=== PATIENT | female | born 1940 | race Asian ===

== ENCOUNTER 2018-04-03 02:47 | Inpatient (IN) | payer MEDICARE, MEDICAID ==
[2018-04-03] MEDS ORDERED: Sodium Chloride 0.9% 1,000 ML IV ONE (03:21)
--- NOTE | 2018-04-03 03:30 | ED Physician Chart ---
ED Chief Complaint/HPI - Patient Information Date Seen:: 04/03/18 Time Seen:: 03:05 Chief Complaint:: ABNORMAL LABS History of Present Illness:: THIS IS AN 78 YR OLD FEMALE SENT FROM THE [facility] FOR AN EVALUATION AND TREATMENT OF ABNORMAL LAB RESULTS. SHE IS CHRONICALLY ILL WITH DIABETES MELLITUS, PARKINSON'S, COLON CA AND RESPIRATORY FAILURE WITH DYSPHASIA. Allergies:: Allergies Allergy/AdvReac Type Severity Reaction Status Date / Time codeine Allergy Verified 04/03/18 03:06 Sulfa (Sulfonamide Allergy Verified 04/03/18 03:06 Antibiotics) Vitals:: Vital Signs - 8 hr 04/03/18 02:55 Temp 98.1 F HR 134 RR 20 BP 101/43 O2 Sat % 98 Historian:: Patient, Medical Records Review:: Nurse's Note Reviewed, Transfer documents Reviewed, Patient unable to respond ED Review of Systems - Review of Systems General/Constitutional: No fever, No chills, No weight loss, No weakness, No diaphoresis, No edema, No loss of appetite, Other (SEMI COMATOSE AND NOT ABLE TO GIVE A REVIEW OF SYSTEMS.) Skin: No skin lesions, No rash, No bruising Head: No headache, No light-headedness Eyes: No loss of vision, No pain, No diplopia ENT: No earache, No nasal drainage, No sore throat, No tinnitus Neck: No neck pain, No swelling, No thyromegaly, No stiffness, No mass noted Cardio Vascular: No chest pain, No palpitations, No PND, No orthopnea, No edema Pulmonary: No SOB, No cough, No sputum, No wheezing GI: No nausea, No vomiting, No diarrhea, No pain, No melena, No hematochezia, No constipation, No hematemesis G/U: No dysuria, No frequency, No hematuria Musculoskeletal: No bone or joint pain, No back pain, No muscle pain Endocrine: No polyuria, No polydipsia Psychiatric: No prior psych history, No depression, No anxiety, No suicidal ideation Hematopoietic: No bruising, No lymphadenopathy Allergic/Immuno: No urticaria, No angioedema Neurological: No syncope, No focal symptoms, No weakness, No paresthesia, No headache, No seizure, No dizziness, No confusion, No vertigo ED Past Medical History - Past Medical History Obtainable: Yes Past Medical History: HTN, DM, CVA/TIA, DVT/PE, ESRD, Dementia, Other (COLON CA , PARKINSONISM, ) Family History: None Social History: Non Smoker, No Alcohol, No Drug Use, Care Facility Surgical History: PEG/GTube, other (COLECTOMY,) Psychiatricy History: Depression Medication: Reviewed Family Medical History - Family Member Mother History Unknown: Yes ED Physical Exam - Physical Examination General/Constitutional: Awake, Well-developed, well-nourished, Alert, No distress, GCS 15, Non-toxic appearing, Ambulatory Other Gen/Cons comments:: THIS PATIENT IS LETHARGIC BUT RESPONSIVE TO VERBAL COMMANDS. THIS PATIENT IS CACHEXTIC. Head: Atraumatic Eyes: Lids, conjuctiva normal, PERRL, EOMI Skin: Nl inspection, No rash, No skin lesions, No ecchymosis, Well hydrated ( DEHYDRATED), No lymphadenopathy ENMT: External ears, nose nl, Nasal exam nl, Lips, teeth, gums nl Neck: Nontender, Full ROM w/o pain, No JVD, No nuchal rigidity, No bruit, No mass, No stridor Respiratory: Nl effort/Exclusion, Clear to Auscultation, No Wheeze/Rhonchi/Rales Cardio Vascular: RRR, No murmur, gallop, rubs, NL S1 S2 GI: No tenderness/rebounding/guarding (THERE IS GENERALIZE TENDERNESS OF THE ABDOMEN WITH MULTIPLE DRAINS NOTED.), No organomegaly, No hernia, Normal BS's, Nondistended, No mass/bruits, No McBurney tenderness : No CVA tenderness Extremities: No tenderness or effusion, Full ROM, normal strength in all extremities (ALL FOUR EXTREMITIES ARE WEAK WITH SEVERE MUSCLE WASTING NOTED.), No edema, Normal digits & nails Neuro/Psych: Alert/oriented, DTR's symmetric, Normal sensory exam, Normal motor strength, Judgement/insight normal (THE PATIENT IS DISORIENTED AND WEAK BUT CAN MOVE ALL FOUR EXTREMITIES.), Mood normal, Normal gait, No focal deficits Misc: Normal back, No paraspinal tenderness Other Misc comments:: STAGE 1-2 IN THE COCCYX AREA NOTED. ED Labs/Radiology/EKG Results - EKG Interpretations EKG Time:: 03:39 Rate & Rhythm: RATE = 133, SINUS TACHYCARDIA [place]: RIGHT AXIS Intervals: NO ECTOPY SEEN ED Assessment - Assessment General Assessment: RENAL FAILURE DEHYDRATION ED Septic Shock - . Is Septic Shock (SBP<90, OR Lactate>4 mmol\L) present?: Yes - <6hrs of presentation: Vital Signs: Vital Signs - 8 hr 04/03/18 02:55 Temp 98.1 F HR 134 RR 20 BP 101/43 O2 Sat % 98 Assessment of Lungs: No Rales Assessment of Heart: RRR EKG Interpretation: NSR, No ST elevation, No ST depression, Tachy Capillary refill evaluation: Capillary refill < 2 secs Skin Exam: Warm - Peripheral pulse evaluation Brachial Peripheral pulse evaluation-quality: +3 (bounding), Symmetrical - Time of Reassessment Time of Reassessment: 05:22 (IMPROVED) ED Reassessment (Disposition) - Reassessment Reassessment Condition:: Improved - Diagnosis Diagnosis:: SEPSIS DEHYDRATION COCCYX ULCER - Patient Disposition Discharge/Transfer:: Acute Care w/in this hosp Admitting Medical Physician:: Virginia Lucas Condition at Disposition:: Improved ED Discharge Plan - Patient Disposition Admit/Discharge/Transfer: Acute Care w/in this hosp Condition at Disposition: Improved
[2018-04-03 04:27] LABS: HEMATOCRIT 36.3 % (41.0-60); HEMOGLOBIN 11.6 gm/dL (12-16); MANUAL DIFF REQUIRED? YES; MEAN CELL VOLUME 81.5 fl (81-100); MEAN CORPUSCULAR HEMOGLOBIN 26.2 pg (27.0-31.0); MEAN CORPUSCULAR HGB CONC 32.1 pg (28.0-36.0); MEAN PLATELET VOLUME 8.3 fl; PLATELET COUNT 324 Th/cmm (150-400); RED BLOOD COUNT 4.45 Mil/cmm (3.80-5.20); RED CELL DISTRIBUTION WIDTH 21.7 % (11.5-20.0)
[2018-04-03 04:33] LABS: WHITE BLOOD COUNT 20.1 Th/cmm (4.8-10.8)
[2018-04-03 04:50] LABS: ALB/GLOB RATIO 0.9 (1.0-1.8); ALBUMIN 3.9 gm/dL (3.7-5.3); ALKALINE PHOSPHATASE 107 U/L (34-104); BILIRUBIN,TOTAL 0.5 mg/dL (0.3-1.0); CALCIUM SERUM 10.8 mg/dL (8.6-10.3); CARBON DIOXIDE 32.1 mEq/L (21.0-31.0); CHLORIDE 91 mEq/L (98-107); CREATININE - SERUM 1.7 mg/dL (0.6-1.2); GLUCOSE 276 mg/dL (70-105); POTASSIUM SERUM 4.1 mEq/L (3.5-5.1); SGOT 19 U/L (13-39); SGPT/ALT 7 U/L (7-52); SODIUM SERUM 139 mEq/L (136-145); TOTAL PROTEIN,SERUM 8.5 gm/dL (6.0-8.3)
[2018-04-03 04:52] LABS: BUN - UREA NITROGEN 130 mg/dL (7-25)
[2018-04-03 04:53] LABS: URINE MICROSCOPIC INDICATED? YES; URINE SOURCE FOLEY PORT
[2018-04-03 04:59] LABS: URINE BILIRUBIN NEGATIVE (NEGATIVE); URINE BLOOD TRACE (NEGATIVE); URINE GLUCOSE (UA) NEGATIVE (NEGATIVE); URINE KETONE NEGATIVE (NEGATIVE); URINE LEUKOCYTE ESTERASE LARGE (NEGATIVE); URINE NITRATE NEGATIVE (NEGATIVE); URINE PROTEIN NEGATIVE (NEGATIVE); URINE UROBILINOGEN 0.2 E.U./dL (0.2 - 1.0)
[2018-04-03 05:00] LABS: BAND NEUTROPHILE 5 % (0-10); LYMPHOCYTE 9 % (20-50); NEUTROPHILS 86 % (40-80); TOTAL CELLS COUNTED 100
[2018-04-03] MEDS ORDERED: Sodium Chloride 0.45% 1,000 ML IV ONE (05:00)
[2018-04-03 05:01] LABS: PLATELET ESTIMATE ADEQUATE (NORMAL)
[2018-04-03 05:02] LABS: URINE CLARITY HAZY (CLEAR); URINE COLOR YELLOW
[2018-04-03 05:03] LABS: URINE RBC 0-2 /hpf (0-5)
[2018-04-03 05:04] LABS: URINE BACTERIA MODERATE /hpf (NONE SEEN); URINE EPITHELIAL CELLS OCCASIONAL /lpf (FEW)
[2018-04-03 05:06] LABS: INR 1.05 (0.5-1.4); PROTHROMBIN TIME (TEST) 10.9 SECONDS (9.5-11.5)
[2018-04-03] MEDS ORDERED: Acetaminophen 500 MG TAB GT ONE (05:07)
[2018-04-03] MEDS ORDERED: D5-0.45NS 1,000 ML IV SCH (06:35)
[2018-04-03] MEDS ORDERED: Pneumococcal Vaccine 0.5 mL Vial IM ONE (08:06)
[2018-04-03] MEDS ORDERED: Morphine Sulfate 2 mg/mL 1mL Syr IVP PRN ×2 (08:43)
[2018-04-03] MEDS: Sodium Chloride 0.45% 1,000 ML IV SCH ×3 (09:45→17:15)
[2018-04-03] MEDS: cefTRIAXone 1 GM in Sodium Chloride 0.9% 50 ML IV SCH (11:00)
[2018-04-03] MEDS: INSULIN ASPART SLIDING SCALE 100 UNITS/ML UNIT SUBQ SCH ×2 (12:27→18:37)
[2018-04-03] MEDS ORDERED: LIDOCAINE 1% IH PRN (13:55)
[2018-04-03] MEDS ORDERED: Diatrizoate Meglumine/Diatri 30 mL Sol PO ONE (13:55)
[2018-04-03] MEDS ORDERED: Fleet Enema 135 mL RC PRN (13:55)
[2018-04-03] MEDS ORDERED: Magnesium Hydroxide (MOM) 30 mL UDC NG PRN (13:55)
[2018-04-03] MEDS ORDERED: Non-Formulary Item 1 EA (Ondansetron Hcl [Zofran*] 4 MG) NG PRN (13:55)
[2018-04-03] MEDS ORDERED: Albumin 25% 25gm/100mL 25 GM/100 ML BTL IV ONE (14:55)
[2018-04-03] MEDS ORDERED: Sodium Chloride 0.9% 500 ML IV ONE (14:56)
[2018-04-03] MEDS: Albumin 25% 25gm/100mL 25 GM/100 ML BTL IV ONE ×2 (15:00→15:25)
[2018-04-03] MEDS ORDERED: Non-Formulary Item 1 EA (Insulin Lispro [Humalog] 1 UNIT) SUBQ SCH (16:30)
[2018-04-03] MEDS ORDERED: INSULIN ASPART, RECOMBINANT 100 UNITS/ML SUBQ SCH (16:30)
[2018-04-03] MEDS ORDERED: METOLAZONE 10 MG NG SCH (17:00)
[2018-04-03] MEDS ORDERED: Metolazone 5 MG TAB NG SCH (17:00)
[2018-04-03] MEDS ORDERED: Non-Formulary Item 1 EA (Protein Supplement [Promod] 30 ML) NG SCH (17:00)
--- NOTE | 2018-04-03 17:06 | Consultation ---
DATE OF CONSULTATION: 04/03/2018 SURGICAL CONSULTATION REFERRING PHYSICIAN: Dr. Lucas. REASON FOR CONSULTATION: Mass and pain, abdomen. Thank you for referring this patient to me. HISTORY OF PRESENT ILLNESS: This is an 78-year-old female who was last admitted at [facility] on 01/11/2018 with sepsis. She has history of colon carcinoma with colon resection. She has a history of segmental resection of the ileum with primary end-to-end anastomosis and had episodes of lower GI bleeding. She was at [facility] and later at [facility] in [place] for the last 3 weeks. Was noted to have pain and mass in the right lower quadrant for which she is admitted. LABORATORY STUDIES: Show WBC at 20,100, hemoglobin of 11.6. Bands 5%, platelet count is normal. Chemistry: BUN is 130 with creatinine of 1.7. Blood sugar 276. PHYSICAL EXAMINATION: Shows a large mass which is tender in the right lower quadrant and scar from recent surgery. PLAN: We will do CT scan of abdomen and pelvis with oral contrast. Possibility of hemodialysis because of the markedly elevated BUN and creatinine is considered. The plan is discussed with the family who understands. JOB# [id number]
--- NOTE | 2018-04-03 17:12 | History & Physical ---
ADMIT DATE: 04/03/2018 HISTORY OF PRESENT ILLNESS: The patient is a resident of [facility]. They called me regarding the labs. The patient had a severe elevation of his BUN and creatinine and the patient had severe dehydration and was complaining of lower abdominal pain. The patient was evaluated in the [place] ER, was found to have some tenderness as well as mass in the lower abdomen. The patient is known to have history of hypertension, diabetes, history of severe dementia, end-stage renal disease, colon cancer, and Parkinson disease. PHYSICAL EXAMINATION: GENERAL: The patient on examination had no fever, no chills. HEAD: Normal. ENT: Normal. LUNGS: Bilateral decreased. CARDIOVASCULAR SYSTEM: S1, S2 heard. ABDOMEN: Soft. Lower abdominal tenderness was noted, mass was noted, possible abscess and the patient had a history of G-tube in the past and his colostomy. DIAGNOSES: Increasing renal failure, sepsis, dehydration, lower abdominal mass, possible sepsis, history of multiple medical problems including hypertension, diabetes, history of CVA, dementia, etc., and also history of colon cancer and I will follow the patient. I will have Dr. Bryce Rojas see the patient. I will also have the surgeon see the patient. JOB# [id number]
[2018-04-03] MEDS ORDERED: Diltiazem 5 mg/mL 5mL Vial IVP PRN (17:53)
[2018-04-03] MEDS ORDERED: Diltiazem 5 mg/mL 5mL Vial IVP ONE (17:54)
[2018-04-03] MEDS: Insulin Detemir 100 units/mL 10mL Vial SUBQ SCH (18:39)
[2018-04-03] MEDS: Albuterol/Ipratropium Neb 3 ML AERS HHN SCH (19:04)
[2018-04-03] MEDS ORDERED: Non-Formulary Item 1 EA (Melatonin/Pyridoxine Hcl (B6) [Melatonin 3 Mg Tablet] 1 EACH) NG SCH (21:00)
[2018-04-03] MEDS: Enoxaparin 60 mg/0.6 mL 0.6mL Syr SUBQ SCH (21:37)
--- NOTE | 2018-04-03 22:40 | Consultation ---
DATE OF CONSULTATION: 04/03/2018 REASON FOR CONSULTATION: Worsening kidney function, electrolyte imbalance and fluid management. HISTORY OF PRESENT ILLNESS: This is an 78-year-old [place] past medical history of chronic kidney disease, who was admitted because of abnormal labs. Two days prior to admission, the patient had labs drawn at the [facility]. This revealed a BUN/creatinine of 82/1. One day prior to admission, another set of labs were done and this showed a BUN/creatinine of 96/1.2. Thus, she was brought to the Emergency Room. Her BUN/creatinine upon arrival at the Emergency Room were 130/1.7 with a sodium of 139, and CO2 of 32.1. Lactic acid was 3.24. Her urinalysis was suggestive of a UTI. She has no history of nausea and vomiting, no diarrhea, but she had recent history of C. diff colitis. PAST MEDICAL HISTORY: 1. Chronic kidney disease. 2. Adeno CA of the colon diagnosed in 2011. 3. Anemia of chronic disease. 4. History of Clostridium difficile colitis recently on vancomycin p.o. 5. Essential hypertension. 6. Parkinson's disease. 7. History of left intraperitoneal/retroperitoneal abscess, retroperitoneal VSE, esperanza abscess. This was managed with vancomycin, cefepime and Flagyl. 8. Type 2 diabetes mellitus. 9. Anasarca. PAST SURGICAL HISTORY: 1. Partial colectomy in 2014. 2. Status post exploratory laparotomy with lysis of adhesions and sigmoid resection with anastomosis on December 2017. 3. Status post insertion of a pigtail catheter for drainage of abdominal abscess. CURRENT MEDICATIONS: She is currently on acetaminophen, bisacodyl, ceftriaxone, chlorhexidine, cholecalciferol, clonidine, diatrizoate, Lovenox, famotidine, furosemide, detemir, ketorolac, lactobacillus, magnesium hydroxide, melatonin, metolazone, pantoprazole, potassium chloride, zinc sulfate. ALLERGIES: CODEINE AND SULFA. SOCIAL AND FAMILY HISTORY: I was not able to obtain directly from the patient because the patient remains stuporous. REVIEW OF SYSTEMS: Again, I was not able to decipher directly from the patient because of the same reason. PHYSICAL EXAMINATION: GENERAL: The patient remains stuporous, but not in any form of distress. VITAL SIGNS: Her blood pressure now is 110/60, pulse of 115, afebrile. SKIN: Poor turgor, warm, no rash, no jaundice appreciated. HEENT: Head normocephalic, atraumatic. Eyes: Unable to assess extraocular muscles. Pupils are equal, round, reactive to light and accommodates. Anicteric sclerae. Pale conjunctivae. Nose, midline nasal septum. Mouth: Dry mucosa. Poor dentition. NECK: Supple, no adenopathy, no thyromegaly, no bruits. Trachea palpated in the midline. CHEST AND CVS: S1, S2 tachycardic, but no rub, murmur nor gallop appreciated. Point of maximal impulse fifth intercostal space, left midclavicular line. No abdominal or femoral bruits appreciated. LUNGS: Equal expansion, no use of accessory muscles. No supraclavicular retractions, few rhonchi, but no rales, no wheezes appreciated. BREASTS: Symmetrical, without any discharge. ABDOMEN: Mildly globular, soft. Diminished bowel sounds. No bruits either diastolic or systolic, well-healed mid epigastric longitudinal scar. RECTAL: Lax sphincter tone. Coccyx stage 2 coccygeal ulcer. MUSCULOSKELETAL: No effusions present in her joints, but not able to assess her range of motion. EXTREMITIES: No evidence of any edema, cyanosis nor clubbing with palpable femoral, but unable to fully appreciate popliteal and dorsalis pedis pulses. NEUROLOGIC: As mentioned, the patient is stuporous, so she was not able to follow my neuro commands and I was not able to pursue further my neuro exam. LABORATORY DATA: Did reveal white count , hemoglobin 11.6, hematocrit 36.3, platelets 324. Sodium 139, potassium 4.1, chloride is 91, bicarbonate is 32, BUN 130, creatinine 1.7, glucose is 276, calcium 10.8. ASSESSMENT AND PLAN: 1. Acute kidney injury on chronic kidney disease. Chronic kidney disease is secondary to diabetic nephropathy with longstanding history of diabetes with some underlying hypertensive nephrosclerosis. Her acute kidney injury is prerenal initially. The patient was on G-tube feeding, but this was not enough to supplement or replace her sensible and insensible fluid losses. She eventually developed dehydration. This was also exacerbated by her intake of furosemide along with metolazone. Her prerenal azotemia eventually progressed to acute tubular injury. She also has overwhelming UTI which may cause an underlying acute interstitial nephritis. 2. Severe dehydration. 3. Sepsis secondary to complicated urinary tract infection but also consider possibility of recurrent Clostridium difficile colitis. 4. Metabolic alkalosis which is contraction in nature. 5. Adeno CA of the colon, status post partial colectomy, status post repeat exploratory laparotomy with lysis of adhesion and sigmoid resection. 6. Left intraperitoneal/retroperitoneal VSE, esperanza abscess, status post placement of pigtail catheter for drainage. 7. Anemia of chronic disease. 8. History of C. diff colitis. 9. Essential hypertension with chronic kidney disease. 10. Type 2 diabetes mellitus with chronic kidney disease. 11. Parkinson's disease. 12. History of anasarca. PLAN: 1. Urine C and S. 2. Urine spot sodium, eosinophils, and creatinine. 3. Follow up cortes culture. 4. Followup CT of the abdomen/pelvis. 5. Agree with IV fluids. 6. Follow up electrolytes. 7. Discontinue furosemide, NSAIDs and metolazone. Thank you Dr. Lucas for this consult. We will follow the patient closely with you. JOB# [id number]
[2018-04-04] MEDS: INSULIN ASPART SLIDING SCALE 100 UNITS/ML UNIT SUBQ SCH ×4 (00:46→18:53)
[2018-04-04] MEDS: Albuterol/Ipratropium Neb 3 ML AERS HHN SCH ×4 (00:48→18:47)
[2018-04-04] MEDS: Sodium Chloride 0.45% 1,000 ML IV SCH ×2 (01:02→06:45)
[2018-04-04 04:50] LABS: HEMATOCRIT 23.5 % (41.0-60); MEAN CELL VOLUME 81.3 fl (81-100); MEAN CORPUSCULAR HEMOGLOBIN 26.9 pg (27.0-31.0); MEAN PLATELET VOLUME 7.7 fl; PLATELET COUNT 229 Th/cmm (150-400); RED BLOOD COUNT 2.89 Mil/cmm (3.80-5.20); RED CELL DISTRIBUTION WIDTH 21.3 % (11.5-20.0); WHITE BLOOD COUNT 11.3 Th/cmm (4.8-10.8)
[2018-04-04 05:00] LABS: ANION GAP 10.1 (7.0-16.0); BUN - UREA NITROGEN 68 mg/dL (7-25); CALCIUM SERUM 8.9 mg/dL (8.6-10.3); CARBON DIOXIDE 30.6 mEq/L (21.0-31.0); CHLORIDE 102 mEq/L (98-107); CHOLESTEROL 88 mg/dL (<200); CREATININE - SERUM 0.7 mg/dL (0.6-1.2); GLUCOSE 122 mg/dL (70-105); HDL -HIGH DENSITY LIPOPROTEIN 24 mg/dL (23-92); PHOSPHOROUS 2.6 mg/dL (2.5-5.0); SODIUM SERUM 140 mEq/L (136-145); TRIGLYCERIDES 221 mg/dL (<150); URIC ACID 10.4 mg/dL (2.3-6.6)
[2018-04-04 05:29] LABS: HEMOGLOBIN 7.8 gm/dL (12-16); MANUAL DIFF REQUIRED? YES
[2018-04-04 05:40] LABS: POTASSIUM SERUM 2.7 mEq/L (3.5-5.1)
[2018-04-04] MEDS ORDERED: Potassium Chloride Elixir 20 mEq /15 mL UDC NG ONE ×3 (05:51→08:00)
[2018-04-04 06:07] LABS: BAND NEUTROPHILE 4 % (0-10); EOSINOPHIL 1 % (0-5); LYMPHOCYTE 10 % (20-50); MONOCYTE 6 % (2-10); NEUTROPHILS 79 % (40-80); TOTAL CELLS COUNTED 100
[2018-04-04 06:08] LABS: ANISOCYTOSIS 1+
[2018-04-04 07:49] LABS: EOSINOPHIL SMEAR SOURCE URINE; EOSINOPHILS SMEAR COUNT NONE SEEN (NONE SEEN)
--- NOTE | 2018-04-04 08:20 | Diagnostic Imaging Report ---
CHEST X-RAY: AP view INDICATION: Sepsis COMPARISON: None FINDINGS: NG tube is seen with tip along the fundal portion of the stomach. Small left effusion versus left basal pleural thickening is noted. Chronic interstitial lung changes are noted. No focal consolidation. Heart size normal. Degenerative changes of the spine are noted. IMPRESSION: Chronic interstitial lung changes are noted with small left effusion versus left basal pleural thickening. No focal consolidation identified. NG tube within the stomach.
--- NOTE | 2018-04-04 08:28 | General Progress Note ---
Subjective - Review of Systems Service Date: 04/04/18 Events since last encounter: Hb down to 7.8, PRBC ordered K low for CT abdomen and pelvis with gastrograffin Objective - Results Result Diagrams: 04/04/18 05:15 04/04/18 04:15 Recent Labs: Laboratory Last Values WBC 11.3 Th/cmm (4.8-10.8) H 04/04/18 05:15 RBC 2.89 Mil/cmm (3.80-5.20) L 04/04/18 05:15 Hgb 7.8 gm/dL (12-16) L* 04/04/18 05:15 Hct 23.5 % (41.0-60) L 04/04/18 05:15 MCV 81.3 fl (81-100) 04/04/18 05:15 MCH 26.9 pg (27.0-31.0) L 04/04/18 05:15 MCHC Differential 33.0 pg (28.0-36.0) 04/04/18 05:15 RDW 21.3 % (11.5-20.0) H 04/04/18 05:15 Plt Count 229 Th/cmm (150-400) 04/04/18 05:15 MPV 7.7 fl 04/04/18 05:15 Band Neutrophils % 4 % (0-10) 04/04/18 05:15 Neutrophils (Manual) 79 % (40-80) 04/04/18 05:15 Lymphocytes 10 % (20-50) L 04/04/18 05:15 Monocytes 6 % (2-10) 04/04/18 05:15 Eosinophils 1 % (0-5) 04/04/18 05:15 Platelet Estimate ADEQUATE (NORMAL) 04/03/18 04:15 Anisocytosis 1+ 04/04/18 05:15 Eos Smear Source URINE 04/04/18 04:12 Eos Smear Total Cells NONE SEEN (NONE SEEN) 04/04/18 04:12 PT 10.9 SECONDS (9.5-11.5) 04/03/18 04:40 INR 1.05 (0.5-1.4) 04/03/18 04:40 PTT (Actin FS) 28.9 SECONDS (26.0-38.0) 04/03/18 04:40 Sodium 140 mEq/L (136-145) 04/04/18 04:15 Potassium 2.7 mEq/L (3.5-5.1) L* D 04/04/18 04:15 Chloride 102 mEq/L (98-107) 04/04/18 04:15 Carbon Dioxide 30.6 mEq/L (21.0-31.0) 04/04/18 04:15 Anion Gap 10.1 (7.0-16.0) 04/04/18 04:15 BUN 68 mg/dL (7-25) H 04/04/18 04:15 Creatinine 0.7 mg/dL (0.6-1.2) 04/04/18 04:15 Est GFR ( Amer) TNP 04/04/18 04:15 Est GFR (Non-Af Amer) TNP 04/04/18 04:15 BUN/Creatinine Ratio 97.1 04/04/18 04:15 Glucose 122 mg/dL (70-105) H 04/04/18 04:15 POC Glucose 91 MG/DL (70 - 105) 04/04/18 00:41 Whole Bld Lactic Acid 1.46 mmol/L (0.60-1.99) 04/04/18 04:15 Uric Acid 10.4 mg/dL (2.3-6.6) H 04/04/18 04:15 Calcium 8.9 mg/dL (8.6-10.3) 04/04/18 04:15 Phosphorus 2.6 mg/dL (2.5-5.0) 04/04/18 04:15 Magnesium 2.0 mg/dL (1.9-2.7) 04/04/18 04:15 Total Bilirubin 0.5 mg/dL (0.3-1.0) 04/03/18 03:25 AST 19 U/L (13-39) 04/03/18 03:25 ALT 7 U/L (7-52) 04/03/18 03:25 Alkaline Phosphatase 107 U/L (34-104) H 04/03/18 03:25 Troponin I 0.03 ng/mL (0.01-0.05) 04/03/18 04:15 Total Protein 8.5 gm/dL (6.0-8.3) H 04/03/18 03:25 Albumin 3.9 gm/dL (3.7-5.3) 04/03/18 03:25 Globulin 4.6 gm/dL 04/03/18 03:25 Albumin/Globulin Ratio 0.9 (1.0-1.8) L 04/03/18 03:25 Triglycerides 221 mg/dL (<150) H 04/04/18 04:15 Cholesterol 88 mg/dL (<200) 04/04/18 04:15 LDL Cholesterol Direct 43 mg/dL (75-193) L 04/04/18 04:15 HDL Cholesterol 24 mg/dL (23-92) 04/04/18 04:15 TSH 0.84 uIU/ml (0.34-5.60) 04/03/18 04:40 Urine Source [place] 04/03/18 03:26 Urine Color YELLOW 04/03/18 03:26 Urine Clarity HAZY (CLEAR) 04/03/18 03:26 Urine pH 6.0 (4.6 - 8.0) 04/03/18 03:26 Ur Specific Bruin 1.010 (1.005-1.030) 04/03/18 03:26 Urine Protein NEGATIVE mg/dL (NEGATIVE) 04/03/18 03:26 Urine Glucose (UA) NEGATIVE mg/dL (NEGATIVE) 04/03/18 03:26 Urine Ketones NEGATIVE mg/dL (NEGATIVE) 04/03/18 03:26 Urine Blood TRACE (NEGATIVE) 04/03/18 03:26 Urine Nitrate NEGATIVE (NEGATIVE) 04/03/18 03:26 Urine Bilirubin NEGATIVE (NEGATIVE) 04/03/18 03:26 Urine Urobilinogen 0.2 E.U./dL (0.2 - 1.0) 04/03/18 03:26 Ur Leukocyte Esterase LARGE (NEGATIVE) H 04/03/18 03:26 Urine RBC 0-2 /hpf (0-5) 04/03/18 03:26 Urine WBC 10-25 /hpf (0-5) H 04/03/18 03:26 Ur Epithelial Cells OCCASIONAL /lpf (FEW) 04/03/18 03:26 Urine Bacteria MODERATE /hpf (NONE SEEN) H 04/03/18 03:26 Ur Random Sodium 28 mmol/L 04/04/18 04:12 Urine Creatinine 34.0 mg/dl (28.0-217.0) 04/04/18 04:12 Stool Occult Blood POSITIVE (NEGATIVE) H 04/04/18 06:15 Blood Type B POSITIVE 04/04/18 05:45 Antibody Screen NEGATIVE 04/04/18 05:45 Crossmatch See Detail 04/04/18 05:45 - Physical Exam Vitals and I&O: Vital Signs Temp 97.7 F 04/04/18 04:00 Pulse 99 04/04/18 07:27 Resp 15 04/04/18 07:27 BP 91/53 04/04/18 07:00 Pulse Ox 100 04/04/18 07:27 Intake & Output 04/03/18 04/04/18 04/04/18 18:59 06:59 18:59 Intake Total 1958.333 857.5 Output Total 1050 Balance 1958.333 -192.5 Weight (lbs) 54.431 kg Intake: Intake, IV Amount 8.333 857.5 Albumin 25% 25gm/100mL 25 20.833 gm In 100 ml @ 50 mls/hr IV X1 ONE Rx#:[id number] Sodium Chloride 0.45% 1, 937.5 000 ml @ 125 mls/hr IV . Q8H [facility] Rx#:[id number] Sodium Chloride 0.45% 1, 1000 857.5 000 ml @ 150 mls/hr IV . Q6H40M [facility] Rx#:[id number] Output: Urine 1050 Other: # Bowel Movements 3 Stool Characteristics Soft Liquid Brown Brown Weight Source Bedscale Active Medications: Current Medications Acetaminophen (Tylenol) 650 mg PO Q4HR PRN PRN Reason: Pain or Fever >101 Stop: 06/02/18 13:54 Last Admin: 04/04/18 03:14 Dose: 650 mg Albuterol/Ipratropium (Duoneb Neb) 3 ml HHN Q6HRT [facility] Stop: 06/02/18 18:59 Last Admin: 04/04/18 07:27 Dose: 3 ml Ascorbic Acid (Vitamin C) 500 mg NG DAILY [facility] Stop: 06/03/18 08:59 Bisacodyl (Dulcolax 10 Mg Supp) 10 mg RC DAILY PRN PRN Reason: Constipation Stop: 06/02/18 13:54 Chlorhexidine Gluconate (Peridex) 5 ml MM DAILY [facility] Stop: 06/03/18 08:59 Cholecalciferol (Vitamin D3) 5,000 iu NG DAILY [facility] Stop: 06/03/18 08:59 Diltiazem HCl (Cardizem) 5 mg IVP Q6HR PRN PRN Reason: HR > 120 Stop: 06/02/18 17:52 Last Admin: 04/03/18 19:05 Dose: 5 mg Enoxaparin Sodium (Lovenox) 60 mg SUBQ DAILY [facility] Stop: 06/02/18 20:59 Last Admin: 04/03/18 21:37 Dose: 60 mg Famotidine (Pepcid) 20 mg NG BID [facility] Stop: 06/02/18 16:59 Last Admin: 04/03/18 17:11 Dose: 20 mg Ceftriaxone Sodium 1 gm/ (Sodium Chloride) 50 mls @ 100 mls/hr IV Q24HR [facility] Stop: 06/02/18 10:44 Last Admin: 04/03/18 11:00 Dose: 100 mls/hr Sodium Chloride (Nacl 0.45%) 1,000 mls @ 150 mls/hr IV .Q6H40M [facility] Stop: 06/02/18 10:59 Last Admin: 04/04/18 06:45 Dose: 150 mls/hr Norepinephrine Bitartrate 4 mg (/ Dextrose) 254 mls @ 0 mls/hr IV TITR PRN; Protocol PRN Reason: BP MAINTENANCE (PER PROTOCOL) Stop: 06/02/18 14:56 Insulin Aspart (Novolog Insulin Sliding Scale) 0 units SUBQ Q6HR [facility]; Protocol Stop: 06/02/18 11:59 Last Admin: 04/04/18 06:44 Dose: Not Given Insulin Detemir (Levemir Insulin) 30 units SUBQ BID [facility]; Protocol Stop: 06/02/18 16:59 Last Admin: 04/03/18 18:39 Dose: 30 units Lactobacillus Rhamnosus (Culturelle 15b) 1 each PO DAILY [facility] Stop: 06/03/18 08:59 Magnesium Hydroxide (Milk Of Magnesia) 30 ml NG DAILY PRN PRN Reason: Constipation Stop: 06/02/18 13:54 Metoprolol Tartrate (Lopressor) 25 mg NG BID [facility] Stop: 06/02/18 16:59 Last Admin: 04/03/18 17:13 Dose: Not Given Ondansetron HCl (Zofran) 4 mg IVP Q6HR PRN PRN Reason: Nausea / Vomiting Stop: 06/02/18 14:33 Pantoprazole Sodium (Protonix) 40 mg NG DAILY [facility] Stop: 06/03/18 08:59 Zinc Sulfate (Zinc Sulfate) 220 mg NG DAILY [facility] Stop: 06/03/18 08:59
[2018-04-04] MEDS: Multivitamin w/ Minerals Tab PO SCH (09:00)
[2018-04-04] MEDS ORDERED: Non-Formulary Item 1 EA (Zinc Sulfate [Zinc Sulfate] 220 MG) NG SCH (09:00)
[2018-04-04] MEDS ORDERED: Potassium Chloride Elixir 20 mEq /15 mL UDC NG SCH (09:00)
[2018-04-04] MEDS: Lactobacillus Rhamnosus GG 15 Billion CFU CAP.SPRINK PO SCH (09:00)
[2018-04-04] MEDS ORDERED: Non-Formulary Item 1 EA (Cholecalciferol (Vitamin D3) [Vitamin D3] 5,000 UNIT) NG SCH (09:00)
[2018-04-04] MEDS: Insulin Detemir 100 units/mL 10mL Vial SUBQ SCH ×2 (09:00→17:27)
[2018-04-04] MEDS ORDERED: Non-Formulary Item 1 EA (Lactobacillus Acidophilus [Acidophilus] 1 EACH) NG SCH (09:00)
[2018-04-04] MEDS ORDERED: Chlorhexidine Gluconate 0.12% 15mL Mouthwash MM SCH (09:00)
[2018-04-04] MEDS ORDERED: Non-Formulary Item 1 EA (Arginine/Ascorbate Sod/Vite Ac [Arginaid Powder] 1 EACH) PO SCH (09:00)
[2018-04-04] MEDS ORDERED: Chlorhexidine Gluconate 0.12% 480mL Bottle MM SCH (09:00)
[2018-04-04] MEDS: Pantoprazole 40 mg/Packet NG SCH (09:02)
[2018-04-04] MEDS: Enoxaparin 60 mg/0.6 mL 0.6mL Syr SUBQ SCH (09:08)
[2018-04-04] MEDS: cefTRIAXone 1 GM in Sodium Chloride 0.9% 50 ML IV SCH (10:23)
[2018-04-04] MEDS ORDERED: NYSTATIN 100000 UNITS/GM POWD TP PRN (13:39)
[2018-04-04] MEDS ORDERED: Diatrizoate Meglumine/Diatri 30 mL Sol PO ONE (13:55)
--- NOTE | 2018-04-04 14:25 | General Progress Note ---
Subjective - Review of Systems Service Date: 04/04/18 Subjective: awake, interacting Objective - Results Result Diagrams: 04/04/18 05:15 04/04/18 04:15 Recent Labs: Laboratory Last Values WBC 11.3 Th/cmm (4.8-10.8) H 04/04/18 05:15 RBC 2.89 Mil/cmm (3.80-5.20) L 04/04/18 05:15 Hgb 7.8 gm/dL (12-16) L* 04/04/18 05:15 Hct 23.5 % (41.0-60) L 04/04/18 05:15 MCV 81.3 fl (81-100) 04/04/18 05:15 MCH 26.9 pg (27.0-31.0) L 04/04/18 05:15 MCHC Differential 33.0 pg (28.0-36.0) 04/04/18 05:15 RDW 21.3 % (11.5-20.0) H 04/04/18 05:15 Plt Count 229 Th/cmm (150-400) 04/04/18 05:15 MPV 7.7 fl 04/04/18 05:15 Band Neutrophils % 4 % (0-10) 04/04/18 05:15 Neutrophils (Manual) 79 % (40-80) 04/04/18 05:15 Lymphocytes 10 % (20-50) L 04/04/18 05:15 Monocytes 6 % (2-10) 04/04/18 05:15 Eosinophils 1 % (0-5) 04/04/18 05:15 Platelet Estimate ADEQUATE (NORMAL) 04/03/18 04:15 Anisocytosis 1+ 04/04/18 05:15 Eos Smear Source URINE 04/04/18 04:12 Eos Smear Total Cells NONE SEEN (NONE SEEN) 04/04/18 04:12 PT 10.9 SECONDS (9.5-11.5) 04/03/18 04:40 INR 1.05 (0.5-1.4) 04/03/18 04:40 PTT (Actin FS) 28.9 SECONDS (26.0-38.0) 04/03/18 04:40 Sodium 140 mEq/L (136-145) 04/04/18 04:15 Potassium 2.7 mEq/L (3.5-5.1) L* D 04/04/18 04:15 Chloride 102 mEq/L (98-107) 04/04/18 04:15 Carbon Dioxide 30.6 mEq/L (21.0-31.0) 04/04/18 04:15 Anion Gap 10.1 (7.0-16.0) 04/04/18 04:15 BUN 68 mg/dL (7-25) H 04/04/18 04:15 Creatinine 0.7 mg/dL (0.6-1.2) 04/04/18 04:15 Est GFR ( Amer) TNP 04/04/18 04:15 Est GFR (Non-Af Amer) TNP 04/04/18 04:15 BUN/Creatinine Ratio 97.1 04/04/18 04:15 Glucose 122 mg/dL (70-105) H 04/04/18 04:15 POC Glucose 117 MG/DL (70 - 105) H 04/04/18 12:18 Whole Bld Lactic Acid 1.46 mmol/L (0.60-1.99) 04/04/18 04:15 Uric Acid 10.4 mg/dL (2.3-6.6) H 04/04/18 04:15 Calcium 8.9 mg/dL (8.6-10.3) 04/04/18 04:15 Phosphorus 2.6 mg/dL (2.5-5.0) 04/04/18 04:15 Magnesium 2.0 mg/dL (1.9-2.7) 04/04/18 04:15 Total Bilirubin 0.5 mg/dL (0.3-1.0) 04/03/18 03:25 AST 19 U/L (13-39) 04/03/18 03:25 ALT 7 U/L (7-52) 04/03/18 03:25 Alkaline Phosphatase 107 U/L (34-104) H 04/03/18 03:25 Troponin I 0.03 ng/mL (0.01-0.05) 04/03/18 04:15 Total Protein 8.5 gm/dL (6.0-8.3) H 04/03/18 03:25 Albumin 3.9 gm/dL (3.7-5.3) 04/03/18 03:25 Globulin 4.6 gm/dL 04/03/18 03:25 Albumin/Globulin Ratio 0.9 (1.0-1.8) L 04/03/18 03:25 Triglycerides 221 mg/dL (<150) H 04/04/18 04:15 Cholesterol 88 mg/dL (<200) 04/04/18 04:15 LDL Cholesterol Direct 43 mg/dL (75-193) L 04/04/18 04:15 HDL Cholesterol 24 mg/dL (23-92) 04/04/18 04:15 TSH 0.84 uIU/ml (0.34-5.60) 04/03/18 04:40 Urine Source [place] 04/03/18 03:26 Urine Color YELLOW 04/03/18 03:26 Urine Clarity HAZY (CLEAR) 04/03/18 03:26 Urine pH 6.0 (4.6 - 8.0) 04/03/18 03:26 Ur Specific [place] 1.010 (1.005-1.030) 04/03/18 03:26 Urine Protein NEGATIVE mg/dL (NEGATIVE) 04/03/18 03:26 Urine Glucose (UA) NEGATIVE mg/dL (NEGATIVE) 04/03/18 03:26 Urine Ketones NEGATIVE mg/dL (NEGATIVE) 04/03/18 03:26 Urine Blood TRACE (NEGATIVE) 04/03/18 03:26 Urine Nitrate NEGATIVE (NEGATIVE) 04/03/18 03:26 Urine Bilirubin NEGATIVE (NEGATIVE) 04/03/18 03:26 Urine Urobilinogen 0.2 E.U./dL (0.2 - 1.0) 04/03/18 03:26 Ur Leukocyte Esterase LARGE (NEGATIVE) H 04/03/18 03:26 Urine RBC 0-2 /hpf (0-5) 04/03/18 03:26 Urine WBC 10-25 /hpf (0-5) H 04/03/18 03:26 Ur Epithelial Cells OCCASIONAL /lpf (FEW) 04/03/18 03:26 Urine Bacteria MODERATE /hpf (NONE SEEN) H 04/03/18 03:26 Ur Random Sodium 28 mmol/L 04/04/18 04:12 Urine Creatinine 34.0 mg/dl (28.0-217.0) 04/04/18 04:12 Stool Occult Blood POSITIVE (NEGATIVE) H 04/04/18 06:15 Blood Type B POSITIVE 04/04/18 05:45 Antibody Screen NEGATIVE 04/04/18 05:45 Crossmatch See Detail 04/04/18 05:45 - Physical Exam Vitals and I&O: Vital Signs Temp 97.7 F 04/04/18 12:00 Pulse 95 04/04/18 13:00 Resp 15 04/04/18 13:00 BP 127/68 04/04/18 13:00 Pulse Ox 100 04/04/18 13:00 Intake & Output 04/03/18 04/04/18 04/04/18 18:59 06:59 18:59 Intake Total 2007.333 857.5 Output Total 1050 Balance 2007.333 -192.5 Weight (lbs) 54.431 kg Intake: Intake, IV Amount 2007.333 857.5 Albumin 25% 25gm/100mL 25 20.833 gm In 100 ml @ 50 mls/hr IV [facility]1 [facility] Rx#:[id number] Sodium Chloride 0.45% 1, 937.5 000 ml @ 125 mls/hr IV . Q8H [facility] Rx#:[id number] Sodium Chloride 0.45% 1, 1000 857.5 000 ml @ 150 mls/hr IV . Q6H40M [facility] Rx#:[id number] cefTRIAXone 1 gm In 50 Sodium Chloride 0.9% 50 ml @ 100 mls/hr IV Q24HR [facility] Rx#:[id number] Output: Urine 1050 Other: # Bowel Movements 3 Stool Characteristics Soft Liquid Brown Brown Weight Source Bedscale Active Medications: Current Medications Acetaminophen (Tylenol) 650 mg PO Q4HR PRN PRN Reason: Pain or Fever >101 Stop: 06/02/18 13:54 Last Admin: 04/04/18 03:14 Dose: 650 mg Albuterol/Ipratropium (Duoneb Neb) 3 ml HHN Q6HRT [facility] Stop: 06/02/18 18:59 Last Admin: 04/04/18 12:02 Dose: 3 ml Ascorbic Acid (Vitamin C) 500 mg NG DAILY [facility] Stop: 06/03/18 08:59 Last Admin: 04/04/18 08:59 Dose: Not Given Bisacodyl (Dulcolax 10 Mg Supp) 10 mg RC DAILY PRN PRN Reason: Constipation Stop: 06/02/18 13:54 [place] Oil/[place] Balsam/Trypsin (Venelex) 1 appl TP DAILY [facility] Stop: 06/03/18 13:14 Chlorhexidine Gluconate (Peridex) 5 ml MM DAILY [facility] Stop: 06/03/18 08:59 Last Admin: 04/04/18 10:17 Dose: Not Given Cholecalciferol (Vitamin D3) 5,000 iu NG DAILY [facility] Stop: 06/03/18 08:59 Last Admin: 04/04/18 09:00 Dose: Not Given Diltiazem HCl (Cardizem) 5 mg IVP Q6HR PRN PRN Reason: HR > 120 Stop: 06/02/18 17:52 Last Admin: 04/03/18 19:05 Dose: 5 mg Enoxaparin Sodium (Lovenox) 60 mg SUBQ DAILY [facility] Stop: 06/02/18 20:59 Last Admin: 04/04/18 09:08 Dose: 60 mg Famotidine (Pepcid) 20 mg NG BID [facility] Stop: 06/02/18 16:59 Last Admin: 04/04/18 09:00 Dose: Not Given Ceftriaxone Sodium 1 gm/ (Sodium Chloride) 50 mls @ 100 mls/hr IV Q24HR [facility] Stop: 06/02/18 10:44 Last Admin: 04/04/18 10:23 Dose: 100 mls/hr Norepinephrine Bitartrate 4 mg (/ Dextrose) 254 mls @ 0 mls/hr IV TITR PRN; Protocol PRN Reason: BP MAINTENANCE (PER PROTOCOL) Stop: 06/02/18 14:56 Vancomycin HCl 1.25 gm/ Sodium (Chloride) 250 mls @ 165 mls/hr IV Q24H [facility] Stop: 06/03/18 12:59 Potassium Chloride/Sodium Chloride (0.45% Ns W/20 Meq Kcl) 1,000 mls @ 75 mls/ hr IV .[id number] [facility] Stop: 06/03/18 14:14 Insulin Aspart (Novolog Insulin Sliding Scale) 0 units SUBQ Q6HR [facility]; Protocol Stop: 06/02/18 11:59 Last Admin: 04/04/18 13:31 Dose: Not Given Insulin Detemir (Levemir Insulin) 30 units SUBQ BID [facility]; Protocol Stop: 06/02/18 16:59 Last Admin: 04/04/18 09:00 Dose: Not Given Ketorolac Tromethamine (Toradol) 30 mg IVP Q6H PRN PRN Reason: Abdominal Pain Stop: 06/03/18 11:05 Lactobacillus Rhamnosus (Culturelle 15b) 1 each PO DAILY [facility] Stop: 06/03/18 08:59 Last Admin: 04/04/18 09:00 Dose: Not Given Magnesium Hydroxide (Milk Of Magnesia) 30 ml NG DAILY PRN PRN Reason: Constipation Stop: 06/02/18 13:54 Metoprolol Tartrate (Lopressor) 25 mg NG BID [facility] Stop: 06/02/18 16:59 Last Admin: 04/04/18 09:00 Dose: Not Given Metronidazole (Flagyl) 500 mg PO TID [facility] Stop: 04/11/18 13:59 Miscellaneous (Vancomycin Iv Per Pharmacy) 1 ea MC PRN [facility] Stop: 06/03/18 12:14 Nystatin (Nystop) 0 units TP BID [facility] Stop: 06/03/18 16:59 Nystatin (Nystop) 0 units TP BID PRN PRN Reason: PERIANAL & INGUINAL AREAS Stop: 06/03/18 13:38 Ondansetron HCl (Zofran) 4 mg IVP Q6HR PRN PRN Reason: Nausea / Vomiting Stop: 06/02/18 14:33 Pantoprazole Sodium (Protonix) 40 mg NG DAILY [facility] Stop: 06/03/18 08:59 Last Admin: 04/04/18 09:02 Dose: Not Given Zinc Sulfate (Zinc Sulfate) 220 mg NG DAILY [facility] Stop: 06/03/18 08:59 Last Admin: 04/04/18 09:03 Dose: Not Given General: Alert, Oriented x3, No acute distress HEENT: Atraumatic, Mucous membr. moist/pink Neck: Supple, +2 carotid pulse wo bruit Cardiovascular: Regular rate, Normal S1, Normal S2 Lungs: Clear to auscultation Abdomen: Bowel sounds, Soft Extremities: no Edema Neurological: Sensation intact Skin: no Rash Psych/Mental Status: Mood NL Assessment/Plan - Assessment Assessment: KATHERINE on CKD Severe Dehydration Sepsis 2/2 Cx UTI, C. diff Colitis Anemia acute GI bleed on CD Ess Htn T2DM AdenoCA S/P Partial Colectomy Intra/Retroperitoneal Abscess S/P drain - Plan Plan: Lab - Result Diagrams 04/04/18 05:15 04/04/18 04:15 Current Medications Acetaminophen (Tylenol) 650 mg PO Q4HR PRN PRN Reason: Pain or Fever >101 Stop: 06/02/18 13:54 Last Admin: 04/04/18 03:14 Dose: 650 mg Albuterol/Ipratropium (Duoneb Neb) 3 ml HHN Q6HRT [facility] Stop: 06/02/18 18:59 Last Admin: 04/04/18 12:02 Dose: 3 ml Ascorbic Acid (Vitamin C) 500 mg NG DAILY [facility] Stop: 06/03/18 08:59 Last Admin: 04/04/18 08:59 Dose: Not Given Bisacodyl (Dulcolax 10 Mg Supp) 10 mg RC DAILY PRN PRN Reason: Constipation Stop: 06/02/18 13:54 [place] Oil/[place] Balsam/Trypsin (Venelex) 1 appl TP DAILY [facility] Stop: 06/03/18 13:14 Chlorhexidine Gluconate (Peridex) 5 ml MM DAILY [facility] Stop: 06/03/18 08:59 Last Admin: 04/04/18 10:17 Dose: Not Given Cholecalciferol (Vitamin D3) 5,000 iu NG DAILY [facility] Stop: 06/03/18 08:59 Last Admin: 04/04/18 09:00 Dose: Not Given Diltiazem HCl (Cardizem) 5 mg IVP Q6HR PRN PRN Reason: HR > 120 Stop: 06/02/18 17:52 Last Admin: 04/03/18 19:05 Dose: 5 mg Enoxaparin Sodium (Lovenox) 60 mg SUBQ DAILY [facility] Stop: 06/02/18 20:59 Last Admin: 04/04/18 09:08 Dose: 60 mg Famotidine (Pepcid) 20 mg NG BID [facility] Stop: 06/02/18 16:59 Last Admin: 04/04/18 09:00 Dose: Not Given Ceftriaxone Sodium 1 gm/ (Sodium Chloride) 50 mls @ 100 mls/hr IV Q24HR [facility] Stop: 06/02/18 10:44 Last Admin: 04/04/18 10:23 Dose: 100 mls/hr Norepinephrine Bitartrate 4 mg (/ Dextrose) 254 mls @ 0 mls/hr IV TITR PRN; Protocol PRN Reason: BP MAINTENANCE (PER PROTOCOL) Stop: 06/02/18 14:56 Vancomycin HCl 1.25 gm/ Sodium (Chloride) 250 mls @ 165 mls/hr IV Q24H [facility] Stop: 06/03/18 12:59 Potassium Chloride/Sodium Chloride (0.45% Ns W/20 Meq Kcl) 1,000 mls @ 75 mls/ hr IV .[id number] [facility] Stop: 06/03/18 14:14 Insulin Aspart (Novolog Insulin Sliding Scale) 0 units SUBQ Q6HR [facility]; Protocol Stop: 06/02/18 11:59 Last Admin: 04/04/18 13:31 Dose: Not Given Insulin Detemir (Levemir Insulin) 30 units SUBQ BID [facility]; Protocol Stop: 06/02/18 16:59 Last Admin: 04/04/18 09:00 Dose: Not Given Ketorolac Tromethamine (Toradol) 30 mg IVP Q6H PRN PRN Reason: Abdominal Pain Stop: 06/03/18 11:05 Lactobacillus Rhamnosus (Culturelle 15b) 1 each PO DAILY [facility] Stop: 06/03/18 08:59 Last Admin: 04/04/18 09:00 Dose: Not Given Magnesium Hydroxide (Milk Of Magnesia) 30 ml NG DAILY PRN PRN Reason: Constipation Stop: 06/02/18 13:54 Metoprolol Tartrate (Lopressor) 25 mg NG BID [facility] Stop: 06/02/18 16:59 Last Admin: 04/04/18 09:00 Dose: Not Given Metronidazole (Flagyl) 500 mg PO TID [facility] Stop: 04/11/18 13:59 Miscellaneous (Vancomycin Iv Per Pharmacy) 1 ea MC PRN [facility] Stop: 06/03/18 12:14 Nystatin (Nystop) 0 units TP BID [facility] Stop: 06/03/18 16:59 Nystatin (Nystop) 0 units TP BID PRN PRN Reason: PERIANAL & INGUINAL AREAS Stop: 06/03/18 13:38 Ondansetron HCl (Zofran) 4 mg IVP Q6HR PRN PRN Reason: Nausea / Vomiting Stop: 06/02/18 14:33 Pantoprazole Sodium (Protonix) 40 mg NG DAILY [facility] Stop: 06/03/18 08:59 Last Admin: 04/04/18 09:02 Dose: Not Given Zinc Sulfate (Zinc Sulfate) 220 mg NG DAILY [facility] Stop: 06/03/18 08:59 Last Admin: 04/04/18 09:03 Dose: Not Given Lab - Result Diagrams 04/04/18 05:15 04/04/18 04:15 Kidney fnc better w/ BUN/CR 68/0.7 Hgb/Hct down to 7.8/23.5 Transfuse 2 U PRBC Replace K, continue IVF
--- NOTE | 2018-04-04 16:24 | General Progress Note ---
Subjective - Review of Systems Events since last encounter: in no distress Objective - Results Result Diagrams: 04/04/18 05:15 04/04/18 04:15 Recent Labs: Laboratory Last Values WBC 11.3 Th/cmm (4.8-10.8) H 04/04/18 05:15 RBC 2.89 Mil/cmm (3.80-5.20) L 04/04/18 05:15 Hgb 7.8 gm/dL (12-16) L* 04/04/18 05:15 Hct 23.5 % (41.0-60) L 04/04/18 05:15 MCV 81.3 fl (81-100) 04/04/18 05:15 MCH 26.9 pg (27.0-31.0) L 04/04/18 05:15 MCHC Differential 33.0 pg (28.0-36.0) 04/04/18 05:15 RDW 21.3 % (11.5-20.0) H 04/04/18 05:15 Plt Count 229 Th/cmm (150-400) 04/04/18 05:15 MPV 7.7 fl 04/04/18 05:15 Band Neutrophils % 4 % (0-10) 04/04/18 05:15 Neutrophils (Manual) 79 % (40-80) 04/04/18 05:15 Lymphocytes 10 % (20-50) L 04/04/18 05:15 Monocytes 6 % (2-10) 04/04/18 05:15 Eosinophils 1 % (0-5) 04/04/18 05:15 Platelet Estimate ADEQUATE (NORMAL) 04/03/18 04:15 Anisocytosis 1+ 04/04/18 05:15 Eos Smear Source URINE 04/04/18 04:12 Eos Smear Total Cells NONE SEEN (NONE SEEN) 04/04/18 04:12 PT 10.9 SECONDS (9.5-11.5) 04/03/18 04:40 INR 1.05 (0.5-1.4) 04/03/18 04:40 PTT (Actin FS) 28.9 SECONDS (26.0-38.0) 04/03/18 04:40 Sodium 140 mEq/L (136-145) 04/04/18 04:15 Potassium 2.7 mEq/L (3.5-5.1) L* D 04/04/18 04:15 Chloride 102 mEq/L (98-107) 04/04/18 04:15 Carbon Dioxide 30.6 mEq/L (21.0-31.0) 04/04/18 04:15 Anion Gap 10.1 (7.0-16.0) 04/04/18 04:15 BUN 68 mg/dL (7-25) H 04/04/18 04:15 Creatinine 0.7 mg/dL (0.6-1.2) 04/04/18 04:15 Est GFR ( Amer) TNP 04/04/18 04:15 Est GFR (Non-Af Amer) TNP 04/04/18 04:15 BUN/Creatinine Ratio 97.1 04/04/18 04:15 Glucose 122 mg/dL (70-105) H 04/04/18 04:15 POC Glucose 117 MG/DL (70 - 105) H 04/04/18 12:18 Whole Bld Lactic Acid 1.46 mmol/L (0.60-1.99) 04/04/18 04:15 Uric Acid 10.4 mg/dL (2.3-6.6) H 04/04/18 04:15 Calcium 8.9 mg/dL (8.6-10.3) 04/04/18 04:15 Phosphorus 2.6 mg/dL (2.5-5.0) 04/04/18 04:15 Magnesium 2.0 mg/dL (1.9-2.7) 04/04/18 04:15 Total Bilirubin 0.5 mg/dL (0.3-1.0) 04/03/18 03:25 AST 19 U/L (13-39) 04/03/18 03:25 ALT 7 U/L (7-52) 04/03/18 03:25 Alkaline Phosphatase 107 U/L (34-104) H 04/03/18 03:25 Troponin I 0.03 ng/mL (0.01-0.05) 04/03/18 04:15 Total Protein 8.5 gm/dL (6.0-8.3) H 04/03/18 03:25 Albumin 3.9 gm/dL (3.7-5.3) 04/03/18 03:25 Globulin 4.6 gm/dL 04/03/18 03:25 Albumin/Globulin Ratio 0.9 (1.0-1.8) L 04/03/18 03:25 Triglycerides 221 mg/dL (<150) H 04/04/18 04:15 Cholesterol 88 mg/dL (<200) 04/04/18 04:15 LDL Cholesterol Direct 43 mg/dL (75-193) L 04/04/18 04:15 HDL Cholesterol 24 mg/dL (23-92) 04/04/18 04:15 TSH 0.84 uIU/ml (0.34-5.60) 04/03/18 04:40 Urine Source [place] 04/03/18 03:26 Urine Color YELLOW 04/03/18 03:26 Urine Clarity HAZY (CLEAR) 04/03/18 03:26 Urine pH 6.0 (4.6 - 8.0) 04/03/18 03:26 Ur Specific [place] 1.010 (1.005-1.030) 04/03/18 03:26 Urine Protein NEGATIVE mg/dL (NEGATIVE) 04/03/18 03:26 Urine Glucose (UA) NEGATIVE mg/dL (NEGATIVE) 04/03/18 03:26 Urine Ketones NEGATIVE mg/dL (NEGATIVE) 04/03/18 03:26 Urine Blood TRACE (NEGATIVE) 04/03/18 03:26 Urine Nitrate NEGATIVE (NEGATIVE) 04/03/18 03:26 Urine Bilirubin NEGATIVE (NEGATIVE) 04/03/18 03:26 Urine Urobilinogen 0.2 E.U./dL (0.2 - 1.0) 04/03/18 03:26 Ur Leukocyte Esterase LARGE (NEGATIVE) H 04/03/18 03:26 Urine RBC 0-2 /hpf (0-5) 04/03/18 03:26 Urine WBC 10-25 /hpf (0-5) H 04/03/18 03:26 Ur Epithelial Cells OCCASIONAL /lpf (FEW) 04/03/18 03:26 Urine Bacteria MODERATE /hpf (NONE SEEN) H 04/03/18 03:26 Ur Random Sodium 28 mmol/L 04/04/18 04:12 Urine Creatinine 34.0 mg/dl (28.0-217.0) 04/04/18 04:12 Stool Occult Blood POSITIVE (NEGATIVE) H 04/04/18 06:15 Blood Type B POSITIVE 04/04/18 05:45 Antibody Screen NEGATIVE 04/04/18 05:45 Crossmatch See Detail 04/04/18 05:45 - Physical Exam Vitals and I&O: Vital Signs Temp 98.2 F 04/04/18 16:00 Pulse 92 04/04/18 16:00 Resp 13 04/04/18 16:00 BP 134/72 04/04/18 16:00 Pulse Ox 100 04/04/18 16:00 Intake & Output 04/03/18 04/04/18 04/04/18 18:59 06:59 18:59 Intake Total 2007.333 857.5 Output Total 1050 Balance 2007.333 -192.5 Weight (lbs) 54.431 kg Intake: Intake, IV Amount 2007.333 857.5 Albumin 25% 25gm/100mL 25 20.833 gm In 100 ml @ 50 mls/hr IV [facility] Rx#:[id number] Sodium Chloride 0.45% 1, 937.5 000 ml @ 125 mls/hr IV . Q8H [facility] Rx#:[id number] Sodium Chloride 0.45% 1, 1000 857.5 000 ml @ 150 mls/hr IV . Q6H40M [facility] Rx#:[id number] cefTRIAXone 1 gm In 50 Sodium Chloride 0.9% 50 ml @ 100 mls/hr IV Q24HR [facility] Rx#:[id number] Output: Urine 1050 Other: # Bowel Movements 3 Stool Characteristics Soft Liquid Liquid Brown Brown Brown Weight Source Bedscale Active Medications: Current Medications Acetaminophen (Tylenol) 650 mg PO Q4HR PRN PRN Reason: Pain or Fever >101 Stop: 06/02/18 13:54 Last Admin: 04/04/18 15:27 Dose: 650 mg Albuterol/Ipratropium (Duoneb Neb) 3 ml HHN Q6HRT [facility] Stop: 06/02/18 18:59 Last Admin: 04/04/18 12:02 Dose: 3 ml Ascorbic Acid (Vitamin C) 500 mg NG DAILY [facility] Stop: 06/03/18 08:59 Last Admin: 04/04/18 08:59 Dose: Not Given Bisacodyl (Dulcolax 10 Mg Supp) 10 mg RC DAILY PRN PRN Reason: Constipation Stop: 06/02/18 13:54 [place] Oil/[place] Balsam/Trypsin (Venelex) 1 appl TP DAILY [facility] Stop: 06/03/18 13:14 Chlorhexidine Gluconate (Peridex) 5 ml MM DAILY [facility] Stop: 06/03/18 08:59 Last Admin: 04/04/18 10:17 Dose: Not Given Cholecalciferol (Vitamin D3) 5,000 iu NG DAILY [facility] Stop: 06/03/18 08:59 Last Admin: 04/04/18 09:00 Dose: Not Given Diltiazem HCl (Cardizem) 5 mg IVP Q6HR PRN PRN Reason: HR > 120 Stop: 06/02/18 17:52 Last Admin: 04/03/18 19:05 Dose: 5 mg Enoxaparin Sodium (Lovenox) 60 mg SUBQ DAILY [facility] Stop: 06/02/18 20:59 Last Admin: 04/04/18 09:08 Dose: 60 mg Famotidine (Pepcid) 20 mg NG BID [facility] Stop: 06/02/18 16:59 Last Admin: 04/04/18 09:00 Dose: Not Given Ceftriaxone Sodium 1 gm/ (Sodium Chloride) 50 mls @ 100 mls/hr IV Q24HR [facility] Stop: 06/02/18 10:44 Last Admin: 04/04/18 10:23 Dose: 100 mls/hr Norepinephrine Bitartrate 4 mg (/ Dextrose) 254 mls @ 0 mls/hr IV TITR PRN; Protocol PRN Reason: BP MAINTENANCE (PER PROTOCOL) Stop: 06/02/18 14:56 Vancomycin HCl 1.25 gm/ Sodium (Chloride) 250 mls @ 165 mls/hr IV Q24H [facility] Stop: 06/03/18 12:59 Last Admin: 04/04/18 14:28 Dose: 165 mls/hr Potassium Chloride/Sodium Chloride (0.45% Ns W/20 Meq Kcl) 1,000 mls @ 75 mls/ hr IV .[id number] [facility] Stop: 06/03/18 14:14 Insulin Aspart (Novolog Insulin Sliding Scale) 0 units SUBQ Q6HR [facility]; Protocol Stop: 06/02/18 11:59 Last Admin: 04/04/18 13:31 Dose: Not Given Insulin Detemir (Levemir Insulin) 30 units SUBQ BID [facility]; Protocol Stop: 08/30/18 16:59 Last Admin: 04/04/18 09:00 Dose: Not Given Lactobacillus Rhamnosus (Culturelle 15b) 1 each PO DAILY [facility] Stop: 06/03/18 08:59 Last Admin: 04/04/18 09:00 Dose: Not Given Magnesium Hydroxide (Milk Of Magnesia) 30 ml NG DAILY PRN PRN Reason: Constipation Stop: 06/02/18 13:54 Metoprolol Tartrate (Lopressor) 25 mg NG BID [facility] Stop: 06/02/18 16:59 Last Admin: 04/04/18 09:00 Dose: Not Given Metronidazole (Flagyl) 500 mg PO TID [facility] Stop: 04/11/18 13:59 Miscellaneous (Vancomycin Iv Per Pharmacy) 1 ea MC PRN [facility] Stop: 06/03/18 12:14 Nystatin (Nystop) 0 units TP BID [facility] Stop: 06/03/18 16:59 Nystatin (Nystop) 0 units TP BID PRN PRN Reason: PERIANAL & INGUINAL AREAS Stop: 06/03/18 13:38 Ondansetron HCl (Zofran) 4 mg IVP Q6HR PRN PRN Reason: Nausea / Vomiting Stop: 06/02/18 14:33 Pantoprazole Sodium (Protonix) 40 mg NG DAILY [facility] Stop: 06/03/18 08:59 Last Admin: 04/04/18 09:02 Dose: Not Given Zinc Sulfate (Zinc Sulfate) 220 mg NG DAILY [facility] Stop: 06/03/18 08:59 Last Admin: 04/04/18 09:03 Dose: Not Given General: Alert, Oriented x3, No acute distress HEENT: Atraumatic, Mucous membr. moist/pink Neck: Supple, +2 carotid pulse wo bruit Cardiovascular: Regular rate, Normal S1, Normal S2 Lungs: Clear to auscultation Abdomen: Bowel sounds, Soft Extremities: no Edema Neurological: Sensation intact Skin: no Rash Psych/Mental Status: Mood NL Nutritional Asmnt/Malnutr-PDOC - Dietary Evaluation Malnutrition Findings (Please click <Entered> for more info): Nutritional Asmnt/Malnutrition Start: 04/04/18 15: 05 Text: Status: Complete Freq: Protocol: Document 04/04/18 15:24 JEROME (Rec: 04/04/18 15:50 LCROQUE [email or web address]) Nutritional Asmnt/Malnutrition Patient General Information Nutritional Screening High Risk Consult Diagnosis sepsis, dehydration, coccyx ulcer Pertinent Medical Hx/Surgical Hx HTn, DM, CVA/PE, ERSD, dementia, COLCON CA, parkinsonism, PEG/Gtube, colectomy, depression Subjective Information Consult received for BS <180, merry <12 at admission.. Pt seen resting in bed at time of visit. TF on hold d/t CT scheduled today. Current Diet Order/ Nutrition Support glucerna 1.2 at 55ml/hr x 20hr Pertinent Medications vit C, Vit D3, pepcid, novolog , levemir, culturelle, protonix, 0.45%ns w/20meq kcl, vancomycin, zinc Pertinent Labs 04/04 K 2.7 (decreasing), BUN 68 (trending down), glucose 122, POC 117 04/03 Cl 91, BUN 130, Cr 1.7, glucose 276, POC 158 Nutritional Hx/Data Height 1.57 m Height (Calculated Centimeters) 157.5 Current Weight (lbs) 54.431 kg Weight (Calculated Kilograms) 54.4 Weight (Calculated Grams) 99259.1 [place] Body Weight 110 Body Mass Index (BMI) 21.9 Weight Status Approriate GI Symptoms GI Symptoms None Last BM 04/03 x 3 Difficult in: None Skin Integrity/Comment: decubitu ulcer to sacrum, bruise to left/right upper arm , lef thand, adbomen Estimated Nutritional Goals BEE in Kcals: Using Current wt Calories/Kcals/Kg 27-32 Kcals Calculated 8527-7463 Protein: Using Current wt Protein g/k.2-1.4 Protein Calculated 66-77 Fluid: ml 1485-1760ml (1ml/kcal) Nutritional Problem 2. Problem Problem increased nutrition needs Etiology increased metabolic demand, impaired skin integrity Signs/Symptoms: dx of sepsis, coccyx ulcer 1. Problem Problem increased nutrition related labs Etiology hx of DM, electrolyte imbalance Signs/Symptoms: glucose 122-276, K 2.7 Malnutrition Alert Is there a minimum of two criteria No selected? Query Text:Check all the applicable criteria. A minimum of two criteria are recommended for diagnosis of either severe or non-severe malnutrition. Malnutrition Related to Morbid Obesity Malnutrition related to morbid obesity No Intervention/Recommendation Comments 1. Continue with current TF regimen. It provides 1320kcal, 66g protein, 888ml free water , meeting 90% of calorie needs and 100% of protein needs. 2. Monitor TF rate, tolerance, wt, skin integrity and labs 3. F/U as high risk in 2-3 days, 04/06-04/07 Expected Outcomes/Goals Expected Outcomes/Goals 1. Pt to meet at least 75% of nutritional needs via nutrition support with tolerance 2. Wt stability, skin integrity to improve, labs to approach WNL.
[2018-04-04] MEDS: 0.45% NS w/20 mEq KCl 1,000 ML IV SCH (16:27)
[2018-04-04] MEDS: NYSTATIN 100000 UNITS/GM POWD TP SCH (17:30)
[2018-04-04] MEDS: Venelex 60gm Tube TP SCH (18:53)
[2018-04-04 19:14] LABS: A1C % 6.2 % (4.0-6.0)
[2018-04-05] MEDS: INSULIN ASPART SLIDING SCALE 100 UNITS/ML UNIT SUBQ SCH ×4 (00:03→17:51)
--- NOTE | 2018-04-05 00:11 | Consultation ---
DATE OF CONSULTATION: 04/04/2018 INFECTIOUS DISEASE CONSULTATION REFERRING PHYSICIAN: Dr. Lucas. REASON FOR CONSULTATION: Sepsis. HISTORY OF PRESENT ILLNESS: This is an 78-year-old female with a past medical history of CKD, adenocarcinoma of colon diagnosed in 2011, anemia of chronic disease, history of C. diff colitis, treated recently with vancomycin p.o., essential hypertension, Parkinson disease, history of left intraperitoneal/retroperitoneal abscess managed by vancomycin, cefepime, and Flagyl, type 2 diabetes mellitus, and anasarca, admitted for abnormal labs. Her BUN is 96, creatinine 1.2. Her Lactic acid was 3.24 with WBC count of 20,100. Urinalysis suggested UTI. The patient is started on Rocephin and ID consult was called for further antibiotic management. PAST MEDICAL HISTORY: Includes diabetes mellitus type 2, adenocarcinoma of colon diagnosed in 2011, anemia of chronic disease, history of C. diff colitis recently treated by vancomycin p.o., essential hypertension, Parkinson disease, left intraperitoneal or retroperitoneal abscess, VRE, Julia. Treated with vancomycin, Cipro, and Flagyl. Anasarca. PAST SURGICAL HISTORY: Partial colectomy in 2014, status post exploratory laparotomy with lysis of the adhesions and sigmoid resection with anastomosis in December 2017. Status post insertion of a pigtail catheter for drainage of abdominal abscess. ALLERGIES: CODEINE AND SULFA. MEDICATIONS: Per medication reconciliation sheet. Antibiotic, Rocephin. SOCIAL AND FAMILY HISTORY: The patient denies any smoking or drug use. The patient lives at nursing facility. REVIEW OF SYSTEMS: The patient is a poor historian. Complained of abdominal pain. The patient also has diarrhea. PHYSICAL EXAMINATION: CURRENT VITAL SIGNS: Shows temperature is 97.7 degrees Fahrenheit, pulse is 99, respirations 15, blood pressure 91/53. GENERAL: The patient is comfortable lying in bed, not in acute distress. HEENT: Head is normocephalic, atraumatic. Oral cavity moist, pink tongue. Eyes: Pallor is present, no icterus. Pupils PERRLA, EOMI. NECK: Supple, no JVD, no carotid bruit. Trachea midline. CHEST: Bilateral breath sounds. No crackles or wheezing. HEART: S1, S2 within normal limits. Regular rhythm. ABDOMEN: Soft, tender, and probably the patient has mass in left lower quadrant. EXTREMITIES: No cyanosis, no clubbing, no edema. NEUROLOGIC: Alert, awake, and oriented x 3, but confused, somewhat. LABORATORY DATA: Current lab shows WBC count is ____, hemoglobin 7.8, hematocrit 23.4, platelets are 229,000, and neutrophils 79%. INR 1.0. Her sodium is 140, potassium 2.7, chloride 102, bicarbonate is 30.6, BUN 68, creatinine 0.7, glucose is 122. Urinalysis showed large leukoesterase, WBC is 10-25 and bacteria moderate. Stool for occult blood is positive. Blood culture 2 sets are negative. IMPRESSION: 1. Hypertension, suspect sepsis. 2. Urinary tract infection. 3. History of intra-abdominal abscess. 4. Diarrhea may have a recurrence of Clostridium difficile colitis. 5. History of adenocarcinoma of colon diagnosed in 2011. 6. History of hypertension. 7. Parkinson's disease. 8. Diabetes mellitus type 2. RECOMMENDATIONS: We will get a CT scan of the abdomen and pelvis and continue Rocephin. Start Flagyl and vancomycin p.o. as there is high suspicion of C. diff colitis in this patient also. Thank you Dr. Lucas for involving me in taking care of this patient. JOB# [id number]
--- NOTE | 2018-04-05 00:32 | Consultation ---
DATE OF CONSULTATION: 04/04/[address] Lucas. HISTORY OF PRESENT ILLNESS: This is an 78-year-old female patient who was brought to the Emergency Room with elevated BUN and creatinine. During the hospital stay, the patient developed supraventricular tachycardia with left bundle branch block, hence Cardiology consult is requested. PAST MEDICAL HISTORY: The patient has history of iron-deficiency anemia, renal cell carcinoma of the colon, C. diff colitis, hypertension, Parkinson's disease, retroperitoneum abscess, diabetes mellitus type 2, anasarca, CVA with late effect, and dementia. FAMILY HISTORY: Unremarkable. SOCIAL HISTORY: No history of smoking, alcohol abuse. ALLERGIES: No known allergies. PHYSICAL EXAMINATION: VITAL SIGNS: Blood pressure 126/80, pulse 102, and respirations 28. HEAD: Normocephalic. No lumps or bumps. EYES: Pupils equal, reactive to light. Fundi show AV nicking, sclerae white, conjunctivae pink. NECK: Carotid 2+. Normal upstroke. JVD flat. Thyroid not palpable. Lymph nodes not palpable. CHEST: Shows increased AP diameter. No kyphosis, scoliosis. LUNGS: Bilateral bronchovesicular breath sounds. Occasional wheeze. No rales. HEART: PMI fifth intercostal space with lateral to midclavicular line. S1, S2, S3, S4, soft systolic murmur. ABDOMEN: Soft. Liver and spleen not palpable. No organomegaly. Bowel sounds active. NEUROLOGIC: Unremarkable. EXTREMITIES: Peripheral pulses 2+. No pedal edema. LABORATORY DATA: The patient's hemoglobin is 7.8, hence the patient will be given transfusion. Potassium 2.7 with potassium supplement, creatinine 0.7, BUN 68. CLINICAL IMPRESSION: Iron-deficiency anemia, supraventricular tachycardia, rectal bleeding with Hemoccult positive, adenocarcinoma of the colon with a hemicolectomy, mass in the abdomen, Clostridium difficile colitis, hypertension, Parkinson's disease, retroperitoneal abscess, diabetes mellitus type 2, anasarca, cerebrovascular accident with late effect, dementia, osteoporosis, hypokalemia, and anemia with transfusion. PLAN: The patient to continue present care and monitor the patient closely for arrhythmia, transfusion at the present time and also get an echocardiogram. JOB# [id number]
[2018-04-05] MEDS: Albuterol/Ipratropium Neb 3 ML AERS HHN SCH ×4 (01:41→19:44)
[2018-04-05 04:23] LABS: % EOSINOPHILS 1.2 % (0.0-5.0); % LYMPHOCYTES 9.7 % (20.0-50.0); % MONOCYTES 12.4 % (2.0-10.0); % NEUTROPHILS 76.7 % (40.0-80.0); EOSINOPHILE ABSOLUTE 0.1 Th/cmm (0.1-0.4); LYMPHOCYTE ABSOLUTE 0.7 Th/cmm (1.5-3.0); MEAN CELL VOLUME 83.5 fl (81-100); MEAN CORPUSCULAR HEMOGLOBIN 27.1 pg (27.0-31.0); MEAN CORPUSCULAR HGB CONC 32.4 pg (28.0-36.0); MEAN PLATELET VOLUME 8.1 fl; MONOCYTE ABSOLUTE 0.9 Th/cmm (0.3-1.0); NEUTROPHILE ABSOLUTE 5.2 Th/cmm (1.8-8.0); PLATELET COUNT 221 Th/cmm (150-400); RED BLOOD COUNT 4.06 Mil/cmm (3.80-5.20); RED CELL DISTRIBUTION WIDTH 19.7 % (11.5-20.0)
[2018-04-05 04:26] LABS: HEMATOCRIT 33.9 % (41.0-60); WHITE BLOOD COUNT 6.9 Th/cmm (4.8-10.8)
[2018-04-05 04:44] LABS: ANION GAP 8.9 (7.0-16.0); BUN - UREA NITROGEN 30 mg/dL (7-25); CALCIUM SERUM 9.2 mg/dL (8.6-10.3); CHLORIDE 106 mEq/L (98-107); CREATININE - SERUM 0.6 mg/dL (0.6-1.2); MAGNESIUM 1.9 mg/dL (1.9-2.7); POTASSIUM SERUM 3.9 mEq/L (3.5-5.1); SODIUM SERUM 138 mEq/L (136-145)
[2018-04-05 04:47] LABS: GLUCOSE 252 mg/dL (70-105)
[2018-04-05] MEDS: 0.45% NS w/20 mEq KCl 1,000 ML IV SCH ×2 (05:38→17:53)
--- NOTE | 2018-04-05 07:46 | Diagnostic Imaging Report ---
CT abdomen and pelvis without intravenous contrast Indication: Abdominal pain, rule out mass Comparison: None, Technique: Axial images were obtained from the lung bases to the bilateral proximal femurs without IV contrast. Coronal reconstructions were made. total DLP: 451, CTDI9.8 FINDINGS: The NG tube is within the stomach. Small bilateral effusions are seen with bibasilar passive atelectatic changes. Chronic changes of lung bases are also noted. Evaluation of solid organs is limited due to lack of IV contrast. No evidence of focal hepatic lesions. No focal splenic lesions. Limited assessment of the spleen demonstrates no focal lesions. No focal the pancreatic lesion. No evidence of hydronephrosis or nephrolithiasis. Mild ascites is noted with joint haziness inflammatory change throughout the mesentery. Inflammatory changes extend to the right lower quadrant surrounding the appendix. The appendix is mildly prominent. Areas of scattered bowel wall thickening are noted including the rectum. There is evidence of previous partial colectomy of the sigmoid colon. A left lower quadrant drainage catheter is noted with minimal phlegmonous changes seen in this region in this area measuring 4.8 cm AP x 1.6 cm transverse. Mild inflammatory changes in the mesentery are noted. Small fat containing ventral hernia is seen with closely opposed loops of bowel with slight protrusion of bowel loops within this hernia without evidence of obstruction or strangulation at this time. Multiple subcutaneous nodules are seen throughout the anterior abdomen. Pockets of gas also seen along the anterior abdominal wall. Diffuse atherosclerotic vascular disease is noted. No evidence of free abdominal air. Osteopenia is noted. Degenerative changes of the spine are noted, and there along the lower lumbar spine. No evidence of mesenteric or retroperitoneal lymphadenopathy. No radiopaque gallstones identified. IMPRESSION: Limited exam due to lack of IV and oral IV contrast. No evidence of mesenteric or retroperitoneal lymphadenopathy. Postsurgical changes are noted with evidence of a previous left partial sigmoid colon resection. A left lower quadrant pigtail drainage catheter is seen within small amount of fluid and probable resolving small abscess of the left lower quadrant. Mild generalized ascites with haziness inflammatory change throughout the mesentery extending to the pelvis. There is mildly prominent appendix with surrounding haziness. This is nonspecific and may be due to patient's generalized mild ascites. Inflammatory process of the appendix is less likely but cannot be excluded. Clinical correlation is recommended. Scattered areas of large bowel wall thickening greatest within the rectum which may be due to inflammatory process/colitis and possibly reactive to patient's mild ascites. Clinical correlation is recommended. Small midline ventral hernia with slight protrusion of bowel loops without evidence of obstruction or strangulation at this time. Multiple bilateral anterior subcutaneous nodules. These findings are indeterminate and may be due to recent medication injection or inflammatory process. Neoplastic processes is considered less likely. Small pockets of gas along the left anterior abdominal wall subcutaneous soft tissues which may be due to recent medication injection. Diffuse atherosclerotic vascular disease. Small bilateral effusions and bibasilar passive atelectasis and consolidative changes.
[2018-04-05] MEDS: Pantoprazole 40 mg/Packet NG SCH (08:35)
[2018-04-05] MEDS: Lactobacillus Rhamnosus GG 15 Billion CFU CAP.SPRINK PO SCH (08:36)
[2018-04-05] MEDS: Multivitamin w/ Minerals Tab PO SCH (08:37)
[2018-04-05] MEDS: Insulin Detemir 100 units/mL 10mL Vial SUBQ SCH ×2 (08:37→17:51)
[2018-04-05] MEDS: Enoxaparin 60 mg/0.6 mL 0.6mL Syr SUBQ SCH (09:00)
--- NOTE | 2018-04-05 09:58 | General Progress Note ---
Subjective - Review of Systems Service Date: 04/05/18 Events since last encounter: CT scan noted discussed with daughter who claims first colon resection 10 years ago was in cecal area and reoperation 3 months ago was also cancer. will call for path report at [facility] Objective - Results Result Diagrams: 04/05/18 04:05 04/05/18 04:05 Recent Labs: Laboratory Last Values WBC 6.9 Th/cmm (4.8-10.8) D 04/05/18 04:05 RBC 4.06 Mil/cmm (3.80-5.20) 04/05/18 04:05 Hgb 11.0 gm/dL (12-16) L D 04/05/18 04:05 Hct 33.9 % (41.0-60) L D 04/05/18 04:05 MCV 83.5 fl (81-100) 04/05/18 04:05 MCH 27.1 pg (27.0-31.0) 04/05/18 04:05 MCHC Differential 32.4 pg (28.0-36.0) 04/05/18 04:05 RDW 19.7 % (11.5-20.0) 04/05/18 04:05 Plt Count 221 Th/cmm (150-400) 04/05/18 04:05 MPV 8.1 fl 04/05/18 04:05 Neutrophils % 76.7 % (40.0-80.0) 04/05/18 04:05 Band Neutrophils % 4 % (0-10) 04/04/18 05:15 Lymphocytes % 9.7 % (20.0-50.0) L 04/05/18 04:05 Monocytes % 12.4 % (2.0-10.0) H 04/05/18 04:05 Eosinophils % 1.2 % (0.0-5.0) 04/05/18 04:05 Basophils % 0.0 % (0.0-2.0) 04/05/18 04:05 Neutrophils (Manual) 79 % (40-80) 04/04/18 05:15 Lymphocytes 10 % (20-50) L 04/04/18 05:15 Monocytes 6 % (2-10) 04/04/18 05:15 Eosinophils 1 % (0-5) 04/04/18 05:15 Platelet Estimate ADEQUATE (NORMAL) 04/03/18 04:15 Anisocytosis 1+ 04/04/18 05:15 Eos Smear Source URINE 04/04/18 04:12 Eos Smear Total Cells NONE SEEN (NONE SEEN) 04/04/18 04:12 PT 10.9 SECONDS (9.5-11.5) 04/03/18 04:40 INR 1.05 (0.5-1.4) 04/03/18 04:40 PTT (Actin FS) 28.9 SECONDS (26.0-38.0) 04/03/18 04:40 Sodium 138 mEq/L (136-145) 04/05/18 04:05 Potassium 3.9 mEq/L (3.5-5.1) 04/05/18 04:05 Chloride 106 mEq/L (98-107) 04/05/18 04:05 Carbon Dioxide 27.0 mEq/L (21.0-31.0) 04/05/18 04:05 Anion Gap 8.9 (7.0-16.0) 04/05/18 04:05 BUN 30 mg/dL (7-25) H 04/05/18 04:05 Creatinine 0.6 mg/dL (0.6-1.2) 04/05/18 04:05 Est GFR ( Amer) TNP 04/05/18 04:05 Est GFR (Non-Af Amer) TNP 04/05/18 04:05 BUN/Creatinine Ratio 50.0 04/05/18 04:05 Glucose 252 mg/dL (70-105) H D 04/05/18 04:05 POC Glucose 282 MG/DL (70 - 105) H 04/05/18 05:51 Hemoglobin A1c % 6.2 % (4.0-6.0) H 04/03/18 04:15 Whole Bld Lactic Acid 1.46 mmol/L (0.60-1.99) 04/04/18 04:15 Uric Acid 10.4 mg/dL (2.3-6.6) H 04/04/18 04:15 Calcium 9.2 mg/dL (8.6-10.3) 04/05/18 04:05 Phosphorus 2.6 mg/dL (2.5-5.0) 04/04/18 04:15 Magnesium 1.9 mg/dL (1.9-2.7) 04/05/18 04:05 Total Bilirubin 0.5 mg/dL (0.3-1.0) 04/03/18 03:25 AST 19 U/L (13-39) 04/03/18 03:25 ALT 7 U/L (7-52) 04/03/18 03:25 Alkaline Phosphatase 107 U/L (34-104) H 04/03/18 03:25 Troponin I 0.03 ng/mL (0.01-0.05) 04/03/18 04:15 Total Protein 8.5 gm/dL (6.0-8.3) H 04/03/18 03:25 Albumin 3.9 gm/dL (3.7-5.3) 04/03/18 03:25 Globulin 4.6 gm/dL 04/03/18 03:25 Albumin/Globulin Ratio 0.9 (1.0-1.8) L 04/03/18 03:25 Triglycerides 221 mg/dL (<150) H 04/04/18 04:15 Cholesterol 88 mg/dL (<200) 04/04/18 04:15 LDL Cholesterol Direct 43 mg/dL (75-193) L 04/04/18 04:15 HDL Cholesterol 24 mg/dL (23-92) 04/04/18 04:15 TSH 0.84 uIU/ml (0.34-5.60) 04/03/18 04:40 Urine Source [place] 04/03/18 03:26 Urine Color YELLOW 04/03/18 03:26 Urine Clarity HAZY (CLEAR) 04/03/18 03:26 Urine pH 6.0 (4.6 - 8.0) 04/03/18 03:26 Ur Specific [place] 1.010 (1.005-1.030) 04/03/18 03:26 Urine Protein NEGATIVE mg/dL (NEGATIVE) 04/03/18 03:26 Urine Glucose (UA) NEGATIVE mg/dL (NEGATIVE) 04/03/18 03:26 Urine Ketones NEGATIVE mg/dL (NEGATIVE) 04/03/18 03:26 Urine Blood TRACE (NEGATIVE) 04/03/18 03:26 Urine Nitrate NEGATIVE (NEGATIVE) 04/03/18 03:26 Urine Bilirubin NEGATIVE (NEGATIVE) 04/03/18 03:26 Urine Urobilinogen 0.2 E.U./dL (0.2 - 1.0) 04/03/18 03:26 Ur Leukocyte Esterase LARGE (NEGATIVE) H 04/03/18 03:26 Urine RBC 0-2 /hpf (0-5) 04/03/18 03:26 Urine WBC 10-25 /hpf (0-5) H 04/03/18 03:26 Ur Epithelial Cells OCCASIONAL /lpf (FEW) 04/03/18 03:26 Urine Bacteria MODERATE /hpf (NONE SEEN) H 04/03/18 03:26 Ur Random Sodium 28 mmol/L 04/04/18 04:12 Urine Creatinine 34.0 mg/dl (28.0-217.0) 04/04/18 04:12 Stool Occult Blood POSITIVE (NEGATIVE) 04/04/18 06:15 Blood Type B POSITIVE 04/04/18 05:45 Antibody Screen NEGATIVE 04/04/18 05:45 Crossmatch See Detail 04/04/18 05:45 - Physical Exam Vitals and I&O: Vital Signs Temp 97.9 F 04/05/18 04:00 Pulse 113 04/05/18 08:35 Resp 15 04/05/18 07:10 BP 133/72 04/05/18 08:35 Pulse Ox 100 04/05/18 07:10 Intake & Output 04/04/18 04/05/18 04/05/18 18:59 06:59 18:59 Intake Total 620 1748.75 Output Total 1600 1000 Balance -980 748.75 Weight (lbs) 59.647 kg 59.375 kg Intake: Intake, IV Amount 50 988.75 0.45% NS w/20 mEq KCl 1, 988.75 000 ml @ 75 mls/hr IV . [id number] [facility] Rx#:[id number] cefTRIAXone 1 gm In 50 Sodium Chloride 0.9% 50 ml @ 100 mls/hr IV Q24HR [facility] Rx#:[id number] Tube Feeding 220 660 Other 350 100 Output: Urine 1600 1000 Other: # Bowel Movements 4 3 Stool Characteristics Liquid Liquid Brown Brown Weight Source Bedscale Bedscale Active Medications: Current Medications Acetaminophen (Tylenol) 650 mg PO Q4HR PRN PRN Reason: Pain or Fever >101 Stop: 06/02/18 13:54 Last Admin: 04/04/18 15:27 Dose: 650 mg Albuterol/Ipratropium (Duoneb Neb) 3 ml HHN Q6HRT TAMAR Stop: 06/02/18 18:59 Last Admin: 04/05/18 07:10 Dose: 3 ml Ascorbic Acid (Vitamin C) 500 mg NG DAILY T[facility] Stop: 06/03/18 08:59 Last Admin: 04/05/18 08:36 Dose: 500 mg Bisacodyl (Dulcolax 10 Mg Supp) 10 mg RC DAILY PRN PRN Reason: Constipation Stop: 06/02/18 13:54 [place] Oil/[place] Balsam/Trypsin (Venelex) 1 appl TP DAILY TAMAR Stop: 06/03/18 13:14 Last Admin: 04/04/18 18:53 Dose: 1 appl Chlorhexidine Gluconate (Peridex) 5 ml MM DAILY [facility] Stop: 06/03/18 08:59 Last Admin: 04/04/18 10:17 Dose: Not Given Cholecalciferol (Vitamin D3) 5,000 iu NG DAILY [facility] Stop: 06/03/18 08:59 Last Admin: 04/05/18 08:34 Dose: 5,000 iu Diltiazem HCl (Cardizem) 5 mg IVP Q6HR PRN PRN Reason: HR > 120 Stop: 06/02/18 17:52 Last Admin: 04/03/18 19:05 Dose: 5 mg Enoxaparin Sodium (Lovenox) 60 mg SUBQ DAILY [facility] Stop: 06/02/18 20:59 Last Admin: 04/04/18 09:08 Dose: 60 mg Famotidine (Pepcid) 20 mg NG BID [facility] Stop: 06/02/18 16:59 Last Admin: 04/05/18 08:35 Dose: 20 mg Ceftriaxone Sodium 1 gm/ (Sodium Chloride) 50 mls @ 100 mls/hr IV Q24HR [facility] Stop: 06/02/18 10:44 Last Infusion: 04/04/18 10:55 Dose: Infused Norepinephrine Bitartrate 4 mg (/ Dextrose) 254 mls @ 0 mls/hr IV TITR PRN; Protocol PRN Reason: BP MAINTENANCE (PER PROTOCOL) Stop: 06/02/18 14:56 Vancomycin HCl 1.25 gm/ Sodium (Chloride) 250 mls @ 165 mls/hr IV Q24H [facility] Stop: 06/03/18 12:59 Last Admin: 04/04/18 14:28 Dose: 165 mls/hr Potassium Chloride/Sodium Chloride (0.45% Ns W/20 Meq Kcl) 1,000 mls @ 75 mls/ hr IV .[id number] [facility] Stop: 06/03/18 14:14 Last Admin: 04/05/18 05:38 Dose: 75 mls/hr Insulin Aspart (Novolog Insulin Sliding Scale) 0 units SUBQ Q6HR [facility]; Protocol Stop: 06/02/18 11:59 Last Admin: 04/05/18 05:55 Dose: 6 units Insulin Detemir (Levemir Insulin) 30 units SUBQ BID [facility]; Protocol Stop: 06/02/18 16:59 Last Admin: 04/05/18 08:37 Dose: 30 units Lactobacillus Rhamnosus (Culturelle 15b) 1 each PO DAILY [facility] Stop: 06/03/18 08:59 Last Admin: 04/05/18 08:36 Dose: 1 each Magnesium Hydroxide (Milk Of Magnesia) 30 ml NG DAILY PRN PRN Reason: Constipation Stop: 06/02/18 13:54 Metoprolol Tartrate (Lopressor) 25 mg NG BID [facility] Stop: 06/02/18 16:59 Last Admin: 04/05/18 08:35 Dose: 25 mg Metronidazole (Flagyl) 500 mg PO TID [facility] Stop: 04/11/18 13:59 Last Admin: 04/05/18 08:38 Dose: 500 mg Miscellaneous (Vancomycin Iv Per Pharmacy) 1 ea MC PRN [facility] Stop: 06/03/18 12:14 Nystatin (Nystop) 0 units TP BID [facility] Stop: 06/03/18 16:59 Last Admin: 04/04/18 17:30 Dose: 1 units Nystatin (Nystop) 0 units TP BID PRN PRN Reason: PERIANAL & INGUINAL AREAS Stop: 06/03/18 13:38 Ondansetron HCl (Zofran) 4 mg IVP Q6HR PRN PRN Reason: Nausea / Vomiting Stop: 06/02/18 14:33 Pantoprazole Sodium (Protonix) 40 mg NG DAILY [facility] Stop: 06/03/18 08:59 Last Admin: 04/05/18 08:35 Dose: 40 mg Zinc Sulfate (Zinc Sulfate) 220 mg NG DAILY [facility] Stop: 06/03/18 08:59 Last Admin: 04/05/18 08:36 Dose: 220 mg General: Alert, Oriented x3, No acute distress HEENT: Atraumatic, Mucous membr. moist/pink Neck: Supple, +2 carotid pulse wo bruit Cardiovascular: Regular rate, Normal S1, Normal S2 Lungs: Clear to auscultation Abdomen: Bowel sounds, Soft Extremities: no Edema Neurological: Sensation intact Skin: no Rash Psych/Mental Status: Mood NL Nutritional Asmnt/Malnutr-PDOC - Dietary Evaluation Malnutrition Findings (Please click <Entered> for more info): Nutritional Asmnt/Malnutrition Start: 04/04/18 15: 05 Text: Status: Complete Freq: Protocol: Document 04/04/18 15:24 [email or web address] (Rec: 04/04/18 15:50 JEROME [email or web address]) Nutritional Asmnt/Malnutrition Patient General Information Nutritional Screening High Risk Consult Diagnosis sepsis, dehydration, coccyx ulcer Pertinent Medical Hx/Surgical Hx HTn, DM, CVA/PE, ERSD, dementia, COLCON CA, parkinsonism, PEG/Gtube, colectomy, depression Subjective Information Consult received for BS <180, merry <12 at admission.. Pt seen resting in bed at time of visit. TF on hold d/t CT scheduled today. Current Diet Order/ Nutrition Support glucerna 1.2 at 55ml/hr x 20hr Pertinent Medications vit C, Vit D3, pepcid, novolog , levemir, culturelle, protonix, 0.45%ns w/20meq kcl, vancomycin, zinc Pertinent Labs 04/04 K 2.7 (decreasing), BUN 68 (trending down), glucose 122, POC 117 04/03 Cl 91, BUN 130, Cr 1.7, glucose 276, POC 158 Nutritional Hx/Data Height 1.57 m Height (Calculated Centimeters) 157.5 Current Weight (lbs) 54.431 kg Weight (Calculated Kilograms) 54.4 Weight (Calculated Grams) 18492.1 [place] Body Weight 110 Body Mass Index (BMI) 21.9 Weight Status Approriate GI Symptoms GI Symptoms None Last BM 04/03 x 3 Difficult in: None Skin Integrity/Comment: decubitu ulcer to sacrum, bruise to left/right upper arm , lef thand, adbomen Estimated Nutritional Goals BEE in Kcals: Using Current wt Calories/Kcals/Kg 27-32 Kcals Calculated 7232-6716 Protein: Using Current wt Protein g/k.2-1.4 Protein Calculated 66-77 Fluid: ml 1485-1760ml (1ml/kcal) Nutritional Problem 2. Problem Problem increased nutrition needs Etiology increased metabolic demand, impaired skin integrity Signs/Symptoms: dx of sepsis, coccyx ulcer 1. Problem Problem increased nutrition related labs Etiology hx of DM, electrolyte imbalance Signs/Symptoms: glucose 122-276, K 2.7 Malnutrition Alert Is there a minimum of two criteria No selected? Query Text:Check all the applicable criteria. A minimum of two criteria are recommended for diagnosis of either severe or non-severe malnutrition. Malnutrition Related to Morbid Obesity Malnutrition related to morbid obesity No Intervention/Recommendation Comments 1. Continue with current TF regimen. It provides 1320kcal, 66g protein, 888ml free water , meeting 90% of calorie needs and 100% of protein needs. 2. Monitor TF rate, tolerance, wt, skin integrity and labs 3. F/U as high risk in 2-3 days, 04/06-04/07 Expected Outcomes/Goals Expected Outcomes/Goals 1. Pt to meet at least 75% of nutritional needs via nutrition support with tolerance 2. Wt stability, skin integrity to improve, labs to approach WNL.
[2018-04-05] MEDS: cefTRIAXone 1 GM in Sodium Chloride 0.9% 50 ML IV SCH (10:34)
[2018-04-05] MEDS: NYSTATIN 100000 UNITS/GM POWD TP SCH ×2 (11:44→17:58)
[2018-04-05] MEDS: Venelex 60gm Tube TP SCH (11:45)
--- NOTE | 2018-04-05 16:24 | Cardiology ---
04/04/[address] Lucas. M-MODE ECHOCARDIOGRAM: Mitral valve, anterior leaflet of mitral valve shows normal excursion, EF velocity. Posterior leaflet of mitral valve shows normal excursion. Left ventricular posterior wall shows increased thickness, normal excursion. Interventricular septum shows increased thickness, normal excursion, hypertrophy of the left ventricle, ejection fraction 50%. Left atrium normal. Aortic root shows normal dimension, normal excursion of aortic leaflets. CONCLUSION: Hypertrophy of the left ventricle, ejection fraction 50%. 2D ECHO: Long axis view showed normal sized left ventricle with hypertrophy of the left ventricle. Left atrium normal. Aortic root shows normal dimension, normal excursion of aortic leaflets. Short axis view of mitral valve normal. Short axis view of aortic valve normal. Apical four chamber view showed normal sized left ventricle with hypertrophy of the left ventricle. Left atrium normal. Right ventricular cavity, right atrium normal, no pericardial effusion. CONCLUSION: Hypertrophy of the left ventricle, ejection fraction 50%. Doppler study shows mild mitral regurgitation, mild tricuspid regurgitation, right ventricular systolic pressure 48 mmHg with mild pulmonary hypertension. CONCLUSION: Hypertrophy of the left ventricle, mild mitral regurg, mild tricuspid regurgitation, ejection fraction 50%, mild pulmonary hypertension. [facility]# [id number]
[2018-04-05] MEDS ORDERED: Ciprofloxacin 200mg Premix PB 200 MG/100 ML BAG IV SCH (17:00)
--- NOTE | 2018-04-05 19:07 | General Progress Note ---
Subjective - Review of Systems Service Date: 04/05/18 Subjective: awake, interacting, verbal Objective - Results Result Diagrams: 04/05/18 04:05 04/05/18 04:05 Recent Labs: Laboratory Last Values WBC 6.9 Th/cmm (4.8-10.8) D 04/05/18 04:05 RBC 4.06 Mil/cmm (3.80-5.20) 04/05/18 04:05 Hgb 11.0 gm/dL (12-16) L D 04/05/18 04:05 Hct 33.9 % (41.0-60) L D 04/05/18 04:05 MCV 83.5 fl (81-100) 04/05/18 04:05 MCH 27.1 pg (27.0-31.0) 04/05/18 04:05 MCHC Differential 32.4 pg (28.0-36.0) 04/05/18 04:05 RDW 19.7 % (11.5-20.0) 04/05/18 04:05 Plt Count 221 Th/cmm (150-400) 04/05/18 04:05 MPV 8.1 fl 04/05/18 04:05 Neutrophils % 76.7 % (40.0-80.0) 04/05/18 04:05 Band Neutrophils % 4 % (0-10) 04/04/18 05:15 Lymphocytes % 9.7 % (20.0-50.0) L 04/05/18 04:05 Monocytes % 12.4 % (2.0-10.0) H 04/05/18 04:05 Eosinophils % 1.2 % (0.0-5.0) 04/05/18 04:05 Basophils % 0.0 % (0.0-2.0) 04/05/18 04:05 Neutrophils (Manual) 79 % (40-80) 04/04/18 05:15 Lymphocytes 10 % (20-50) L 04/04/18 05:15 Monocytes 6 % (2-10) 04/04/18 05:15 Eosinophils 1 % (0-5) 04/04/18 05:15 Platelet Estimate ADEQUATE (NORMAL) 04/03/18 04:15 Anisocytosis 1+ 04/04/18 05:15 Eos Smear Source URINE 04/04/18 04:12 Eos Smear Total Cells NONE SEEN (NONE SEEN) 04/04/18 04:12 PT 10.9 SECONDS (9.5-11.5) 04/03/18 04:40 INR 1.05 (0.5-1.4) 04/03/18 04:40 PTT (Actin FS) 28.9 SECONDS (26.0-38.0) 04/03/18 04:40 Sodium 138 mEq/L (136-145) 04/05/18 04:05 Potassium 3.9 mEq/L (3.5-5.1) 04/05/18 04:05 Chloride 106 mEq/L (98-107) 04/05/18 04:05 Carbon Dioxide 27.0 mEq/L (21.0-31.0) 04/05/18 04:05 Anion Gap 8.9 (7.0-16.0) 04/05/18 04:05 BUN 30 mg/dL (7-25) H 04/05/18 04:05 Creatinine 0.6 mg/dL (0.6-1.2) 04/05/18 04:05 Est GFR ( Amer) TNP 04/05/18 04:05 Est GFR (Non-Af Amer) TNP 04/05/18 04:05 BUN/Creatinine Ratio 50.0 04/05/18 04:05 Glucose 252 mg/dL (70-105) H D 04/05/18 04:05 POC Glucose 181 MG/DL (70 - 105) H 04/05/18 17:43 Hemoglobin A1c % 6.2 % (4.0-6.0) H 04/03/18 04:15 Whole Bld Lactic Acid 1.46 mmol/L (0.60-1.99) 04/04/18 04:15 Uric Acid 10.4 mg/dL (2.3-6.6) H 04/04/18 04:15 Calcium 9.2 mg/dL (8.6-10.3) 04/05/18 04:05 Phosphorus 2.6 mg/dL (2.5-5.0) 04/04/18 04:15 Magnesium 1.9 mg/dL (1.9-2.7) 04/05/18 04:05 Total Bilirubin 0.5 mg/dL (0.3-1.0) 04/03/18 03:25 AST 19 U/L (13-39) 04/03/18 03:25 ALT 7 U/L (7-52) 04/03/18 03:25 Alkaline Phosphatase 107 U/L (34-104) H 04/03/18 03:25 Troponin I 0.03 ng/mL (0.01-0.05) 04/03/18 04:15 Total Protein 8.5 gm/dL (6.0-8.3) H 04/03/18 03:25 Albumin 3.9 gm/dL (3.7-5.3) 04/03/18 03:25 Globulin 4.6 gm/dL 04/03/18 03:25 Albumin/Globulin Ratio 0.9 (1.0-1.8) L 04/03/18 03:25 Triglycerides 221 mg/dL (<150) H 04/04/18 04:15 Cholesterol 88 mg/dL (<200) 04/04/18 04:15 LDL Cholesterol Direct 43 mg/dL (75-193) L 04/04/18 04:15 HDL Cholesterol 24 mg/dL (23-92) 04/04/18 04:15 TSH 0.84 uIU/ml (0.34-5.60) 04/03/18 04:40 Urine Source [place] 04/03/18 03:26 Urine Color YELLOW 04/03/18 03:26 Urine Clarity HAZY (CLEAR) 04/03/18 03:26 Urine pH 6.0 (4.6 - 8.0) 04/03/18 03:26 Ur Specific [place] 1.010 (1.005-1.030) 04/03/18 03:26 Urine Protein NEGATIVE mg/dL (NEGATIVE) 04/03/18 03:26 Urine Glucose (UA) NEGATIVE mg/dL (NEGATIVE) 04/03/18 03:26 Urine Ketones NEGATIVE mg/dL (NEGATIVE) 04/03/18 03:26 Urine Blood TRACE (NEGATIVE) 04/03/18 03:26 Urine Nitrate NEGATIVE (NEGATIVE) 04/03/18 03:26 Urine Bilirubin NEGATIVE (NEGATIVE) 04/03/18 03:26 Urine Urobilinogen 0.2 E.U./dL (0.2 - 1.0) 04/03/18 03:26 Ur Leukocyte Esterase LARGE (NEGATIVE) H 04/03/18 03:26 Urine RBC 0-2 /hpf (0-5) 04/03/18 03:26 Urine WBC 10-25 /hpf (0-5) H 04/03/18 03:26 Ur Epithelial Cells OCCASIONAL /lpf (FEW) 04/03/18 03:26 Urine Bacteria MODERATE /hpf (NONE SEEN) H 04/03/18 03:26 Ur Random Sodium 28 mmol/L 04/04/18 04:12 Urine Creatinine 34.0 mg/dl (28.0-217.0) 04/04/18 04:12 Stool Occult Blood POSITIVE (NEGATIVE) 04/04/18 06:15 Blood Type B POSITIVE 04/04/18 05:45 Antibody Screen NEGATIVE 04/04/18 05:45 Crossmatch See Detail 04/04/18 05:45 - Physical Exam Vitals and I&O: Vital Signs Temp 98 F 04/05/18 16:00 Pulse 103 04/05/18 18:00 Resp 17 04/05/18 18:00 BP 124/49 04/05/18 18:00 Pulse Ox 98 04/05/18 18:00 Intake & Output 04/05/18 04/05/18 04/06/18 06:59 18:59 06:59 Intake Total 1748.75 1848.75 Output Total 1000 1200 Balance 748.75 648.75 Weight (lbs) 59.375 kg 59.557 kg Intake: Intake, IV Amount 988.75 1218.75 0.45% NS w/20 mEq KCl 1, 988.75 918.75 000 ml @ 75 mls/hr IV . [id number] [facility] Rx#:[id number] Vancomycin HCl 1.25 gm In 250 Sodium Chloride 0.9% 250 ml @ 165 mls/hr IV Q24H [facility] Rx#:[id number] cefTRIAXone 1 gm In 50 Sodium Chloride 0.9% 50 ml @ 100 mls/hr IV Q24HR [facility] Rx#:[id number] Tube Feeding 660 380 Other 100 250 Output: Urine 1000 1200 Other: # Bowel Movements 3 4 Stool Characteristics Liquid Liquid Brown Brown Weight Source Bedscale Bedscale Active Medications: Current Medications Acetaminophen (Tylenol) 650 mg PO Q4HR PRN PRN Reason: Pain or Fever >101 Stop: 06/02/18 13:54 Last Admin: 04/04/18 15:27 Dose: 650 mg Albuterol/Ipratropium (Duoneb Neb) 3 ml HHN Q6HRT [facility] Stop: 06/02/18 18:59 Last Admin: 04/05/18 13:57 Dose: 3 ml Ascorbic Acid (Vitamin C) 500 mg NG DAILY [facility] Stop: 06/03/18 08:59 Last Admin: 04/05/18 08:36 Dose: 500 mg Bisacodyl (Dulcolax 10 Mg Supp) 10 mg RC DAILY PRN PRN Reason: Constipation Stop: 06/02/18 13:54 [place] Balsam/Trypsin (Venelex) 1 appl TP DAILY [facility] Stop: 06/03/18 13:14 Last Admin: 04/05/18 11:45 Dose: 1 appl Cholecalciferol (Vitamin D3) 5,000 iu NG DAILY [facility] Stop: 06/03/18 08:59 Last Admin: 04/05/18 08:34 Dose: 5,000 iu Diltiazem HCl (Cardizem) 5 mg IVP Q6HR PRN PRN Reason: HR > 120 Stop: 06/02/18 17:52 Last Admin: 04/03/18 19:05 Dose: 5 mg Enoxaparin Sodium (Lovenox) 60 mg SUBQ DAILY [facility] Stop: 06/02/18 20:59 Last Admin: 04/05/18 09:00 Dose: 60 mg Famotidine (Pepcid) 20 mg NG BID [facility] Stop: 06/02/18 16:59 Last Admin: 04/05/18 17:58 Dose: 20 mg Norepinephrine Bitartrate 4 mg (/ Dextrose) 254 mls @ 0 mls/hr IV TITR PRN; Protocol PRN Reason: BP MAINTENANCE (PER PROTOCOL) Stop: 06/02/18 14:56 Vancomycin HCl 1.25 gm/ Sodium (Chloride) 250 mls @ 165 mls/hr IV Q24H [facility] Stop: 06/03/18 12:59 Last Infusion: 04/05/18 15:55 Dose: Infused Potassium Chloride/Sodium Chloride (0.45% Ns W/20 Meq Kcl) 1,000 mls @ 75 mls/ hr IV .[id number] [facility] Stop: 06/03/18 14:14 Last Admin: 04/05/18 17:53 Dose: 75 mls/hr Ciprofloxacin (Cipro 200mg Premix Pb) 200 mg in 100 mls @ 100 mls/hr IV Q24HR [facility] Stop: 06/04/18 16:59 Last Admin: 04/05/18 17:50 Dose: 100 mls/hr Insulin Aspart (Novolog Insulin Sliding Scale) 0 units SUBQ Q6HR [facility]; Protocol Stop: 06/02/18 11:59 Last Admin: 04/05/18 17:51 Dose: 2 units Insulin Detemir (Levemir Insulin) 30 units SUBQ BID [facility]; Protocol Stop: 06/02/18 16:59 Last Admin: 04/05/18 17:51 Dose: 30 units Lactobacillus Rhamnosus (Culturelle 15b) 1 each PO DAILY [facility] Stop: 06/03/18 08:59 Last Admin: 04/05/18 08:36 Dose: 1 each Magnesium Hydroxide (Milk Of Magnesia) 30 ml NG DAILY PRN PRN Reason: Constipation Stop: 06/02/18 13:54 Metoprolol Tartrate (Lopressor) 25 mg NG BID [facility] Stop: 06/02/18 16:59 Last Admin: 04/05/18 17:51 Dose: 25 mg Metronidazole (Flagyl) 500 mg PO TID [facility] Stop: 04/11/18 13:59 Last Admin: 04/05/18 14:22 Dose: 500 mg Miscellaneous (Vancomycin Iv Per Pharmacy) 1 ea MC PRN [facility] Stop: 06/03/18 12:14 Nystatin (Nystop) 0 units TP BID [facility] Stop: 06/03/18 16:59 Last Admin: 04/05/18 17:58 Dose: 1 units Nystatin (Nystop) 0 units TP BID PRN PRN Reason: PERIANAL & INGUINAL AREAS Stop: 06/03/18 13:38 Ondansetron HCl (Zofran) 4 mg IVP Q6HR PRN PRN Reason: Nausea / Vomiting Stop: 06/02/18 14:33 Pantoprazole Sodium (Protonix) 40 mg NG DAILY [facility] Stop: 06/03/18 08:59 Last Admin: 04/05/18 08:35 Dose: 40 mg Zinc Sulfate (Zinc Sulfate) 220 mg NG DAILY [facility] Stop: 06/03/18 08:59 Last Admin: 04/05/18 08:36 Dose: 220 mg General: Alert, Oriented x3, No acute distress HEENT: Atraumatic, Mucous membr. moist/pink Neck: Supple, +2 carotid pulse wo bruit Cardiovascular: Regular rate, Normal S1, Normal S2 Lungs: Clear to auscultation Abdomen: Bowel sounds, Soft Extremities: no Edema Neurological: Sensation intact Skin: no Rash Psych/Mental Status: Mood NL Assessment/Plan - Assessment Assessment: KATHERINE on CKD Severe Dehydration Sepsis 2/2 Cx UTI, C. diff Colitis Anemia acute GI bleed on CD Ess Htn T2DM AdenoCA S/P Partial Colectomy Intra/Retroperitoneal Abscess S/P drain - Plan Plan: Lab - Result Diagrams 04/04/18 05:15 04/04/18 04:15 Current Medications Acetaminophen (Tylenol) 650 mg PO Q4HR PRN PRN Reason: Pain or Fever >101 Stop: 06/02/18 13:54 Last Admin: 04/04/18 03:14 Dose: 650 mg Albuterol/Ipratropium (Duoneb Neb) 3 ml HHN Q6HRT [facility] Stop: 06/02/18 18:59 Last Admin: 04/04/18 12:02 Dose: 3 ml Ascorbic Acid (Vitamin C) 500 mg NG DAILY [facility] Stop: 06/03/18 08:59 Last Admin: 04/04/18 08:59 Dose: Not Given Bisacodyl (Dulcolax 10 Mg Supp) 10 mg RC DAILY PRN PRN Reason: Constipation Stop: 06/02/18 13:54 [place] Balsam/Trypsin (Venelex) 1 appl TP DAILY [facility] Stop: 06/03/18 13:14 Chlorhexidine Gluconate (Peridex) 5 ml MM DAILY [facility] Stop: 06/03/18 08:59 Last Admin: 04/04/18 10:17 Dose: Not Given Cholecalciferol (Vitamin D3) 5,000 iu NG DAILY [facility] Stop: 06/03/18 08:59 Last Admin: 04/04/18 09:00 Dose: Not Given Diltiazem HCl (Cardizem) 5 mg IVP Q6HR PRN PRN Reason: HR > 120 Stop: 06/02/18 17:52 Last Admin: 04/03/18 19:05 Dose: 5 mg Enoxaparin Sodium (Lovenox) 60 mg SUBQ DAILY [facility] Stop: 06/02/18 20:59 Last Admin: 04/04/18 09:08 Dose: 60 mg Famotidine (Pepcid) 20 mg NG BID [facility] Stop: 06/02/18 16:59 Last Admin: 04/04/18 09:00 Dose: Not Given Ceftriaxone Sodium 1 gm/ (Sodium Chloride) 50 mls @ 100 mls/hr IV Q24HR [facility] Stop: 06/02/18 10:44 Last Admin: 04/04/18 10:23 Dose: 100 mls/hr Norepinephrine Bitartrate 4 mg (/ Dextrose) 254 mls @ 0 mls/hr IV TITR PRN; Protocol PRN Reason: BP MAINTENANCE (PER PROTOCOL) Stop: 06/02/18 14:56 Vancomycin HCl 1.25 gm/ Sodium (Chloride) 250 mls @ 165 mls/hr IV Q24H [facility] Stop: 06/03/18 12:59 Potassium Chloride/Sodium Chloride (0.45% Ns W/20 Meq Kcl) 1,000 mls @ 75 mls/ hr IV .[id number] [facility] Stop: 06/03/18 14:14 Insulin Aspart (Novolog Insulin Sliding Scale) 0 units SUBQ Q6HR [facility]; Protocol Stop: 06/02/18 11:59 Last Admin: 04/04/18 13:31 Dose: Not Given Insulin Detemir (Levemir Insulin) 30 units SUBQ BID [facility]; Protocol Stop: 06/02/18 16:59 Last Admin: 04/04/18 09:00 Dose: Not Given Ketorolac Tromethamine (Toradol) 30 mg IVP Q6H PRN PRN Reason: Abdominal Pain Stop: 06/03/18 11:05 Lactobacillus Rhamnosus (Culturelle 15b) 1 each PO DAILY [facility] Stop: 06/03/18 08:59 Last Admin: 04/04/18 09:00 Dose: Not Given Magnesium Hydroxide (Milk Of Magnesia) 30 ml NG DAILY PRN PRN Reason: Constipation Stop: 06/02/18 13:54 Metoprolol Tartrate (Lopressor) 25 mg NG BID [facility] Stop: 06/02/18 16:59 Last Admin: 04/04/18 09:00 Dose: Not Given Metronidazole (Flagyl) 500 mg PO TID [facility] Stop: 04/11/18 13:59 Miscellaneous (Vancomycin Iv Per Pharmacy) 1 ea MC PRN [facility] Stop: 06/03/18 12:14 Nystatin (Nystop) 0 units TP BID [facility] Stop: 06/03/18 16:59 Nystatin (Nystop) 0 units TP BID PRN PRN Reason: PERIANAL & INGUINAL AREAS Stop: 06/03/18 13:38 Ondansetron HCl (Zofran) 4 mg IVP Q6HR PRN PRN Reason: Nausea / Vomiting Stop: 06/02/18 14:33 Pantoprazole Sodium (Protonix) 40 mg NG DAILY [facility] Stop: 06/03/18 08:59 Last Admin: 04/04/18 09:02 Dose: Not Given Zinc Sulfate (Zinc Sulfate) 220 mg NG DAILY [facility] Stop: 06/03/18 08:59 Last Admin: 04/04/18 09:03 Dose: Not Given Lab - Result Diagrams 04/05/18 04:05 04/05/18 04:05 Kidney fnc better w/ BUN/CR 30/0.6 Hgb/Hct up to 11/33.9 post transfusion continue hydration Nutritional Asmnt/Malnutr-PDOC - Dietary Evaluation Malnutrition Findings (Please click <Entered> for more info): Nutritional Asmnt/Malnutrition Start: 04/04/18 15: 05 Text: Status: Complete Freq: Protocol: Document 04/04/18 15:24 [facility] (Rec: 04/04/18 15:50 [facility]) Nutritional Asmnt/Malnutrition Patient General Information Nutritional Screening High Risk Consult Diagnosis sepsis, dehydration, coccyx ulcer Pertinent Medical Hx/Surgical Hx HTn, DM, CVA/PE, ERSD, dementia, COLCON CA, parkinsonism, PEG/Gtube, colectomy, depression Subjective Information Consult received for BS <180, merry <12 at admission.. Pt seen resting in bed at time of visit. TF on hold d/t CT scheduled today. Current Diet Order/ Nutrition Support glucerna 1.2 at 55ml/hr x 20hr Pertinent Medications vit C, Vit D3, pepcid, novolog , levemir, culturelle, protonix, 0.45%ns w/20meq kcl, vancomycin, zinc Pertinent Labs 04/04 K 2.7 (decreasing), BUN 68 (trending down), glucose 122, POC 117 7/1 Cl 91, BUN 130, Cr 1.7, glucose 276, POC 158 Nutritional Hx/Data Height 1.57 m Height (Calculated Centimeters) 157.5 Current Weight (lbs) 54.431 kg Weight (Calculated Kilograms) 54.4 Weight (Calculated Grams) 08217.1 [place] Body Weight 110 Body Mass Index (BMI) 21.9 Weight Status Approriate GI Symptoms GI Symptoms None Last BM 04/03 x 3 Difficult in: None Skin Integrity/Comment: decubitu ulcer to sacrum, bruise to left/right upper arm , lef thand, adbomen Estimated Nutritional Goals BEE in Kcals: Using Current wt Calories/Kcals/Kg 27-32 Kcals Calculated 9890-0067 Protein: Using Current wt Protein g/k.2-1.4 Protein Calculated 66-77 Fluid: ml 1485-1760ml (1ml/kcal) Nutritional Problem 2. Problem Problem increased nutrition needs Etiology increased metabolic demand, impaired skin integrity Signs/Symptoms: dx of sepsis, coccyx ulcer 1. Problem Problem increased nutrition related labs Etiology hx of DM, electrolyte imbalance Signs/Symptoms: glucose 122-276, K 2.7 Malnutrition Alert Is there a minimum of two criteria No selected? Query Text:Check all the applicable criteria. A minimum of two criteria are recommended for diagnosis of either severe or non-severe malnutrition. Malnutrition Related to Morbid Obesity Malnutrition related to morbid obesity No Intervention/Recommendation Comments 1. Continue with current TF regimen. It provides 1320kcal, 66g protein, 888ml free water , meeting 90% of calorie needs and 100% of protein needs. 2. Monitor TF rate, tolerance, wt, skin integrity and labs 3. F/U as high risk in 2-3 days, 04/06-04/07 Expected Outcomes/Goals Expected Outcomes/Goals 1. Pt to meet at least 75% of nutritional needs via nutrition support with tolerance 2. Wt stability, skin integrity to improve, labs to approach WNL.
[2018-04-06] MEDS: INSULIN ASPART SLIDING SCALE 100 UNITS/ML UNIT SUBQ SCH ×4 (00:22→18:01)
[2018-04-06] MEDS: Albuterol/Ipratropium Neb 3 ML AERS HHN SCH ×4 (01:53→19:34)
[2018-04-06] MEDS ORDERED: Amikacin 250 mg/mL 2mL Vial IV ONE (05:08)
[2018-04-06 05:27] LABS: % BASOPHILS 0.9 % (0.0-2.0); % LYMPHOCYTES 14.2 % (20.0-50.0); % MONOCYTES 14.6 % (2.0-10.0); % NEUTROPHILS 67.3 % (40.0-80.0); BASOPHILE ABSOLUTE 0.1 Th/cumm (0-0.2); EOSINOPHILE ABSOLUTE 0.2 Th/cmm (0.1-0.4); HEMOGLOBIN 11.6 gm/dL (12-16); MEAN CORPUSCULAR HEMOGLOBIN 26.7 pg (27.0-31.0); MEAN CORPUSCULAR HGB CONC 32.2 pg (28.0-36.0); MEAN PLATELET VOLUME 8.3 fl; NEUTROPHILE ABSOLUTE 4.7 Th/cmm (1.8-8.0); PLATELET COUNT 239 Th/cmm (150-400); RED BLOOD COUNT 4.34 Mil/cmm (3.80-5.20); RED CELL DISTRIBUTION WIDTH 19.3 % (11.5-20.0)
[2018-04-06 06:08] LABS: ANION GAP 9.9 (7.0-16.0); BUN - UREA NITROGEN 17 mg/dL (7-25); CARBON DIOXIDE 24.8 mEq/L (21.0-31.0); CHLORIDE 102 mEq/L (98-107); CREATININE - SERUM 0.5 mg/dL (0.6-1.2); GLUCOSE 142 mg/dL (70-105); POTASSIUM SERUM 3.7 mEq/L (3.5-5.1); SODIUM SERUM 133 mEq/L (136-145)
--- NOTE | 2018-04-06 09:29 | General Progress Note ---
Subjective - Review of Systems Service Date: 04/06/18 Events since last encounter: patient awake not eating swallo eval G tube ? Objective - Results Result Diagrams: 04/06/18 04:40 04/06/18 12:00 Recent Labs: Laboratory Last Values WBC 7.0 Th/cmm (4.8-10.8) 04/06/18 04:40 RBC 4.34 Mil/cmm (3.80-5.20) 04/06/18 04:40 Hgb 11.6 gm/dL (12-16) L 04/06/18 04:40 Hct 36.0 % (41.0-60) L 04/06/18 04:40 MCV 83.0 fl (81-100) 04/06/18 04:40 MCH 26.7 pg (27.0-31.0) L 04/06/18 04:40 MCHC Differential 32.2 pg (28.0-36.0) 04/06/18 04:40 RDW 19.3 % (11.5-20.0) 04/06/18 04:40 Plt Count 239 Th/cmm (150-400) 04/06/18 04:40 MPV 8.3 fl 04/06/18 04:40 Neutrophils % 67.3 % (40.0-80.0) 04/06/18 04:40 Band Neutrophils % 4 % (0-10) 04/04/18 05:15 Lymphocytes % 14.2 % (20.0-50.0) L 04/06/18 04:40 Monocytes % 14.6 % (2.0-10.0) H 04/06/18 04:40 Eosinophils % 3.0 % (0.0-5.0) 04/06/18 04:40 Basophils % 0.9 % (0.0-2.0) 04/06/18 04:40 Neutrophils (Manual) 79 % (40-80) 04/04/18 05:15 Lymphocytes 10 % (20-50) L 04/04/18 05:15 Monocytes 6 % (2-10) 04/04/18 05:15 Eosinophils 1 % (0-5) 04/04/18 05:15 Platelet Estimate ADEQUATE (NORMAL) 04/03/18 04:15 Anisocytosis 1+ 04/04/18 05:15 Eos Smear Source URINE 04/04/18 04:12 Eos Smear Total Cells NONE SEEN (NONE SEEN) 04/04/18 04:12 PT 10.9 SECONDS (9.5-11.5) 04/03/18 04:40 INR 1.05 (0.5-1.4) 04/03/18 04:40 PTT (Actin FS) 28.9 SECONDS (26.0-38.0) 04/03/18 04:40 Sodium 133 mEq/L (136-145) L 04/06/18 04:40 Potassium 3.7 mEq/L (3.5-5.1) 04/06/18 04:40 Chloride 102 mEq/L (98-107) 04/06/18 04:40 Carbon Dioxide 24.8 mEq/L (21.0-31.0) 04/06/18 04:40 Anion Gap 9.9 (7.0-16.0) 04/06/18 04:40 BUN 17 mg/dL (7-25) 04/06/18 04:40 Creatinine 0.5 mg/dL (0.6-1.2) L 04/06/18 04:40 Est GFR ( Amer) TNP 04/06/18 04:40 Est GFR (Non-Af Amer) TNP 04/06/18 04:40 BUN/Creatinine Ratio 34.0 04/06/18 04:40 Glucose 142 mg/dL (70-105) H 04/06/18 04:40 POC Glucose 169 MG/DL (70 - 105) H 04/06/18 06:21 Hemoglobin A1c % 6.2 % (4.0-6.0) H 04/03/18 04:15 Whole Bld Lactic Acid 1.46 mmol/L (0.60-1.99) 04/04/18 04:15 Uric Acid 10.4 mg/dL (2.3-6.6) H 04/04/18 04:15 Calcium 9.0 mg/dL (8.6-10.3) 04/06/18 04:40 Phosphorus 2.6 mg/dL (2.5-5.0) 04/04/18 04:15 Magnesium 1.9 mg/dL (1.9-2.7) 04/05/18 04:05 Total Bilirubin 0.5 mg/dL (0.3-1.0) 04/03/18 03:25 AST 19 U/L (13-39) 04/03/18 03:25 ALT 7 U/L (7-52) 04/03/18 03:25 Alkaline Phosphatase 107 U/L (34-104) H 04/03/18 03:25 Troponin I 0.03 ng/mL (0.01-0.05) 04/03/18 04:15 Total Protein 8.5 gm/dL (6.0-8.3) H 04/03/18 03:25 Albumin 3.9 gm/dL (3.7-5.3) 04/03/18 03:25 Globulin 4.6 gm/dL 04/03/18 03:25 Albumin/Globulin Ratio 0.9 (1.0-1.8) L 04/03/18 03:25 Triglycerides 221 mg/dL (<150) H 04/04/18 04:15 Cholesterol 88 mg/dL (<200) 04/04/18 04:15 LDL Cholesterol Direct 43 mg/dL (75-193) L 04/04/18 04:15 HDL Cholesterol 24 mg/dL (23-92) 04/04/18 04:15 TSH 0.84 uIU/ml (0.34-5.60) 04/03/18 04:40 Urine Source [place] 04/03/18 03:26 Urine Color YELLOW 04/03/18 03:26 Urine Clarity HAZY (CLEAR) 04/03/18 03:26 Urine pH 6.0 (4.6 - 8.0) 04/03/18 03:26 Ur Specific [place] 1.010 (1.005-1.030) 04/03/18 03:26 Urine Protein NEGATIVE mg/dL (NEGATIVE) 04/03/18 03:26 Urine Glucose (UA) NEGATIVE mg/dL (NEGATIVE) 04/03/18 03:26 Urine Ketones NEGATIVE mg/dL (NEGATIVE) 04/03/18 03:26 Urine Blood TRACE (NEGATIVE) 04/03/18 03:26 Urine Nitrate NEGATIVE (NEGATIVE) 04/03/18 03:26 Urine Bilirubin NEGATIVE (NEGATIVE) 04/03/18 03:26 Urine Urobilinogen 0.2 E.U./dL (0.2 - 1.0) 04/03/18 03:26 Ur Leukocyte Esterase LARGE (NEGATIVE) H 04/03/18 03:26 Urine RBC 0-2 /hpf (0-5) 04/03/18 03:26 Urine WBC 10-25 /hpf (0-5) H 04/03/18 03:26 Ur Epithelial Cells OCCASIONAL /lpf (FEW) 04/03/18 03:26 Urine Bacteria MODERATE /hpf (NONE SEEN) H 04/03/18 03:26 Ur Random Sodium 28 mmol/L 04/04/18 04:12 Urine Creatinine 34.0 mg/dl (28.0-217.0) 04/04/18 04:12 Stool Occult Blood POSITIVE (NEGATIVE) H 04/04/18 06:15 Blood Type B POSITIVE 04/04/18 05:45 Antibody Screen NEGATIVE 04/04/18 05:45 Crossmatch See Detail 04/04/18 05:45 - Physical Exam Vitals and I&O: Vital Signs Temp 98.7 F 04/06/18 03:00 Pulse 96 04/06/18 08:08 Resp 14 04/06/18 08:08 BP 120/75 04/06/18 06:00 Pulse Ox 100 04/06/18 08:08 Intake & Output 04/05/18 04/06/18 04/06/18 18:59 06:59 18:59 Intake Total 1848.75 910 Output Total 1200 900 Balance 648.75 10 Weight (lbs) 59.557 kg 59.421 kg Intake: Intake, IV Amount 1218.75 0.45% NS w/20 mEq KCl 1, 918.75 000 ml @ 75 mls/hr IV . [id number] [facility] Rx#:[id number] Vancomycin HCl 1.25 gm In 250 Sodium Chloride 0.9% 250 ml @ 165 mls/hr IV Q24H [facility] Rx#:[id number] cefTRIAXone 1 gm In 50 Sodium Chloride 0.9% 50 ml @ 100 mls/hr IV Q24HR [facility] Rx#:[id number] Tube Feeding 380 660 Other 250 250 Output: Urine 1200 900 Other: # Bowel Movements 4 3 Stool Characteristics Liquid Liquid Brown Brown Weight Source Bedscale Bedscale Active Medications: Current Medications Acetaminophen (Tylenol) 650 mg PO Q4HR PRN PRN Reason: Pain or Fever >101 Stop: 06/02/18 13:54 Last Admin: 04/06/18 00:49 Dose: 650 mg Albuterol/Ipratropium (Duoneb Neb) 3 ml HHN Q6HRT [facility] Stop: 06/02/18 18:59 Last Admin: 04/06/18 08:05 Dose: 3 ml Ascorbic Acid (Vitamin C) 500 mg NG DAILY [facility] Stop: 06/03/18 08:59 Last Admin: 04/05/18 08:36 Dose: 500 mg Bisacodyl (Dulcolax 10 Mg Supp) 10 mg RC DAILY PRN PRN Reason: Constipation Stop: 06/02/18 13:54 [place] Oil/[place] Balsam/Trypsin (Venelex) 1 appl TP DAILY [facility] Stop: 06/03/18 13:14 Last Admin: 04/05/18 11:45 Dose: 1 appl Cholecalciferol (Vitamin D3) 5,000 iu NG DAILY [facility] Stop: 06/03/18 08:59 Last Admin: 04/05/18 08:34 Dose: 5,000 iu Diltiazem HCl (Cardizem) 5 mg IVP Q6HR PRN PRN Reason: HR > 120 Stop: 06/02/18 17:52 Last Admin: 04/03/18 19:05 Dose: 5 mg Enoxaparin Sodium (Lovenox) 60 mg SUBQ DAILY [facility] Stop: 06/02/18 20:59 Last Admin: 04/05/18 09:00 Dose: 60 mg Famotidine (Pepcid) 20 mg NG BID [facility] Stop: 06/02/18 16:59 Last Admin: 04/05/18 17:58 Dose: 20 mg Norepinephrine Bitartrate 4 mg (/ Dextrose) 254 mls @ 0 mls/hr IV TITR PRN; Protocol PRN Reason: BP MAINTENANCE (PER PROTOCOL) Stop: 06/02/18 14:56 Vancomycin HCl 1.25 gm/ Sodium (Chloride) 250 mls @ 165 mls/hr IV Q24H [facility] Stop: 06/03/18 12:59 Last Infusion: 04/05/18 15:55 Dose: Infused Potassium Chloride/Sodium Chloride (0.45% Ns W/20 Meq Kcl) 1,000 mls @ 75 mls/ hr IV .[id number] [facility] Stop: 06/03/18 14:14 Last Admin: 04/05/18 17:53 Dose: 75 mls/hr Amikacin Sulfate 1,000 mg/ (Dextrose) 104 mls @ 100 mls/hr IV Q36H [facility] Stop: 06/06/18 16:59 Insulin Aspart (Novolog Insulin Sliding Scale) 0 units SUBQ Q6HR [facility]; Protocol Stop: 06/02/18 11:59 Last Admin: 04/06/18 06:24 Dose: 2 units Insulin Detemir (Levemir Insulin) 30 units SUBQ BID [facility]; Protocol Stop: 06/02/18 16:59 Last Admin: 04/05/18 17:51 Dose: 30 units Lactobacillus Rhamnosus (Culturelle 15b) 1 each PO DAILY [facility] Stop: 06/03/18 08:59 Last Admin: 04/05/18 08:36 Dose: 1 each Magnesium Hydroxide (Milk Of Magnesia) 30 ml NG DAILY PRN PRN Reason: Constipation Stop: 06/02/18 13:54 Metoprolol Tartrate (Lopressor) 25 mg NG BID [facility] Stop: 06/02/18 16:59 Last Admin: 04/05/18 17:51 Dose: 25 mg Metronidazole (Flagyl) 500 mg PO TID [facility] Stop: 04/11/18 13:59 Last Admin: 04/05/18 20:43 Dose: 500 mg Miscellaneous (Vancomycin Iv Per Pharmacy) 1 ea PRN [facility] Stop: 06/03/18 12:14 Miscellaneous (Amikacin Iv Per Pharmacy) 1 [facility] PRN PRN PRN Reason: PROTOCOL Stop: 06/05/18 03:19 Nystatin (Nystop) 0 units TP BID [facility] Stop: 06/03/18 16:59 Last Admin: 04/05/18 17:58 Dose: 1 units Nystatin (Nystop) 0 units TP BID PRN PRN Reason: PERIANAL & INGUINAL AREAS Stop: 06/03/18 13:38 Ondansetron HCl (Zofran) 4 mg IVP Q6HR PRN PRN Reason: Nausea / Vomiting Stop: 06/02/18 14:33 Pantoprazole Sodium (Protonix) 40 mg NG DAILY [facility] Stop: 06/03/18 08:59 Last Admin: 04/05/18 08:35 Dose: 40 mg Zinc Sulfate (Zinc Sulfate) 220 mg NG DAILY [facility] Stop: 06/03/18 08:59 Last Admin: 04/05/18 08:36 Dose: 220 mg General: Alert, Oriented x3, No acute distress HEENT: Atraumatic, Mucous membr. moist/pink Neck: Supple, +2 carotid pulse wo bruit Cardiovascular: Regular rate, Normal S1, Normal S2 Lungs: Clear to auscultation Abdomen: Bowel sounds, Soft Extremities: no Edema Neurological: Sensation intact Skin: no Rash Psych/Mental Status: Mood NL Nutritional Asmnt/Malnutr-PDOC - Dietary Evaluation Malnutrition Findings (Please click <Entered> for more info): Nutritional Asmnt/Malnutrition Start: 04/04/18 15: 05 Text: Status: Complete Freq: Protocol: Document 04/04/18 15:24 LCHENG (Rec: 04/04/18 15:50 [email or web address] [email or web address]) Nutritional Asmnt/Malnutrition Patient General Information Nutritional Screening High Risk Consult Diagnosis sepsis, dehydration, coccyx ulcer Pertinent Medical Hx/Surgical Hx HTn, DM, CVA/PE, ERSD, dementia, COLCON CA, parkinsonism, PEG/Gtube, colectomy, depression Subjective Information Consult received for BS <180, merry <12 at admission.. Pt seen resting in bed at time of visit. TF on hold d/t CT scheduled today. Current Diet Order/ Nutrition Support glucerna 1.2 at 55ml/hr x 20hr Pertinent Medications vit C, Vit D3, pepcid, novolog , levemir, culturelle, protonix, 0.45%ns w/20meq kcl, vancomycin, zinc Pertinent Labs 04/04 K 2.7 (decreasing), BUN 68 (trending down), glucose 122, POC 117 7/ Cl 91, BUN 130, Cr 1.7, glucose 276, POC 158 Nutritional Hx/Data Height 1.57 m Height (Calculated Centimeters) 157.5 Current Weight (lbs) 54.431 kg Weight (Calculated Kilograms) 54.4 Weight (Calculated Grams) 90304.1 [place] Body Weight 110 Body Mass Index (BMI) 21.9 Weight Status Approriate GI Symptoms GI Symptoms None Last BM 04/03 x 3 Difficult in: None Skin Integrity/Comment: decubitu ulcer to sacrum, bruise to left/right upper arm , lef thand, adbomen Estimated Nutritional Goals BEE in Kcals: Using Current wt Calories/Kcals/Kg 27-32 Kcals Calculated 3043-9399 Protein: Using Current wt Protein g/k.2-1.4 Protein Calculated 66-77 Fluid: ml 1485-1760ml (1ml/kcal) Nutritional Problem 2. Problem Problem increased nutrition needs Etiology increased metabolic demand, impaired skin integrity Signs/Symptoms: dx of sepsis, coccyx ulcer 1. Problem Problem increased nutrition related labs Etiology hx of DM, electrolyte imbalance Signs/Symptoms: glucose 122-276, K 2.7 Malnutrition Alert Is there a minimum of two criteria No selected? Query Text:Check all the applicable criteria. A minimum of two criteria are recommended for diagnosis of either severe or non-severe malnutrition. Malnutrition Related to Morbid Obesity Malnutrition related to morbid obesity No Intervention/Recommendation Comments 1. Continue with current TF regimen. It provides 1320kcal, 66g protein, 888ml free water , meeting 90% of calorie needs and 100% of protein needs. 2. Monitor TF rate, tolerance, wt, skin integrity and labs 3. F/U as high risk in 2-3 days, 04/06-04/07 Expected Outcomes/Goals Expected Outcomes/Goals 1. Pt to meet at least 75% of nutritional needs via nutrition support with tolerance 2. Wt stability, skin integrity to improve, labs to approach WNL.
[2018-04-06] MEDS: Insulin Detemir 100 units/mL 10mL Vial SUBQ SCH ×2 (09:58→17:59)
[2018-04-06] MEDS: Enoxaparin 60 mg/0.6 mL 0.6mL Syr SUBQ SCH (10:01)
[2018-04-06] MEDS: Lactobacillus Rhamnosus GG 15 Billion CFU CAP.SPRINK PO SCH (10:03)
[2018-04-06] MEDS: Pantoprazole 40 mg/Packet NG SCH (10:03)
[2018-04-06] MEDS: Multivitamin w/ Minerals Tab PO SCH (10:03)
--- NOTE | 2018-04-06 11:34 | General Progress Note ---
Subjective - Review of Systems Service Date: 04/06/18 Subjective: awake, interacting, verbal, upright Objective - Results Result Diagrams: 04/06/18 04:40 04/06/18 04:40 Recent Labs: Laboratory Last Values WBC 7.0 Th/cmm (4.8-10.8) 04/06/18 04:40 RBC 4.34 Mil/cmm (3.80-5.20) 04/06/18 04:40 Hgb 11.6 gm/dL (12-16) L 04/06/18 04:40 Hct 36.0 % (41.0-60) L 04/06/18 04:40 MCV 83.0 fl (81-100) 04/06/18 04:40 MCH 26.7 pg (27.0-31.0) L 04/06/18 04:40 MCHC Differential 32.2 pg (28.0-36.0) 04/06/18 04:40 RDW 19.3 % (11.5-20.0) 04/06/18 04:40 Plt Count 239 Th/cmm (150-400) 04/06/18 04:40 MPV 8.3 fl 04/06/18 04:40 Neutrophils % 67.3 % (40.0-80.0) 04/06/18 04:40 Band Neutrophils % 4 % (0-10) 04/04/18 05:15 Lymphocytes % 14.2 % (20.0-50.0) L 04/06/18 04:40 Monocytes % 14.6 % (2.0-10.0) H 04/06/18 04:40 Eosinophils % 3.0 % (0.0-5.0) 04/06/18 04:40 Basophils % 0.9 % (0.0-2.0) 04/06/18 04:40 Neutrophils (Manual) 79 % (40-80) 04/04/18 05:15 Lymphocytes 10 % (20-50) L 04/04/18 05:15 Monocytes 6 % (2-10) 04/04/18 05:15 Eosinophils 1 % (0-5) 04/04/18 05:15 Platelet Estimate ADEQUATE (NORMAL) 04/03/18 04:15 Anisocytosis 1+ 04/04/18 05:15 Eos Smear Source URINE 04/04/18 04:12 Eos Smear Total Cells NONE SEEN (NONE SEEN) 04/04/18 04:12 PT 10.9 SECONDS (9.5-11.5) 04/03/18 04:40 INR 1.05 (0.5-1.4) 04/03/18 04:40 PTT (Actin FS) 28.9 SECONDS (26.0-38.0) 04/03/18 04:40 Sodium 133 mEq/L (136-145) L 04/06/18 04:40 Potassium 3.7 mEq/L (3.5-5.1) 04/06/18 04:40 Chloride 102 mEq/L (98-107) 04/06/18 04:40 Carbon Dioxide 24.8 mEq/L (21.0-31.0) 04/06/18 04:40 Anion Gap 9.9 (7.0-16.0) 04/06/18 04:40 BUN 17 mg/dL (7-25) 04/06/18 04:40 Creatinine 0.5 mg/dL (0.6-1.2) L 04/06/18 04:40 Est GFR ( Amer) TNP 04/06/18 04:40 Est GFR (Non-Af Amer) TNP 04/06/18 04:40 BUN/Creatinine Ratio 34.0 04/06/18 04:40 Glucose 142 mg/dL (70-105) H 04/06/18 04:40 POC Glucose 123 MG/DL (70 - 105) H 04/06/18 09:56 Hemoglobin A1c % 6.2 % (4.0-6.0) H 04/03/18 04:15 Whole Bld Lactic Acid 1.46 mmol/L (0.60-1.99) 04/04/18 04:15 Uric Acid 10.4 mg/dL (2.3-6.6) H 04/04/18 04:15 Calcium 9.0 mg/dL (8.6-10.3) 04/06/18 04:40 Phosphorus 2.6 mg/dL (2.5-5.0) 04/04/18 04:15 Magnesium 1.9 mg/dL (1.9-2.7) 04/05/18 04:05 Total Bilirubin 0.5 mg/dL (0.3-1.0) 04/03/18 03:25 AST 19 U/L (13-39) 04/03/18 03:25 ALT 7 U/L (7-52) 04/03/18 03:25 Alkaline Phosphatase 107 U/L (34-104) H 04/03/18 03:25 Troponin I 0.03 ng/mL (0.01-0.05) 04/03/18 04:15 Total Protein 8.5 gm/dL (6.0-8.3) H 04/03/18 03:25 Albumin 3.9 gm/dL (3.7-5.3) 04/03/18 03:25 Globulin 4.6 gm/dL 04/03/18 03:25 Albumin/Globulin Ratio 0.9 (1.0-1.8) L 04/03/18 03:25 Triglycerides 221 mg/dL (<150) H 04/04/18 04:15 Cholesterol 88 mg/dL (<200) 04/04/18 04:15 LDL Cholesterol Direct 43 mg/dL (75-193) L 04/04/18 04:15 HDL Cholesterol 24 mg/dL (23-92) 04/04/18 04:15 TSH 0.84 uIU/ml (0.34-5.60) 04/03/18 04:40 Urine Source [place] 04/03/18 03:26 Urine Color YELLOW 04/03/18 03:26 Urine Clarity HAZY (CLEAR) 04/03/18 03:26 Urine pH 6.0 (4.6 - 8.0) 04/03/18 03:26 Ur Specific [place] 1.010 (1.005-1.030) 04/03/18 03:26 Urine Protein NEGATIVE mg/dL (NEGATIVE) 04/03/18 03:26 Urine Glucose (UA) NEGATIVE mg/dL (NEGATIVE) 04/03/18 03:26 Urine Ketones NEGATIVE mg/dL (NEGATIVE) 04/03/18 03:26 Urine Blood TRACE (NEGATIVE) 04/03/18 03:26 Urine Nitrate NEGATIVE (NEGATIVE) 04/03/18 03:26 Urine Bilirubin NEGATIVE (NEGATIVE) 04/03/18 03:26 Urine Urobilinogen 0.2 E.U./dL (0.2 - 1.0) 04/03/18 03:26 Ur Leukocyte Esterase LARGE (NEGATIVE) H 04/03/18 03:26 Urine RBC 0-2 /hpf (0-5) 04/03/18 03:26 Urine WBC 10-25 /hpf (0-5) H 04/03/18 03:26 Ur Epithelial Cells OCCASIONAL /lpf (FEW) 04/03/18 03:26 Urine Bacteria MODERATE /hpf (NONE SEEN) H 04/03/18 03:26 Ur Random Sodium 28 mmol/L 04/04/18 04:12 Urine Creatinine 34.0 mg/dl (28.0-217.0) 04/04/18 04:12 Stool Occult Blood POSITIVE (NEGATIVE) 04/04/18 06:15 Blood Type B POSITIVE 04/04/18 05:45 Antibody Screen NEGATIVE 04/04/18 05:45 Crossmatch See Detail 04/04/18 05:45 - Physical Exam Vitals and I&O: Vital Signs Temp 97.6 F 04/06/18 08:00 Pulse 97 04/06/18 11:00 Resp 16 04/06/18 11:00 BP 162/93 04/06/18 11:00 Pulse Ox 100 04/06/18 11:00 Intake & Output 04/05/18 04/06/18 04/06/18 18:59 06:59 18:59 Intake Total 1848.75 910 Output Total 1200 900 Balance 648.75 10 Weight (lbs) 59.557 kg 59.421 kg Intake: Intake, IV Amount 1218.75 0.45% NS w/20 mEq KCl 1, 918.75 000 ml @ 75 mls/hr IV . [id number] [facility] Rx#:[id number] Vancomycin HCl 1.25 gm In 250 Sodium Chloride 0.9% 250 ml @ 165 mls/hr IV Q24H [facility] Rx#:[id number] cefTRIAXone 1 gm In 50 Sodium Chloride 0.9% 50 ml @ 100 mls/hr IV Q24HR [facility] Rx#:[id number] Tube Feeding 380 660 Other 250 250 Output: Urine 1200 900 Other: # Bowel Movements 4 3 Stool Characteristics Liquid Liquid Liquid Brown Brown Brown Weight Source Bedscale Bedscale Active Medications: Current Medications Acetaminophen (Tylenol) 650 mg PO Q4HR PRN PRN Reason: Pain or Fever >101 Stop: 06/02/18 13:54 Last Admin: 04/06/18 00:49 Dose: 650 mg Albuterol/Ipratropium (Duoneb Neb) 3 ml HHN Q6HRT [facility] Stop: 06/02/18 18:59 Last Admin: 04/06/18 08:05 Dose: 3 ml Ascorbic Acid (Vitamin C) 500 mg NG DAILY [facility] Stop: 06/03/18 08:59 Last Admin: 04/06/18 10:03 Dose: 500 mg Bisacodyl (Dulcolax 10 Mg Supp) 10 mg RC DAILY PRN PRN Reason: Constipation Stop: 06/02/18 13:54 Benge Oil/[place] Balsam/Trypsin (Venelex) 1 appl TP DAILY [facility] Stop: 06/03/18 13:14 Last Admin: 04/05/18 11:45 Dose: 1 appl Cholecalciferol (Vitamin D3) 5,000 iu NG DAILY [facility] Stop: 06/03/18 08:59 Last Admin: 04/06/18 10:02 Dose: 5,000 iu Diltiazem HCl (Cardizem) 5 mg IVP Q6HR PRN PRN Reason: HR > 120 Stop: 06/02/18 17:52 Last Admin: 04/03/18 19:05 Dose: 5 mg Enoxaparin Sodium (Lovenox) 60 mg SUBQ DAILY [facility] Stop: 06/02/18 20:59 Last Admin: 04/06/18 10:01 Dose: 60 mg Famotidine (Pepcid) 20 mg NG BID [facility] Stop: 06/02/18 16:59 Last Admin: 04/06/18 10:03 Dose: 20 mg Norepinephrine Bitartrate 4 mg (/ Dextrose) 254 mls @ 0 mls/hr IV TITR PRN; Protocol PRN Reason: BP MAINTENANCE (PER PROTOCOL) Stop: 06/02/18 14:56 Vancomycin HCl 1.25 gm/ Sodium (Chloride) 250 mls @ 165 mls/hr IV Q24H [facility] Stop: 06/03/18 12:59 Last Infusion: 04/05/18 15:55 Dose: Infused Amikacin Sulfate 1,000 mg/ (Dextrose) 104 mls @ 100 mls/hr IV Q36H [facility] Stop: 06/06/18 16:59 Insulin Aspart (Novolog Insulin Sliding Scale) 0 units SUBQ Q6HR [facility]; Protocol Stop: 06/02/18 11:59 Last Admin: 04/06/18 06:24 Dose: 2 units Insulin Detemir (Levemir Insulin) 30 units SUBQ BID [facility]; Protocol Stop: 06/02/18 16:59 Last Admin: 04/06/18 09:58 Dose: 30 units Lactobacillus Rhamnosus (Culturelle 15b) 1 each PO DAILY [facility] Stop: 06/03/18 08:59 Last Admin: 04/06/18 10:03 Dose: 1 each Magnesium Hydroxide (Milk Of Magnesia) 30 ml NG DAILY PRN PRN Reason: Constipation Stop: 06/02/18 13:54 Metoprolol Tartrate (Lopressor) 25 mg NG BID [facility] Stop: 06/02/18 16:59 Last Admin: 04/06/18 10:04 Dose: 25 mg Metronidazole (Flagyl) 500 mg PO TID [facility] Stop: 04/11/18 13:59 Last Admin: 04/06/18 10:03 Dose: 500 mg Miscellaneous (Vancomycin Iv Per Pharmacy) 1 [facility] PRN [facility] Stop: 06/03/18 12:14 Miscellaneous (Amikacin Iv Per Pharmacy) 1 [facility] PRN PRN PRN Reason: PROTOCOL Stop: 06/05/18 03:19 Nystatin (Nystop) 0 units TP BID [facility] Stop: 06/03/18 16:59 Last Admin: 04/05/18 17:58 Dose: 1 units Nystatin (Nystop) 0 units TP BID PRN PRN Reason: PERIANAL & INGUINAL AREAS Stop: 06/03/18 13:38 Ondansetron HCl (Zofran) 4 mg IVP Q6HR PRN PRN Reason: Nausea / Vomiting Stop: 06/02/18 14:33 Pantoprazole Sodium (Protonix) 40 mg NG DAILY [facility] Stop: 06/03/18 08:59 Last Admin: 04/06/18 10:03 Dose: 40 mg Zinc Sulfate (Zinc Sulfate) 220 mg NG DAILY [facility] Stop: 06/03/18 08:59 Last Admin: 04/06/18 10:02 Dose: 220 mg General: Alert, Oriented x3, No acute distress HEENT: Atraumatic, Mucous membr. moist/pink Neck: Supple, +2 carotid pulse wo bruit Cardiovascular: Regular rate, Normal S1, Normal S2 Lungs: Clear to auscultation Abdomen: Bowel sounds, Soft Extremities: no Edema Neurological: Sensation intact Skin: no Rash Psych/Mental Status: Mood NL Assessment/Plan - Assessment Assessment: KATHERINE on CKD Severe Dehydration Sepsis 2/2 E. cloacae, P. aeruginosa UTI, C. diff Colitis Anemia acute GI bleed on CD Ess Htn T2DM AdenoCA S/P Partial Colectomy Intra/Retroperitoneal Abscess S/P drain - Plan Plan: Lab - Result Diagrams 04/04/18 05:15 04/04/18 04:15 Current Medications Acetaminophen (Tylenol) 650 mg PO Q4HR PRN PRN Reason: Pain or Fever >101 Stop: 06/02/18 13:54 Last Admin: 04/04/18 03:14 Dose: 650 mg Albuterol/Ipratropium (Duoneb Neb) 3 ml HHN Q6HRT [facility] Stop: 06/02/18 18:59 Last Admin: 04/04/18 12:02 Dose: 3 ml Ascorbic Acid (Vitamin C) 500 mg NG DAILY [facility] Stop: 06/03/18 08:59 Last Admin: 04/04/18 08:59 Dose: Not Given Bisacodyl (Dulcolax 10 Mg Supp) 10 mg RC DAILY PRN PRN Reason: Constipation Stop: 06/02/18 13:54 Benge Oil/[place] Balsam/Trypsin (Venelex) 1 appl TP DAILY [facility] Stop: 06/03/18 13:14 Chlorhexidine Gluconate (Peridex) 5 ml MM DAILY [facility] Stop: 06/03/18 08:59 Last Admin: 04/04/18 10:17 Dose: Not Given Cholecalciferol (Vitamin D3) 5,000 iu NG DAILY [facility] Stop: 06/03/18 08:59 Last Admin: 04/04/18 09:00 Dose: Not Given Diltiazem HCl (Cardizem) 5 mg IVP Q6HR PRN PRN Reason: HR > 120 Stop: 06/02/18 17:52 Last Admin: 04/03/18 19:05 Dose: 5 mg Enoxaparin Sodium (Lovenox) 60 mg SUBQ DAILY [facility] Stop: 06/02/18 20:59 Last Admin: 04/04/18 09:08 Dose: 60 mg Famotidine (Pepcid) 20 mg NG BID [facility] Stop: 06/02/18 16:59 Last Admin: 04/04/18 09:00 Dose: Not Given Ceftriaxone Sodium 1 gm/ (Sodium Chloride) 50 mls @ 100 mls/hr IV Q24HR [facility] Stop: 06/02/18 10:44 Last Admin: 04/04/18 10:23 Dose: 100 mls/hr Norepinephrine Bitartrate 4 mg (/ Dextrose) 254 mls @ 0 mls/hr IV TITR PRN; Protocol PRN Reason: BP MAINTENANCE (PER PROTOCOL) Stop: 06/02/18 14:56 Vancomycin HCl 1.25 gm/ Sodium (Chloride) 250 mls @ 165 mls/hr IV Q24H [facility] Stop: 06/03/18 12:59 Potassium Chloride/Sodium Chloride (0.45% Ns W/20 Meq Kcl) 1,000 mls @ 75 mls/ hr IV .[id number] [facility] Stop: 06/03/18 14:14 Insulin Aspart (Novolog Insulin Sliding Scale) 0 units SUBQ Q6HR [facility]; Protocol Stop: 06/02/18 11:59 Last Admin: 04/04/18 13:31 Dose: Not Given Insulin Detemir (Levemir Insulin) 30 units SUBQ BID [facility]; Protocol Stop: 06/02/18 16:59 Last Admin: 04/04/18 09:00 Dose: Not Given Ketorolac Tromethamine (Toradol) 30 mg IVP Q6H PRN PRN Reason: Abdominal Pain Stop: 06/03/18 11:05 Lactobacillus Rhamnosus (Culturelle 15b) 1 each PO DAILY [facility] Stop: 06/03/18 08:59 Last Admin: 04/04/18 09:00 Dose: Not Given Magnesium Hydroxide (Milk Of Magnesia) 30 ml NG DAILY PRN PRN Reason: Constipation Stop: 06/02/18 13:54 Metoprolol Tartrate (Lopressor) 25 mg NG BID [facility] Stop: 06/02/18 16:59 Last Admin: 04/04/18 09:00 Dose: Not Given Metronidazole (Flagyl) 500 mg PO TID [facility] Stop: 04/11/18 13:59 Miscellaneous (Vancomycin Iv Per Pharmacy) 1 e[facility] PRN [facility] Stop: 06/03/18 12:14 Nystatin (Nystop) 0 units TP BID [facility] Stop: 06/03/18 16:59 Nystatin (Nystop) 0 units TP BID PRN PRN Reason: PERIANAL & INGUINAL AREAS Stop: 06/03/18 13:38 Ondansetron HCl (Zofran) 4 mg IVP Q6HR PRN PRN Reason: Nausea / Vomiting Stop: 06/02/18 14:33 Pantoprazole Sodium (Protonix) 40 mg NG DAILY [facility] Stop: 06/03/18 08:59 Last Admin: 04/04/18 09:02 Dose: Not Given Zinc Sulfate (Zinc Sulfate) 220 mg NG DAILY [facility] Stop: 06/03/18 08:59 Last Admin: 04/04/18 09:03 Dose: Not Given Lab - Result Diagrams 04/06/18 04:40 04/06/18 04:40 Kidney fnc better w/ BUN/CR 17/0.5 Hgb/Hct up to 11.6/36 Na down to 133, hold hydration monitor BP closely Nutritional Asmnt/Malnutr-PDOC - Dietary Evaluation Malnutrition Findings (Please click <Entered> for more info): Nutritional Asmnt/Malnutrition Start: 04/04/18 15: 05 Text: Status: Complete Freq: Protocol: Document 04/04/18 15:24 LCHENG (Rec: 04/04/18 15:50 [email or web address] [email or web address]) Nutritional Asmnt/Malnutrition Patient General Information Nutritional Screening High Risk Consult Diagnosis sepsis, dehydration, coccyx ulcer Pertinent Medical Hx/Surgical Hx HTn, DM, CVA/PE, ERSD, dementia, COLCON CA, parkinsonism, PEG/Gtube, colectomy, depression Subjective Information Consult received for BS <180, merry <12 at admission.. Pt seen resting in bed at time of visit. TF on hold d/t CT scheduled today. Current Diet Order/ Nutrition Support glucerna 1.2 at 55ml/hr x 20hr Pertinent Medications vit C, Vit D3, pepcid, novolog , levemir, culturelle, protonix, 0.45%ns w/20meq kcl, vancomycin, zinc Pertinent Labs 7/ K 2.7 (decreasing), BUN 68 (trending down), glucose 122, POC 117 7/1 Cl 91, BUN 130, Cr 1.7, glucose 276, POC 158 Nutritional Hx/Data Height 1.57 m Height (Calculated Centimeters) 157.5 Current Weight (lbs) 54.431 kg Weight (Calculated Kilograms) 54.4 Weight (Calculated Grams) 83549.1 [place] Body Weight 110 Body Mass Index (BMI) 21.9 Weight Status Approriate GI Symptoms GI Symptoms None Last BM 04/03 x 3 Difficult in: None Skin Integrity/Comment: decubitu ulcer to sacrum, bruise to left/right upper arm , lef thand, adbomen Estimated Nutritional Goals BEE in Kcals: Using Current wt Calories/Kcals/Kg 27-32 Kcals Calculated 5409-7592 Protein: Using Current wt Protein g/k.2-1.4 Protein Calculated 66-77 Fluid: ml 1485-1760ml (1ml/kcal) Nutritional Problem 2. Problem Problem increased nutrition needs Etiology increased metabolic demand, impaired skin integrity Signs/Symptoms: dx of sepsis, coccyx ulcer 1. Problem Problem increased nutrition related labs Etiology hx of DM, electrolyte imbalance Signs/Symptoms: glucose 122-276, K 2.7 Malnutrition Alert Is there a minimum of two criteria No selected? Query Text:Check all the applicable criteria. A minimum of two criteria are recommended for diagnosis of either severe or non-severe malnutrition. Malnutrition Related to Morbid Obesity Malnutrition related to morbid obesity No Intervention/Recommendation Comments 1. Continue with current TF regimen. It provides 1320kcal, 66g protein, 888ml free water , meeting 90% of calorie needs and 100% of protein needs. 2. Monitor TF rate, tolerance, wt, skin integrity and labs 3. F/U as high risk in 2-3 days, 04/06-04/07 Expected Outcomes/Goals Expected Outcomes/Goals 1. Pt to meet at least 75% of nutritional needs via nutrition support with tolerance 2. Wt stability, skin integrity to improve, labs to approach WNL.
[2018-04-06 12:29] LABS: CREATININE - SERUM 0.5 mg/dL (0.6-1.2)
[2018-04-06] MEDS: NYSTATIN 100000 UNITS/GM POWD TP SCH ×2 (13:17→18:00)
[2018-04-06] MEDS: Venelex 60gm Tube TP SCH (13:17)
[2018-04-06] MEDS: Vancomycin HCl 1.5 GM in Sodium Chloride 0.9% 500 ML IV SCH (13:20)
--- NOTE | 2018-04-06 15:26 | General Progress Note ---
Subjective - Review of Systems Service Date: 04/06/18 Events since last encounter: await path report has tender mass in RLQ discussed CT with radiology yesterday - thickened mueller of ascending colon Objective - Results Result Diagrams: 04/06/18 04:40 04/06/18 12:00 Recent Labs: Laboratory Last Values WBC 7.0 Th/cmm (4.8-10.8) 04/06/18 04:40 RBC 4.34 Mil/cmm (3.80-5.20) 04/06/18 04:40 Hgb 11.6 gm/dL (12-16) L 04/06/18 04:40 Hct 36.0 % (41.0-60) L 04/06/18 04:40 MCV 83.0 fl (81-100) 04/06/18 04:40 MCH 26.7 pg (27.0-31.0) L 04/06/18 04:40 MCHC Differential 32.2 pg (28.0-36.0) 04/06/18 04:40 RDW 19.3 % (11.5-20.0) 04/06/18 04:40 Plt Count 239 Th/cmm (150-400) 04/06/18 04:40 MPV 8.3 fl 04/06/18 04:40 Neutrophils % 67.3 % (40.0-80.0) 04/06/18 04:40 Band Neutrophils % 4 % (0-10) 04/04/18 05:15 Lymphocytes % 14.2 % (20.0-50.0) L 04/06/18 04:40 Monocytes % 14.6 % (2.0-10.0) H 04/06/18 04:40 Eosinophils % 3.0 % (0.0-5.0) 04/06/18 04:40 Basophils % 0.9 % (0.0-2.0) 04/06/18 04:40 Neutrophils (Manual) 79 % (40-80) 04/04/18 05:15 Lymphocytes 10 % (20-50) L 04/04/18 05:15 Monocytes 6 % (2-10) 04/04/18 05:15 Eosinophils 1 % (0-5) 04/04/18 05:15 Platelet Estimate ADEQUATE (NORMAL) 04/03/18 04:15 Anisocytosis 1+ 04/04/18 05:15 Eos Smear Source URINE 04/04/18 04:12 Eos Smear Total Cells NONE SEEN (NONE SEEN) 04/04/18 04:12 PT 10.9 SECONDS (9.5-11.5) 04/03/18 04:40 INR 1.05 (0.5-1.4) 04/03/18 04:40 PTT (Actin FS) 28.9 SECONDS (26.0-38.0) 04/03/18 04:40 Sodium 133 mEq/L (136-145) L 04/06/18 04:40 Potassium 3.7 mEq/L (3.5-5.1) 04/06/18 04:40 Chloride 102 mEq/L (98-107) 04/06/18 04:40 Carbon Dioxide 24.8 mEq/L (21.0-31.0) 04/06/18 04:40 Anion Gap 9.9 (7.0-16.0) 04/06/18 04:40 BUN 15 mg/dL (7-25) 04/06/18 12:00 Creatinine 0.5 mg/dL (0.6-1.2) L 04/06/18 12:00 Est GFR ( Amer) TNP 04/06/18 04:40 Est GFR (Non-Af Amer) TNP 04/06/18 04:40 BUN/Creatinine Ratio 34.0 04/06/18 04:40 Glucose 142 mg/dL (70-105) H 04/06/18 04:40 POC Glucose 149 MG/DL (70 - 105) H 04/06/18 12:21 Hemoglobin A1c % 6.2 % (4.0-6.0) H 04/03/18 04:15 Whole Bld Lactic Acid 1.46 mmol/L (0.60-1.99) 04/04/18 04:15 Uric Acid 10.4 mg/dL (2.3-6.6) H 04/04/18 04:15 Calcium 9.0 mg/dL (8.6-10.3) 04/06/18 04:40 Phosphorus 2.6 mg/dL (2.5-5.0) 04/04/18 04:15 Magnesium 1.9 mg/dL (1.9-2.7) 04/05/18 04:05 Total Bilirubin 0.5 mg/dL (0.3-1.0) 04/03/18 03:25 AST 19 U/L (13-39) 04/03/18 03:25 ALT 7 U/L (7-52) 04/03/18 03:25 Alkaline Phosphatase 107 U/L (34-104) H 04/03/18 03:25 Troponin I 0.03 ng/mL (0.01-0.05) 04/03/18 04:15 Total Protein 8.5 gm/dL (6.0-8.3) H 04/03/18 03:25 Albumin 3.9 gm/dL (3.7-5.3) 04/03/18 03:25 Globulin 4.6 gm/dL 04/03/18 03:25 Albumin/Globulin Ratio 0.9 (1.0-1.8) L 04/03/18 03:25 Triglycerides 221 mg/dL (<150) H 04/04/18 04:15 Cholesterol 88 mg/dL (<200) 04/04/18 04:15 LDL Cholesterol Direct 43 mg/dL (75-193) L 04/04/18 04:15 HDL Cholesterol 24 mg/dL (23-92) 04/04/18 04:15 TSH 0.84 uIU/ml (0.34-5.60) 04/03/18 04:40 Urine Source [place] 04/03/18 03:26 Urine Color YELLOW 04/03/18 03:26 Urine Clarity HAZY (CLEAR) 04/03/18 03:26 Urine pH 6.0 (4.6 - 8.0) 04/03/18 03:26 Ur Specific [place] 1.010 (1.005-1.030) 04/03/18 03:26 Urine Protein NEGATIVE mg/dL (NEGATIVE) 04/03/18 03:26 Urine Glucose (UA) NEGATIVE mg/dL (NEGATIVE) 04/03/18 03:26 Urine Ketones NEGATIVE mg/dL (NEGATIVE) 04/03/18 03:26 Urine Blood TRACE (NEGATIVE) 04/03/18 03:26 Urine Nitrate NEGATIVE (NEGATIVE) 04/03/18 03:26 Urine Bilirubin NEGATIVE (NEGATIVE) 04/03/18 03:26 Urine Urobilinogen 0.2 E.U./dL (0.2 - 1.0) 04/03/18 03:26 Ur Leukocyte Esterase LARGE (NEGATIVE) H 04/03/18 03:26 Urine RBC 0-2 /hpf (0-5) 04/03/18 03:26 Urine WBC 10-25 /hpf (0-5) H 04/03/18 03:26 Ur Epithelial Cells OCCASIONAL /lpf (FEW) 04/03/18 03:26 Urine Bacteria MODERATE /hpf (NONE SEEN) H 04/03/18 03:26 Ur Random Sodium 28 mmol/L 04/04/18 04:12 Urine Creatinine 34.0 mg/dl (28.0-217.0) 04/04/18 04:12 Stool Occult Blood POSITIVE (NEGATIVE) H 04/04/18 06:15 Vancomycin Trough 10.1 ug/mL (5-10) H 04/06/18 12:00 Blood Type B POSITIVE 04/04/18 05:45 Antibody Screen NEGATIVE 04/04/18 05:45 Crossmatch See Detail 04/04/18 05:45 - Physical Exam Vitals and I&O: Vital Signs Temp 97.6 F 04/06/18 08:00 Pulse 95 04/06/18 13:52 Resp 16 04/06/18 13:52 BP 162/93 04/06/18 11:00 Pulse Ox 100 04/06/18 14:00 Intake & Output 04/05/18 04/06/18 04/06/18 18:59 06:59 18:59 Intake Total 1848.75 910 Output Total 1200 900 Balance 648.75 10 Weight (lbs) 59.557 kg 59.421 kg Intake: Intake, IV Amount 1218.75 0.45% NS w/20 mEq KCl 1, 918.75 000 ml @ 75 mls/hr IV . [id number] [facility] Rx#:[id number] Vancomycin HCl 1.25 gm In 250 Sodium Chloride 0.9% 250 ml @ 165 mls/hr IV Q24H [facility] Rx#:[id number] cefTRIAXone 1 gm In 50 Sodium Chloride 0.9% 50 ml @ 100 mls/hr IV Q24HR [facility] Rx#:[id number] Tube Feeding 380 660 Other 250 250 Output: Urine 1200 900 Other: # Bowel Movements 4 3 Stool Characteristics Liquid Liquid Liquid Brown Brown Brown Weight Source Bedscale Bedscale Active Medications: Current Medications Acetaminophen (Tylenol) 650 mg PO Q4HR PRN PRN Reason: Pain or Fever >101 Stop: 06/02/18 13:54 Last Admin: 04/06/18 00:49 Dose: 650 mg Albuterol/Ipratropium (Duoneb Neb) 3 ml HHN Q6HRT [facility] Stop: 06/02/18 18:59 Last Admin: 04/06/18 13:47 Dose: 3 ml Ascorbic Acid (Vitamin C) 500 mg NG DAILY [facility] Stop: 06/03/18 08:59 Last Admin: 04/06/18 10:03 Dose: 500 mg Bisacodyl (Dulcolax 10 Mg Supp) 10 mg RC DAILY PRN PRN Reason: Constipation Stop: 06/02/18 13:54 [place] Oil/[place] Balsam/Trypsin (Venelex) 1 appl TP DAILY [facility] Stop: 06/03/18 13:14 Last Admin: 04/06/18 13:17 Dose: 1 appl Cholecalciferol (Vitamin D3) 5,000 iu NG DAILY [facility] Stop: 06/03/18 08:59 Last Admin: 04/06/18 10:02 Dose: 5,000 iu Diltiazem HCl (Cardizem) 5 mg IVP Q6HR PRN PRN Reason: HR > 120 Stop: 06/02/18 17:52 Last Admin: 04/03/18 19:05 Dose: 5 mg Enoxaparin Sodium (Lovenox) 60 mg SUBQ DAILY [facility] Stop: 06/02/18 20:59 Last Admin: 04/06/18 10:01 Dose: 60 mg Famotidine (Pepcid) 20 mg NG BID [facility] Stop: 06/02/18 16:59 Last Admin: 04/06/18 10:03 Dose: 20 mg Norepinephrine Bitartrate 4 mg (/ Dextrose) 254 mls @ 0 mls/hr IV TITR PRN; Protocol PRN Reason: BP MAINTENANCE (PER PROTOCOL) Stop: 06/02/18 14:56 Amikacin Sulfate 1,000 mg/ (Dextrose) 104 mls @ 100 mls/hr IV Q36H [facility] Stop: 06/06/18 16:59 Vancomycin HCl 1.5 gm/ Sodium (Chloride) 500 mls @ 250 mls/hr IV Q24HR@1300 [facility] Stop: 06/05/18 12:59 Last Admin: 04/06/18 13:20 Dose: 250 mls/hr Insulin Aspart (Novolog Insulin Sliding Scale) 0 units SUBQ Q6HR [facility]; Protocol Stop: 06/02/18 11:59 Last Admin: 04/06/18 13:14 Dose: Not Given Insulin Detemir (Levemir Insulin) 30 units SUBQ BID [facility]; Protocol Stop: 06/02/18 16:59 Last Admin: 04/06/18 09:58 Dose: 30 units Lactobacillus Rhamnosus (Culturelle 15b) 1 each PO DAILY [facility] Stop: 06/03/18 08:59 Last Admin: 04/06/18 10:03 Dose: 1 each Magnesium Hydroxide (Milk Of Magnesia) 30 ml NG DAILY PRN PRN Reason: Constipation Stop: 06/02/18 13:54 Metoprolol Tartrate (Lopressor) 25 mg NG BID [facility] Stop: 06/02/18 16:59 Last Admin: 04/06/18 10:04 Dose: 25 mg Metronidazole (Flagyl) 500 mg PO TID [facility] Stop: 04/11/18 13:59 Last Admin: 04/06/18 10:03 Dose: 500 mg Miscellaneous (Vancomycin Iv Per Pharmacy) 1 ea PRN [facility] Stop: 06/03/18 12:14 Miscellaneous (Amikacin Iv Per Pharmacy) 1 [facility] PRN PRN PRN Reason: PROTOCOL Stop: 06/05/18 03:19 Nystatin (Nystop) 0 units TP BID [facility] Stop: 06/03/18 16:59 Last Admin: 04/06/18 13:17 Dose: 1 units Nystatin (Nystop) 0 units TP BID PRN PRN Reason: PERIANAL & INGUINAL AREAS Stop: 06/03/18 13:38 Ondansetron HCl (Zofran) 4 mg IVP Q6HR PRN PRN Reason: Nausea / Vomiting Stop: 06/02/18 14:33 Pantoprazole Sodium (Protonix) 40 mg NG DAILY [facility] Stop: 06/03/18 08:59 Last Admin: 04/06/18 10:03 Dose: 40 mg Zinc Sulfate (Zinc Sulfate) 220 mg NG DAILY [facility] Stop: 06/03/18 08:59 Last Admin: 04/06/18 10:02 Dose: 220 mg General: Alert, Oriented x3, No acute distress HEENT: Atraumatic, Mucous membr. moist/pink Neck: Supple, +2 carotid pulse wo bruit Cardiovascular: Regular rate, Normal S1, Normal S2 Lungs: Clear to auscultation Abdomen: Bowel sounds, Soft Extremities: no Edema Neurological: Sensation intact Skin: no Rash Psych/Mental Status: Mood NL Nutritional Asmnt/Malnutr-PDOC - Dietary Evaluation Malnutrition Findings (Please click <Entered> for more info): Nutritional Asmnt/Malnutrition Start: 04/04/18 15: 05 Text: Status: Complete Freq: Protocol: Document 04/04/18 15:24 HENG (Rec: 04/04/18 15:50 [facility] [email or web address]) Nutritional Asmnt/Malnutrition Patient General Information Nutritional Screening High Risk Consult Diagnosis sepsis, dehydration, coccyx ulcer Pertinent Medical Hx/Surgical Hx HTn, DM, CVA/PE, ERSD, dementia, COLCON CA, parkinsonism, PEG/Gtube, colectomy, depression Subjective Information Consult received for BS <180, merry <12 at admission.. Pt seen resting in bed at time of visit. TF on hold d/t CT scheduled today. Current Diet Order/ Nutrition Support glucerna 1.2 at 55ml/hr x 20hr Pertinent Medications vit C, Vit D3, pepcid, novolog , levemir, culturelle, protonix, 0.45%ns w/20meq kcl, vancomycin, zinc Pertinent Labs 04/04 K 2.7 (decreasing), BUN 68 (trending down), glucose 122, POC 117 7/ Cl 91, BUN 130, Cr 1.7, glucose 276, POC 158 Nutritional Hx/Data Height 1.57 m Height (Calculated Centimeters) 157.5 Current Weight (lbs) 54.431 kg Weight (Calculated Kilograms) 54.4 Weight (Calculated Grams) 67361.1 [place] Body Weight 110 Body Mass Index (BMI) 21.9 Weight Status Approriate GI Symptoms GI Symptoms None Last BM 04/03 x 3 Difficult in: None Skin Integrity/Comment: decubitu ulcer to sacrum, bruise to left/right upper arm , lef thand, adbomen Estimated Nutritional Goals BEE in Kcals: Using Current wt Calories/Kcals/Kg 27-32 Kcals Calculated 9707-3157 Protein: Using Current wt Protein g/k.2-1.4 Protein Calculated 66-77 Fluid: ml 1485-1760ml (1ml/kcal) Nutritional Problem 2. Problem Problem increased nutrition needs Etiology increased metabolic demand, impaired skin integrity Signs/Symptoms: dx of sepsis, coccyx ulcer 1. Problem Problem increased nutrition related labs Etiology hx of DM, electrolyte imbalance Signs/Symptoms: glucose 122-276, K 2.7 Malnutrition Alert Is there a minimum of two criteria No selected? Query Text:Check all the applicable criteria. A minimum of two criteria are recommended for diagnosis of either severe or non-severe malnutrition. Malnutrition Related to Morbid Obesity Malnutrition related to morbid obesity No Intervention/Recommendation Comments 1. Continue with current TF regimen. It provides 1320kcal, 66g protein, 888ml free water , meeting 90% of calorie needs and 100% of protein needs. 2. Monitor TF rate, tolerance, wt, skin integrity and labs 3. F/U as high risk in 2-3 days, 04/06-04/07 Expected Outcomes/Goals Expected Outcomes/Goals 1. Pt to meet at least 75% of nutritional needs via nutrition support with tolerance 2. Wt stability, skin integrity to improve, labs to approach WNL.
[2018-04-07] MEDS: Albuterol/Ipratropium Neb 3 ML AERS HHN SCH ×4 (00:39→18:52)
[2018-04-07] MEDS: INSULIN ASPART SLIDING SCALE 100 UNITS/ML UNIT SUBQ SCH ×4 (00:43→20:46)
[2018-04-07] MEDS: Multivitamin w/ Minerals Tab PO SCH (08:48)
[2018-04-07] MEDS: Lactobacillus Rhamnosus GG 15 Billion CFU CAP.SPRINK PO SCH (08:49)
[2018-04-07] MEDS: Pantoprazole 40 mg/Packet NG SCH (08:49)
[2018-04-07] MEDS: Enoxaparin 60 mg/0.6 mL 0.6mL Syr SUBQ SCH (08:50)
[2018-04-07] MEDS: Insulin Detemir 100 units/mL 10mL Vial SUBQ SCH (09:08)
[2018-04-07] MEDS: Vancomycin HCl 1.5 GM in Sodium Chloride 0.9% 500 ML IV SCH (12:18)
[2018-04-07] MEDS: NYSTATIN 100000 UNITS/GM POWD TP SCH ×2 (12:48→16:12)
[2018-04-07] MEDS: Venelex 60gm Tube TP SCH (12:49)
--- NOTE | 2018-04-07 13:33 | General Progress Note ---
Subjective - Review of Systems Service Date: 04/07/18 Events since last encounter: path report on resected bowel at [facility] no malignancy tolerating oral intake Objective - Results Result Diagrams: 04/06/18 04:40 04/06/18 12:00 Recent Labs: Laboratory Last Values WBC 7.0 Th/cmm (4.8-10.8) 04/06/18 04:40 RBC 4.34 Mil/cmm (3.80-5.20) 04/06/18 04:40 Hgb 11.6 gm/dL (12-16) L 04/06/18 04:40 Hct 36.0 % (41.0-60) L 04/06/18 04:40 MCV 83.0 fl (81-100) 04/06/18 04:40 MCH 26.7 pg (27.0-31.0) L 04/06/18 04:40 MCHC Differential 32.2 pg (28.0-36.0) 04/06/18 04:40 RDW 19.3 % (11.5-20.0) 04/06/18 04:40 Plt Count 239 Th/cmm (150-400) 04/06/18 04:40 MPV 8.3 fl 04/06/18 04:40 Neutrophils % 67.3 % (40.0-80.0) 04/06/18 04:40 Band Neutrophils % 4 % (0-10) 04/04/18 05:15 Lymphocytes % 14.2 % (20.0-50.0) L 04/06/18 04:40 Monocytes % 14.6 % (2.0-10.0) H 04/06/18 04:40 Eosinophils % 3.0 % (0.0-5.0) 04/06/18 04:40 Basophils % 0.9 % (0.0-2.0) 04/06/18 04:40 Neutrophils (Manual) 79 % (40-80) 04/04/18 05:15 Lymphocytes 10 % (20-50) L 04/04/18 05:15 Monocytes 6 % (2-10) 04/04/18 05:15 Eosinophils 1 % (0-5) 04/04/18 05:15 Platelet Estimate ADEQUATE (NORMAL) 04/03/18 04:15 Anisocytosis 1+ 04/04/18 05:15 Eos Smear Source URINE 04/04/18 04:12 Eos Smear Total Cells NONE SEEN (NONE SEEN) 04/04/18 04:12 PT 10.9 SECONDS (9.5-11.5) 04/03/18 04:40 INR 1.05 (0.5-1.4) 04/03/18 04:40 PTT (Actin FS) 28.9 SECONDS (26.0-38.0) 04/03/18 04:40 Sodium 133 mEq/L (136-145) L 04/06/18 04:40 Potassium 3.7 mEq/L (3.5-5.1) 04/06/18 04:40 Chloride 102 mEq/L (98-107) 04/06/18 04:40 Carbon Dioxide 24.8 mEq/L (21.0-31.0) 04/06/18 04:40 Anion Gap 9.9 (7.0-16.0) 04/06/18 04:40 BUN 15 mg/dL (7-25) 04/06/18 12:00 Creatinine 0.5 mg/dL (0.6-1.2) L 04/06/18 12:00 Est GFR ( Amer) TNP 04/06/18 04:40 Est GFR (Non-Af Amer) TNP 04/06/18 04:40 BUN/Creatinine Ratio 34.0 04/06/18 04:40 Glucose 142 mg/dL (70-105) H 04/06/18 04:40 POC Glucose 203 MG/DL (70 - 105) H 04/07/18 11:40 Hemoglobin A1c % 6.2 % (4.0-6.0) H 04/03/18 04:15 Whole Bld Lactic Acid 1.46 mmol/L (0.60-1.99) 04/04/18 04:15 Uric Acid 10.4 mg/dL (2.3-6.6) H 04/04/18 04:15 Calcium 9.0 mg/dL (8.6-10.3) 04/06/18 04:40 Phosphorus 2.6 mg/dL (2.5-5.0) 04/04/18 04:15 Magnesium 1.9 mg/dL (1.9-2.7) 04/05/18 04:05 Total Bilirubin 0.5 mg/dL (0.3-1.0) 04/03/18 03:25 AST 19 U/L (13-39) 04/03/18 03:25 ALT 7 U/L (7-52) 04/03/18 03:25 Alkaline Phosphatase 107 U/L (34-104) H 04/03/18 03:25 Troponin I 0.03 ng/mL (0.01-0.05) 04/03/18 04:15 Total Protein 8.5 gm/dL (6.0-8.3) H 04/03/18 03:25 Albumin 3.9 gm/dL (3.7-5.3) 04/03/18 03:25 Globulin 4.6 gm/dL 04/03/18 03:25 Albumin/Globulin Ratio 0.9 (1.0-1.8) L 04/03/18 03:25 Triglycerides 221 mg/dL (<150) H 04/04/18 04:15 Cholesterol 88 mg/dL (<200) 04/04/18 04:15 LDL Cholesterol Direct 43 mg/dL (75-193) L 04/04/18 04:15 HDL Cholesterol 24 mg/dL (23-92) 04/04/18 04:15 TSH 0.84 uIU/ml (0.34-5.60) 04/03/18 04:40 Urine Source [place] 04/03/18 03:26 Urine Color YELLOW 04/03/18 03:26 Urine Clarity HAZY (CLEAR) 04/03/18 03:26 Urine pH 6.0 (4.6 - 8.0) 04/03/18 03:26 Ur Specific [place] 1.010 (1.005-1.030) 04/03/18 03:26 Urine Protein NEGATIVE mg/dL (NEGATIVE) 04/03/18 03:26 Urine Glucose (UA) NEGATIVE mg/dL (NEGATIVE) 04/03/18 03:26 Urine Ketones NEGATIVE mg/dL (NEGATIVE) 04/03/18 03:26 Urine Blood TRACE (NEGATIVE) 04/03/18 03:26 Urine Nitrate NEGATIVE (NEGATIVE) 04/03/18 03:26 Urine Bilirubin NEGATIVE (NEGATIVE) 04/03/18 03:26 Urine Urobilinogen 0.2 E.U./dL (0.2 - 1.0) 04/03/18 03:26 Ur Leukocyte Esterase LARGE (NEGATIVE) H 04/03/18 03:26 Urine RBC 0-2 /hpf (0-5) 04/03/18 03:26 Urine WBC 10-25 /hpf (0-5) H 04/03/18 03:26 Ur Epithelial Cells OCCASIONAL /lpf (FEW) 04/03/18 03:26 Urine Bacteria MODERATE /hpf (NONE SEEN) H 04/03/18 03:26 Ur Random Sodium 28 mmol/L 04/04/18 04:12 Urine Creatinine 34.0 mg/dl (28.0-217.0) 04/04/18 04:12 Stool Occult Blood POSITIVE (NEGATIVE) H 04/04/18 06:15 Vancomycin Trough 10.1 ug/mL (5-10) H 04/06/18 12:00 Blood Type B POSITIVE 04/04/18 05:45 Antibody Screen NEGATIVE 04/04/18 05:45 Crossmatch See Detail 04/04/18 05:45 - Physical Exam Vitals and I&O: Vital Signs Temp 98 F 04/07/18 08:00 Pulse 94 04/07/18 13:01 Resp 18 04/07/18 13:01 BP 164/84 04/07/18 10:00 Pulse Ox 100 04/07/18 13:01 Intake & Output 04/06/18 04/07/18 04/07/18 18:59 06:59 18:59 Intake Total 1050 Output Total 1000 680 Balance 50 -680 Weight (lbs) 59.421 kg 61.235 kg Intake: Intake, IV Amount 500 Vancomycin HCl 1.5 gm In 500 Sodium Chloride 0.9% 500 ml @ 250 mls/hr IV Q24HR@ 1300 [facility] Rx#:[id number] Tube Feeding 300 Other 250 Output: Urine 1000 680 Other: # Bowel Movements 2 2 Stool Characteristics Liquid Liquid Brown Brown Weight Source Bedscale Bedscale Active Medications: Current Medications Acetaminophen (Tylenol) 650 mg PO Q4HR PRN PRN Reason: Pain or Fever >101 Stop: 06/02/18 13:54 Last Admin: 04/07/18 00:40 Dose: 650 mg Albuterol/Ipratropium (Duoneb Neb) 3 ml HHN Q6HRT [facility] Stop: 06/02/18 18:59 Last Admin: 04/07/18 12:59 Dose: 3 ml Ascorbic Acid (Vitamin C) 500 mg NG DAILY [facility] Stop: 06/03/18 08:59 Last Admin: 04/07/18 08:49 Dose: 500 mg Bisacodyl (Dulcolax 10 Mg Supp) 10 mg RC DAILY PRN PRN Reason: Constipation Stop: 06/02/18 13:54 [place] Oil/[place] Balsam/Trypsin (Venelex) 1 appl TP DAILY [facility] Stop: 06/03/18 13:14 Last Admin: 04/07/18 12:49 Dose: 1 appl Cholecalciferol (Vitamin D3) 5,000 iu NG DAILY [facility] Stop: 06/03/18 08:59 Last Admin: 04/07/18 08:49 Dose: 5,000 iu Diltiazem HCl (Cardizem) 5 mg IVP Q6HR PRN PRN Reason: HR > 120 Stop: 06/02/18 17:52 Last Admin: 04/03/18 19:05 Dose: 5 mg Enoxaparin Sodium (Lovenox) 60 mg SUBQ DAILY [facility] Stop: 06/02/18 20:59 Last Admin: 04/07/18 08:50 Dose: 60 mg Famotidine (Pepcid) 20 mg NG BID [facility] Stop: 06/02/18 16:59 Last Admin: 04/07/18 08:48 Dose: 20 mg Norepinephrine Bitartrate 4 mg (/ Dextrose) 254 mls @ 0 mls/hr IV TITR PRN; Protocol PRN Reason: BP MAINTENANCE (PER PROTOCOL) Stop: 06/02/18 14:56 Amikacin Sulfate 1,000 mg/ (Dextrose) 104 mls @ 100 mls/hr IV Q36H [facility] Stop: 06/06/18 16:59 Vancomycin HCl 1.5 gm/ Sodium (Chloride) 500 mls @ 250 mls/hr IV Q24HR@1300 [facility] Stop: 06/05/18 12:59 Last Admin: 04/07/18 12:18 Dose: 250 mls/hr Insulin Aspart (Novolog Insulin Sliding Scale) 0 units SUBQ Q6HR [facility]; Protocol Stop: 06/02/18 11:59 Last Admin: 04/07/18 12:16 Dose: 4 units Lactobacillus Rhamnosus (Culturelle 15b) 1 each PO DAILY [facility] Stop: 06/03/18 08:59 Last Admin: 04/07/18 08:49 Dose: 1 each Magnesium Hydroxide (Milk Of Magnesia) 30 ml NG DAILY PRN PRN Reason: Constipation Stop: 06/02/18 13:54 Metoprolol Tartrate (Lopressor) 25 mg NG BID [facility] Stop: 06/02/18 16:59 Last Admin: 04/07/18 08:48 Dose: 25 mg Metronidazole (Flagyl) 500 mg PO TID [facility] Stop: 04/11/18 13:59 Last Admin: 04/07/18 13:13 Dose: 500 mg Miscellaneous (Vancomycin Iv Per Pharmacy) 1 ea MC PRN [facility] Stop: 06/03/18 12:14 Miscellaneous (Amikacin Iv Per Pharmacy) 1 ea PRN PRN PRN Reason: PROTOCOL Stop: 06/05/18 03:19 Nystatin (Nystop) 0 units TP BID [facility] Stop: 06/03/18 16:59 Last Admin: 04/07/18 12:48 Dose: 1 units Nystatin (Nystop) 0 units TP BID PRN PRN Reason: PERIANAL & INGUINAL AREAS Stop: 06/03/18 13:38 Ondansetron HCl (Zofran) 4 mg IVP Q6HR PRN PRN Reason: Nausea / Vomiting Stop: 06/02/18 14:33 Last Admin: 04/06/18 15:17 Dose: 4 mg Pantoprazole Sodium (Protonix) 40 mg NG DAILY [facility] Stop: 06/03/18 08:59 Last Admin: 04/07/18 08:49 Dose: 40 mg Zinc Sulfate (Zinc Sulfate) 220 mg NG DAILY [facility] Stop: 06/03/18 08:59 Last Admin: 04/07/18 08:49 Dose: 220 mg General: Alert, Oriented x3, No acute distress HEENT: Atraumatic, Mucous membr. moist/pink Neck: Supple, +2 carotid pulse wo bruit Cardiovascular: Regular rate, Normal S1, Normal S2 Lungs: Clear to auscultation Abdomen: Bowel sounds, Soft Extremities: no Edema Neurological: Sensation intact Skin: no Rash Psych/Mental Status: Mood NL Nutritional Asmnt/Malnutr-PDOC - Dietary Evaluation Malnutrition Findings (Please click <Entered> for more info): Nutritional Asmnt/Malnutrition Start: 04/04/18 15: 05 Text: Status: Complete Freq: Protocol: Document 04/04/18 15:24 ERICKA (Rec: 04/04/18 15:50 [facility] [email or web address]) Nutritional Asmnt/Malnutrition Patient General Information Nutritional Screening High Risk Consult Diagnosis sepsis, dehydration, coccyx ulcer Pertinent Medical Hx/Surgical Hx HTn, DM, CVA/PE, ERSD, dementia, COLCON CA, parkinsonism, PEG/Gtube, colectomy, depression Subjective Information Consult received for BS <180, merry <12 at admission.. Pt seen resting in bed at time of visit. TF on hold d/t CT scheduled today. Current Diet Order/ Nutrition Support glucerna 1.2 at 55ml/hr x 20hr Pertinent Medications vit C, Vit D3, pepcid, novolog , levemir, culturelle, protonix, 0.45%ns w/20meq kcl, vancomycin, zinc Pertinent Labs 04/04 K 2.7 (decreasing), BUN 68 (trending down), glucose 122, POC 117 04/03 Cl 91, BUN 130, Cr 1.7, glucose 276, POC 158 Nutritional Hx/Data Height 1.57 m Height (Calculated Centimeters) 157.5 Current Weight (lbs) 54.431 kg Weight (Calculated Kilograms) 54.4 Weight (Calculated Grams) 81508.1 [place] Body Weight 110 Body Mass Index (BMI) 21.9 Weight Status Approriate GI Symptoms GI Symptoms None Last BM 04/03 x 3 Difficult in: None Skin Integrity/Comment: decubitu ulcer to sacrum, bruise to left/right upper arm , lef thand, adbomen Estimated Nutritional Goals BEE in Kcals: Using Current wt Calories/Kcals/Kg 27-32 Kcals Calculated 3933-7191 Protein: Using Current wt Protein g/k.2-1.4 Protein Calculated 66-77 Fluid: ml 1485-1760ml (1ml/kcal) Nutritional Problem 2. Problem Problem increased nutrition needs Etiology increased metabolic demand, impaired skin integrity Signs/Symptoms: dx of sepsis, coccyx ulcer 1. Problem Problem increased nutrition related labs Etiology hx of DM, electrolyte imbalance Signs/Symptoms: glucose 122-276, K 2.7 Malnutrition Alert Is there a minimum of two criteria No selected? Query Text:Check all the applicable criteria. A minimum of two criteria are recommended for diagnosis of either severe or non-severe malnutrition. Malnutrition Related to Morbid Obesity Malnutrition related to morbid obesity No Intervention/Recommendation Comments 1. Continue with current TF regimen. It provides 1320kcal, 66g protein, 888ml free water , meeting 90% of calorie needs and 100% of protein needs. 2. Monitor TF rate, tolerance, wt, skin integrity and labs 3. F/U as high risk in 2-3 days, 04/06-04/07 Expected Outcomes/Goals Expected Outcomes/Goals 1. Pt to meet at least 75% of nutritional needs via nutrition support with tolerance 2. Wt stability, skin integrity to improve, labs to approach WNL.
--- NOTE | 2018-04-07 16:39 | General Progress Note ---
Subjective - Review of Systems Subjective: awake, no acute distress Objective - Results Result Diagrams: 04/06/18 04:40 04/06/18 12:00 Recent Labs: Laboratory Last Values WBC 7.0 Th/cmm (4.8-10.8) 04/06/18 04:40 RBC 4.34 Mil/cmm (3.80-5.20) 04/06/18 04:40 Hgb 11.6 gm/dL (12-16) L 04/06/18 04:40 Hct 36.0 % (41.0-60) L 04/06/18 04:40 MCV 83.0 fl (81-100) 04/06/18 04:40 MCH 26.7 pg (27.0-31.0) L 04/06/18 04:40 MCHC Differential 32.2 pg (28.0-36.0) 04/06/18 04:40 RDW 19.3 % (11.5-20.0) 04/06/18 04:40 Plt Count 239 Th/cmm (150-400) 04/06/18 04:40 MPV 8.3 fl 04/06/18 04:40 Neutrophils % 67.3 % (40.0-80.0) 04/06/18 04:40 Band Neutrophils % 4 % (0-10) 04/04/18 05:15 Lymphocytes % 14.2 % (20.0-50.0) L 04/06/18 04:40 Monocytes % 14.6 % (2.0-10.0) H 04/06/18 04:40 Eosinophils % 3.0 % (0.0-5.0) 04/06/18 04:40 Basophils % 0.9 % (0.0-2.0) 04/06/18 04:40 Neutrophils (Manual) 79 % (40-80) 04/04/18 05:15 Lymphocytes 10 % (20-50) L 04/04/18 05:15 Monocytes 6 % (2-10) 04/04/18 05:15 Eosinophils 1 % (0-5) 04/04/18 05:15 Platelet Estimate ADEQUATE (NORMAL) 04/03/18 04:15 Anisocytosis 1+ 04/04/18 05:15 Eos Smear Source URINE 04/04/18 04:12 Eos Smear Total Cells NONE SEEN (NONE SEEN) 04/04/18 04:12 PT 10.9 SECONDS (9.5-11.5) 04/03/18 04:40 INR 1.05 (0.5-1.4) 04/03/18 04:40 PTT (Actin FS) 28.9 SECONDS (26.0-38.0) 04/03/18 04:40 Sodium 133 mEq/L (136-145) L 04/06/18 04:40 Potassium 3.7 mEq/L (3.5-5.1) 04/06/18 04:40 Chloride 102 mEq/L (98-107) 04/06/18 04:40 Carbon Dioxide 24.8 mEq/L (21.0-31.0) 04/06/18 04:40 Anion Gap 9.9 (7.0-16.0) 04/06/18 04:40 BUN 15 mg/dL (7-25) 04/06/18 12:00 Creatinine 0.5 mg/dL (0.6-1.2) L 04/06/18 12:00 Est GFR ( Amer) TNP 04/06/18 04:40 Est GFR (Non-Af Amer) TNP 04/06/18 04:40 BUN/Creatinine Ratio 34.0 04/06/18 04:40 Glucose 142 mg/dL (70-105) H 04/06/18 04:40 POC Glucose 203 MG/DL (70 - 105) H 04/07/18 11:40 Hemoglobin A1c % 6.2 % (4.0-6.0) H 04/03/18 04:15 Whole Bld Lactic Acid 1.46 mmol/L (0.60-1.99) 04/04/18 04:15 Uric Acid 10.4 mg/dL (2.3-6.6) H 04/04/18 04:15 Calcium 9.0 mg/dL (8.6-10.3) 04/06/18 04:40 Phosphorus 2.6 mg/dL (2.5-5.0) 04/04/18 04:15 Magnesium 1.9 mg/dL (1.9-2.7) 04/05/18 04:05 Total Bilirubin 0.5 mg/dL (0.3-1.0) 04/03/18 03:25 AST 19 U/L (13-39) 04/03/18 03:25 ALT 7 U/L (7-52) 04/03/18 03:25 Alkaline Phosphatase 107 U/L (34-104) H 04/03/18 03:25 Troponin I 0.03 ng/mL (0.01-0.05) 04/03/18 04:15 Total Protein 8.5 gm/dL (6.0-8.3) H 04/03/18 03:25 Albumin 3.9 gm/dL (3.7-5.3) 04/03/18 03:25 Globulin 4.6 gm/dL 04/03/18 03:25 Albumin/Globulin Ratio 0.9 (1.0-1.8) L 04/03/18 03:25 Triglycerides 221 mg/dL (<150) H 04/04/18 04:15 Cholesterol 88 mg/dL (<200) 04/04/18 04:15 LDL Cholesterol Direct 43 mg/dL (75-193) L 04/04/18 04:15 HDL Cholesterol 24 mg/dL (23-92) 04/04/18 04:15 TSH 0.84 uIU/ml (0.34-5.60) 04/03/18 04:40 Urine Source [place] 04/03/18 03:26 Urine Color YELLOW 04/03/18 03:26 Urine Clarity HAZY (CLEAR) 04/03/18 03:26 Urine pH 6.0 (4.6 - 8.0) 04/03/18 03:26 Ur Specific [place] 1.010 (1.005-1.030) 04/03/18 03:26 Urine Protein NEGATIVE mg/dL (NEGATIVE) 04/03/18 03:26 Urine Glucose (UA) NEGATIVE mg/dL (NEGATIVE) 04/03/18 03:26 Urine Ketones NEGATIVE mg/dL (NEGATIVE) 04/03/18 03:26 Urine Blood TRACE (NEGATIVE) 04/03/18 03:26 Urine Nitrate NEGATIVE (NEGATIVE) 04/03/18 03:26 Urine Bilirubin NEGATIVE (NEGATIVE) 04/03/18 03:26 Urine Urobilinogen 0.2 E.U./dL (0.2 - 1.0) 04/03/18 03:26 Ur Leukocyte Esterase LARGE (NEGATIVE) H 04/03/18 03:26 Urine RBC 0-2 /hpf (0-5) 04/03/18 03:26 Urine WBC 10-25 /hpf (0-5) H 04/03/18 03:26 Ur Epithelial Cells OCCASIONAL /lpf (FEW) 04/03/18 03:26 Urine Bacteria MODERATE /hpf (NONE SEEN) H 04/03/18 03:26 Ur Random Sodium 28 mmol/L 04/04/18 04:12 Urine Creatinine 34.0 mg/dl (28.0-217.0) 04/04/18 04:12 Stool Occult Blood POSITIVE (NEGATIVE) H 04/04/18 06:15 Vancomycin Trough 10.1 ug/mL (5-10) H 04/06/18 12:00 Blood Type B POSITIVE 04/04/18 05:45 Antibody Screen NEGATIVE 04/04/18 05:45 Crossmatch See Detail 04/04/18 05:45 - Physical Exam Vitals and I&O: Vital Signs Temp 98 F 04/07/18 08:00 Pulse 98 04/07/18 16:10 Resp 16 04/07/18 14:00 BP 153/75 04/07/18 16:10 Pulse Ox 100 04/07/18 14:00 Intake & Output 04/06/18 04/07/18 04/07/18 18:59 06:59 18:59 Intake Total 1050 500 Output Total 1000 680 Balance 50 -680 500 Weight (lbs) 59.421 kg 61.235 kg Intake: Intake, IV Amount 500 500 Vancomycin HCl 1.5 gm In 500 500 Sodium Chloride 0.9% 500 ml @ 250 mls/hr IV Q24HR@ 1300 [facility] Rx#:[id number] Tube Feeding 300 Other 250 Output: Urine 1000 680 Other: # Bowel Movements 2 2 Stool Characteristics Liquid Liquid Soft Brown Brown Brown Weight Source Bedscale Bedscale Active Medications: Current Medications Acetaminophen (Tylenol) 650 mg PO Q4HR PRN PRN Reason: Pain or Fever >101 Stop: 06/02/18 13:54 Last Admin: 04/07/18 13:54 Dose: 650 mg Albuterol/Ipratropium (Duoneb Neb) 3 ml HHN Q6HRT [facility] Stop: 06/02/18 18:59 Last Admin: 04/07/18 12:59 Dose: 3 ml Ascorbic Acid (Vitamin C) 500 mg NG DAILY [facility] Stop: 06/03/18 08:59 Last Admin: 04/07/18 08:49 Dose: 500 mg Bisacodyl (Dulcolax 10 Mg Supp) 10 mg RC DAILY PRN PRN Reason: Constipation Stop: 06/02/18 13:54 [place] Oil/[place] Balsam/Trypsin (Venelex) 1 appl TP DAILY [facility] Stop: 06/03/18 13:14 Last Admin: 04/07/18 12:49 Dose: 1 appl Cholecalciferol (Vitamin D3) 5,000 iu NG DAILY [facility] Stop: 06/03/18 08:59 Last Admin: 04/07/18 08:49 Dose: 5,000 iu Diltiazem HCl (Cardizem) 5 mg IVP Q6HR PRN PRN Reason: HR > 120 Stop: 06/02/18 17:52 Last Admin: 04/03/18 19:05 Dose: 5 mg Enoxaparin Sodium (Lovenox) 60 mg SUBQ DAILY [facility] Stop: 06/02/18 20:59 Last Admin: 04/07/18 08:50 Dose: 60 mg Famotidine (Pepcid) 20 mg NG BID [facility] Stop: 06/02/18 16:59 Last Admin: 04/07/18 16:10 Dose: 20 mg Norepinephrine Bitartrate 4 mg (/ Dextrose) 254 mls @ 0 mls/hr IV TITR PRN; Protocol PRN Reason: BP MAINTENANCE (PER PROTOCOL) Stop: 06/02/18 14:56 Vancomycin HCl 1.5 gm/ Sodium (Chloride) 500 mls @ 250 mls/hr IV Q24HR@1300 [facility] Stop: 06/05/18 12:59 Last Infusion: 04/07/18 16:29 Dose: Infused Amikacin Sulfate 500 mg/ (Dextrose) 102 mls @ 100 mls/hr IV Q24H [facility] Stop: 06/06/18 17:59 Insulin Aspart (Novolog Insulin Sliding Scale) 0 units SUBQ Q6HR [facility]; Protocol Stop: 06/02/18 11:59 Last Admin: 04/07/18 12:16 Dose: 4 units Lactobacillus Rhamnosus (Culturelle 15b) 1 each PO DAILY [facility] Stop: 06/03/18 08:59 Last Admin: 04/07/18 08:49 Dose: 1 each Magnesium Hydroxide (Milk Of Magnesia) 30 ml NG DAILY PRN PRN Reason: Constipation Stop: 06/02/18 13:54 Metoprolol Tartrate (Lopressor) 25 mg NG BID [facility] Stop: 06/02/18 16:59 Last Admin: 04/07/18 16:10 Dose: 25 mg Metronidazole (Flagyl) 500 mg PO TID [facility] Stop: 04/11/18 13:59 Last Admin: 04/07/18 13:13 Dose: 500 mg Miscellaneous (Vancomycin Iv Per Pharmacy) 1 ea PRN [facility] Stop: 06/03/18 12:14 Miscellaneous (Amikacin Iv Per Pharmacy) 1 [facility] PRN PRN PRN Reason: PROTOCOL Stop: 06/05/18 03:19 Nystatin (Nystop) 0 units TP BID [facility] Stop: 06/03/18 16:59 Last Admin: 04/07/18 16:12 Dose: 1 units Nystatin (Nystop) 0 units TP BID PRN PRN Reason: PERIANAL & INGUINAL AREAS Stop: 06/03/18 13:38 Ondansetron HCl (Zofran) 4 mg IVP Q6HR PRN PRN Reason: Nausea / Vomiting Stop: 06/02/18 14:33 Last Admin: 04/06/18 15:17 Dose: 4 mg Pantoprazole Sodium (Protonix) 40 mg NG DAILY [facility] Stop: 06/03/18 08:59 Last Admin: 04/07/18 08:49 Dose: 40 mg Zinc Sulfate (Zinc Sulfate) 220 mg NG DAILY [facility] Stop: 06/03/18 08:59 Last Admin: 04/07/18 08:49 Dose: 220 mg General: Alert, Oriented x3, No acute distress HEENT: Atraumatic, Mucous membr. moist/pink Neck: Supple, +2 carotid pulse wo bruit Cardiovascular: Regular rate, Normal S1, Normal S2 Lungs: Clear to auscultation Abdomen: Bowel sounds, Soft Extremities: no Edema Neurological: Sensation intact Skin: no Rash Psych/Mental Status: Mood NL Assessment/Plan - Assessment Assessment: KATHERINE on CKD Severe dehydration Sepsis Anemia T2DM [place] s/p partial colectomy intra/retro abscess s/p drain - Plan Plan: continue present management Nutritional Asmnt/Malnutr-PDOC - Dietary Evaluation Malnutrition Findings (Please click <Entered> for more info): Nutritional Asmnt/Malnutrition Start: 04/04/18 15: 05 Text: Status: Complete Freq: Protocol: Document 04/04/18 15:24 LCHENG (Rec: 04/04/18 15:50 [email or web address] [email or web address]) Nutritional Asmnt/Malnutrition Patient General Information Nutritional Screening High Risk Consult Diagnosis sepsis, dehydration, coccyx ulcer Pertinent Medical Hx/Surgical Hx HTn, DM, CVA/PE, ERSD, dementia, COLCON CA, parkinsonism, PEG/Gtube, colectomy, depression Subjective Information Consult received for BS <180, merry <12 at admission.. Pt seen resting in bed at time of visit. TF on hold d/t CT scheduled today. Current Diet Order/ Nutrition Support glucerna 1.2 at 55ml/hr x 20hr Pertinent Medications vit C, Vit D3, pepcid, novolog , levemir, culturelle, protonix, 0.45%ns w/20meq kcl, vancomycin, zinc Pertinent Labs 04/04 K 2.7 (decreasing), BUN 68 (trending down), glucose 122, POC 117 04/03 Cl 91, BUN 130, Cr 1.7, glucose 276, POC 158 Nutritional Hx/Data Height 1.57 m Height (Calculated Centimeters) 157.5 Current Weight (lbs) 54.431 kg Weight (Calculated Kilograms) 54.4 Weight (Calculated Grams) 74561.1 [place] Body Weight 110 Body Mass Index (BMI) 21.9 Weight Status Approriate GI Symptoms GI Symptoms None Last BM 04/03 x 3 Difficult in: None Skin Integrity/Comment: decubitu ulcer to sacrum, bruise to left/right upper arm , lef thand, adbomen Estimated Nutritional Goals BEE in Kcals: Using Current wt Calories/Kcals/Kg 27-32 Kcals Calculated 0614-8137 Protein: Using Current wt Protein g/k.2-1.4 Protein Calculated 66-77 Fluid: ml 1485-1760ml (1ml/kcal) Nutritional Problem 2. Problem Problem increased nutrition needs Etiology increased metabolic demand, impaired skin integrity Signs/Symptoms: dx of sepsis, coccyx ulcer 1. Problem Problem increased nutrition related labs Etiology hx of DM, electrolyte imbalance Signs/Symptoms: glucose 122-276, K 2.7 Malnutrition Alert Is there a minimum of two criteria No selected? Query Text:Check all the applicable criteria. A minimum of two criteria are recommended for diagnosis of either severe or non-severe malnutrition. Malnutrition Related to Morbid Obesity Malnutrition related to morbid obesity No Intervention/Recommendation Comments 1. Continue with current TF regimen. It provides 1320kcal, 66g protein, 888ml free water , meeting 90% of calorie needs and 100% of protein needs. 2. Monitor TF rate, tolerance, wt, skin integrity and labs 3. F/U as high risk in 2-3 days, 04/06-04/07 Expected Outcomes/Goals Expected Outcomes/Goals 1. Pt to meet at least 75% of nutritional needs via nutrition support with tolerance 2. Wt stability, skin integrity to improve, labs to approach WNL.
[2018-04-07] MEDS ORDERED: Amikacin 1000 mg in D5W 100 mL IV SCH (17:00)
[2018-04-07] MEDS ORDERED: D5-0.45NS 1,000 ML IV SCH (18:00)
[2018-04-08] MEDS: INSULIN ASPART SLIDING SCALE 100 UNITS/ML UNIT SUBQ SCH ×4 (00:33→17:54)
[2018-04-08] MEDS: Albuterol/Ipratropium Neb 3 ML AERS HHN SCH ×4 (01:00→19:11)
[2018-04-08 05:31] LABS: % BASOPHILS 0.4 % (0.0-2.0); % EOSINOPHILS 1.5 % (0.0-5.0); % LYMPHOCYTES 17.1 % (20.0-50.0); % MONOCYTES 12.2 % (2.0-10.0); % NEUTROPHILS 68.8 % (40.0-80.0); EOSINOPHILE ABSOLUTE 0.1 Th/cmm (0.1-0.4); HEMOGLOBIN 11.3 gm/dL (12-16); LYMPHOCYTE ABSOLUTE 1.2 Th/cmm (1.5-3.0); MEAN CELL VOLUME 82.3 fl (81-100); MEAN CORPUSCULAR HEMOGLOBIN 27.4 pg (27.0-31.0); MEAN CORPUSCULAR HGB CONC 33.3 pg (28.0-36.0); MEAN PLATELET VOLUME 7.9 fl; MONOCYTE ABSOLUTE 0.9 Th/cmm (0.3-1.0); NEUTROPHILE ABSOLUTE 5.1 Th/cmm (1.8-8.0); PLATELET COUNT 246 Th/cmm (150-400); RED BLOOD COUNT 4.13 Mil/cmm (3.80-5.20); RED CELL DISTRIBUTION WIDTH 19.7 % (11.5-20.0); WHITE BLOOD COUNT 7.3 Th/cmm (4.8-10.8)
[2018-04-08 05:57] LABS: ALKALINE PHOSPHATASE 61 U/L (34-104); ANION GAP 9.3 (7.0-16.0); BILIRUBIN,TOTAL 0.6 mg/dL (0.3-1.0); BUN - UREA NITROGEN 9 mg/dL (7-25); CALCIUM SERUM 9.3 mg/dL (8.6-10.3); CARBON DIOXIDE 26.1 mEq/L (21.0-31.0); CHLORIDE 103 mEq/L (98-107); CREATININE - SERUM 0.5 mg/dL (0.6-1.2); GLUCOSE 155 mg/dL (70-105); MAGNESIUM 1.4 mg/dL (1.9-2.7); PHOSPHOROUS 3.1 mg/dL (2.5-5.0); POTASSIUM SERUM 3.4 mEq/L (3.5-5.1); SGOT 27 U/L (13-39); SGPT/ALT 21 U/L (7-52); SODIUM SERUM 135 mEq/L (136-145)
[2018-04-08] MEDS: Lactobacillus Rhamnosus GG 15 Billion CFU CAP.SPRINK PO SCH (08:23)
[2018-04-08] MEDS: Venelex 60gm Tube TP SCH (08:23)
[2018-04-08] MEDS: Pantoprazole 40 mg/Packet NG SCH (08:23)
[2018-04-08] MEDS: Multivitamin w/ Minerals Tab PO SCH (08:23)
[2018-04-08] MEDS: Enoxaparin 60 mg/0.6 mL 0.6mL Syr SUBQ SCH (08:23)
[2018-04-08] MEDS: NYSTATIN 100000 UNITS/GM POWD TP SCH ×2 (10:00→17:29)
[2018-04-08] MEDS ORDERED: Probiotic Screen MC PRN (10:30)
--- NOTE | 2018-04-08 12:30 | General Progress Note ---
Subjective - Review of Systems Service Date: 04/08/18 Events since last encounter: doing well drain removed DC to [facility] Objective - Results Result Diagrams: 04/08/18 04:25 04/08/18 04:25 Recent Labs: Laboratory Last Values WBC 7.3 Th/cmm (4.8-10.8) 04/08/18 04:25 RBC 4.13 Mil/cmm (3.80-5.20) 04/08/18 04:25 Hgb 11.3 gm/dL (12-16) L 04/08/18 04:25 Hct 34.0 % (41.0-60) L 04/08/18 04:25 MCV 82.3 fl (81-100) 04/08/18 04:25 MCH 27.4 pg (27.0-31.0) 04/08/18 04:25 MCHC Differential 33.3 pg (28.0-36.0) 04/08/18 04:25 RDW 19.7 % (11.5-20.0) 04/08/18 04:25 Plt Count 246 Th/cmm (150-400) 04/08/18 04:25 MPV 7.9 fl 04/08/18 04:25 Neutrophils % 68.8 % (40.0-80.0) 04/08/18 04:25 Band Neutrophils % 4 % (0-10) 04/04/18 05:15 Lymphocytes % 17.1 % (20.0-50.0) L 04/08/18 04:25 Monocytes % 12.2 % (2.0-10.0) H 04/08/18 04:25 Eosinophils % 1.5 % (0.0-5.0) 04/08/18 04:25 Basophils % 0.4 % (0.0-2.0) 04/08/18 04:25 Neutrophils (Manual) 79 % (40-80) 04/04/18 05:15 Lymphocytes 10 % (20-50) L 04/04/18 05:15 Monocytes 6 % (2-10) 04/04/18 05:15 Eosinophils 1 % (0-5) 04/04/18 05:15 Platelet Estimate ADEQUATE (NORMAL) 04/03/18 04:15 Anisocytosis 1+ 04/04/18 05:15 Eos Smear Source URINE 04/04/18 04:12 Eos Smear Total Cells NONE SEEN (NONE SEEN) 04/04/18 04:12 PT 10.9 SECONDS (9.5-11.5) 04/03/18 04:40 INR 1.05 (0.5-1.4) 04/03/18 04:40 PTT (Actin FS) 28.9 SECONDS (26.0-38.0) 04/03/18 04:40 Sodium 135 mEq/L (136-145) L 04/08/18 04:25 Potassium 3.4 mEq/L (3.5-5.1) L 04/08/18 04:25 Chloride 103 mEq/L (98-107) 04/08/18 04:25 Carbon Dioxide 26.1 mEq/L (21.0-31.0) 04/08/18 04:25 Anion Gap 9.3 (7.0-16.0) 04/08/18 04:25 BUN 9 mg/dL (7-25) 04/08/18 04:25 Creatinine 0.5 mg/dL (0.6-1.2) L 04/08/18 04:25 Est GFR ( Amer) TNP 04/08/18 04:25 Est GFR (Non-Af Amer) TNP 04/08/18 04:25 BUN/Creatinine Ratio 18.0 04/08/18 04:25 Glucose 155 mg/dL (70-105) H 04/08/18 04:25 POC Glucose 260 MG/DL (70 - 105) H 04/08/18 11:50 Hemoglobin A1c % 6.2 % (4.0-6.0) H 04/03/18 04:15 Whole Bld Lactic Acid 1.46 mmol/L (0.60-1.99) 04/04/18 04:15 Uric Acid 10.4 mg/dL (2.3-6.6) H 04/04/18 04:15 Calcium 9.3 mg/dL (8.6-10.3) 04/08/18 04:25 Phosphorus 3.1 mg/dL (2.5-5.0) 04/08/18 04:25 Magnesium 1.4 mg/dL (1.9-2.7) L 04/08/18 04:25 Total Bilirubin 0.6 mg/dL (0.3-1.0) 04/08/18 04:25 AST 27 U/L (13-39) 04/08/18 04:25 ALT 21 U/L (7-52) 04/08/18 04:25 Alkaline Phosphatase 61 U/L (34-104) 04/08/18 04:25 Troponin I 0.03 ng/mL (0.01-0.05) 04/03/18 04:15 Total Protein 6.0 gm/dL (6.0-8.3) 04/08/18 04:25 Albumin 3.0 gm/dL (3.7-5.3) L 04/08/18 04:25 Globulin 3.0 gm/dL 04/08/18 04:25 Albumin/Globulin Ratio 1.0 (1.0-1.8) 04/08/18 04:25 Triglycerides 221 mg/dL (<150) H 04/04/18 04:15 Cholesterol 88 mg/dL (<200) 04/04/18 04:15 LDL Cholesterol Direct 43 mg/dL (75-193) L 04/04/18 04:15 HDL Cholesterol 24 mg/dL (23-92) 04/04/18 04:15 TSH 0.84 uIU/ml (0.34-5.60) 04/03/18 04:40 Urine Source [place] 04/03/18 03:26 Urine Color YELLOW 04/03/18 03:26 Urine Clarity HAZY (CLEAR) 04/03/18 03:26 Urine pH 6.0 (4.6 - 8.0) 04/03/18 03:26 Ur Specific [place] 1.010 (1.005-1.030) 04/03/18 03:26 Urine Protein NEGATIVE mg/dL (NEGATIVE) 04/03/18 03:26 Urine Glucose (UA) NEGATIVE mg/dL (NEGATIVE) 04/03/18 03:26 Urine Ketones NEGATIVE mg/dL (NEGATIVE) 04/03/18 03:26 Urine Blood TRACE (NEGATIVE) 04/03/18 03:26 Urine Nitrate NEGATIVE (NEGATIVE) 04/03/18 03:26 Urine Bilirubin NEGATIVE (NEGATIVE) 04/03/18 03:26 Urine Urobilinogen 0.2 E.U./dL (0.2 - 1.0) 04/03/18 03:26 Ur Leukocyte Esterase LARGE (NEGATIVE) H 04/03/18 03:26 Urine RBC 0-2 /hpf (0-5) 04/03/18 03:26 Urine WBC 10-25 /hpf (0-5) H 04/03/18 03:26 Ur Epithelial Cells OCCASIONAL /lpf (FEW) 04/03/18 03:26 Urine Bacteria MODERATE /hpf (NONE SEEN) H 04/03/18 03:26 Ur Random Sodium 28 mmol/L 04/04/18 04:12 Urine Creatinine 34.0 mg/dl (28.0-217.0) 04/04/18 04:12 Stool Occult Blood POSITIVE (NEGATIVE) H 04/04/18 06:15 Random Amikacin 7.8 ug/ml (1.0-30.0) 04/06/18 16:15 Vancomycin Trough 10.1 ug/mL (5-10) H 04/06/18 12:00 Blood Type B POSITIVE 04/04/18 05:45 Antibody Screen NEGATIVE 04/04/18 05:45 Crossmatch See Detail 04/04/18 05:45 - Physical Exam Vitals and I&O: Vital Signs Temp 97.2 F 04/08/18 11:16 Pulse 98 04/08/18 11:16 Resp 18 04/08/18 11:16 BP 149/80 04/08/18 11:16 Pulse Ox 99 04/08/18 11:16 Intake & Output 04/07/18 04/08/18 04/08/18 18:59 06:59 18:59 Intake Total 500 502 Output Total 1050 Balance 500 -548 Weight (lbs) 60.781 kg Intake: Intake, IV Amount 500 102 Amikacin 500 mg In 102 Dextrose 5% 100 ml @ 100 mls/hr IV Q24H [facility] Rx#: [id number] Vancomycin HCl 1.5 gm In 500 Sodium Chloride 0.9% 500 ml @ 250 mls/hr IV Q24HR@ 1300 [facility] Rx#:[id number] Oral 400 Output: Urine 950 Other 100 Other: # Bowel Movements 1 Stool Characteristics Soft Soft Soft Brown Formed Formed Weight Source Bedscale Active Medications: Current Medications Acetaminophen (Tylenol) 650 mg PO Q4HR PRN PRN Reason: Pain or Fever >101 Stop: 06/02/18 13:54 Last Admin: 04/07/18 13:54 Dose: 650 mg Albuterol/Ipratropium (Duoneb Neb) 3 ml HHN Q6HRT [facility] Stop: 06/02/18 18:59 Last Admin: 04/08/18 07:19 Dose: 3 ml Ascorbic Acid (Vitamin C) 500 mg NG DAILY [facility] Stop: 06/03/18 08:59 Last Admin: 04/08/18 08:22 Dose: 500 mg Bisacodyl (Dulcolax 10 Mg Supp) 10 mg RC DAILY PRN PRN Reason: Constipation Stop: 06/02/18 13:54 [place] Oil/[place] Balsam/Trypsin (Venelex) 1 appl TP DAILY [facility] Stop: 06/03/18 13:14 Last Admin: 04/08/18 08:23 Dose: 1 appl Cholecalciferol (Vitamin D3) 5,000 iu NG DAILY [facility] Stop: 06/03/18 08:59 Last Admin: 04/08/18 08:21 Dose: 5,000 iu Diltiazem HCl (Cardizem) 5 mg IVP Q6HR PRN PRN Reason: HR > 120 Stop: 06/02/18 17:52 Last Admin: 04/03/18 19:05 Dose: 5 mg Enoxaparin Sodium (Lovenox) 60 mg SUBQ DAILY [facility] Stop: 06/02/18 20:59 Last Admin: 04/08/18 08:23 Dose: 60 mg Famotidine (Pepcid) 20 mg NG BID [facility] Stop: 06/02/18 16:59 Last Admin: 04/08/18 08:23 Dose: 20 mg Norepinephrine Bitartrate 4 mg (/ Dextrose) 254 mls @ 0 mls/hr IV TITR PRN; Protocol PRN Reason: BP MAINTENANCE (PER PROTOCOL) Stop: 06/02/18 14:56 Vancomycin HCl 1.5 gm/ Sodium (Chloride) 500 mls @ 250 mls/hr IV Q24HR@1300 [facility] Stop: 06/05/18 12:59 Last Infusion: 04/07/18 16:29 Dose: Infused Dextrose/Sodium Chloride (D5-0.45ns) 1,000 mls @ 40 mls/hr IV .Q24H [facility] Stop: 06/06/18 17:59 Last Admin: 04/07/18 18:31 Dose: 40 mls/hr Amikacin Sulfate 750 mg/ (Dextrose) 103 mls @ 100 mls/hr IV Q36H [facility] Stop: 06/08/18 04:59 Insulin Aspart (Novolog Insulin Sliding Scale) 0 units SUBQ Q6HR [facility]; Protocol Stop: 06/02/18 11:59 Last Admin: 04/08/18 05:52 Dose: 2 units Lactobacillus Rhamnosus (Culturelle 15b) 1 each PO DAILY [facility] Stop: 06/03/18 08:59 Last Admin: 04/08/18 08:23 Dose: 1 each Magnesium Hydroxide (Milk Of Magnesia) 30 ml NG DAILY PRN PRN Reason: Constipation Stop: 06/02/18 13:54 Metoprolol Tartrate (Lopressor) 25 mg NG BID [facility] Stop: 06/02/18 16:59 Last Admin: 04/08/18 08:22 Dose: 25 mg Metronidazole (Flagyl) 500 mg PO TID [facility] Stop: 04/11/18 13:59 Last Admin: 04/08/18 08:21 Dose: 500 mg Miscellaneous (Vancomycin Iv Per Pharmacy) 1 ea PRN [facility] Stop: 06/03/18 12:14 Miscellaneous (Amikacin Iv Per Pharmacy) 1 [facility] PRN PRN PRN Reason: PROTOCOL Stop: 06/05/18 03:19 Miscellaneous (Probiotic Screen) 1 [facility] PRN PRN PRN Reason: PROTOCOL Stop: 06/07/18 10:29 Nystatin (Nystop) 0 units TP BID [facility] Stop: 06/03/18 16:59 Last Admin: 04/07/18 16:12 Dose: 1 units Nystatin (Nystop) 0 units TP BID PRN PRN Reason: PERIANAL & INGUINAL AREAS Stop: 06/03/18 13:38 Ondansetron HCl (Zofran) 4 mg IVP Q6HR PRN PRN Reason: Nausea / Vomiting Stop: 06/02/18 14:33 Last Admin: 04/06/18 15:17 Dose: 4 mg Pantoprazole Sodium (Protonix) 40 mg NG DAILY [facility] Stop: 06/03/18 08:59 Last Admin: 04/08/18 08:23 Dose: 40 mg Zinc Sulfate (Zinc Sulfate) 220 mg NG DAILY [facility] Stop: 06/03/18 08:59 Last Admin: 04/08/18 08:22 Dose: 220 mg General: Alert, Oriented x3, No acute distress HEENT: Atraumatic, Mucous membr. moist/pink Neck: Supple, +2 carotid pulse wo bruit Cardiovascular: Regular rate, Normal S1, Normal S2 Lungs: Clear to auscultation Abdomen: Bowel sounds, Soft Extremities: no Edema Neurological: Sensation intact Skin: no Rash Psych/Mental Status: Mood NL Nutritional Asmnt/Malnutr-PDOC - Dietary Evaluation Malnutrition Findings (Please click <Entered> for more info): Nutritional Asmnt/Malnutrition Start: 04/04/18 15: 05 Text: Status: Complete Freq: Protocol: Document 04/04/18 15:24 LCHENG (Rec: 04/04/18 15:50 LCHENG [email or web address]) Nutritional Asmnt/Malnutrition Patient General Information Nutritional Screening High Risk Consult Diagnosis sepsis, dehydration, coccyx ulcer Pertinent Medical Hx/Surgical Hx HTn, DM, CVA/PE, ERSD, dementia, COLCON CA, parkinsonism, PEG/Gtube, colectomy, depression Subjective Information Consult received for BS <180, merry <12 at admission.. Pt seen resting in bed at time of visit. TF on hold d/t CT scheduled today. Current Diet Order/ Nutrition Support glucerna 1.2 at 55ml/hr x 20hr Pertinent Medications vit C, Vit D3, pepcid, novolog , levemir, culturelle, protonix, 0.45%ns w/20meq kcl, vancomycin, zinc Pertinent Labs 04/04 K 2.7 (decreasing), BUN 68 (trending down), glucose 122, POC 117 7/ Cl 91, BUN 130, Cr 1.7, glucose 276, POC 158 Nutritional Hx/Data Height 1.57 m Height (Calculated Centimeters) 157.5 Current Weight (lbs) 54.431 kg Weight (Calculated Kilograms) 54.4 Weight (Calculated Grams) 86622.1 [place] Body Weight 110 Body Mass Index (BMI) 21.9 Weight Status Approriate GI Symptoms GI Symptoms None Last BM 04/03 x 3 Difficult in: None Skin Integrity/Comment: decubitu ulcer to sacrum, bruise to left/right upper arm , lef thand, adbomen Estimated Nutritional Goals BEE in Kcals: Using Current wt Calories/Kcals/Kg 27-32 Kcals Calculated 7804-9195 Protein: Using Current wt Protein g/k.2-1.4 Protein Calculated 66-77 Fluid: ml 1485-1760ml (1ml/kcal) Nutritional Problem 2. Problem Problem increased nutrition needs Etiology increased metabolic demand, impaired skin integrity Signs/Symptoms: dx of sepsis, coccyx ulcer 1. Problem Problem increased nutrition related labs Etiology hx of DM, electrolyte imbalance Signs/Symptoms: glucose 122-276, K 2.7 Malnutrition Alert Is there a minimum of two criteria No selected? Query Text:Check all the applicable criteria. A minimum of two criteria are recommended for diagnosis of either severe or non-severe malnutrition. Malnutrition Related to Morbid Obesity Malnutrition related to morbid obesity No Intervention/Recommendation Comments 1. Continue with current TF regimen. It provides 1320kcal, 66g protein, 888ml free water , meeting 90% of calorie needs and 100% of protein needs. 2. Monitor TF rate, tolerance, wt, skin integrity and labs 3. F/U as high risk in 2-3 days, 04/06-04/07 Expected Outcomes/Goals Expected Outcomes/Goals 1. Pt to meet at least 75% of nutritional needs via nutrition support with tolerance 2. Wt stability, skin integrity to improve, labs to approach WNL.
[2018-04-08] MEDS: Vancomycin HCl 1.5 GM in Sodium Chloride 0.9% 500 ML IV SCH (12:56)
--- NOTE | 2018-04-12 02:03 | Discharge Summary ---
DATE OF DISCHARGE: 04/08/2018 The patient is well known to me. The patient is from [facility]. The patient is an 78-year-old female patient, known to have history of hypertension and diabetes, has had history of CA of the colon. The patient was at [facility] for long time. The patient came because of increasing weakness. The patient had bilateral pleural effusion and pneumonia. She was admitted for infection and sepsis. The patient was treated, initially was in ICU, and had difficulty swallowing ____ was able to eat. FINAL DIAGNOSES: Severe malnutrition, status post ____ hypertension, diabetes, status post colon surgery, history of gastrointestinal bleeding. The patient was in stable condition. He was sent home to ____ [place] ____. CONDITION AT THE TIME OF DISCHARGE: Stable. JOB# [id number]
== END 2018-04-08 19:30 | DRG 871 ==
LOC: ER 02:47 → ICU 05:20 → TELE 04-07 19:54
PROVIDERS: ADMIT Internal Medicine; ATTEND Internal Medicine
PROC: 30233N1 Transfusion of Nonautologous Red Blood Cells into Peripheral Vein, Percutaneous Approach (ICD-10-PCS; principal; 2018-04-04)
DX: A41.81 Sepsis due to Enterococcus (principal); N17.0 Acute kidney failure with tubular necrosis; J96.90 Respiratory failure, unspecified, unspecified whether with hypoxia or hypercapnia; E43 Unspecified severe protein-calorie malnutrition; J18.9 Pneumonia, unspecified organism; N39.0 Urinary tract infection, site not specified; I47.1 Supraventricular tachycardia; K62.5 Hemorrhage of anus and rectum; A04.72 Enterocolitis due to Clostridium difficile, not specified as recurrent; E87.2 Acidosis; E86.0 Dehydration; G20 Parkinson's disease; F02.80 Dementia in other diseases classified elsewhere, unspecified severity, without behavioral disturbance, psychotic disturbance, mood disturbance, and anxiety; E11.22 Type 2 diabetes mellitus with diabetic chronic kidney disease; R13.10 Dysphagia, unspecified; F32.9 Major depressive disorder, single episode, unspecified; L89.152 Pressure ulcer of sacral region, stage 2; D63.8 Anemia in other chronic diseases classified elsewhere; E11.21 Type 2 diabetes mellitus with diabetic nephropathy; I44.7 Left bundle-branch block, unspecified; D50.9 Iron deficiency anemia, unspecified; M81.0 Age-related osteoporosis without current pathological fracture; E87.6 Hypokalemia; I69.30 Unspecified sequelae of cerebral infarction; B96.5 Pseudomonas (aeruginosa) (mallei) (pseudomallei) as the cause of diseases classified elsewhere; I12.9 Hypertensive chronic kidney disease with stage 1 through stage 4 chronic kidney disease, or unspecified chronic kidney disease; N18.2 Chronic kidney disease, stage 2 (mild); Z88.5 Allergy status to narcotic agent; Z88.2 Allergy status to sulfonamides; Z85.038 Personal history of other malignant neoplasm of large intestine; Z93.1 Gastrostomy status
CPT/HCPCS: 36415-UA; 71045-TC; 80048-TC; 80053-TC; 80061-TC; 80150-TC; 80202-TC; 81001-TC; 81015-TC; 82270-TC; 82565-TC; 82570-TC; 82948-90; 83036-90; 83605; 83735-TC; 84100-TC; 84300-TC; 84443-TC; 84484-TC; 84520-TC; 84550-TC; 85007-TC; 85025-TC; 85027-TC; 85610-TC; 85730-TC; 86850-TC; 86900-TC; 86901-TC; 86922-TC; 87086-90; 87230-TC; 90779; 93005; 94760; 96374; J0278; J0696; J0744; J1650; J1815; J2405; J3370; J3480; J7030; J7040; P9016; P9046; X3401; X6452; Z7502; Z7610

== ENCOUNTER 2018-04-11 00:34 | Inpatient (IN) | payer MEDICARE, MEDICAID ==
[2018-04-11] MEDS ORDERED: Sodium Chloride 0.9% 1,000 ML IV ONE (01:11)
[2018-04-11] MEDS ORDERED: Piperacillin Sodium/Tazobact 3.375 gm Vial IV ONE (01:17)
--- NOTE | 2018-04-11 01:18 | ED Physician Chart ---
ED Chief Complaint/HPI - Patient Information Date Seen:: 04/11/18 Time Seen:: 00:50 Chief Complaint:: ABD PAIN History of Present Illness:: 78 YR OLD FEMALE WITH ABD PAIN DIAHREA NO VOMITING POSSIBLE GI BLEEDING AND DARK STOOLS HX OF DM HTN Allergies:: Allergies Allergy/AdvReac Type Severity Reaction Status Date / Time codeine Allergy Verified 04/11/18 00:44 Sulfa (Sulfonamide Allergy Verified 04/11/18 00:44 Antibiotics) Vitals:: Vital Signs - 8 hr 04/11/18 00:35 Temp 99.0 F HR 115 RR 18 BP 126/56 O2 Sat % 96 Historian:: Patient, Medical Records ED Review of Systems - Review of Systems General/Constitutional: No fever, No chills, No weight loss, No weakness, No diaphoresis, No edema, No loss of appetite Skin: No skin lesions, No rash, No bruising Head: No headache, No light-headedness Eyes: No loss of vision, No pain, No diplopia ENT: No earache, No nasal drainage, No sore throat, No tinnitus Neck: No neck pain, No swelling, No thyromegaly, No stiffness, No mass noted Cardio Vascular: No chest pain, No palpitations, No PND, No orthopnea, No edema Pulmonary: No SOB, No cough, No sputum, No wheezing GI: Diarrhea, Pain, Melena G/U: No dysuria, No frequency, No hematuria Musculoskeletal: No bone or joint pain, No back pain, No muscle pain Endocrine: No polyuria, No polydipsia Psychiatric: No prior psych history, No depression, No anxiety, No suicidal ideation Hematopoietic: No bruising, No lymphadenopathy Allergic/Immuno: No urticaria, No angioedema Neurological: No syncope, No focal symptoms, No weakness, No paresthesia, No headache, No seizure, No dizziness, No confusion, No vertigo ED Past Medical History - Past Medical History Past Medical History: HTN, DM Family Medical History - Family Member Mother History Unknown: Yes ED Physical Exam - Physical Examination General/Constitutional: Awake, Well-developed, well-nourished, Alert, No distress, GCS 15, Non-toxic appearing, Ambulatory Head: Atraumatic Eyes: Lids, conjuctiva normal, PERRL, EOMI Skin: Nl inspection, No rash, No skin lesions, No ecchymosis, Well hydrated, No lymphadenopathy ENMT: External ears, nose nl, Nasal exam nl, Lips, teeth, gums nl Neck: Nontender, Full ROM w/o pain, No JVD, No nuchal rigidity, No bruit, No mass, No stridor Respiratory: Nl effort/Exclusion, Clear to Auscultation, No Wheeze/Rhonchi/Rales Cardio Vascular: RRR, No murmur, gallop, rubs, NL S1 S2 GI: No tenderness/rebounding/guarding, No organomegaly, No hernia, Normal BS's, Nondistended, No mass/bruits, No McBurney tenderness : No CVA tenderness Extremities: No tenderness or effusion, Full ROM, normal strength in all extremities, No edema, Normal digits & nails Neuro/Psych: Alert/oriented, DTR's symmetric, Normal sensory exam, Normal motor strength, Judgement/insight normal, Mood normal, Normal gait, No focal deficits Misc: Normal back, No paraspinal tenderness ED Assessment - Assessment General Assessment: ABD PAIN ED Septic Shock - . Is Septic Shock (SBP<90, OR Lactate>4 mmol\L) present?: No - <6hrs of presentation: Vital Signs: Vital Signs - 8 hr // 00:35 Temp 99.0 F HR 115 RR 18 BP 126/56 O2 Sat % 96 ED Discharge Plan - Patient Disposition Admit/Discharge/Transfer: Acute Care w/in this hosp Condition at Disposition: Stable
[2018-04-11 01:48] LABS: HEMATOCRIT 36.8 % (41.0-60); HEMOGLOBIN 12.2 gm/dL (12-16); MEAN CELL VOLUME 82.1 fl (81-100); MEAN CORPUSCULAR HEMOGLOBIN 27.3 pg (27.0-31.0); MEAN CORPUSCULAR HGB CONC 33.3 pg (28.0-36.0); MEAN PLATELET VOLUME 7.6 fl; PLATELET COUNT 338 Th/cmm (150-400); RED BLOOD COUNT 4.48 Mil/cmm (3.80-5.20); RED CELL DISTRIBUTION WIDTH 20.2 % (11.5-20.0); WHITE BLOOD COUNT 8.1 Th/cmm (4.8-10.8)
[2018-04-11 01:58] LABS: INR 1.05 (0.5-1.4); PROTHROMBIN TIME (TEST) 10.9 SECONDS (9.5-11.5)
[2018-04-11 02:00] LABS: ALBUMIN 3.5 gm/dL (3.7-5.3); ALKALINE PHOSPHATASE 62 U/L (34-104); AMYLASE SERUM 43 U/L (29-103); BILIRUBIN,TOTAL 0.6 mg/dL (0.3-1.0); BUN - UREA NITROGEN 12 mg/dL (7-25); CALCIUM SERUM 10.2 mg/dL (8.6-10.3); CHLORIDE 95 mEq/L (98-107); CREATININE - SERUM 0.9 mg/dL (0.6-1.2); GLUCOSE 118 mg/dL (70-105); LIPASE 32 U/L (11-82); SGOT 15 U/L (13-39); SGPT/ALT 15 U/L (7-52); SODIUM SERUM 134 mEq/L (136-145); TOTAL PROTEIN,SERUM 7.1 gm/dL (6.0-8.3)
[2018-04-11 02:17] LABS: BAND NEUTROPHILE 4 % (0-10); LYMPHOCYTE 16 % (20-50); MONOCYTE 7 % (2-10); NEUTROPHILS 73 % (40-80); TOTAL CELLS COUNTED 100
[2018-04-11 02:18] LABS: PLATELET ESTIMATE ADEQUATE (NORMAL)
[2018-04-11] MEDS ORDERED: Potassium Chloride 20 mEq ER Tab PO ONE ×2 (03:33→04:11)
[2018-04-11 07:26] LABS: CHOLESTEROL 107 mg/dL (<200); HDL -HIGH DENSITY LIPOPROTEIN 32 mg/dL (23-92); TRIGLYCERIDES 131 mg/dL (<150)
[2018-04-11 07:57] VITALS: BP 134/49
[2018-04-11] MEDS ORDERED: Fleet Enema 135 mL RC PRN (08:03)
[2018-04-11] MEDS ORDERED: Magnesium Hydroxide (MOM) 30 mL UDC NG PRN (08:03)
[2018-04-11] MEDS ORDERED: VANCOMYCIN HCL IV SCH (08:15)
[2018-04-11] MEDS ORDERED: AMIKACIN IV SCH (09:00)
[2018-04-11] MEDS ORDERED: Non-Formulary Item 1 EA (Protein Supplement [Promod] 30 ML) NG SCH (09:00)
[2018-04-11] MEDS ORDERED: Chlorhexidine Gluconate 0.12% 480mL Bottle MM SCH (09:00)
[2018-04-11] MEDS ORDERED: Non-Formulary Item 1 EA (Arginine/Ascorbate Sod/Vite Ac [Arginaid Powder] 1 EACH) PO SCH (09:00)
--- NOTE | 2018-04-11 09:00 | Diagnostic Imaging Report ---
CT abdomen and pelvis without intravenous contrast Indication: Abdominal pain and GI bleeding Comparison: CT abdomen and pelvis on 04/04/2018 Technique: Axial images were obtained from the lung bases to the bilateral proximal femurs without IV contrast. Coronal reconstructions were made. total DLP: 403, CTDI9 FINDINGS: Bilateral pleural effusions and bibasal consolidative changes are seen left greater than right. Bibasal infiltrates are noted. Assessment of the solid organs is limited due to lack of IV contrast. Borderline prominent liver is noted. No evidence of focal hepatic lesions. There may be tiny gallstones. No focal splenic lesions. Limited assessment of the pancreas demonstrates no discrete focal lesions. No focal adrenal lesions. Punctate nonobstructive right renal stone is noted. There is mild bilateral hydronephrosis. Distended urinary bladder is noted. Calcified uterus is noted likely due to atrophy. Rectal wall thickening is noted mild surrounding inflammatory changes and trace fluid. There is evidence of previous sigmoid colon resection. Additional minimal inflammatory change free fluid is seen within the abdomen and pelvis. There is a wall thickening of the stomach. Gas and fluid-filled loops of bowel are seen greatest along large bowel loops. Fluid and air-filled appendix is noted. Small ventral hernias are seen along the midline with close apposition of bowel loops in this region. Minimal air is seen within the subcutaneous tissues of the left tibia abdominal wall. Multiple subcutaneous nodules are seen along the bilateral anterior abdominal wall, right greater than left. The prior left sided pleural pigtail catheter has been removed. Complex fluid density and phlegmonous changes seen along left paracolic gutter measuring 7.2 x 2 cm. No evidence of free air. Diffuse atherosclerosis is noted. Degenerative changes spine and pelvis are noted. Osteopenia is noted. IMPRESSION: Postsurgical changes including previous partial left sigmoidectomy. There is small complex fluid tracking along the left paracolic gutter measuring 7.2 x 2 cm in greatest dimension. End of previous left-sided Tickell catheter in this region has been removed. Please correlate clinically as this may result of residual phlegmonous changes or residual small abscess. Generalized fluid distended loops of bowel primarily large bowel loops. Inflammatory process cannot be excluded. There is also rectal wall thickening with inflammatory changes seen in this region and trace free fluid. Additional scattered trace fluid is seen throughout the abdomen and pelvis. Distended urinary bladder. There is mild bilateral hydronephrosis may be secondary to patient's distended urinary bladder. Punctate nonobstructive right renal stone Multiple nonspecific subcutaneous nodules of the anterior abdominal wall, right greater than left Small midline ventral hernias with close apposition of bowel loops. Possible tiny gallstones. Ultrasound would further clarify. bilateral pleural effusions and bibasilar passive atelectasis/consolidative changes and bibasal infiltrates.
[2018-04-11] MEDS: Metolazone 5 MG TAB PO SCH ×2 (10:13→17:18)
[2018-04-11] MEDS: Pantoprazole 40 mg/Packet PO SCH (10:13)
[2018-04-11] MEDS: Lactobacillus Rhamnosus GG 15 Billion CFU CAP.SPRINK PO SCH (10:14)
[2018-04-11] MEDS: Potassium Chloride Elixir 20 mEq /15 mL UDC PO SCH (10:14)
[2018-04-11] MEDS: Multivitamin w/ Minerals Tab PO SCH (10:14)
[2018-04-11] MEDS: D5-0.45NS 1,000 ML IV SCH (10:16)
[2018-04-11] MEDS: Insulin Detemir 100 units/mL 10mL Vial SUBQ SCH ×2 (10:39→21:48)
[2018-04-11] MEDS ORDERED: Non-Formulary Item 1 EA (Insulin Lispro [Humalog] 1 UNIT) SUBQ SCH (11:30)
[2018-04-11] MEDS: Albuterol/Ipratropium Neb 3 ML AERS HHN SCH ×2 (11:50→18:26)
[2018-04-11 12:07] LABS: % BASOPHILS 1.7 % (0.0-2.0); % EOSINOPHILS 0.5 % (0.0-5.0); % LYMPHOCYTES 12.3 % (20.0-50.0); % MONOCYTES 8.3 % (2.0-10.0); % NEUTROPHILS 77.2 % (40.0-80.0); BASOPHILE ABSOLUTE 0.1 Th/cumm (0-0.2); HEMATOCRIT 37.6 % (41.0-60); HEMOGLOBIN 12.4 gm/dL (12-16); LYMPHOCYTE ABSOLUTE 0.8 Th/cmm (1.5-3.0); MEAN CELL VOLUME 83.1 fl (81-100); MEAN CORPUSCULAR HEMOGLOBIN 27.4 pg (27.0-31.0); MEAN PLATELET VOLUME 7.3 fl; MONOCYTE ABSOLUTE 0.6 Th/cmm (0.3-1.0); NEUTROPHILE ABSOLUTE 5.2 Th/cmm (1.8-8.0); PLATELET COUNT 319 Th/cmm (150-400); RED BLOOD COUNT 4.53 Mil/cmm (3.80-5.20); RED CELL DISTRIBUTION WIDTH 20.8 % (11.5-20.0); WHITE BLOOD COUNT 6.7 Th/cmm (4.8-10.8)
[2018-04-11] MEDS: INSULIN ASPART SLIDING SCALE 100 UNITS/ML UNIT SUBQ SCH ×3 (12:11→21:49)
[2018-04-11 12:21] LABS: ALBUMIN 3.4 gm/dL (3.7-5.3); ALKALINE PHOSPHATASE 59 U/L (34-104); ANION GAP 11.7 (7.0-16.0); BILIRUBIN,TOTAL 0.7 mg/dL (0.3-1.0); BUN - UREA NITROGEN 12 mg/dL (7-25); CALCIUM SERUM 9.9 mg/dL (8.6-10.3); CARBON DIOXIDE 28.6 mEq/L (21.0-31.0); CHLORIDE 94 mEq/L (98-107); CREATININE - SERUM 0.8 mg/dL (0.6-1.2); GLUCOSE 199 mg/dL (70-105); POTASSIUM SERUM 3.3 mEq/L (3.5-5.1); SGOT 15 U/L (13-39); SGPT/ALT 13 U/L (7-52); SODIUM SERUM 131 mEq/L (136-145); TOTAL PROTEIN,SERUM 6.8 gm/dL (6.0-8.3)
--- NOTE | 2018-04-11 20:22 | History & Physical ---
ADMIT DATE: 04/11/2018 HISTORY OF PRESENT ILLNESS: The patient is well known to me. The patient is known to have history of hypertension, history of diabetes, history of colectomy, and history of colon CA. The patient recently was at [facility] for long-term, came to [place] from where again came in to [facility] for possible GI bleeding, dehydration, sepsis was treated, and sent home. The patient has stage IV sacral ulcer as well and the patient at this time came because of abdominal pain, diarrhea, vomiting, and she had dark colored melanotic stools 2 times just in ____ of 3 hours. The patient was admitted. The patient was seen in the ER, was admitted. REVIEW OF SYSTEMS: The patient's general review of systems except for being very weak and melanotic stools, everything else was negative. PAST MEDICAL HISTORY: Hypertension, diabetes, history of colectomy for colon cancer. PHYSICAL EXAMINATION: HEAD: Normal. ENT: Normal. NECK: Supple, nontender. LUNGS: Clear. CARDIOVASCULAR SYSTEM: S1, S2 heard. ABDOMEN: Soft. Bowel sounds are heard. CENTRAL NERVOUS SYSTEM: Grossly normal. DIAGNOSES: Episodes of nausea, vomiting, diarrhea, and melanotic stool, rule out gastrointestinal bleeding, history of colon cancer, history of colectomy, and history of hypertension and diabetes. I will have GI doctor see the patient and I will follow the patient. JOB# [id number]
[2018-04-11] MEDS ORDERED: Non-Formulary Item 1 EA (Melatonin/Pyridoxine Hcl (B6) [Melatonin 3 Mg Tablet] 1 EACH) PO SCH (21:00)
[2018-04-11 22:34] LABS: URINE MICROSCOPIC INDICATED? YES; URINE SOURCE CLEAN C
[2018-04-11 22:47] LABS: URINE BILIRUBIN NEGATIVE (NEGATIVE); URINE BLOOD TRACE (NEGATIVE); URINE GLUCOSE (UA) NEGATIVE (NEGATIVE); URINE KETONE NEGATIVE (NEGATIVE); URINE LEUKOCYTE ESTERASE NEGATIVE (NEGATIVE); URINE NITRATE NEGATIVE (NEGATIVE); URINE PROTEIN NEGATIVE (NEGATIVE); URINE UROBILINOGEN 0.2 E.U./dL (0.2 - 1.0)
[2018-04-11 22:55] LABS: URINE BACTERIA FEW /hpf (NONE SEEN); URINE CLARITY CLEAR (CLEAR); URINE COLOR YELLOW; URINE EPITHELIAL CELLS FEW /lpf (FEW); URINE WBC 0-2 /hpf (0-5)
[2018-04-12] MEDS: Albuterol/Ipratropium Neb 3 ML AERS HHN SCH ×4 (00:50→18:55)
[2018-04-12] MEDS: D5-0.45NS 1,000 ML IV SCH (01:45)
--- NOTE | 2018-04-12 02:28 | Consultation ---
DATE OF CONSULTATION: 04/11/2018 INPATIENT GASTROINTESTINAL CONSULTATION REFERRING PHYSICIAN: Marah Lucas M.D. REASON FOR CONSULTATION: Rectal bleeding. HISTORY OF PRESENT ILLNESS: An 78-year-old female who was transferred from a skilled facility because of rectal bleeding. She denies having abdominal pain. Denies nausea, vomiting, hematemesis, or coffee ground emesis. PAST MEDICAL HISTORY: Hypertension, diabetes. PAST SURGICAL HISTORY: None to add recently. FAMILY HISTORY: Noncontributory. SOCIAL HISTORY: No tobacco, alcohol or IV drug usage. ALLERGIES: CODEINE, SULFA. CURRENT MEDICATIONS: Tylenol, amikacin, vitamin C, Dulcolax, vitamin D3, Pepcid, Lasix, insulin, Levemir, Culturelle, Zaroxolyn, milk of magnesia, Lopressor, Flagyl, vancomycin, Protonix, Fleet enema, and zinc. REVIEW OF SYSTEMS: Ten-point review of system was performed and pertinent positive rectal bleeding. All systems are otherwise negative. PHYSICAL EXAMINATION: VITAL SIGNS: Temperature 97.1, breathing 16, pulse of 92, blood pressure 130/63, satting 97%. GENERAL: In no apparent distress. EYES: Anicteric. Normal conjunctivae. HEENT: Normocephalic, atraumatic. Moist mucous membranes. NECK: Soft, supple. CHEST: Clear. No effort. CARDIOVASCULAR: Regular rate and rhythm. ABDOMEN: Soft, nontender, nondistended. SKIN: Warm and dry. EXTREMITIES: Reveal no cyanosis. PSYCHOLOGIC: Alert, oriented x 3. LABORATORY DATA: CT showed sigmoidectomy changes with some complex fluid tracking in the left gutter, possible small gallstones. Labs show white count 6.7, hemoglobin 12.4, platelets of 319. INR is 1.05. Creatinine 0.8, total bilirubin 0.7, alkaline phosphatase 59, AST 15, ALT 13, lipase 32. IMPRESSION: An 78-year-old female with rectal bleeding, cause could be from colitis, cause of colitis could be inflammation versus infectious, less likely ischemic. The patient does not seem to have any abdominal pain at this time. PLAN: 1. Check stool studies. 2. Get records of EGD ____ which were done 2 months ago according to the patient. 3. Follow H and H. Thank you for allowing me to participate. Please call me if any questions. [facility]# [id number]
[2018-04-12 05:14] LABS: % BASOPHILS 0.5 % (0.0-2.0); % EOSINOPHILS 0.3 % (0.0-5.0); % LYMPHOCYTES 15.3 % (20.0-50.0); % MONOCYTES 14.9 % (2.0-10.0); HEMATOCRIT 36.3 % (41.0-60); HEMOGLOBIN 12.1 gm/dL (12-16); MEAN CELL VOLUME 82.4 fl (81-100); MEAN CORPUSCULAR HEMOGLOBIN 27.4 pg (27.0-31.0); MEAN CORPUSCULAR HGB CONC 33.3 pg (28.0-36.0); MEAN PLATELET VOLUME 7.4 fl; NEUTROPHILE ABSOLUTE 4.5 Th/cmm (1.8-8.0); PLATELET COUNT 348 Th/cmm (150-400); RED CELL DISTRIBUTION WIDTH 20.9 % (11.5-20.0); WHITE BLOOD COUNT 6.5 Th/cmm (4.8-10.8)
[2018-04-12 05:31] LABS: ANION GAP 11.1 (7.0-16.0); BUN - UREA NITROGEN 12 mg/dL (7-25); CALCIUM SERUM 9.8 mg/dL (8.6-10.3); CARBON DIOXIDE 32.4 mEq/L (21.0-31.0); CHLORIDE 91 mEq/L (98-107); CREATININE - SERUM 0.9 mg/dL (0.6-1.2); GLUCOSE 168 mg/dL (70-105); SODIUM SERUM 132 mEq/L (136-145)
[2018-04-12 05:48] LABS: POTASSIUM SERUM 2.5 mEq/L (3.5-5.1)
[2018-04-12] MEDS ORDERED: Potassium Chloride Elixir 20 mEq /15 mL UDC PO ONE (06:30)
[2018-04-12] MEDS: INSULIN ASPART SLIDING SCALE 100 UNITS/ML UNIT SUBQ SCH ×4 (07:07→21:00)
[2018-04-12] MEDS: KCL 20mEq/100mL Premix Bag IV SCH ×2 (09:19→16:20)
[2018-04-12] MEDS: Multivitamin w/ Minerals Tab PO SCH (09:20)
[2018-04-12] MEDS: Pantoprazole 40 mg/Packet PO SCH (09:22)
[2018-04-12] MEDS: Lactobacillus Rhamnosus GG 15 Billion CFU CAP.SPRINK PO SCH (09:22)
[2018-04-12] MEDS: Metolazone 5 MG TAB PO SCH ×2 (09:29→16:48)
[2018-04-12] MEDS: Potassium Chloride Elixir 20 mEq /15 mL UDC PO SCH (09:46)
[2018-04-12] MEDS: Insulin Detemir 100 units/mL 10mL Vial SUBQ SCH ×2 (09:47→20:59)
--- NOTE | 2018-04-12 12:34 | GI Progress Note ---
Subjective - Review of Systems Subjective: SOME RECTAL BLEEDING PER STAFF BUT NOT BY PT DENIES ABD PAIN Objective - Results Result Diagrams: 04/12/18 04:40 04/12/18 04:40 Recent Labs: Laboratory Last Values WBC 6.5 Th/cmm (4.8-10.8) 04/12/18 04:40 RBC 4.40 Mil/cmm (3.80-5.20) 04/12/18 04:40 Hgb 12.1 gm/dL (12-16) 04/12/18 04:40 Hct 36.3 % (41.0-60) L 04/12/18 04:40 MCV 82.4 fl (81-100) 04/12/18 04:40 MCH 27.4 pg (27.0-31.0) 04/12/18 04:40 MCHC Differential 33.3 pg (28.0-36.0) 04/12/18 04:40 RDW 20.9 % (11.5-20.0) H 04/12/18 04:40 Plt Count 348 Th/cmm (150-400) 04/12/18 04:40 MPV 7.4 fl 04/12/18 04:40 Neutrophils % 69.0 % (40.0-80.0) 04/12/18 04:40 Band Neutrophils % 4 % (0-10) 04/11/18 01:30 Lymphocytes % 15.3 % (20.0-50.0) L 04/12/18 04:40 Monocytes % 14.9 % (2.0-10.0) H 04/12/18 04:40 Eosinophils % 0.3 % (0.0-5.0) 04/12/18 04:40 Basophils % 0.5 % (0.0-2.0) 04/12/18 04:40 Neutrophils (Manual) 73 % (40-80) 04/11/18 01:30 Lymphocytes 16 % (20-50) L 04/11/18 01:30 Monocytes 7 % (2-10) 04/11/18 01:30 Platelet Estimate ADEQUATE (NORMAL) 04/11/18 01:30 PT 10.9 SECONDS (9.5-11.5) 04/11/18 01:30 INR 1.05 (0.5-1.4) 04/11/18 01:30 PTT (Actin FS) 27.8 SECONDS (26.0-38.0) 04/11/18 01:30 Sodium 132 mEq/L (136-145) L 04/12/18 04:40 Potassium 2.5 mEq/L (3.5-5.1) L* 04/12/18 04:40 Chloride 91 mEq/L (98-107) L 04/12/18 04:40 Carbon Dioxide 32.4 mEq/L (21.0-31.0) H 04/12/18 04:40 Anion Gap 11.1 (7.0-16.0) 04/12/18 04:40 BUN 12 mg/dL (7-25) 04/12/18 04:40 Creatinine 0.9 mg/dL (0.6-1.2) 04/12/18 04:40 Est GFR ( Amer) TNP 04/12/18 04:40 Est GFR (Non-Af Amer) TNP 04/12/18 04:40 BUN/Creatinine Ratio 13.3 04/12/18 04:40 Glucose 168 mg/dL (70-105) H 04/12/18 04:40 POC Glucose 242 MG/DL (70 - 105) H 04/12/18 11:36 Whole Bld Lactic Acid 0.81 mmol/L (0.60-1.99) 04/11/18 01:30 Calcium 9.8 mg/dL (8.6-10.3) 04/12/18 04:40 Total Bilirubin 0.7 mg/dL (0.3-1.0) 04/11/18 12:00 AST 15 U/L (13-39) 04/11/18 12:00 ALT 13 U/L (7-52) 04/11/18 12:00 Alkaline Phosphatase 59 U/L (34-104) 04/11/18 12:00 Total Protein 6.8 gm/dL (6.0-8.3) 04/11/18 12:00 Albumin 3.4 gm/dL (3.7-5.3) L 04/11/18 12:00 Globulin 3.4 gm/dL 04/11/18 12:00 Albumin/Globulin Ratio 1.0 (1.0-1.8) 04/11/18 12:00 Triglycerides 131 mg/dL (<150) 04/11/18 07:00 Cholesterol 107 mg/dL (<200) 04/11/18 07:00 LDL Cholesterol Direct 57 mg/dL (75-193) L 04/11/18 07:00 HDL Cholesterol 32 mg/dL (23-92) 04/11/18 07:00 Amylase 43 U/L (29-103) 04/11/18 01:30 Lipase 32 U/L (11-82) 04/11/18 01:30 TSH 1.79 uIU/ml (0.34-5.60) 04/11/18 07:00 Urine Source CLEAN C 04/11/18 22:00 Urine Color YELLOW 04/11/18 22:00 Urine Clarity CLEAR (CLEAR) 04/11/18 22:00 Urine pH 6.0 (4.6 - 8.0) 04/11/18 22:00 Ur Specific [place] 1.010 (1.005-1.030) 04/11/18 22:00 Urine Protein NEGATIVE mg/dL (NEGATIVE) 04/11/18 22:00 Urine Glucose (UA) NEGATIVE mg/dL (NEGATIVE) 04/11/18 22:00 Urine Ketones NEGATIVE mg/dL (NEGATIVE) 04/11/18 22:00 Urine Blood TRACE (NEGATIVE) 04/11/18 22:00 Urine Nitrate NEGATIVE (NEGATIVE) 04/11/18 22:00 Urine Bilirubin NEGATIVE (NEGATIVE) 04/11/18 22:00 Urine Urobilinogen 0.2 E.U./dL (0.2 - 1.0) 04/11/18 22:00 Ur Leukocyte Esterase NEGATIVE (NEGATIVE) 04/11/18 22:00 Urine RBC 2-5 /hpf (0-5) 04/11/18 22:00 Urine WBC 0-2 /hpf (0-5) 04/11/18 22:00 Ur Epithelial Cells FEW /lpf (FEW) 04/11/18 22:00 Urine Bacteria FEW /hpf (NONE SEEN) 04/11/18 22:00 Vancomycin Trough 15.5 ug/mL (5-10) H 04/12/18 09:30 - Physical Exam Vitals and I&O: Vital Signs Temp 96.1 F 04/12/18 12:00 Pulse 94 04/12/18 12:00 Resp 17 04/12/18 12:00 BP 112/51 04/12/18 12:00 Pulse Ox 97 04/12/18 12:00 Intake & Output 04/11/18 04/12/18 04/12/18 18:59 06:59 18:59 Intake Total 1071.2 1240 Balance 1071.2 1240 Weight (lbs) 48.081 kg 48.081 kg Intake: Intake, IV Amount 351.2 1000 Amikacin 300 mg In 101.2 Dextrose 5% 100 ml @ 100 mls/hr IV Q24HR [facility] Rx#: [id number] D5-0.45NS 1,000 ml @ 75 1000 mls/hr IV .[id number] [facility] Rx #:[id number] Vancomycin HCl 0.75 gm In 250 Sodium Chloride 0.9% 250 ml @ 165 mls/hr IV Q24H [facility] Rx#:[id number] Oral 720 240 Other: # Voids 4 3 # Bowel Movements 0 0 Weight Source Estimated Bedscale Active Medications: Current Medications Acetaminophen (Tylenol) 650 mg PO Q4H PRN PRN Reason: Pain or Fever >101 Stop: 06/10/18 08:02 Albuterol/Ipratropium (Duoneb Neb) 3 ml HHN Q6HRT [facility] Stop: 06/10/18 12:59 Last Admin: 04/12/18 06:20 Dose: 3 ml Ascorbic Acid (Vitamin C) 500 mg PO DAILY [facility] Stop: 06/10/18 08:59 Last Admin: 04/12/18 09:20 Dose: 500 mg Bisacodyl (Dulcolax 10 Mg Supp) 10 mg RC DAILY PRN PRN Reason: Constipation Stop: 06/10/18 08:02 Cholecalciferol (Vitamin D3) 5,000 iu PO DAILY [facility] Stop: 06/10/18 08:59 Last Admin: 04/12/18 09:19 Dose: 5,000 iu Famotidine (Pepcid) 20 mg PO BID [facility] Stop: 06/10/18 08:59 Last Admin: 04/12/18 09:22 Dose: 20 mg Furosemide (Lasix) 40 mg PO BID [facility] Stop: 06/10/18 08:59 Last Admin: 04/12/18 09:28 Dose: 40 mg Dextrose/Sodium Chloride (D5-0.45ns) 1,000 mls @ 75 mls/hr IV .[id number] [facility] Stop: 06/10/18 08:59 Last Admin: 04/12/18 01:45 Dose: 75 mls/hr Vancomycin HCl 0.75 gm/ Sodium (Chloride) 250 mls @ 165 mls/hr IV Q24H [facility] Stop: 06/10/18 10:59 Last Infusion: 04/11/18 13:00 Dose: Infused Amikacin Sulfate 300 mg/ (Dextrose) 101.2 mls @ 100 mls/hr IV Q24HR [facility] Stop: 06/10/18 09:59 Last Admin: 04/12/18 10:58 Dose: 100 mls/hr Insulin Aspart (Novolog Insulin Sliding Scale) 0 units SUBQ ACHS [facility]; Protocol Stop: 06/10/18 11:29 Last Admin: 04/12/18 07:07 Dose: 2 units Insulin Detemir (Levemir Insulin) 30 units SUBQ Q12HR [facility]; Protocol Stop: 06/10/18 08:59 Last Admin: 04/12/18 09:47 Dose: Not Given Lactobacillus Rhamnosus (Culturelle 15b) 1 each PO DAILY [facility] Stop: 06/10/18 08:59 Last Admin: 04/12/18 09:22 Dose: 1 each Magnesium Hydroxide (Milk Of Magnesia) 30 ml NG DAILY PRN PRN Reason: Constipation Stop: 06/10/18 08:02 Metolazone (Zaroxolyn) 10 mg PO BID [facility] Stop: 06/10/18 08:59 Last Admin: 04/12/18 09:29 Dose: 10 mg Metoprolol Tartrate (Lopressor) 25 mg PO BID [facility] Stop: 06/10/18 08:59 Last Admin: 04/12/18 09:27 Dose: 25 mg Metronidazole (Flagyl) 500 mg PO TID [facility] Stop: 06/10/18 08:59 Last Admin: 04/12/18 09:20 Dose: 500 mg Miscellaneous (Vancomycin Iv Per Pharmacy) 1 ea PRN PRN PRN Reason: PROTOCOL Stop: 06/10/18 08:29 Miscellaneous (Amikacin Iv Per Pharmacy) 1 ea PRN PRN PRN Reason: PROTOCOL Stop: 06/10/18 08:29 Ondansetron HCl (Zofran Odt) 4 mg PO Q6H PRN PRN Reason: Nausea / Vomiting Stop: 06/10/18 08:44 Pantoprazole Sodium (Protonix) 40 mg PO DAILY [facility] Stop: 06/10/18 08:59 Last Admin: 04/12/18 09:22 Dose: 40 mg Potassium Chloride (Potassium Chloride Elixir) 20 meq PO DAILY [facility] Stop: 06/10/18 08:59 Last Admin: 04/12/18 09:46 Dose: 20 meq Sodium Phosphate (Fleet Enema) 135 ml RC DAILY PRN PRN Reason: Constipation Stop: 06/10/18 08:02 Zinc Sulfate (Zinc Sulfate) 220 mg PO DAILY [facility] Stop: 06/10/18 08:59 Last Admin: 04/12/18 09:20 Dose: 220 mg - Procedures Procedures: Procedures Procedure Code Date TRANSFUSE NONAUT RED BLOOD CELLS IN PERIPH VEIN, [facility] [id number] 04/03/18 Assessment/Plan - Assessment Assessment: 78 FEMALE WITH RECTAL BLEEDING UNCLEAR ETIOLOGY EGD/COLO WERE OFFERED BUT PT REFUSED STATES SHE HAD EGD AND COLO 2 MONTHS AGO HGB NORMAL 1.FOLLOW H/H 2.GET RECORDS OF EGD AND COLO
[2018-04-12] MEDS ORDERED: KCL 20mEq/100mL Premix 20 MEQ/100 ML PIGGYBACK IV ONE (15:39)
[2018-04-12] MEDS: Venelex 60gm Tube TP SCH (16:47)
[2018-04-13] MEDS: Albuterol/Ipratropium Neb 3 ML AERS HHN SCH ×4 (00:01→19:17)
[2018-04-13 06:26] LABS: % BASOPHILS 0.8 % (0.0-2.0); % EOSINOPHILS 1.4 % (0.0-5.0); % LYMPHOCYTES 20.2 % (20.0-50.0); % MONOCYTES 14.3 % (2.0-10.0); % NEUTROPHILS 63.3 % (40.0-80.0); EOSINOPHILE ABSOLUTE 0.1 Th/cmm (0.1-0.4); HEMATOCRIT 32.4 % (41.0-60); HEMOGLOBIN 10.8 gm/dL (12-16); LYMPHOCYTE ABSOLUTE 1.1 Th/cmm (1.5-3.0); MEAN CELL VOLUME 83.5 fl (81-100); MEAN CORPUSCULAR HEMOGLOBIN 27.7 pg (27.0-31.0); MEAN CORPUSCULAR HGB CONC 33.2 pg (28.0-36.0); MEAN PLATELET VOLUME 7.1 fl; MONOCYTE ABSOLUTE 0.8 Th/cmm (0.3-1.0); NEUTROPHILE ABSOLUTE 3.5 Th/cmm (1.8-8.0); PLATELET COUNT 313 Th/cmm (150-400); RED BLOOD COUNT 3.88 Mil/cmm (3.80-5.20); RED CELL DISTRIBUTION WIDTH 20.7 % (11.5-20.0); WHITE BLOOD COUNT 5.5 Th/cmm (4.8-10.8)
[2018-04-13 06:48] LABS: ANION GAP 11.3 (7.0-16.0); BUN - UREA NITROGEN 13 mg/dL (7-25); CALCIUM SERUM 8.8 mg/dL (8.6-10.3); CARBON DIOXIDE 27.9 mEq/L (21.0-31.0); CHLORIDE 93 mEq/L (98-107); CREATININE - SERUM 1.1 mg/dL (0.6-1.2); GLUCOSE 221 mg/dL (70-105); POTASSIUM SERUM 3.2 mEq/L (3.5-5.1); SODIUM SERUM 129 mEq/L (136-145)
[2018-04-13] MEDS ORDERED: Sodium Chloride 0.9% 1,000 ML IV SCH (08:15)
[2018-04-13] MEDS: INSULIN ASPART SLIDING SCALE 100 UNITS/ML UNIT SUBQ SCH ×4 (08:59→22:15)
[2018-04-13] MEDS: Pantoprazole 40 mg/Packet PO SCH ×2 (09:00→17:02)
[2018-04-13] MEDS: Metolazone 5 MG TAB PO SCH ×2 (09:00→16:58)
[2018-04-13] MEDS: Multivitamin w/ Minerals Tab PO SCH (09:00)
[2018-04-13] MEDS: Lactobacillus Rhamnosus GG 15 Billion CFU CAP.SPRINK PO SCH (09:00)
[2018-04-13] MEDS ORDERED: Potassium Chloride Elixir 20 mEq /15 mL UDC PO ONE (09:00)
[2018-04-13] MEDS: Insulin Detemir 100 units/mL 10mL Vial SUBQ SCH ×2 (09:01→22:16)
[2018-04-13] MEDS: Amikacin 500 mg in D5W 100mL (Q24HR) IV SCH (11:36)
[2018-04-13] MEDS: Venelex 60gm Tube TP SCH (12:14)
--- NOTE | 2018-04-13 13:15 | General Progress Note ---
Subjective - Review of Systems Events since last encounter: denies abd pain denies cp Objective - Results Result Diagrams: 04/13/18 05:15 04/13/18 05:15 Recent Labs: Laboratory Last Values WBC 5.5 Th/cmm (4.8-10.8) 04/13/18 05:15 RBC 3.88 Mil/cmm (3.80-5.20) 04/13/18 05:15 Hgb 10.8 gm/dL (12-16) L 04/13/18 05:15 Hct 32.4 % (41.0-60) L 04/13/18 05:15 MCV 83.5 fl (81-100) 04/13/18 05:15 MCH 27.7 pg (27.0-31.0) 04/13/18 05:15 MCHC Differential 33.2 pg (28.0-36.0) 04/13/18 05:15 RDW 20.7 % (11.5-20.0) H 04/13/18 05:15 Plt Count 313 Th/cmm (150-400) 04/13/18 05:15 MPV 7.1 fl 04/13/18 05:15 Neutrophils % 63.3 % (40.0-80.0) 04/13/18 05:15 Band Neutrophils % 4 % (0-10) 04/11/18 01:30 Lymphocytes % 20.2 % (20.0-50.0) 04/13/18 05:15 Monocytes % 14.3 % (2.0-10.0) H 04/13/18 05:15 Eosinophils % 1.4 % (0.0-5.0) 04/13/18 05:15 Basophils % 0.8 % (0.0-2.0) 04/13/18 05:15 Neutrophils (Manual) 73 % (40-80) 04/11/18 01:30 Lymphocytes 16 % (20-50) L 04/11/18 01:30 Monocytes 7 % (2-10) 04/11/18 01:30 Platelet Estimate ADEQUATE (NORMAL) 04/11/18 01:30 PT 10.9 SECONDS (9.5-11.5) 04/11/18 01:30 INR 1.05 (0.5-1.4) 04/11/18 01:30 PTT (Actin FS) 27.8 SECONDS (26.0-38.0) 04/11/18 01:30 Sodium 129 mEq/L (136-145) L 04/13/18 05:15 Potassium 3.2 mEq/L (3.5-5.1) L 04/13/18 05:15 Chloride 93 mEq/L (98-107) L 04/13/18 05:15 Carbon Dioxide 27.9 mEq/L (21.0-31.0) 04/13/18 05:15 Anion Gap 11.3 (7.0-16.0) 04/13/18 05:15 BUN 13 mg/dL (7-25) 04/13/18 05:15 Creatinine 1.1 mg/dL (0.6-1.2) 04/13/18 05:15 Est GFR ( Amer) TNP 04/13/18 05:15 Est GFR (Non-Af Amer) TNP 04/13/18 05:15 BUN/Creatinine Ratio 11.8 04/13/18 05:15 Glucose 221 mg/dL (70-105) H 04/13/18 05:15 POC Glucose 266 MG/DL (70 - 105) H 04/13/18 12:03 Whole Bld Lactic Acid 0.81 mmol/L (0.60-1.99) 04/11/18 01:30 Calcium 8.8 mg/dL (8.6-10.3) 04/13/18 05:15 Total Bilirubin 0.7 mg/dL (0.3-1.0) 04/11/18 12:00 AST 15 U/L (13-39) 04/11/18 12:00 ALT 13 U/L (7-52) 04/11/18 12:00 Alkaline Phosphatase 59 U/L (34-104) 04/11/18 12:00 Total Protein 6.8 gm/dL (6.0-8.3) 04/11/18 12:00 Albumin 3.4 gm/dL (3.7-5.3) L 04/11/18 12:00 Globulin 3.4 gm/dL 04/11/18 12:00 Albumin/Globulin Ratio 1.0 (1.0-1.8) 04/11/18 12:00 Triglycerides 131 mg/dL (<150) 04/11/18 07:00 Cholesterol 107 mg/dL (<200) 04/11/18 07:00 LDL Cholesterol Direct 57 mg/dL (75-193) L 04/11/18 07:00 HDL Cholesterol 32 mg/dL (23-92) 04/11/18 07:00 Amylase 43 U/L (29-103) 04/11/18 01:30 Lipase 32 U/L (11-82) 04/11/18 01:30 TSH 1.79 uIU/ml (0.34-5.60) 04/11/18 07:00 Urine Source CLEAN C 04/11/18 22:00 Urine Color YELLOW 04/11/18 22:00 Urine Clarity CLEAR (CLEAR) 04/11/18 22:00 Urine pH 6.0 (4.6 - 8.0) 04/11/18 22:00 Ur Specific [place] 1.010 (1.005-1.030) 04/11/18 22:00 Urine Protein NEGATIVE mg/dL (NEGATIVE) 04/11/18 22:00 Urine Glucose (UA) NEGATIVE mg/dL (NEGATIVE) 04/11/18 22:00 Urine Ketones NEGATIVE mg/dL (NEGATIVE) 04/11/18 22:00 Urine Blood TRACE (NEGATIVE) 04/11/18 22:00 Urine Nitrate NEGATIVE (NEGATIVE) 04/11/18 22:00 Urine Bilirubin NEGATIVE (NEGATIVE) 04/11/18 22:00 Urine Urobilinogen 0.2 E.U./dL (0.2 - 1.0) 04/11/18 22:00 Ur Leukocyte Esterase NEGATIVE (NEGATIVE) 04/11/18 22:00 Urine RBC 2-5 /hpf (0-5) 04/11/18 22:00 Urine WBC 0-2 /hpf (0-5) 04/11/18 22:00 Ur Epithelial Cells FEW /lpf (FEW) 04/11/18 22:00 Urine Bacteria FEW /hpf (NONE SEEN) 04/11/18 22:00 Amikacin Peak 11.1 ug/mL (20.0-30.0) L 04/12/18 13:35 Amikacin Trough 0.8 ug/mL (5.0-10.0) L 04/12/18 09:30 Vancomycin Trough 15.5 ug/mL (5-10) H 04/12/18 09:30 - Physical Exam Vitals and I&O: Vital Signs Temp 96.0 F 04/13/18 08:00 Pulse 68 04/13/18 11:30 Resp 16 04/13/18 08:00 BP 104/50 04/13/18 11:30 Pulse Ox 97 04/13/18 08:00 Intake & Output 04/12/18 04/13/18 04/13/18 18:59 06:59 18:59 Intake Total 451.2 Balance 451.2 Weight (lbs) 48.081 kg 48.081 kg Intake: Intake, IV Amount 451.2 Amikacin 300 mg In 101.2 Dextrose 5% 100 ml @ 100 mls/hr IV Q24HR [facility] Rx#: [id number] KCL 20mEq/100mL Premix 20 100 meq In 100 ml @ 50 mls/ hr IV Q2H [facility] Rx#: [id number] Vancomycin HCl 0.75 gm In 250 Sodium Chloride 0.9% 250 ml @ 165 mls/hr IV Q24H [facility] Rx#:[id number] Other: # Voids 4 2 # Bowel Movements 4 0 Weight Source Estimated Bedscale Active Medications: Current Medications Acetaminophen (Tylenol) 650 mg PO Q4H PRN PRN Reason: Pain or Fever >101 Stop: 06/10/18 08:02 Last Admin: 04/12/18 22:15 Dose: 650 mg Albuterol/Ipratropium (Duoneb Neb) 3 ml HHN Q6HRT [facility] Stop: 06/10/18 12:59 Last Admin: 04/13/18 07:14 Dose: 3 ml Ascorbic Acid (Vitamin C) 500 mg PO DAILY [facility] Stop: 06/10/18 08:59 Last Admin: 04/13/18 09:00 Dose: 500 mg Bisacodyl (Dulcolax 10 Mg Supp) 10 mg RC DAILY PRN PRN Reason: Constipation Stop: 06/10/18 08:02 [place] Oil/[place] Balsam/Trypsin (Venelex) 1 appl TP DAILY [facility] Stop: 06/11/18 15:59 Last Admin: 04/13/18 12:14 Dose: 1 appl Cholecalciferol (Vitamin D3) 5,000 iu PO DAILY [facility] Stop: 06/10/18 08:59 Last Admin: 04/13/18 09:00 Dose: 5,000 iu Famotidine (Pepcid) 20 mg PO BID [facility] Stop: 06/10/18 08:59 Last Admin: 04/13/18 09:00 Dose: 20 mg Furosemide (Lasix) 40 mg PO BID [facility] Stop: 06/10/18 08:59 Last Admin: 04/13/18 09:00 Dose: 40 mg Vancomycin HCl 0.75 gm/ Sodium (Chloride) 250 mls @ 165 mls/hr IV Q24H [facility] Stop: 06/10/18 10:59 Last Infusion: 04/12/18 12:41 Dose: Infused Sodium Chloride (Nacl 0.9%) 1,000 mls @ 75 mls/hr IV .[id number] [facility] Stop: 06/12/18 08:14 Amikacin Sulfate 500 mg/ (Dextrose) 102 mls @ 100 mls/hr IV Q24HR [facility] Stop: 06/12/18 10:59 Last Admin: 04/13/18 11:36 Dose: 100 mls/hr Insulin Aspart (Novolog Insulin Sliding Scale) 0 units SUBQ ACHS [facility]; Protocol Stop: 06/10/18 11:29 Last Admin: 04/13/18 12:11 Dose: 6 units Insulin Detemir (Levemir Insulin) 30 units SUBQ Q12HR [facility]; Protocol Stop: 06/10/18 08:59 Last Admin: 04/13/18 09:01 Dose: 30 units Lactobacillus Rhamnosus (Culturelle 15b) 1 each PO DAILY [facility] Stop: 06/10/18 08:59 Last Admin: 04/13/18 09:00 Dose: 1 each Magnesium Hydroxide (Milk Of Magnesia) 30 ml NG DAILY PRN PRN Reason: Constipation Stop: 06/10/18 08:02 Metolazone (Zaroxolyn) 10 mg PO BID [facility] Stop: 06/10/18 08:59 Last Admin: 04/13/18 09:00 Dose: 10 mg Metoprolol Tartrate (Lopressor) 25 mg PO BID [facility] Stop: 06/10/18 08:59 Last Admin: 04/13/18 11:30 Dose: Not Given Metronidazole (Flagyl) 500 mg PO TID [facility] Stop: 06/10/18 08:59 Last Admin: 04/13/18 09:00 Dose: 500 mg Miscellaneous (Vancomycin Iv Per Pharmacy) 1 ea MC PRN PRN PRN Reason: PROTOCOL Stop: 06/10/18 08:29 Miscellaneous (Amikacin Iv Per Pharmacy) 1 ea MC PRN PRN PRN Reason: PROTOCOL Stop: 06/10/18 08:29 Ondansetron HCl (Zofran Odt) 4 mg PO Q6H PRN PRN Reason: Nausea / Vomiting Stop: 06/10/18 08:44 Pantoprazole Sodium (Protonix) 40 mg PO DAILY [facility] Stop: 06/10/18 08:59 Last Admin: 04/13/18 09:00 Dose: 40 mg Sodium Phosphate (Fleet Enema) 135 ml RC DAILY PRN PRN Reason: Constipation Stop: 06/10/18 08:02 Zinc Sulfate (Zinc Sulfate) 220 mg PO DAILY [facility] Stop: 06/10/18 08:59 Last Admin: 04/13/18 09:00 Dose: 220 mg - Procedures Procedures: Procedures Procedure Code Date TRANSFUSE NONAUT RED BLOOD CELLS IN PERIPH VEIN, [facility] 98688U2 04/03/18 Nutritional Asmnt/Malnutr-PDOC - Dietary Evaluation Malnutrition Findings (Please click <Entered> for more info): Nutritional Asmnt/Malnutrition Start: 04/12/18 16: 04 Text: Status: Complete Freq: Protocol: Document 04/12/18 16:53 LCHENG (Rec: 04/12/18 17:19 LCROQUE [email or web address]) Nutritional Asmnt/Malnutrition Patient General Information Nutritional Screening Moderate Risk Consult Diagnosis abdominal pain, hypokalemia Pertinent Medical Hx/Surgical Hx HTN, DM, colectomy for colon CA Subjective Information Consult received for coccygeal pressure ulcer in the afternoon. Per nurse note, pt had no appetite and only had few bite of breakfast this morning. Current Diet Order/ Nutrition Support [facility] soft TOBY, CCHO Pertinent Medications vit C, vit D3, D5-0.45ns, pepcid, lasix, novolog, levemir, culturelle, protonix, kcl, vancomycin, zinc Pertinent Labs 04/12 Na 132, K 2.5, Cl 91, Glucose 168, POC 170-265 Nutritional Hx/Data Height 1.57 m Height (Calculated Centimeters) 157.5 Current Weight (lbs) 48.081 kg Weight (Calculated Kilograms) 48.1 Weight (Calculated Grams) 92696.8 [place] Body Weight 110 Body Mass Index (BMI) 19.3 Weight Status Approriate GI Symptoms GI Symptoms None Last BM none Difficult in: None Skin Integrity/Comment: Unstageable pressure ulcer to Coccygeal Area Erythema to milana-anal area redness to left heel Current %PO Negligible < 25% Estimated Nutritional Goals BEE in Kcals: Using Current wt Calories/Kcals/Kg 27-32 Kcals Calculated 2568-1871 Protein: Using Current wt Protein g/k-1.2 Protein Calculated 48-58 Fluid: ml 1296-1536ml (1ml/kcal) Nutritional Problem 2. Problem Problem increased nutrition needs Etiology impaired skin integrity Signs/Symptoms: unstageable pressure ulcer to coccygeal area 1. Problem Problem altered nutrition related labs Etiology electrolytes imbalance and hx of DM Signs/Symptoms: Na 132, K 2.5, Cl 91, BUN 168, POC 170-265 Malnutrition Alert Is there a minimum of two criteria No selected? Query Text:Check all the applicable criteria. A minimum of two criteria are recommended for diagnosis of either severe or non-severe malnutrition. Malnutrition Related to Morbid Obesity Malnutrition related to morbid obesity No Intervention/Recommendation Comments 1. Continue with current diet as ordered. Encourage oral intake. Consider adding oral nutrition supplement Glucerna BID if PO intake continue <50% for 3 days. 2. Monitor PO intake, wt, labs and skin integrity 3. F/U as high risk in 2-3 days, 04/14-04/15 Expected Outcomes/Goals Expected Outcomes/Goals 1. PO intake to meet at least 75% of nutritional needs. 2. Wt stability, skin integrity to improve, labs to approach WNL.
--- NOTE | 2018-04-13 13:48 | GI Progress Note ---
Subjective - Review of Systems Subjective: DENIES ABD PAIN Objective - Results Result Diagrams: 04/13/18 05:15 04/13/18 05:15 Recent Labs: Laboratory Last Values WBC 5.5 Th/cmm (4.8-10.8) 04/13/18 05:15 RBC 3.88 Mil/cmm (3.80-5.20) 04/13/18 05:15 Hgb 10.8 gm/dL (12-16) L 04/13/18 05:15 Hct 32.4 % (41.0-60) L 04/13/18 05:15 MCV 83.5 fl (81-100) 04/13/18 05:15 MCH 27.7 pg (27.0-31.0) 04/13/18 05:15 MCHC Differential 33.2 pg (28.0-36.0) 04/13/18 05:15 RDW 20.7 % (11.5-20.0) H 04/13/18 05:15 Plt Count 313 Th/cmm (150-400) 04/13/18 05:15 MPV 7.1 fl 04/13/18 05:15 Neutrophils % 63.3 % (40.0-80.0) 04/13/18 05:15 Band Neutrophils % 4 % (0-10) 04/11/18 01:30 Lymphocytes % 20.2 % (20.0-50.0) 04/13/18 05:15 Monocytes % 14.3 % (2.0-10.0) H 04/13/18 05:15 Eosinophils % 1.4 % (0.0-5.0) 04/13/18 05:15 Basophils % 0.8 % (0.0-2.0) 04/13/18 05:15 Neutrophils (Manual) 73 % (40-80) 04/11/18 01:30 Lymphocytes 16 % (20-50) L 04/11/18 01:30 Monocytes 7 % (2-10) 04/11/18 01:30 Platelet Estimate ADEQUATE (NORMAL) 04/11/18 01:30 PT 10.9 SECONDS (9.5-11.5) 04/11/18 01:30 INR 1.05 (0.5-1.4) 04/11/18 01:30 PTT (Actin FS) 27.8 SECONDS (26.0-38.0) 04/11/18 01:30 Sodium 129 mEq/L (136-145) L 04/13/18 05:15 Potassium 3.2 mEq/L (3.5-5.1) L 04/13/18 05:15 Chloride 93 mEq/L (98-107) L 04/13/18 05:15 Carbon Dioxide 27.9 mEq/L (21.0-31.0) 04/13/18 05:15 Anion Gap 11.3 (7.0-16.0) 04/13/18 05:15 BUN 13 mg/dL (7-25) 04/13/18 05:15 Creatinine 1.1 mg/dL (0.6-1.2) 04/13/18 05:15 Est GFR ( Amer) TNP 04/13/18 05:15 Est GFR (Non-Af Amer) TNP 04/13/18 05:15 BUN/Creatinine Ratio 11.8 04/13/18 05:15 Glucose 221 mg/dL (70-105) H 04/13/18 05:15 POC Glucose 266 MG/DL (70 - 105) H 04/13/18 12:03 Whole Bld Lactic Acid 0.81 mmol/L (0.60-1.99) 04/11/18 01:30 Calcium 8.8 mg/dL (8.6-10.3) 04/13/18 05:15 Total Bilirubin 0.7 mg/dL (0.3-1.0) 04/11/18 12:00 AST 15 U/L (13-39) 04/11/18 12:00 ALT 13 U/L (7-52) 04/11/18 12:00 Alkaline Phosphatase 59 U/L (34-104) 04/11/18 12:00 Total Protein 6.8 gm/dL (6.0-8.3) 04/11/18 12:00 Albumin 3.4 gm/dL (3.7-5.3) L 04/11/18 12:00 Globulin 3.4 gm/dL 04/11/18 12:00 Albumin/Globulin Ratio 1.0 (1.0-1.8) 04/11/18 12:00 Triglycerides 131 mg/dL (<150) 04/11/18 07:00 Cholesterol 107 mg/dL (<200) 04/11/18 07:00 LDL Cholesterol Direct 57 mg/dL (75-193) L 04/11/18 07:00 HDL Cholesterol 32 mg/dL (23-92) 04/11/18 07:00 Amylase 43 U/L (29-103) 04/11/18 01:30 Lipase 32 U/L (11-82) 04/11/18 01:30 TSH 1.79 uIU/ml (0.34-5.60) 04/11/18 07:00 Urine Source CLEAN C 04/11/18 22:00 Urine Color YELLOW 04/11/18 22:00 Urine Clarity CLEAR (CLEAR) 04/11/18 22:00 Urine pH 6.0 (4.6 - 8.0) 04/11/18 22:00 Ur Specific [place] 1.010 (1.005-1.030) 04/11/18 22:00 Urine Protein NEGATIVE mg/dL (NEGATIVE) 04/11/18 22:00 Urine Glucose (UA) NEGATIVE mg/dL (NEGATIVE) 04/11/18 22:00 Urine Ketones NEGATIVE mg/dL (NEGATIVE) 04/11/18 22:00 Urine Blood TRACE (NEGATIVE) 04/11/18 22:00 Urine Nitrate NEGATIVE (NEGATIVE) 04/11/18 22:00 Urine Bilirubin NEGATIVE (NEGATIVE) 04/11/18 22:00 Urine Urobilinogen 0.2 E.U./dL (0.2 - 1.0) 04/11/18 22:00 Ur Leukocyte Esterase NEGATIVE (NEGATIVE) 04/11/18 22:00 Urine RBC 2-5 /hpf (0-5) 04/11/18 22:00 Urine WBC 0-2 /hpf (0-5) 04/11/18 22:00 Ur Epithelial Cells FEW /lpf (FEW) 04/11/18 22:00 Urine Bacteria FEW /hpf (NONE SEEN) 04/11/18 22:00 Amikacin Peak 11.1 ug/mL (20.0-30.0) L 04/12/18 13:35 Amikacin Trough 0.8 ug/mL (5.0-10.0) L 04/12/18 09:30 Vancomycin Trough 15.5 ug/mL (5-10) H 04/12/18 09:30 - Physical Exam Vitals and I&O: Vital Signs Temp 96.0 F 04/13/18 08:00 Pulse 95 04/13/18 13:20 Resp 20 04/13/18 13:20 BP 104/50 04/13/18 11:30 Pulse Ox 97 04/13/18 13:20 Intake & Output 04/12/18 04/13/18 04/13/18 18:59 06:59 18:59 Intake Total 451.2 Balance 451.2 Weight (lbs) 48.081 kg 48.081 kg Intake: Intake, IV Amount 451.2 Amikacin 300 mg In 101.2 Dextrose 5% 100 ml @ 100 mls/hr IV Q24HR [facility] Rx#: [id number] KCL 20mEq/100mL Premix 20 100 meq In 100 ml @ 50 mls/ hr IV Q2H [facility] Rx#: [id number] Vancomycin HCl 0.75 gm In 250 Sodium Chloride 0.9% 250 ml @ 165 mls/hr IV Q24H [facility] Rx#:[id number] Other: # Voids 4 2 # Bowel Movements 4 0 Weight Source Estimated Bedscale Active Medications: Current Medications Acetaminophen (Tylenol) 650 mg PO Q4H PRN PRN Reason: Pain or Fever >101 Stop: 06/10/18 08:02 Last Admin: 04/12/18 22:15 Dose: 650 mg Albuterol/Ipratropium (Duoneb Neb) 3 ml HHN Q6HRT [facility] Stop: 06/10/18 12:59 Last Admin: 04/13/18 13:20 Dose: 3 ml Ascorbic Acid (Vitamin C) 500 mg PO DAILY [facility] Stop: 06/10/18 08:59 Last Admin: 04/13/18 09:00 Dose: 500 mg Bisacodyl (Dulcolax 10 Mg Supp) 10 mg RC DAILY PRN PRN Reason: Constipation Stop: 06/10/18 08:02 [place] Oil/[place] Balsam/Trypsin (Venelex) 1 appl TP DAILY [facility] Stop: 06/11/18 15:59 Last Admin: 04/13/18 12:14 Dose: 1 appl Cholecalciferol (Vitamin D3) 5,000 iu PO DAILY [facility] Stop: 06/10/18 08:59 Last Admin: 04/13/18 09:00 Dose: 5,000 iu Famotidine (Pepcid) 20 mg PO BID [facility] Stop: 06/10/18 08:59 Last Admin: 04/13/18 09:00 Dose: 20 mg Furosemide (Lasix) 40 mg PO BID [facility] Stop: 06/10/18 08:59 Last Admin: 04/13/18 09:00 Dose: 40 mg Vancomycin HCl 0.75 gm/ Sodium (Chloride) 250 mls @ 165 mls/hr IV Q24H [facility] Stop: 06/10/18 10:59 Last Infusion: 04/12/18 12:41 Dose: Infused Sodium Chloride (Nacl 0.9%) 1,000 mls @ 75 mls/hr IV .[id number] [facility] Stop: 06/12/18 08:14 Amikacin Sulfate 500 mg/ (Dextrose) 102 mls @ 100 mls/hr IV Q24HR [facility] Stop: 06/12/18 10:59 Last Admin: 04/13/18 11:36 Dose: 100 mls/hr Insulin Aspart (Novolog Insulin Sliding Scale) 0 units SUBQ ACHS [facility]; Protocol Stop: 06/10/18 11:29 Last Admin: 04/13/18 12:11 Dose: 6 units Insulin Detemir (Levemir Insulin) 30 units SUBQ Q12HR [facility]; Protocol Stop: 06/10/18 08:59 Last Admin: 04/13/18 09:01 Dose: 30 units Lactobacillus Rhamnosus (Culturelle 15b) 1 each PO DAILY [facility] Stop: 06/10/18 08:59 Last Admin: 04/13/18 09:00 Dose: 1 each Magnesium Hydroxide (Milk Of Magnesia) 30 ml NG DAILY PRN PRN Reason: Constipation Stop: 06/10/18 08:02 Metolazone (Zaroxolyn) 10 mg PO BID [facility] Stop: 06/10/18 08:59 Last Admin: 04/13/18 09:00 Dose: 10 mg Metoprolol Tartrate (Lopressor) 25 mg PO BID [facility] Stop: 06/10/18 08:59 Last Admin: 04/13/18 11:30 Dose: Not Given Metronidazole (Flagyl) 500 mg PO TID [facility] Stop: 06/10/18 08:59 Last Admin: 04/13/18 09:00 Dose: 500 mg Miscellaneous (Vancomycin Iv Per Pharmacy) 1 ea MC PRN PRN PRN Reason: PROTOCOL Stop: 06/10/18 08:29 Miscellaneous (Amikacin Iv Per Pharmacy) 1 ea MC PRN PRN PRN Reason: PROTOCOL Stop: 06/10/18 08:29 Ondansetron HCl (Zofran Odt) 4 mg PO Q6H PRN PRN Reason: Nausea / Vomiting Stop: 06/10/18 08:44 Pantoprazole Sodium (Protonix) 40 mg PO DAILY [facility] Stop: 06/10/18 08:59 Last Admin: 04/13/18 09:00 Dose: 40 mg Sodium Phosphate (Fleet Enema) 135 ml RC DAILY PRN PRN Reason: Constipation Stop: 06/10/18 08:02 Zinc Sulfate (Zinc Sulfate) 220 mg PO DAILY [facility] Stop: 06/10/18 08:59 Last Admin: 04/13/18 09:00 Dose: 220 mg - Procedures Procedures: Procedures Procedure Code Date TRANSFUSE NONAUT RED BLOOD CELLS IN PERIPH VEIN, [facility] 10822B4 04/03/18 Assessment/Plan - Assessment Assessment: 78 FEMALE WITH RECTAL BLEEDING UNCLEAR ETIOLOGY EGD/COLO WERE OFFERED BUT PT REFUSED STATES SHE HAD EGD AND COLO 2 MONTHS AGO HGB NORMAL EGD SHOWED HIATAL HERNIA, GASTRIC ULCER, GASTRITIS, DUODENAL ULCER 1.FOLLOW H/H 2.GET RECORDS OF COLO 3.CONT PROTONIX
[2018-04-14] MEDS: Albuterol/Ipratropium Neb 3 ML AERS HHN SCH ×4 (00:02→18:47)
[2018-04-14] MEDS ORDERED: Dextrose 50% 50 mL Abboject IVP ONE ×2 (07:26)
[2018-04-14] MEDS: INSULIN ASPART SLIDING SCALE 100 UNITS/ML UNIT SUBQ SCH ×4 (07:50→21:27)
--- NOTE | 2018-04-14 07:57 | Diagnostic Imaging Report ---
CHEST X-RAY: AP view INDICATION: Status post colonoscopy, pain COMPARISON: 04/03/2018 FINDINGS: The prior NG tube is has been removed. Chronic lung changes are seen with small left effusion. Right midlung atelectasis versus scarring is noted. Heart size at upper limits of normal. Atherosclerosis is noted. No evidence of pneumothorax. Degenerative changes of the spine are noted. IMPRESSION: Small left effusion. Pneumonia of the left lower lung zone cannot be excluded. Atherosclerotic vascular disease. No evidence of pneumothorax.
[2018-04-14 07:59] LABS: ALBUMIN 3.5 gm/dL (3.7-5.3); ALKALINE PHOSPHATASE 61 U/L (34-104); ANION GAP 14.5 (7.0-16.0); BILIRUBIN,TOTAL 0.6 mg/dL (0.3-1.0); BUN - UREA NITROGEN 11 mg/dL (7-25); CALCIUM SERUM 9.7 mg/dL (8.6-10.3); CARBON DIOXIDE 29.7 mEq/L (21.0-31.0); CHLORIDE 95 mEq/L (98-107); CREATININE - SERUM 0.9 mg/dL (0.6-1.2); GLUCOSE 64 mg/dL (70-105); POTASSIUM SERUM 3.2 mEq/L (3.5-5.1); SGOT 16 U/L (13-39); SGPT/ALT 9 U/L (7-52); SODIUM SERUM 136 mEq/L (136-145); TOTAL PROTEIN,SERUM 7.2 gm/dL (6.0-8.3)
[2018-04-14] MEDS ORDERED: D5-0.45NS 1,000 ML IV SCH (08:00)
[2018-04-14] MEDS ORDERED: Magnesium Citrate 1.75 GM/300 mL Bottle PO ONE (09:07)
[2018-04-14] MEDS: Insulin Detemir 100 units/mL 10mL Vial SUBQ SCH ×2 (09:43→21:35)
[2018-04-14] MEDS ORDERED: Magnesium Citrate 1.75 GM/300 mL Bottle ONE (10:02)
[2018-04-14] MEDS: Metolazone 5 MG TAB PO SCH ×2 (10:49→17:42)
[2018-04-14] MEDS: Lactobacillus Rhamnosus GG 15 Billion CFU CAP.SPRINK PO SCH (10:49)
[2018-04-14] MEDS: Multivitamin w/ Minerals Tab PO SCH (10:51)
[2018-04-14] MEDS: Pantoprazole 40 mg/Packet PO SCH ×2 (10:51→17:00)
[2018-04-14] MEDS: Amikacin 500 mg in D5W 100mL (Q24HR) IV SCH (10:55)
[2018-04-14] MEDS ORDERED: Lidocaine 2% Gel 5 mL TP ONE (13:30)
[2018-04-14] MEDS ORDERED: Propofol 10 mg/mL 20mL Vial **SURGERY USE ONLY IV ONE (13:30)
[2018-04-14] MEDS ORDERED: Potassium Chloride Elixir 20 mEq /15 mL UDC PO ONE (16:26)
--- NOTE | 2018-04-14 16:28 | General Progress Note ---
Subjective - Review of Systems Events since last encounter: abd pain well controlled with pain meds Objective - Results Result Diagrams: 04/13/18 05:15 04/14/18 07:25 Recent Labs: Laboratory Last Values WBC 5.5 Th/cmm (4.8-10.8) 04/13/18 05:15 RBC 3.88 Mil/cmm (3.80-5.20) 04/13/18 05:15 Hgb 10.8 gm/dL (12-16) L 04/13/18 05:15 Hct 32.4 % (41.0-60) L 04/13/18 05:15 MCV 83.5 fl (81-100) 04/13/18 05:15 MCH 27.7 pg (27.0-31.0) 04/13/18 05:15 MCHC Differential 33.2 pg (28.0-36.0) 04/13/18 05:15 RDW 20.7 % (11.5-20.0) H 04/13/18 05:15 Plt Count 313 Th/cmm (150-400) 04/13/18 05:15 MPV 7.1 fl 04/13/18 05:15 Neutrophils % 63.3 % (40.0-80.0) 04/13/18 05:15 Band Neutrophils % 4 % (0-10) 04/11/18 01:30 Lymphocytes % 20.2 % (20.0-50.0) 04/13/18 05:15 Monocytes % 14.3 % (2.0-10.0) H 04/13/18 05:15 Eosinophils % 1.4 % (0.0-5.0) 04/13/18 05:15 Basophils % 0.8 % (0.0-2.0) 04/13/18 05:15 Neutrophils (Manual) 73 % (40-80) 04/11/18 01:30 Lymphocytes 16 % (20-50) L 04/11/18 01:30 Monocytes 7 % (2-10) 04/11/18 01:30 Platelet Estimate ADEQUATE (NORMAL) 04/11/18 01:30 PT 10.9 SECONDS (9.5-11.5) 04/11/18 01:30 INR 1.05 (0.5-1.4) 04/11/18 01:30 PTT (Actin FS) 27.8 SECONDS (26.0-38.0) 04/11/18 01:30 Sodium 136 mEq/L (136-145) 04/14/18 07:25 Potassium 3.2 mEq/L (3.5-5.1) L 04/14/18 07:25 Chloride 95 mEq/L (98-107) L 04/14/18 07:25 Carbon Dioxide 29.7 mEq/L (21.0-31.0) 04/14/18 07:25 Anion Gap 14.5 (7.0-16.0) 04/14/18 07:25 BUN 11 mg/dL (7-25) 04/14/18 07:25 Creatinine 0.9 mg/dL (0.6-1.2) 04/14/18 07:25 Est GFR ( Amer) TNP 04/14/18 07:25 Est GFR (Non-Af Amer) TNP 04/14/18 07:25 BUN/Creatinine Ratio 12.2 04/14/18 07:25 Glucose 64 mg/dL (70-105) L 04/14/18 07:25 POC Glucose 259 MG/DL (70 - 105) H 04/14/18 12:06 Whole Bld Lactic Acid 0.81 mmol/L (0.60-1.99) 04/11/18 01:30 Calcium 9.7 mg/dL (8.6-10.3) 04/14/18 07:25 Total Bilirubin 0.6 mg/dL (0.3-1.0) 04/14/18 07:25 AST 16 U/L (13-39) 04/14/18 07:25 ALT 9 U/L (7-52) 04/14/18 07:25 Alkaline Phosphatase 61 U/L (34-104) 04/14/18 07:25 Total Protein 7.2 gm/dL (6.0-8.3) 04/14/18 07:25 Albumin 3.5 gm/dL (3.7-5.3) L 04/14/18 07:25 Globulin 3.7 gm/dL 04/14/18 07:25 Albumin/Globulin Ratio 1.0 (1.0-1.8) 04/14/18 07:25 Triglycerides 131 mg/dL (<150) 04/11/18 07:00 Cholesterol 107 mg/dL (<200) 04/11/18 07:00 LDL Cholesterol Direct 57 mg/dL (75-193) L 04/11/18 07:00 HDL Cholesterol 32 mg/dL (23-92) 04/11/18 07:00 Amylase 43 U/L (29-103) 04/11/18 01:30 Lipase 32 U/L (11-82) 04/11/18 01:30 TSH 1.79 uIU/ml (0.34-5.60) 04/11/18 07:00 Urine Source CLEAN C 04/11/18 22:00 Urine Color YELLOW 04/11/18 22:00 Urine Clarity CLEAR (CLEAR) 04/11/18 22:00 Urine pH 6.0 (4.6 - 8.0) 04/11/18 22:00 Ur Specific [place] 1.010 (1.005-1.030) 04/11/18 22:00 Urine Protein NEGATIVE mg/dL (NEGATIVE) 04/11/18 22:00 Urine Glucose (UA) NEGATIVE mg/dL (NEGATIVE) 04/11/18 22:00 Urine Ketones NEGATIVE mg/dL (NEGATIVE) 04/11/18 22:00 Urine Blood TRACE (NEGATIVE) 04/11/18 22:00 Urine Nitrate NEGATIVE (NEGATIVE) 04/11/18 22:00 Urine Bilirubin NEGATIVE (NEGATIVE) 04/11/18 22:00 Urine Urobilinogen 0.2 E.U./dL (0.2 - 1.0) 04/11/18 22:00 Ur Leukocyte Esterase NEGATIVE (NEGATIVE) 04/11/18 22:00 Urine RBC 2-5 /hpf (0-5) 04/11/18 22:00 Urine WBC 0-2 /hpf (0-5) 04/11/18 22:00 Ur Epithelial Cells FEW /lpf (FEW) 04/11/18 22:00 Urine Bacteria FEW /hpf (NONE SEEN) 04/11/18 22:00 Amikacin Peak 11.1 ug/mL (20.0-30.0) L 04/12/18 13:35 Amikacin Trough 0.8 ug/mL (5.0-10.0) L 04/12/18 09:30 Vancomycin Trough 15.5 ug/mL (5-10) H 04/12/18 09:30 - Physical Exam Vitals and I&O: Vital Signs Temp 96.1 F 04/14/18 16:23 Pulse 98 04/14/18 16:23 Resp 17 04/14/18 16:23 BP 115/63 04/14/18 16:23 Pulse Ox 97 04/14/18 16:23 Intake & Output 04/13/18 04/14/18 04/14/18 18:59 06:59 18:59 Intake Total 352 300 Balance 352 300 Weight (lbs) 48.081 kg Intake: Intake, IV Amount 352 Amikacin 500 mg In 102 Dextrose 5% 100 ml @ 100 mls/hr IV Q24HR [facility] Rx#: [id number] Vancomycin HCl 0.75 gm In 250 Sodium Chloride 0.9% 250 ml @ 165 mls/hr IV Q24H [facility] Rx#:[id number] Oral 300 Other: # Bowel Movements 2 Stool Characteristics Soft Soft Brown Brown Weight Source Bedscale Active Medications: Current Medications Acetaminophen (Tylenol) 650 mg PO Q4H PRN PRN Reason: Pain or Fever >101 Stop: 06/10/18 08:02 Last Admin: 04/12/18 22:15 Dose: 650 mg Albuterol/Ipratropium (Duoneb Neb) 3 ml HHN Q6HRT [facility] Stop: 06/10/18 12:59 Last Admin: 04/14/18 14:01 Dose: Not Given Ascorbic Acid (Vitamin C) 500 mg PO DAILY [facility] Stop: 06/10/18 08:59 Last Admin: 04/14/18 10:46 Dose: Not Given Bisacodyl (Dulcolax 10 Mg Supp) 10 mg RC DAILY PRN PRN Reason: Constipation Stop: 06/10/18 08:02 [place] Oil/[place] Balsam/Trypsin (Venelex) 1 appl TP DAILY [facility] Stop: 06/11/18 15:59 Last Admin: 04/13/18 12:14 Dose: 1 appl Cholecalciferol (Vitamin D3) 5,000 iu PO DAILY [facility] Stop: 06/10/18 08:59 Last Admin: 04/14/18 10:47 Dose: Not Given Furosemide (Lasix) 40 mg PO BID [facility] Stop: 06/10/18 08:59 Last Admin: 04/14/18 10:47 Dose: Not Given Vancomycin HCl 0.75 gm/ Sodium (Chloride) 250 mls @ 165 mls/hr IV Q24H [facility] Stop: 06/10/18 10:59 Last Admin: 04/14/18 12:40 Dose: 165 mls/hr Amikacin Sulfate 500 mg/ (Dextrose) 102 mls @ 100 mls/hr IV Q24HR [facility] Stop: 06/12/18 10:59 Last Admin: 04/14/18 10:55 Dose: 100 mls/hr Dextrose/Sodium Chloride (D5-0.45ns) 1,000 mls @ 75 mls/hr IV .[id number] [facility] Stop: 06/13/18 07:59 Insulin Aspart (Novolog Insulin Sliding Scale) 0 units SUBQ ACHS [facility]; Protocol Stop: 06/10/18 11:29 Last Admin: 04/14/18 12:41 Dose: 6 units Insulin Detemir (Levemir Insulin) 30 units SUBQ Q12HR [facility]; Protocol Stop: 06/10/18 08:59 Last Admin: 04/14/18 09:43 Dose: Not Given Lactobacillus Rhamnosus (Culturelle 15b) 1 each PO DAILY [facility] Stop: 06/10/18 08:59 Last Admin: 04/14/18 10:49 Dose: Not Given Magnesium Hydroxide (Milk Of Magnesia) 30 ml NG DAILY PRN PRN Reason: Constipation Stop: 06/10/18 08:02 Metolazone (Zaroxolyn) 10 mg PO BID [facility] Stop: 06/10/18 08:59 Last Admin: 04/14/18 10:49 Dose: Not Given Metoprolol Tartrate (Lopressor) 25 mg PO BID [facility] Stop: 06/10/18 08:59 Last Admin: 04/14/18 10:49 Dose: Not Given Metronidazole (Flagyl) 500 mg PO TID [facility] Stop: 06/10/18 08:59 Last Admin: 04/14/18 10:52 Dose: Not Given Miscellaneous (Vancomycin Iv Per Pharmacy) 1 ea PRN PRN PRN Reason: PROTOCOL Stop: 06/10/18 08:29 Miscellaneous (Amikacin Iv Per Pharmacy) 1 ea PRN PRN PRN Reason: PROTOCOL Stop: 06/10/18 08:29 Ondansetron HCl (Zofran Odt) 4 mg PO Q6H PRN PRN Reason: Nausea / Vomiting Stop: 06/10/18 08:44 Ondansetron HCl (Zofran) 4 mg IV Q6H PRN PRN Reason: Nausea / Vomiting Stop: 06/13/18 00:41 Last Admin: 04/14/18 00:52 Dose: 4 mg Pantoprazole Sodium (Protonix) 40 mg PO BID [facility] Stop: 06/12/18 16:59 Last Admin: 04/14/18 10:51 Dose: Not Given Sodium Phosphate (Fleet Enema) 135 ml RC DAILY PRN PRN Reason: Constipation Stop: 06/10/18 08:02 Zinc Sulfate (Zinc Sulfate) 220 mg PO DAILY [facility] Stop: 06/10/18 08:59 Last Admin: 04/14/18 10:51 Dose: Not Given General: Alert, Oriented x3 HEENT: PERRLA, EOMI Neck: Supple Cardiovascular: Normal S1, Normal S2 Lungs: Clear to auscultation Abdomen: Bowel sounds - Procedures Procedures: Procedures Procedure Code Date TRANSFUSE NONAUT RED BLOOD CELLS IN PERIPH VEIN, [facility] 51878R5 04/03/18 Assessment/Plan - Assessment Assessment: abd pain r/o GI bleed rectal bleeding h/o colon cancer h/o colectomy h/o HTN h/o Diabetes EGD showed hiatal hernia, gastric ulcer, gastritis, and duodenal ulcer - Plan Plan: GI eval continue current plan of care continue current meds Nutritional Asmnt/Malnutr-PDOC - Dietary Evaluation Malnutrition Findings (Please click <Entered> for more info): Nutritional Asmnt/Malnutrition Start: 04/12/18 16: 04 Text: Status: Complete Freq: Protocol: Document 04/12/18 16:53 LCHENG (Rec: 04/12/18 17:19 [email or web address]) Nutritional Asmnt/Malnutrition Patient General Information Nutritional Screening Moderate Risk Consult Diagnosis abdominal pain, hypokalemia Pertinent Medical Hx/Surgical Hx HTN, DM, colectomy for colon CA Subjective Information Consult received for coccygeal pressure ulcer in the afternoon. Per nurse note, pt had no appetite and only had few bite of breakfast this morning. Current Diet Order/ Nutrition Support mech soft TOBY, CCHO Pertinent Medications vit C, vit D3, D5-0.45ns, pepcid, lasix, novolog, levemir, culturelle, protonix, kcl, vancomycin, zinc Pertinent Labs 04/12 Na 132, K 2.5, Cl 91, Glucose 168, POC 170-265 Nutritional Hx/Data Height 1.57 m Height (Calculated Centimeters) 157.5 Current Weight (lbs) 48.081 kg Weight (Calculated Kilograms) 48.1 Weight (Calculated Grams) 97768.8 [place] Body Weight 110 Body Mass Index (BMI) 19.3 Weight Status Approriate GI Symptoms GI Symptoms None Last BM none Difficult in: None Skin Integrity/Comment: Unstageable pressure ulcer to Coccygeal Area Erythema to milana-anal area redness to left heel Current %PO Negligible < 25% Estimated Nutritional Goals BEE in Kcals: Using Current wt Calories/Kcals/Kg 27-32 Kcals Calculated [id number] Protein: Using Current wt Protein g/k-1.2 Protein Calculated 48-58 Fluid: ml 1296-1536ml (1ml/kcal) Nutritional Problem 2. Problem Problem increased nutrition needs Etiology impaired skin integrity Signs/Symptoms: unstageable pressure ulcer to coccygeal area 1. Problem Problem altered nutrition related labs Etiology electrolytes imbalance and hx of DM Signs/Symptoms: Na 132, K 2.5, Cl 91, BUN 168, POC 170-265 Malnutrition Alert Is there a minimum of two criteria No selected? Query Text:Check all the applicable criteria. A minimum of two criteria are recommended for diagnosis of either severe or non-severe malnutrition. Malnutrition Related to Morbid Obesity Malnutrition related to morbid obesity No Intervention/Recommendation Comments 1. Continue with current diet as ordered. Encourage oral intake. Consider adding oral nutrition supplement Glucerna BID if PO intake continue <50% for 3 days. 2. Monitor PO intake, wt, labs and skin integrity 3. F/U as high risk in 2-3 days, 04/14-04/15 Expected Outcomes/Goals Expected Outcomes/Goals 1. PO intake to meet at least 75% of nutritional needs. 2. Wt stability, skin integrity to improve, labs to approach WNL.
[2018-04-14] MEDS: Venelex 60gm Tube TP SCH (18:00)
[2018-04-14 18:15] LABS: ALBUMIN 3.6 gm/dL (3.7-5.3); ALKALINE PHOSPHATASE 63 U/L (34-104); ANION GAP 14.5 (7.0-16.0); BILIRUBIN,TOTAL 0.6 mg/dL (0.3-1.0); BUN - UREA NITROGEN 11 mg/dL (7-25); CALCIUM SERUM 9.7 mg/dL (8.6-10.3); CARBON DIOXIDE 30.5 mEq/L (21.0-31.0); CHLORIDE 93 mEq/L (98-107); CREATININE - SERUM 0.8 mg/dL (0.6-1.2); GLUCOSE 117 mg/dL (70-105); SGOT 15 U/L (13-39); SGPT/ALT 9 U/L (7-52); SODIUM SERUM 135 mEq/L (136-145); TOTAL PROTEIN,SERUM 7.3 gm/dL (6.0-8.3)
--- NOTE | 2018-04-14 18:43 | Operative Report ---
DATE OF SURGERY: 04/14/2018 INPATIENT GASTROINTESTINAL PROCEDURE NAME OF PROCEDURE: Colonoscopy with biopsy. CONSENT: Risks, benefits, alternatives, nature, indication, possible outcomes were discussed. Mentioned bleeding, infection, perforation, , disability, cardiopulmonary distress and arrest, missed lesion and cancers, need for surgery. The patient expressed understanding and provided informed consent. PREOPERATIVE DIAGNOSES: Rectal bleeding, anemia. REFERRING PHYSICIAN: Dr. Lucas. POSTOPERATIVE DIAGNOSES: Proctitis, bleeding in the rectum with controlled bleeding. MEDICATIONS: MAC provided by anesthesiologist. DESCRIPTION OF PROCEDURE: The patient was placed in left side. Rectal exam was performed and normal. Pediatric colonoscope was advanced from the anus to the cecum confirmed by appendiceal orifice and ileocecal valve. Prep quality was suboptimal and some areas with brown stools, but when we got to the rectum, there was red blood in this area, so we felt that the bleeding was much lower down in the region of her rectum. The area was washed and it looked very friable. Biopsies were taken. There were 2 areas of bleeding vessels requiring 2 endoclips with good hemostasis. Retroflexion was done. Scope was then removed. COMPLICATIONS: None. FINDINGS: 1. Internal hemorrhoids. 2. Friable mucosa in the region of the rectum suggestive of proctitis, status post biopsy. 3. Two bleeding vessels in the rectum, status post endoclip placed x 2 with good hemostasis. RECOMMENDATIONS: 1. Consider repeating a colonoscopy in 3-6 months. 2. Follow H and H. 3. Continue Flagyl. 4. Await biopsies. 5. Case discussed with daughter at the conclusion of the procedure via phone. Thank you for allowing me to participate. Please call me if any questions. JOB# [id number]
[2018-04-15] MEDS: Albuterol/Ipratropium Neb 3 ML AERS HHN SCH ×3 (00:27→12:48)
[2018-04-15] MEDS ORDERED: Potassium Chloride Elixir 20 mEq /15 mL UDC PO ONE (06:45)
[2018-04-15] MEDS: INSULIN ASPART SLIDING SCALE 100 UNITS/ML UNIT SUBQ SCH ×3 (07:13→18:08)
[2018-04-15 07:35] LABS: % EOSINOPHILS 1.8 % (0.0-5.0); % LYMPHOCYTES 24.2 % (20.0-50.0); % MONOCYTES 10.1 % (2.0-10.0); % NEUTROPHILS 62.9 % (40.0-80.0); BASOPHILE ABSOLUTE 0.1 Th/cumm (0-0.2); EOSINOPHILE ABSOLUTE 0.1 Th/cmm (0.1-0.4); HEMATOCRIT 35.8 % (41.0-60); HEMOGLOBIN 11.8 gm/dL (12-16); LYMPHOCYTE ABSOLUTE 1.3 Th/cmm (1.5-3.0); MEAN CELL VOLUME 83.6 fl (81-100); MEAN CORPUSCULAR HEMOGLOBIN 27.5 pg (27.0-31.0); MEAN CORPUSCULAR HGB CONC 32.9 pg (28.0-36.0); MEAN PLATELET VOLUME 6.8 fl; MONOCYTE ABSOLUTE 0.5 Th/cmm (0.3-1.0); NEUTROPHILE ABSOLUTE 3.4 Th/cmm (1.8-8.0); PLATELET COUNT 317 Th/cmm (150-400); RED BLOOD COUNT 4.28 Mil/cmm (3.80-5.20); RED CELL DISTRIBUTION WIDTH 20.9 % (11.5-20.0); WHITE BLOOD COUNT 5.4 Th/cmm (4.8-10.8)
[2018-04-15 07:54] LABS: ANION GAP 13.3 (7.0-16.0); BUN - UREA NITROGEN 10 mg/dL (7-25); CALCIUM SERUM 9.1 mg/dL (8.6-10.3); CHLORIDE 94 mEq/L (98-107); CREATININE - SERUM 0.9 mg/dL (0.6-1.2); MAGNESIUM 1.5 mg/dL (1.9-2.7); POTASSIUM SERUM 3.3 mEq/L (3.5-5.1); SODIUM SERUM 131 mEq/L (136-145)
--- NOTE | 2018-04-15 08:42 | GI Progress Note ---
Subjective - Review of Systems Subjective: DENIES ABD PAIN OR GI BLEEDING Objective - Results Result Diagrams: 04/15/18 07:17 04/14/18 17:15 Recent Labs: Laboratory Last Values WBC 5.4 Th/cmm (4.8-10.8) 04/15/18 07:17 RBC 4.28 Mil/cmm (3.80-5.20) 04/15/18 07:17 Hgb 11.8 gm/dL (12-16) L 04/15/18 07:17 Hct 35.8 % (41.0-60) L 04/15/18 07:17 MCV 83.6 fl (81-100) 04/15/18 07:17 MCH 27.5 pg (27.0-31.0) 04/15/18 07: MCHC Differential 32.9 pg (28.0-36.0) 04/15/18 07:17 RDW 20.9 % (11.5-20.0) H 04/15/18 07:17 Plt Count 317 Th/cmm (150-400) 04/15/18 07:17 MPV 6.8 fl 04/15/18 07:17 Neutrophils % 62.9 % (40.0-80.0) 04/15/18 07:17 Band Neutrophils % 4 % (0-10) 04/11/18 01:30 Lymphocytes % 24.2 % (20.0-50.0) 04/15/18 07:17 Monocytes % 10.1 % (2.0-10.0) H 04/15/18 07:17 Eosinophils % 1.8 % (0.0-5.0) 04/15/18 07:17 Basophils % 1.0 % (0.0-2.0) 04/15/18 07:17 Neutrophils (Manual) 73 % (40-80) 04/11/18 01:30 Lymphocytes 16 % (20-50) L 04/11/18 01:30 Monocytes 7 % (2-10) 04/11/18 01:30 Platelet Estimate ADEQUATE (NORMAL) 04/11/18 01:30 PT 10.9 SECONDS (9.5-11.5) 04/11/18 01:30 INR 1.05 (0.5-1.4) 04/11/18 01:30 PTT (Actin FS) 27.8 SECONDS (26.0-38.0) 04/11/18 01:30 Sodium 135 mEq/L (136-145) L 04/14/18 17:15 Potassium 3.0 mEq/L (3.5-5.1) L 04/14/18 17:15 Chloride 93 mEq/L (98-107) L 04/14/18 17:15 Carbon Dioxide 30.5 mEq/L (21.0-31.0) 04/14/18 17:15 Anion Gap 14.5 (7.0-16.0) 04/14/18 17:15 BUN 11 mg/dL (7-25) 04/14/18 17:15 Creatinine 0.8 mg/dL (0.6-1.2) 04/14/18 17:15 Est GFR ( Amer) TNP 04/14/18 17:15 Est GFR (Non-Af Amer) TNP 04/14/18 17:15 BUN/Creatinine Ratio 13.8 04/14/18 17:15 Glucose 117 mg/dL (70-105) H 04/14/18 17:15 POC Glucose 329 MG/DL (70 - 105) H 04/15/18 06:59 Whole Bld Lactic Acid 0.81 mmol/L (0.60-1.99) 04/11/18 01:30 Calcium 9.7 mg/dL (8.6-10.3) 04/14/18 17:15 Total Bilirubin 0.6 mg/dL (0.3-1.0) 04/14/18 17:15 AST 15 U/L (13-39) 04/14/18 17:15 ALT 9 U/L (7-52) 04/14/18 17:15 Alkaline Phosphatase 63 U/L (34-104) 04/14/18 17:15 Total Protein 7.3 gm/dL (6.0-8.3) 04/14/18 17:15 Albumin 3.6 gm/dL (3.7-5.3) L 04/14/18 17:15 Globulin 3.7 gm/dL 04/14/18 17:15 Albumin/Globulin Ratio 1.0 (1.0-1.8) 04/14/18 17:15 Triglycerides 131 mg/dL (<150) 04/11/18 07:00 Cholesterol 107 mg/dL (<200) 04/11/18 07:00 LDL Cholesterol Direct 57 mg/dL (75-193) L 04/11/18 07:00 HDL Cholesterol 32 mg/dL (23-92) 04/11/18 07:00 Amylase 43 U/L (29-103) 04/11/18 01:30 Lipase 32 U/L (11-82) 04/11/18 01:30 TSH 1.79 uIU/ml (0.34-5.60) 04/11/18 07:00 Urine Source CLEAN C 04/11/18 22:00 Urine Color YELLOW 04/11/18 22:00 Urine Clarity CLEAR (CLEAR) 04/11/18 22:00 Urine pH 6.0 (4.6 - 8.0) 04/11/18 22:00 Ur Specific [place] 1.010 (1.005-1.030) 04/11/18 22:00 Urine Protein NEGATIVE mg/dL (NEGATIVE) 04/11/18 22:00 Urine Glucose (UA) NEGATIVE mg/dL (NEGATIVE) 04/11/18 22:00 Urine Ketones NEGATIVE mg/dL (NEGATIVE) 04/11/18 22:00 Urine Blood TRACE (NEGATIVE) 04/11/18 22:00 Urine Nitrate NEGATIVE (NEGATIVE) 04/11/18 22:00 Urine Bilirubin NEGATIVE (NEGATIVE) 04/11/18 22:00 Urine Urobilinogen 0.2 E.U./dL (0.2 - 1.0) 04/11/18 22:00 Ur Leukocyte Esterase NEGATIVE (NEGATIVE) 04/11/18 22:00 Urine RBC 2-5 /hpf (0-5) 04/11/18 22:00 Urine WBC 0-2 /hpf (0-5) 04/11/18 22:00 Ur Epithelial Cells FEW /lpf (FEW) 04/11/18 22:00 Urine Bacteria FEW /hpf (NONE SEEN) 04/11/18 22:00 Amikacin Peak 11.1 ug/mL (20.0-30.0) L 04/12/18 13:35 Amikacin Trough 0.8 ug/mL (5.0-10.0) L 04/12/18 09:30 Vancomycin Trough 15.5 ug/mL (5-10) H 04/12/18 09:30 - Physical Exam Vitals and I&O: Vital Signs Temp 96.6 F 04/15/18 07:47 Pulse 111 04/15/18 07:47 Resp 17 04/15/18 07:47 BP 121/54 04/15/18 07:47 Pulse Ox 98 04/15/18 07:47 Intake & Output 04/14/18 04/15/18 04/15/18 18:59 06:59 18:59 Intake Total 200 352 Balance 200 352 Weight (lbs) 48.081 kg 51.528 kg Intake: Intake, IV Amount 352 Amikacin 500 mg In 102 Dextrose 5% 100 ml @ 100 mls/hr IV Q24HR [facility] Rx#: [id number] Vancomycin HCl 0.75 gm In 250 Sodium Chloride 0.9% 250 ml @ 165 mls/hr IV Q24H [facility] Rx#:[id number] Oral 200 Other: # Voids 4 2 # Bowel Movements 4 2 Stool Characteristics Soft Soft Brown Brown Weight Source Bedscale Bedscale Active Medications: Current Medications Acetaminophen (Tylenol) 650 mg PO Q4H PRN PRN Reason: Pain or Fever >101 Stop: 06/10/18 08:02 Last Admin: 04/12/18 22:15 Dose: 650 mg Albuterol/Ipratropium (Duoneb Neb) 3 ml HHN Q6HRT [facility] Stop: 06/10/18 12:59 Last Admin: 04/15/18 07:06 Dose: 3 ml Ascorbic Acid (Vitamin C) 500 mg PO DAILY [facility] Stop: 06/10/18 08:59 Last Admin: 04/14/18 10:46 Dose: Not Given Bisacodyl (Dulcolax 10 Mg Supp) 10 mg RC DAILY PRN PRN Reason: Constipation Stop: 06/10/18 08:02 [place] Oil/[place] Balsam/Trypsin (Venelex) 1 appl TP DAILY [facility] Stop: 06/11/18 15:59 Last Admin: 04/14/18 18:00 Dose: 1 appl Cholecalciferol (Vitamin D3) 5,000 iu PO DAILY [facility] Stop: 06/10/18 08:59 Last Admin: 04/14/18 10:47 Dose: Not Given Furosemide (Lasix) 40 mg PO BID [facility] Stop: 06/10/18 08:59 Last Admin: 04/14/18 17:45 Dose: 40 mg Vancomycin HCl 0.75 gm/ Sodium (Chloride) 250 mls @ 165 mls/hr IV Q24H [facility] Stop: 06/10/18 10:59 Last Infusion: 04/14/18 19:45 Dose: Infused Amikacin Sulfate 500 mg/ (Dextrose) 102 mls @ 100 mls/hr IV Q24HR [facility] Stop: 06/12/18 10:59 Last Infusion: 04/14/18 19:44 Dose: Infused Dextrose/Sodium Chloride (D5-0.45ns) 1,000 mls @ 75 mls/hr IV .[id number] [facility] Stop: 06/13/18 07:59 Last Admin: 04/15/18 01:58 Dose: 75 mls/hr Insulin Aspart (Novolog Insulin Sliding Scale) 0 units SUBQ ACHS [facility]; Protocol Stop: 06/10/18 11:29 Last Admin: 04/15/18 07:13 Dose: 8 units Insulin Detemir (Levemir Insulin) 30 units SUBQ Q12HR [facility]; Protocol Stop: 06/10/18 08:59 Last Admin: 04/14/18 21:35 Dose: Not Given Lactobacillus Rhamnosus (Culturelle 15b) 1 each PO DAILY [facility] Stop: 06/10/18 08:59 Last Admin: 04/14/18 10:49 Dose: Not Given Magnesium Hydroxide (Milk Of Magnesia) 30 ml NG DAILY PRN PRN Reason: Constipation Stop: 06/10/18 08:02 Metolazone (Zaroxolyn) 10 mg PO BID [facility] Stop: 06/10/18 08:59 Last Admin: 04/14/18 17:42 Dose: 10 mg Metoprolol Tartrate (Lopressor) 25 mg PO BID [facility] Stop: 06/10/18 08:59 Last Admin: 04/14/18 17:44 Dose: 25 mg Metronidazole (Flagyl) 500 mg PO TID [facility] Stop: 06/10/18 08:59 Last Admin: 04/14/18 21:27 Dose: 500 mg Miscellaneous (Vancomycin Iv Per Pharmacy) 1 ea PRN PRN PRN Reason: PROTOCOL Stop: 06/10/18 08:29 Miscellaneous (Amikacin Iv Per Pharmacy) 1 [facility] PRN PRN PRN Reason: PROTOCOL Stop: 06/10/18 08:29 Ondansetron HCl (Zofran Odt) 4 mg PO Q6H PRN PRN Reason: Nausea / Vomiting Stop: 06/10/18 08:44 Ondansetron HCl (Zofran) 4 mg IV Q6H PRN PRN Reason: Nausea / Vomiting Stop: 06/13/18 00:41 Last Admin: 04/14/18 00:52 Dose: 4 mg Pantoprazole Sodium (Protonix) 40 mg PO BID [facility] Stop: 06/12/18 16:59 Last Admin: 04/14/18 17:00 Dose: 40 mg Sodium Phosphate (Fleet Enema) 135 ml RC DAILY PRN PRN Reason: Constipation Stop: 06/10/18 08:02 Zinc Sulfate (Zinc Sulfate) 220 mg PO DAILY [facility] Stop: 06/10/18 08:59 Last Admin: 04/14/18 10:51 Dose: Not Given General: Alert, Oriented x3 HEENT: PERRLA, EOMI Neck: Supple Cardiovascular: Normal S1, Normal S2 Lungs: Clear to auscultation Abdomen: Bowel sounds - Procedures Procedures: Procedures Procedure Code Date TRANSFUSE NONAUT RED BLOOD CELLS IN PERIPH VEIN, [facility] 05794A7 04/03/18 Assessment/Plan - Assessment Assessment: 78 FEMALE WITH RECTAL BLEEDING NOW RESOLVED COLO SHOWED PROCTITIS AND BLEEDING VESSEL S/P ENDOCLIP X 2 PRIOR EGD SHOWED HIATAL HERNIA, GASTRIC ULCER, GASTRITIS, DUODENAL ULCER HX OF COLON CA WITH SURGERY PER DAUGHTER HGB BETTER 1.FOLLOW H/H 2.GET RECORDS OF COLO 3.CONT PROTONIX AND COLACE
[2018-04-15 08:47] LABS: GLUCOSE 309 mg/dL (70-105)
[2018-04-15] MEDS: Lactobacillus Rhamnosus GG 15 Billion CFU CAP.SPRINK PO SCH (09:02)
[2018-04-15] MEDS: Multivitamin w/ Minerals Tab PO SCH (09:02)
[2018-04-15] MEDS: Pantoprazole 40 mg/Packet PO SCH ×2 (09:02→16:14)
[2018-04-15] MEDS: Metolazone 5 MG TAB PO SCH ×2 (09:02→16:14)
[2018-04-15] MEDS: Insulin Detemir 100 units/mL 10mL Vial SUBQ SCH (09:10)
[2018-04-15] MEDS: Venelex 60gm Tube TP SCH (09:26)
[2018-04-15] MEDS: Amikacin 500 mg in D5W 100mL (Q24HR) IV SCH (10:34)
--- NOTE | 2018-04-18 16:24 | Pathology Report ---
Pathology report #[id number]. COLLECTION DATE: 04/14/2018 SURGEON: Dr. Deb Silverio SPECIMEN DESCRIPTION: Rectal biopsy. GROSS DESCRIPTION: Received in formalin are 2 ureña soft tissue fragments ranging from 0.1 to 0.2 cm in greatest dimension. Totally submitted in one cassette. MICROSCOPIC DESCRIPTION: The histologic sections show colorectal mucosa with an area of mucosal ulceration and associated acute and chronic inflammation consisting of increased numbers of lymphocytes and neutrophils. There is no evidence for atypia. DIAGNOSIS: Superficial mucosal ulceration with acute and chronic inflammation, consistent with the clinical impression of proctitis. JOB# [id number] [facility]
== END 2018-04-15 19:04 | DRG 377 ==
LOC: ER 00:34 → MSI 04:40 → TELE 13:41
PROVIDERS: ADMIT Internal Medicine; ATTEND Internal Medicine
PROC: 0W3P8ZZ Control Bleeding in Gastrointestinal Tract, Via Natural or Artificial Opening Endoscopic (ICD-10-PCS; principal; 2018-04-14)
PROC: 0DBP8ZX Excision of Rectum, Via Natural or Artificial Opening Endoscopic, Diagnostic (ICD-10-PCS; 2018-04-14)
DX: K62.5 Hemorrhage of anus and rectum (principal); L89.154 Pressure ulcer of sacral region, stage 4; E41 Nutritional marasmus; E87.1 Hypo-osmolality and hyponatremia; K62.89 Other specified diseases of anus and rectum; K64.8 Other hemorrhoids; I10 Essential (primary) hypertension; E11.9 Type 2 diabetes mellitus without complications; Z68.20 Body mass index [BMI] 20.0-20.9, adult; Z88.2 Allergy status to sulfonamides; Z88.5 Allergy status to narcotic agent; Z85.038 Personal history of other malignant neoplasm of large intestine
CPT/HCPCS: 36415-UA; 71045-TC; 80048-TC; 80053-TC; 80061-TC; 80150-TC; 80202-TC; 81001-TC; 82150-TC; 82948-90; 83605; 83690-TC; 83735-TC; 84443-TC; 85007-TC; 85025-TC; 85027-TC; 85610-TC; 87086-90; 88305-90; 93005; 94640; 94760; J0278; J1815; J2405; J2543; J2704; J3370; J3480; J7030; J7040; J7042; J7799; Z7506; Z7610

== ENCOUNTER 2018-07-14 16:05 | Inpatient (IN) | payer MEDICARE, MEDICAID ==
--- NOTE | 2018-07-14 16:33 | ED Physician Chart ---
ED Chief Complaint/HPI - Patient Information Date Seen:: 07/14/18 Time Seen:: 16:20 Chief Complaint:: sore on buttocks and hematuria History of Present Illness:: Patient's had a sore on her buttock region days and hematuria for one week. No trauma. Patient is usually wheelchair-bound. No recent fever. Allergies:: Allergies Allergy/AdvReac Type Severity Reaction Status Date / Time codeine Allergy Verified 07/14/18 16:17 Sulfa (Sulfonamide Allergy Verified 07/14/18 16:17 Antibiotics) Historian:: Patient Review:: Nurse's Note Reviewed ED Review of Systems - Review of Systems General/Constitutional: No fever, No chills Skin: Skin lesions Head: No headache Eyes: No loss of vision ENT: No earache Neck: No neck pain Cardio Vascular: No chest pain, No palpitations Pulmonary: No SOB GI: No nausea, No vomiting, No diarrhea G/U: Hematuria Musculoskeletal: No bone or joint pain, No back pain, No muscle pain Endocrine: No polyuria, No polydipsia Psychiatric: No prior psych history Hematopoietic: No bruising Allergic/Immuno: No urticaria Neurological: No syncope ED Past Medical History - Past Medical History Past Medical History: HTN, DM Family History: Diabetes Melitus Social History: Non Smoker, No Alcohol Surgical History: other (patient laparotomy 12/31/2017 for resection of a growth on the colon which was not cancer) Psychiatricy History: None Medication: Reviewed Family Medical History - Family Member Mother History Unknown: Yes ED Physical Exam - Physical Examination General/Constitutional: Awake, Well-developed, well-nourished Head: Atraumatic Eyes: Lids, conjuctiva normal, PERRL Other Skin comments:: 2 cm stage II decubitus medial left hemibuttoxks ENMT: External ears, nose nl, TM canals nl, Nasal exam nl Other ENMT comments:: Complete upper and lower dentures Neck: No nuchal rigidity Respiratory: Nl effort/Exclusion Cardio Vascular: RRR GI: No organomegaly, No hernia, Normal BS's, Nondistended, No mass/bruits, No McBurney tenderness Other GI comments:: Long vertical epigastric and midabdominal scar which curves around and to the left of the umbilicus. : No CVA tenderness Extremities: Normal digits & nails Neuro/Psych: No focal deficits Misc: No paraspinal tenderness ED Labs/Radiology/EKG Results - Lab Results Results: Laboratory Results - last 24 hr 07/14/18 07/14/18 17:09 17:09 WBC 6.8 RBC 4.31 Hgb 12.9 Hct 39.9 L MCV 92.6 MCH 30.0 MCHC Differential 32.4 RDW 14.6 Plt Count 349 MPV 6.6 Neutrophils % 67.7 Lymphocytes % 18.7 L Monocytes % 10.0 Eosinophils % 2.1 Basophils % 1.5 Sodium 132 L Potassium 3.5 Chloride 97 L Carbon Dioxide 23.4 Anion Gap 15.1 BUN 38 H Creatinine 1.1 Est GFR ( Amer) TNP Est GFR (Non-Af Amer) TNP BUN/Creatinine Ratio 34.5 Glucose 416 H Calcium 10.3 Laboratory Results - last 24 hr 07/14/18 07/14/18 17:09 17:09 WBC 6.8 RBC 4.31 Hgb 12.9 Hct 39.9 L MCV 92.6 MCH 30.0 MCHC Differential 32.4 RDW 14.6 Plt Count 349 MPV 6.6 Neutrophils % 67.7 Lymphocytes % 18.7 L Monocytes % 10.0 Eosinophils % 2.1 Basophils % 1.5 Sodium 132 L Potassium 3.5 Chloride 97 L Carbon Dioxide 23.4 Anion Gap 15.1 BUN 38 H Creatinine 1.1 Est GFR ( Amer) TNP Est GFR (Non-Af Amer) TNP BUN/Creatinine Ratio 34.5 Glucose 416 H Calcium 10.3 Laboratory Results - last 24 hr 07/14/18 07/14/18 07/14/18 16:45 17:09 17:09 WBC 6.8 RBC 4.31 Hgb 12.9 Hct 39.9 L MCV 92.6 MCH 30.0 MCHC Differential 32.4 RDW 14.6 Plt Count 349 MPV 6.6 Neutrophils % 67.7 Lymphocytes % 18.7 L Monocytes % 10.0 Eosinophils % 2.1 Basophils % 1.5 Sodium 132 L Potassium 3.5 Chloride 97 L Carbon Dioxide 23.4 Anion Gap 15.1 BUN 38 H Creatinine 1.1 Est GFR ( Amer) TNP Est GFR (Non-Af Amer) TNP BUN/Creatinine Ratio 34.5 Glucose 416 H Calcium 10.3 Urine Color YELLOW Urine Clarity HAZY Urine pH 6.0 Ur Specific [place] 1.010 Urine Protein NEGATIVE Urine Glucose (UA) >=1000 H Urine Ketones NEGATIVE Urine Blood NEGATIVE Urine Nitrate POSITIVE H Urine Bilirubin NEGATIVE Urine Urobilinogen 0.2 Ur Leukocyte Esterase TRACE H ED Septic Shock - . Is Septic Shock (SBP<90, OR Lactate>4 mmol\L) present?: No ED Reassessment (Disposition) - Reassessment Reassessment Condition:: Unchanged - Diagnosis Diagnosis:: Stage II decubitus left hemibuttocks; urinary tract infection; diabetes; hyperglycemia - Patient Disposition Admitted to:: Telemetry Admitting Medical Physician:: Virginia Lucas Condition at Disposition:: Stable, Unchanged
[2018-07-14 17:17] LABS: % BASOPHILS 1.5 % (0.0-2.0); % EOSINOPHILS 2.1 % (0.0-5.0); % LYMPHOCYTES 18.7 % (20.0-50.0); % NEUTROPHILS 67.7 % (40.0-80.0); BASOPHILE ABSOLUTE 0.1 Th/cumm (0-0.2); EOSINOPHILE ABSOLUTE 0.1 Th/cmm (0.1-0.4); HEMATOCRIT 39.9 % (41.0-60); HEMOGLOBIN 12.9 gm/dL (12-16); LYMPHOCYTE ABSOLUTE 1.3 Th/cmm (1.5-3.0); MEAN CELL VOLUME 92.6 fl (81-100); MEAN CORPUSCULAR HGB CONC 32.4 pg (28.0-36.0); MEAN PLATELET VOLUME 6.6 fl; MONOCYTE ABSOLUTE 0.7 Th/cmm (0.3-1.0); NEUTROPHILE ABSOLUTE 4.6 Th/cmm (1.8-8.0); PLATELET COUNT 349 Th/cmm (150-400); RED BLOOD COUNT 4.31 Mil/cmm (3.80-5.20); RED CELL DISTRIBUTION WIDTH 14.6 % (11.5-20.0); WHITE BLOOD COUNT 6.8 Th/cmm (4.8-10.8)
[2018-07-14 17:32] LABS: ANION GAP 15.1 (7.0-16.0); BUN - UREA NITROGEN 38 mg/dL (7-25); CALCIUM SERUM 10.3 mg/dL (8.6-10.3); CARBON DIOXIDE 23.4 mEq/L (21.0-31.0); CHLORIDE 97 mEq/L (98-107); CREATININE - SERUM 1.1 mg/dL (0.6-1.2); GLUCOSE 416 mg/dL (70-105); POTASSIUM SERUM 3.5 mEq/L (3.5-5.1); SODIUM SERUM 132 mEq/L (136-145)
[2018-07-14] MEDS ORDERED: Sodium Chloride 0.9% 1,000 ML IV ONE (18:22)
[2018-07-14] MEDS ORDERED: INSULIN HUMAN REGULAR 100 UNITS/ML UNIT SUBQ ONE (18:22)
[2018-07-14 18:54] LABS: URINE SOURCE RANDOM
[2018-07-14 18:58] LABS: URINE BILIRUBIN NEGATIVE (NEGATIVE); URINE BLOOD NEGATIVE (NEGATIVE); URINE GLUCOSE (UA) >=1000 mg/dL (NEGATIVE); URINE KETONE NEGATIVE (NEGATIVE); URINE LEUKOCYTE ESTERASE TRACE (NEGATIVE); URINE MICROSCOPIC INDICATED? YES; URINE NITRATE POSITIVE (NEGATIVE); URINE PROTEIN NEGATIVE (NEGATIVE); URINE UROBILINOGEN 0.2 E.U./dL (0.2 - 1.0)
[2018-07-14 19:18] LABS: URINE CLARITY HAZY (CLEAR); URINE COLOR YELLOW
[2018-07-14] MEDS ORDERED: INSULIN HUMAN REGULAR 100 UNITS/ML UNIT ONE (19:21)
[2018-07-14] MEDS ORDERED: cefTRIAXone 1 GM in Sodium Chloride 0.9% 50 ML IV ONE (19:26)
[2018-07-14 19:49] LABS: URINE RBC 0-2 /hpf (0-5)
[2018-07-14 19:50] LABS: URINE BACTERIA MANY /hpf (NONE SEEN); URINE EPITHELIAL CELLS FEW /lpf (FEW)
[2018-07-14 23:58] VITALS: BP 139/59
[2018-07-15] MEDS: Sodium Chloride 0.45% 1,000 ML IV SCH ×2 (00:42→09:42)
[2018-07-15] MEDS: INSULIN ASPART SLIDING SCALE 100 UNITS/ML UNIT SUBQ SCH ×5 (00:48→20:50)
[2018-07-15 06:17] LABS: % BASOPHILS 1.4 % (0.0-2.0); % EOSINOPHILS 2.5 % (0.0-5.0); % LYMPHOCYTES 16.9 % (20.0-50.0); % MONOCYTES 13.2 % (2.0-10.0); BASOPHILE ABSOLUTE 0.1 Th/cumm (0-0.2); EOSINOPHILE ABSOLUTE 0.2 Th/cmm (0.1-0.4); HEMATOCRIT 36.1 % (41.0-60); HEMOGLOBIN 12.2 gm/dL (12-16); LYMPHOCYTE ABSOLUTE 1.2 Th/cmm (1.5-3.0); MEAN CORPUSCULAR HEMOGLOBIN 31.4 pg (27.0-31.0); MEAN CORPUSCULAR HGB CONC 33.7 pg (28.0-36.0); MEAN PLATELET VOLUME 6.9 fl; MONOCYTE ABSOLUTE 0.9 Th/cmm (0.3-1.0); NEUTROPHILE ABSOLUTE 4.5 Th/cmm (1.8-8.0); PLATELET COUNT 299 Th/cmm (150-400); RED BLOOD COUNT 3.88 Mil/cmm (3.80-5.20); RED CELL DISTRIBUTION WIDTH 14.2 % (11.5-20.0); WHITE BLOOD COUNT 6.9 Th/cmm (4.8-10.8)
[2018-07-15 06:36] LABS: ANION GAP 14.7 (7.0-16.0); BUN - UREA NITROGEN 31 mg/dL (7-25); CALCIUM SERUM 9.8 mg/dL (8.6-10.3); CARBON DIOXIDE 22.3 mEq/L (21.0-31.0); CHLORIDE 102 mEq/L (98-107); CHOLESTEROL 169 mg/dL (<200); CREATININE - SERUM 0.9 mg/dL (0.6-1.2); HDL -HIGH DENSITY LIPOPROTEIN 27 mg/dL (23-92); SODIUM SERUM 136 mEq/L (136-145); TRIGLYCERIDES 148 mg/dL (<150)
[2018-07-15 07:44] LABS: GLUCOSE 109 mg/dL (70-105)
[2018-07-15] MEDS ORDERED: VTE Chemical Prophylaxis Screen/Admission MC PRN (08:04)
[2018-07-15] MEDS ORDERED: Magnesium Hydroxide (MOM) 30 mL UDC PO PRN (08:09)
[2018-07-15] MEDS ORDERED: Fleet Enema 135 mL RC PRN (08:09)
[2018-07-15] MEDS ORDERED: Non-Formulary Item 1 EA (Protein Supplement [Promod] 30 ML) PO SCH (09:00)
[2018-07-15] MEDS ORDERED: Non-Formulary Item 1 EA (Arginine/Ascorbate Sod/Vite Ac [Arginaid Powder] 1 EACH) PO SCH (09:00)
[2018-07-15] MEDS ORDERED: Chlorhexidine Gluconate 0.12% 15mL Mouthwash MM SCH (09:00)
[2018-07-15] MEDS: Metolazone 5 MG TAB PO SCH ×2 (09:44→17:10)
[2018-07-15] MEDS: Potassium Chloride 20 mEq ER Tab PO SCH (09:45)
[2018-07-15] MEDS: Multivitamin w/ Minerals Tab PO SCH (09:46)
[2018-07-15] MEDS: Carbidopa/Levodopa 10/100 mg Tab PO SCH ×2 (09:46→17:11)
[2018-07-15] MEDS: Insulin Detemir 100 units/mL 10mL Vial SUBQ SCH ×2 (09:49→20:52)
[2018-07-15] MEDS: Chlorhexidine Gluconate 0.12% 480mL Bottle MM SCH (11:23)
--- NOTE | 2018-07-15 14:11 | Diagnostic Imaging Report ---
KUB abdominal film HISTORY: Pain There is a nonspecific gas pattern of nondilated bowel. No free intraperitoneal air. No abnormal calcifications. Severe atherosclerotic calcification noted in the aorta. IMPRESSION: 1. Nonspecific bowel gas pattern 2. Atherosclerotic vascular changes
[2018-07-15] MEDS: cefTRIAXone 1 GM in Sodium Chloride 0.9% 50 ML IV SCH (17:11)
--- NOTE | 2018-07-15 19:25 | Consultation ---
DATE OF CONSULTATION: 07/15/2018 REASON FOR CONSULTATION: Abdominal pain. HISTORY OF PRESENT ILLNESS: This consult was obtained through the courtesy of Dr. Lucas for this 78-year-old admitted to the hospital because of abdominal pain and bleeding in her urine. According to the ER note, also she has some pain on her buttocks. The patient came to the hospital, then she started complaining of abdominal pain, so GI consult was called in for further evaluation. Prior to the patient has been having hematuria for about a week, the pain in her buttocks for a few days. PAST MEDICAL HISTORY: Hypertension, diabetes. PAST SURGICAL HISTORY: She had a colon resection a few months ago, but it seems to be benign lesion at [place]. SOCIAL HISTORY: Nonsmoker, nonalcoholic, no IV drug abuser. FAMILY HISTORY: Noncontributory. ALLERGIES: SULFA AND CODEINE. MEDICATIONS: The patient is on Tylenol, bisacodyl, Sinemet, Rocephin, Peridex, cholecalciferol, Pepcid, gabapentin, insulin, magnesium hydroxide, Megace, Zaroxolyn, Lopressor, Zofran, potassium, Fleets enema and zinc. REVIEW OF SYSTEMS: No weight loss. She had no nausea, vomiting. No diarrhea or constipation. She had blood in the urine and abdominal pain. PHYSICAL EXAMINATION: GENERAL: The patient is awake, oriented to self and place, in no acute distress. VITAL SIGNS: Blood pressure is 140/58, heart rate 86, respiratory rate 18, temperature is 97.1. HEAD AND NECK: Pupils reactive to light. Extraocular muscles intact. Sclerae are anicteric. Conjunctivae not pale. Oral cavity, no lesion. NECK: Supple, no jugular venous distention, no carotid bruit, no lymph node. CHEST: Good respiratory movements. LUNGS: Clear to auscultation. CARDIOVASCULAR: Regular rate and rhythm. No murmur or gallop. ABDOMEN: Soft, positive bowel sounds. EXTREMITIES: Lower extremities, no edema. Good peripheral pulses. CENTRAL NERVOUS SYSTEM: The patient is moving 4 extremities. No problem. LABORATORY DATA: White count is normal, H and H 12.2 and 36.1, platelets of 299. Potassium is 3. Liver enzymes have not been checked. No x-rays available yet. IMPRESSION: An 78-year-old with hematuria, but explained now with abdominal pain that seems to have improved. ASSESSMENT AND PLAN: Abdominal pain could be constipation, could be cholelithiasis, could be something related to the colon, could be irritable bowel syndrome. At this time, symptoms are very vague and have improved and labs are not conclusive, so we are going to check a KUB. We are going to check liver enzymes and lipase. Continue current management. If patient is not improving or pain recurs back, we can add symptomatic treatment such as dicyclomine and then further recommendations to follow. Other medical problem such as hypertension, diabetes as per Dr. Lucas. Thank you Dr. Lucas for allowing me to participate in the care of the patient. If you have any further questions, please let me know. JOB# [id number]
[2018-07-15] MEDS ORDERED: Non-Formulary Item 1 EA (Melatonin/Pyridoxine Hcl (B6) [Melatonin 3 Mg Tablet] 1 EACH) PO SCH (21:00)
--- NOTE | 2018-07-15 21:27 | History and Physical ---
History of Present Illness - HPI Chief Complaint: bed sore, hematuria, abdominal pain HPI: This is a 78-year old pleasant [place]ik female with a 1 day history of abdominal pain associated with hematuria. According to patient she has been having increase in abdominal pain and family members noted she had hematuria. Patient states that for a few days now her bed sore has been very painful. At this time she denies any abdominal pain. nausea, vomiting. No reports of any fever at home. Vital Signs: Last Vital Signs Temp 97.5 F 07/15/18 20:00 Pulse 71 07/15/18 20:00 Resp 18 07/15/18 20:00 BP 88/52 07/15/18 20:00 Pulse Ox 97 07/15/18 20:00 Past Medical History Cardiovascular: Report: HTN Endocrine: Report: Diabetes - Past Surgical History Past Surgical History: Other (colon resection) Family Medical History - Family Member Mother History Unknown: Yes Ethnicity: Non- Living Status: Hx Family Hypertension: Yes Social History Smoke: No Alcohol: None Drugs: None Lives: With Family - Medications Home Medications: Home Medication Medication Instructions Recorded Type Acetaminophen [Tylenol] 650 mg PO Q4HR PRN 04/03/18 History Arginine/Ascorbate Sod/Munir AC 1 each PO DAILY 04/03/18 History [Arginaid Powder] Bisacodyl [Dulcolax 10 Mg Supp] 10 mg RC DAILY PRN 04/03/18 History Chlorhexidine Gluconate 0.12% 5 ml MM DAILY 04/03/18 History [Peridex] Clonidine HCl [Catapres] 0.1 mg PO Q8HR PRN 04/03/18 History Famotidine 20 mg PO BID 04/03/18 History Fleet Enema 135 ml RC DAILY PRN 04/03/18 History Insulin Detemir [Levemir Insulin] 30 units SUBQ Q12HR 04/03/18 History Insulin Lispro [Humalog] See Protocol SUBQ ACHS 04/03/18 History Magnesium Hydroxide [Milk of 30 ml PO DAILY PRN 04/03/18 History Magnesia] Melatonin/Pyridoxine HCl (B6) 1 each PO HS 04/03/18 History [Melatonin 3 mg Tablet] Metolazone 10 mg PO BID 04/03/18 History Metoprolol Tartrate 25 mg PO BID 04/03/18 History Multivitamin with Minerals 1 tab PO DAILY 04/03/18 History [Multivitamins with Minerals] Ondansetron HCl [Zofran*] 4 mg PO Q6H PRN 04/03/18 History Potassium Chloride Elixir 20 meq PO DAILY 04/03/18 History Protein Supplement [Promod] 30 ml PO BID 04/03/18 History Zinc Sulfate 220 mg PO DAILY 04/03/18 History Cholecalciferol (Vitamin D3) 1 cap PO DAILY 04/11/18 History [Vitamin D3] Carbidopa/Levodopa 1 each PO BID 07/14/18 History [Carbidopa-Levodopa 10-100 Tab] Gabapentin [Neurontin] 200 mg PO TID 07/14/18 History Megestrol Acetate 400 mg PO BID 07/14/18 History - Allergies Allergies/Adverse Reactions: Allergies Allergy/AdvReac Type Severity Reaction Status Date / Time codeine Allergy Verified 07/14/18 16:17 Sulfa (Sulfonamide Allergy Verified 07/14/18 16:17 Antibiotics) Review of Systems - Review of Systems Constitutional: Report: Weakness Eyes: Report: No Significant Respiratory: Report: No Significant Cardiovascular: Report: No Significant Gastrointestinal: Denies: Nausea, Abdominal Pain Genitourinary: Report: Hematuria Neurological: Report: Weakness Physical Exam - Physical Exam HEENT: Report: Ears Nose Throat within normal limits Neck: Report: Within normal limits Cardiovascular Systems: Report: +s1/s2 noted, Regular, Rate and Rhythm Respiratory: Report: Breath Sounds are within normal limits, Clear to Auscultation of lung herring Back: Report: Other (sacral wound) Extremities: Report: Non-tender to palpation. Skin: Report: Color of skin is within normal limits, Warm, Dry, Other (sacral wound) Neuro/Psych: Report: Mood affect is within normal limits, A+Ox3 - Lab Results All Lab Results last 24 hours: Laboratory Results - last 24 hr 07/15/18 07/15/18 07/15/18 00:43 05:54 05:55 WBC 6.9 RBC 3.88 Hgb 12.2 Hct 36.1 L MCV 93.0 MCH 31.4 H MCHC Differential 33.7 RDW 14.2 Plt Count 299 MPV 6.9 Neutrophils % 66.0 Lymphocytes % 16.9 L Monocytes % 13.2 H Eosinophils % 2.5 Basophils % 1.4 Sodium Potassium Chloride Carbon Dioxide Anion Gap BUN Creatinine Est GFR ( Amer) Est GFR (Non-Af Amer) BUN/Creatinine Ratio Glucose POC Glucose 216 H 103 Calcium Triglycerides Cholesterol LDL Cholesterol Direct HDL Cholesterol TSH 07/15/18 07/15/18 07/15/18 05:55 05:55 11:28 WBC RBC Hgb Hct MCV MCH MCHC Differential RDW Plt Count MPV Neutrophils % Lymphocytes % Monocytes % Eosinophils % Basophils % Sodium 136 Potassium 3.0 L Chloride 102 Carbon Dioxide 22.3 Anion Gap 14.7 BUN 31 H Creatinine 0.9 Est GFR ( Amer) TNP Est GFR (Non-Af Amer) TNP BUN/Creatinine Ratio 34.4 Glucose 109 H D POC Glucose 186 H Calcium 9.8 Triglycerides 148 Cholesterol 169 LDL Cholesterol Direct 110 HDL Cholesterol 27 TSH 1.00 07/15/18 07/15/18 16:54 20:41 WBC RBC Hgb Hct MCV MCH MCHC Differential RDW Plt Count MPV Neutrophils % Lymphocytes % Monocytes % Eosinophils % Basophils % Sodium Potassium Chloride Carbon Dioxide Anion Gap BUN Creatinine Est GFR ( Amer) Est GFR (Non-Af Amer) BUN/Creatinine Ratio Glucose POC Glucose 110 H 161 H Calcium Triglycerides Cholesterol LDL Cholesterol Direct HDL Cholesterol TSH Microbiology 07/14/18 16:30 - Final Nares Staph Aureus-Mrsa Isolated - Assessment Assessment: abdominal pain sacral ulcer pain uncontrolled dm htn hematuria generalized weakness - Plan Plan: wound cx gi consult follow up labs in am empiric ivabx wound care continue current orders
[2018-07-16 05:16] LABS: % BASOPHILS 0.9 % (0.0-2.0); % EOSINOPHILS 2.2 % (0.0-5.0); % LYMPHOCYTES 20.1 % (20.0-50.0); % MONOCYTES 11.1 % (2.0-10.0); % NEUTROPHILS 65.7 % (40.0-80.0); EOSINOPHILE ABSOLUTE 0.1 Th/cmm (0.1-0.4); LYMPHOCYTE ABSOLUTE 1.1 Th/cmm (1.5-3.0); MEAN CELL VOLUME 92.2 fl (81-100); MEAN CORPUSCULAR HEMOGLOBIN 30.8 pg (27.0-31.0); MEAN CORPUSCULAR HGB CONC 33.4 pg (28.0-36.0); MEAN PLATELET VOLUME 6.7 fl; MONOCYTE ABSOLUTE 0.6 Th/cmm (0.3-1.0); NEUTROPHILE ABSOLUTE 3.6 Th/cmm (1.8-8.0); PLATELET COUNT 323 Th/cmm (150-400); RED CELL DISTRIBUTION WIDTH 14.1 % (11.5-20.0)
[2018-07-16 05:21] LABS: WHITE BLOOD COUNT 5.4 Th/cmm (4.8-10.8)
[2018-07-16 05:50] LABS: ALBUMIN 3.5 gm/dL (3.7-5.3); ALKALINE PHOSPHATASE 53 U/L (34-104); ANION GAP 13.5 (7.0-16.0); BILIRUBIN,TOTAL 0.3 mg/dL (0.3-1.0); BUN - UREA NITROGEN 27 mg/dL (7-25); CARBON DIOXIDE 21.8 mEq/L (21.0-31.0); CHLORIDE 103 mEq/L (98-107); GLUCOSE 73 mg/dL (70-105); LIPASE 36 U/L (11-82); POTASSIUM SERUM 3.3 mEq/L (3.5-5.1); SGOT 12 U/L (13-39); SGPT/ALT 6 U/L (7-52); SODIUM SERUM 135 mEq/L (136-145); TOTAL PROTEIN,SERUM 7.2 gm/dL (6.0-8.3)
[2018-07-16] MEDS: INSULIN ASPART SLIDING SCALE 100 UNITS/ML UNIT SUBQ SCH ×4 (07:06→20:34)
[2018-07-16] MEDS: Multivitamin w/ Minerals Tab PO SCH (08:13)
[2018-07-16] MEDS: Carbidopa/Levodopa 10/100 mg Tab PO SCH ×2 (08:13→16:03)
[2018-07-16] MEDS: Metolazone 5 MG TAB PO SCH ×2 (08:13→16:04)
[2018-07-16] MEDS: Potassium Chloride 20 mEq ER Tab PO SCH (08:14)
[2018-07-16] MEDS: Insulin Detemir 100 units/mL 10mL Vial SUBQ SCH ×2 (08:21→20:35)
[2018-07-16] MEDS: Chlorhexidine Gluconate 0.12% 480mL Bottle MM SCH (08:28)
--- NOTE | 2018-07-16 08:40 | GI Progress Note ---
Subjective - Review of Systems Subjective: DENIES ABD PAIN AYLIN BREAKFAST Objective - Results Result Diagrams: 07/16/18 04:30 07/16/18 04:30 Recent Labs: Laboratory Last Values WBC 5.4 Th/cmm (4.8-10.8) D 07/16/18 04:30 RBC 3.90 Mil/cmm (3.80-5.20) 07/16/18 04:30 Hgb 12.0 gm/dL (12-16) 07/16/18 04:30 Hct 36.0 % (41.0-60) L 07/16/18 04:30 MCV 92.2 fl (81-100) 07/16/18 04:30 MCH 30.8 pg (27.0-31.0) 07/16/18 04:30 MCHC Differential 33.4 pg (28.0-36.0) 07/16/18 04:30 RDW 14.1 % (11.5-20.0) 07/16/18 04:30 Plt Count 323 Th/cmm (150-400) 07/16/18 04:30 MPV 6.7 fl 07/16/18 04:30 Neutrophils % 65.7 % (40.0-80.0) 07/16/18 04:30 Lymphocytes % 20.1 % (20.0-50.0) 07/16/18 04:30 Monocytes % 11.1 % (2.0-10.0) H 07/16/18 04:30 Eosinophils % 2.2 % (0.0-5.0) 07/16/18 04:30 Basophils % 0.9 % (0.0-2.0) 07/16/18 04:30 Sodium 135 mEq/L (136-145) L 07/16/18 04:30 Potassium 3.3 mEq/L (3.5-5.1) L 07/16/18 04:30 Chloride 103 mEq/L (98-107) 07/16/18 04:30 Carbon Dioxide 21.8 mEq/L (21.0-31.0) 07/16/18 04:30 Anion Gap 13.5 (7.0-16.0) 07/16/18 04:30 BUN 27 mg/dL (7-25) H 07/16/18 04:30 Creatinine 1.0 mg/dL (0.6-1.2) 07/16/18 04:30 Est GFR ( Amer) TNP 07/16/18 04:30 Est GFR (Non-Af Amer) TNP 07/16/18 04:30 BUN/Creatinine Ratio 27.0 07/16/18 04:30 Glucose 73 mg/dL (70-105) 07/16/18 04:30 POC Glucose 104 MG/DL (70 - 105) 07/16/18 06:28 Calcium 10.0 mg/dL (8.6-10.3) 07/16/18 04:30 Total Bilirubin 0.3 mg/dL (0.3-1.0) 07/16/18 04:30 AST 12 U/L (13-39) L 07/16/18 04:30 ALT 6 U/L (7-52) L 07/16/18 04:30 Alkaline Phosphatase 53 U/L (34-104) 07/16/18 04:30 Total Protein 7.2 gm/dL (6.0-8.3) 07/16/18 04:30 Albumin 3.5 gm/dL (3.7-5.3) L 07/16/18 04:30 Globulin 3.7 gm/dL 07/16/18 04:30 Albumin/Globulin Ratio 1.0 (1.0-1.8) 07/16/18 04:30 Triglycerides 148 mg/dL (<150) 07/15/18 05:55 Cholesterol 169 mg/dL (<200) 07/15/18 05:55 LDL Cholesterol Direct 110 mg/dL (75-193) 07/15/18 05:55 HDL Cholesterol 27 mg/dL (23-92) 07/15/18 05:55 Lipase 36 U/L (11-82) 07/16/18 04:30 TSH 1.00 uIU/ml (0.34-5.60) 07/15/18 05:55 Urine Source RANDOM 07/14/18 16:45 Urine Color YELLOW 07/14/18 16:45 Urine Clarity HAZY (CLEAR) 07/14/18 16:45 Urine pH 6.0 (4.6 - 8.0) 07/14/18 16:45 Ur Specific [place] 1.010 (1.005-1.030) 07/14/18 16:45 Urine Protein NEGATIVE mg/dL (NEGATIVE) 07/14/18 16:45 Urine Glucose (UA) >=1000 mg/dL (NEGATIVE) H 07/14/18 16:45 Urine Ketones NEGATIVE mg/dL (NEGATIVE) 07/14/18 16:45 Urine Blood NEGATIVE (NEGATIVE) 07/14/18 16:45 Urine Nitrate POSITIVE (NEGATIVE) H 07/14/18 16:45 Urine Bilirubin NEGATIVE (NEGATIVE) 07/14/18 16:45 Urine Urobilinogen 0.2 E.U./dL (0.2 - 1.0) 07/14/18 16:45 Ur Leukocyte Esterase TRACE (NEGATIVE) H 07/14/18 16:45 Urine RBC 0-2 /hpf (0-5) 07/14/18 16:45 Urine WBC 6-10 /hpf (0-5) H 07/14/18 16:45 Ur Epithelial Cells FEW /lpf (FEW) 07/14/18 16:45 Urine Bacteria MANY /hpf (NONE SEEN) H 07/14/18 16:45 - Physical Exam Vitals and I&O: Vital Signs Temp 96.7 F 07/16/18 07:44 Pulse 84 07/16/18 08:14 Resp 18 07/16/18 07:44 BP 126/60 07/16/18 08:14 Pulse Ox 100 07/16/18 07:44 Intake & Output 07/15/18 07/16/18 07/16/18 18:59 06:59 18:59 Intake Total 1000 Balance 1000 Weight (lbs) 55.338 kg Intake: Intake, IV Amount 1000 Sodium Chloride 0.45% 1, 1000 000 ml @ 120 mls/hr IV . Q8H20M [facility] Rx#:[id number] Other: Weight Source Bedscale Active Medications: Current Medications Acetaminophen (Tylenol) 650 mg PO Q4HR PRN PRN Reason: Pain or Fever >101 Stop: 09/13/18 08:08 Bisacodyl (Dulcolax 10 Mg Supp) 10 mg RC DAILY PRN PRN Reason: Constipation Stop: 09/13/18 08:08 Carbidopa/Levodopa (Sinemet 10 Mg-100 Mg) 1 tab PO BID [facility] Stop: 09/13/18 08:59 Last Admin: 07/16/18 08:13 Dose: 1 tab Chlorhexidine Gluconate (Peridex) 5 ml MM DAILY [facility] Stop: 09/13/18 11:14 Last Admin: 07/16/18 08:28 Dose: 5 ml Cholecalciferol (Vitamin D3) 5,000 iu PO DAILY [facility] Stop: 09/13/18 08:59 Last Admin: 07/16/18 08:13 Dose: 5,000 iu Famotidine (Pepcid) 20 mg PO BID [facility] Stop: 09/13/18 08:59 Last Admin: 07/16/18 08:13 Dose: 20 mg Gabapentin (Neurontin) 200 mg PO TID [facility] Stop: 09/13/18 08:59 Last Admin: 07/16/18 08:14 Dose: 200 mg Ceftriaxone Sodium 1 gm/ (Sodium Chloride) 50 mls @ 100 mls/hr IV Q24HR [facility] Stop: 09/13/18 17:59 Last Admin: 07/15/18 17:11 Dose: 100 mls/hr Insulin Aspart (Novolog Insulin Sliding Scale) 0 units SUBQ ACHS [facility]; Protocol Stop: 09/13/18 11:29 Last Admin: 07/16/18 07:06 Dose: Not Given Insulin Detemir (Levemir Insulin) 30 units SUBQ Q12HR [facility]; Protocol Stop: 09/13/18 08:59 Last Admin: 07/16/18 08:21 Dose: 30 units Magnesium Hydroxide (Milk Of Magnesia) 30 ml PO DAILY PRN PRN Reason: Constipation Stop: 09/13/18 08:08 Megestrol Acetate (Megace) 400 mg PO BID [facility] Stop: 09/13/18 08:59 Last Admin: 07/16/18 08:13 Dose: 400 mg Metolazone (Zaroxolyn) 10 mg PO BID [facility] Stop: 09/13/18 08:59 Last Admin: 07/16/18 08:13 Dose: 10 mg Metoprolol Tartrate (Lopressor) 25 mg PO BID [facility] Stop: 09/13/18 08:59 Last Admin: 07/16/18 08:14 Dose: 25 mg Miscellaneous (Vte Chemical Prophylaxis Screen/ Admission) 1 ea [facility] PRN PRN PRN Reason: PROTOCOL Stop: 09/13/18 08:03 Mupirocin (Bactroban Oint) 1 appl NS BID [facility] Stop: 07/20/18 17:01 Ondansetron HCl (Zofran Odt) 4 mg PO Q6H PRN PRN Reason: Nausea / Vomiting Potassium Chloride (Klor-Con) 20 meq PO DAILY [facility] Stop: 09/13/18 08:59 Last Admin: 07/16/18 08:14 Dose: 20 meq Sodium Phosphate (Fleet Enema) 135 ml RC DAILY PRN PRN Reason: Constipation Stop: 09/13/18 08:08 Zinc Sulfate (Zinc Sulfate) 220 mg PO DAILY [facility] Stop: 09/13/18 08:59 Last Admin: 07/16/18 08:13 Dose: 220 mg - Procedures Procedures: Procedures Procedure Code Date CONTROL BLEEDING IN GASTROINTESTINAL TRACT, ENDO [id number] 04/11/18 EXCISION OF RECTUM, ENDO, DIAGN [id number] 04/11/18 TRANSFUSE NONAUT RED BLOOD CELLS IN PERIPH VEIN, [facility] [id number] 04/03/18 Assessment/Plan - Assessment Assessment: 78 FEMALE WITH ABD PAIN NOW RESOLVED KUB WAS UNREMARKABLE LFTS AND LIPASE NORMAL 1.CONT SUPP CARE
[2018-07-16] MEDS: cefTRIAXone 1 GM in Sodium Chloride 0.9% 50 ML IV SCH (17:05)
--- NOTE | 2018-07-16 23:35 | Progress Notes ---
DATE: 07/16/2018 SUBJECTIVE: The patient was seen in her room. The patient is asleep, but is easily arousable. Denies any pain or discomfort at this time. Able to tolerate meals without nausea or vomiting. Otherwise, the patient appears to be in no acute distress. OBJECTIVE: VITAL SIGNS: Temperature 96.7, heart rate of 84, blood pressure 126/60, respirations of 18, and 100% on room air. HEENT: Head is atraumatic and normocephalic. Eyes: Bilateral conjunctivae are clear. Bilateral pupils are equally round and reactive. NECK: Supple. No JVD. CARDIOVASCULAR: S1 and S2, without murmur. PULMONARY: Clear to auscultation. GASTROINTESTINAL: Soft and nontender without guarding. Positive bowel sounds. MUSCULOSKELETAL: No clubbing. No cyanosis noted. ASSESSMENT: 1. Abdominal pain. 2. Urinary tract infection. 3. Diabetes. 4. Stage 2 decubitus ulcer in the sacral area. PLAN: We will continue current treatment. We will monitor the patient's intake. We will continue current IV antibiotics and we will wait for culture results. Treatment plans were discussed with the patient's nurse. Treatment plans were discussed with Dr. Lucas. JOB# [id number]
[2018-07-17] MEDS: INSULIN ASPART SLIDING SCALE 100 UNITS/ML UNIT SUBQ SCH ×4 (06:37→21:06)
--- NOTE | 2018-07-17 08:17 | GI Progress Note ---
Subjective - Review of Systems Subjective: DENIES ABD PAIN EATING BREAKFAST Objective - Results Result Diagrams: 07/16/18 04:30 07/16/18 04:30 Recent Labs: Laboratory Last Values WBC 5.4 Th/cmm (4.8-10.8) D 07/16/18 04:30 RBC 3.90 Mil/cmm (3.80-5.20) 07/16/18 04:30 Hgb 12.0 gm/dL (12-16) 07/16/18 04:30 Hct 36.0 % (41.0-60) L 07/16/18 04:30 MCV 92.2 fl (81-100) 07/16/18 04:30 MCH 30.8 pg (27.0-31.0) 07/16/18 04:30 MCHC Differential 33.4 pg (28.0-36.0) 07/16/18 04:30 RDW 14.1 % (11.5-20.0) 07/16/18 04:30 Plt Count 323 Th/cmm (150-400) 07/16/18 04:30 MPV 6.7 fl 07/16/18 04:30 Neutrophils % 65.7 % (40.0-80.0) 07/16/18 04:30 Lymphocytes % 20.1 % (20.0-50.0) 07/16/18 04:30 Monocytes % 11.1 % (2.0-10.0) H 07/16/18 04:30 Eosinophils % 2.2 % (0.0-5.0) 07/16/18 04:30 Basophils % 0.9 % (0.0-2.0) 07/16/18 04:30 Sodium 135 mEq/L (136-145) L 07/16/18 04:30 Potassium 3.3 mEq/L (3.5-5.1) L 07/16/18 04:30 Chloride 103 mEq/L (98-107) 07/16/18 04:30 Carbon Dioxide 21.8 mEq/L (21.0-31.0) 07/16/18 04:30 Anion Gap 13.5 (7.0-16.0) 07/16/18 04:30 BUN 27 mg/dL (7-25) H 07/16/18 04:30 Creatinine 1.0 mg/dL (0.6-1.2) 07/16/18 04:30 Est GFR ( Amer) TNP 07/16/18 04:30 Est GFR (Non-Af Amer) TNP 07/16/18 04:30 BUN/Creatinine Ratio 27.0 07/16/18 04:30 Glucose 73 mg/dL (70-105) 07/16/18 04:30 POC Glucose 286 MG/DL (70 - 105) H 07/17/18 05:40 Calcium 10.0 mg/dL (8.6-10.3) 07/16/18 04:30 Total Bilirubin 0.3 mg/dL (0.3-1.0) 07/16/18 04:30 AST 12 U/L (13-39) L 07/16/18 04:30 ALT 6 U/L (7-52) L 07/16/18 04:30 Alkaline Phosphatase 53 U/L (34-104) 07/16/18 04:30 Total Protein 7.2 gm/dL (6.0-8.3) 07/16/18 04:30 Albumin 3.5 gm/dL (3.7-5.3) L 07/16/18 04:30 Globulin 3.7 gm/dL 07/16/18 04:30 Albumin/Globulin Ratio 1.0 (1.0-1.8) 07/16/18 04:30 Triglycerides 148 mg/dL (<150) 07/15/18 05:55 Cholesterol 169 mg/dL (<200) 07/15/18 05:55 LDL Cholesterol Direct 110 mg/dL (75-193) 07/15/18 05:55 HDL Cholesterol 27 mg/dL (23-92) 07/15/18 05:55 Lipase 36 U/L (11-82) 07/16/18 04:30 TSH 1.00 uIU/ml (0.34-5.60) 07/15/18 05:55 Urine Source RANDOM 07/14/18 16:45 Urine Color YELLOW 07/14/18 16:45 Urine Clarity HAZY (CLEAR) 07/14/18 16:45 Urine pH 6.0 (4.6 - 8.0) 07/14/18 16:45 Ur Specific [place] 1.010 (1.005-1.030) 07/14/18 16:45 Urine Protein NEGATIVE mg/dL (NEGATIVE) 07/14/18 16:45 Urine Glucose (UA) >=1000 mg/dL (NEGATIVE) H 07/14/18 16:45 Urine Ketones NEGATIVE mg/dL (NEGATIVE) 07/14/18 16:45 Urine Blood NEGATIVE (NEGATIVE) 07/14/18 16:45 Urine Nitrate POSITIVE (NEGATIVE) H 07/14/18 16:45 Urine Bilirubin NEGATIVE (NEGATIVE) 07/14/18 16:45 Urine Urobilinogen 0.2 E.U./dL (0.2 - 1.0) 07/14/18 16:45 Ur Leukocyte Esterase TRACE (NEGATIVE) H 07/14/18 16:45 Urine RBC 0-2 /hpf (0-5) 07/14/18 16:45 Urine WBC 6-10 /hpf (0-5) H 07/14/18 16:45 Ur Epithelial Cells FEW /lpf (FEW) 07/14/18 16:45 Urine Bacteria MANY /hpf (NONE SEEN) H 07/14/18 16:45 - Physical Exam Vitals and I&O: Vital Signs Temp 97.7 F 07/17/18 07:49 Pulse 73 07/17/18 07:49 Resp 18 07/17/18 07:49 BP 127/51 07/17/18 07:49 Pulse Ox 96 07/17/18 07:49 Intake & Output 07/16/18 07/17/18 07/17/18 18:59 06:59 18:59 Intake Total 800 240 Output Total 2100 Balance -1300 240 Weight (lbs) 58.06 kg 56.835 kg Intake: Oral 800 240 Output: Urine 2100 Other: # Voids 3 # Bowel Movements 0 Weight Source Bedscale Bedscale Active Medications: Current Medications Acetaminophen (Tylenol) 650 mg PO Q4HR PRN PRN Reason: Pain or Fever >101 Stop: 09/13/18 08:08 Bisacodyl (Dulcolax 10 Mg Supp) 10 mg RC DAILY PRN PRN Reason: Constipation Stop: 09/13/18 08:08 Carbidopa/Levodopa (Sinemet 10 Mg-100 Mg) 1 tab PO BID [facility] Stop: 09/13/18 08:59 Last Admin: 07/16/18 16:03 Dose: 1 tab Chlorhexidine Gluconate (Peridex) 5 ml MM DAILY [facility] Stop: 09/13/18 11:14 Last Admin: 07/16/18 08:28 Dose: 5 ml Cholecalciferol (Vitamin D3) 5,000 iu PO DAILY [facility] Stop: 09/13/18 08:59 Last Admin: 07/16/18 08:13 Dose: 5,000 iu Famotidine (Pepcid) 20 mg PO BID [facility] Stop: 09/13/18 08:59 Last Admin: 07/16/18 16:03 Dose: 20 mg Gabapentin (Neurontin) 200 mg PO TID [facility] Stop: 09/13/18 08:59 Last Admin: 07/16/18 20:34 Dose: 200 mg Ceftriaxone Sodium 1 gm/ (Sodium Chloride) 50 mls @ 100 mls/hr IV Q24HR [facility] Stop: 09/13/18 17:59 Last Admin: 07/16/18 17:05 Dose: 100 mls/hr Insulin Aspart (Novolog Insulin Sliding Scale) 0 units SUBQ ACHS [facility]; Protocol Stop: 09/13/18 11:29 Last Admin: 07/17/18 06:37 Dose: 6 units Insulin Detemir (Levemir Insulin) 30 units SUBQ Q12HR [facility]; Protocol Stop: 09/13/18 08:59 Last Admin: 07/16/18 20:35 Dose: 30 units Magnesium Hydroxide (Milk Of Magnesia) 30 ml PO DAILY PRN PRN Reason: Constipation Stop: 09/13/18 08:08 Megestrol Acetate (Megace) 400 mg PO BID [facility] Stop: 09/13/18 08:59 Last Admin: 07/16/18 16:03 Dose: 400 mg Metolazone (Zaroxolyn) 10 mg PO BID [facility] Stop: 09/13/18 08:59 Last Admin: 07/16/18 16:04 Dose: 10 mg Metoprolol Tartrate (Lopressor) 25 mg PO BID [facility] Stop: 09/13/18 08:59 Last Admin: 07/16/18 16:04 Dose: 25 mg Miscellaneous (Vte Chemical Prophylaxis Screen/ Admission) 1 ea [facility] PRN PRN PRN Reason: PROTOCOL Stop: 09/13/18 08:03 Mupirocin (Bactroban Oint) 1 appl NS BID [facility] Stop: 07/20/18 17:01 Last Admin: 07/16/18 16:04 Dose: 1 appl Ondansetron HCl (Zofran Odt) 4 mg PO Q6H PRN PRN Reason: Nausea / Vomiting Potassium Chloride (Klor-Con) 20 meq PO DAILY [facility] Stop: 09/13/18 08:59 Last Admin: 07/16/18 08:14 Dose: 20 meq Sodium Phosphate (Fleet Enema) 135 ml RC DAILY PRN PRN Reason: Constipation Stop: 09/13/18 08:08 Zinc Sulfate (Zinc Sulfate) 220 mg PO DAILY [facility] Stop: 09/13/18 08:59 Last Admin: 07/16/18 08:13 Dose: 220 mg - Procedures Procedures: Procedures Procedure Code Date CONTROL BLEEDING IN GASTROINTESTINAL TRACT, ENDO [id number] 04/11/18 EXCISION OF RECTUM, ENDO, DIAGN [id number] 04/11/18 TRANSFUSE NONAUT RED BLOOD CELLS IN PERIPH VEIN, [facility] 88853K9 04/03/18 Assessment/Plan - Assessment Assessment: 78 FEMALE WITH ABD PAIN NOW RESOLVED KUB WAS UNREMARKABLE LFTS AND LIPASE NORMAL 1.CONT SUPP CARE
[2018-07-17] MEDS: Carbidopa/Levodopa 10/100 mg Tab PO SCH ×2 (08:29→16:27)
[2018-07-17] MEDS: Potassium Chloride 20 mEq ER Tab PO SCH (08:29)
[2018-07-17] MEDS: Multivitamin w/ Minerals Tab PO SCH (08:29)
[2018-07-17] MEDS: Chlorhexidine Gluconate 0.12% 480mL Bottle MM SCH (08:31)
[2018-07-17] MEDS: Insulin Detemir 100 units/mL 10mL Vial SUBQ SCH ×2 (08:31→21:08)
[2018-07-17] MEDS: Metolazone 5 MG TAB PO SCH ×2 (08:31→16:27)
--- NOTE | 2018-07-17 12:09 | Internal Medicine Prog Note ---
Internal Medicine Subjective - Subjective Patient is:: awake, other (denies abd pain, no nausea ) Internal Medicine Objective - Results Result Diagrams: 07/16/18 04:30 07/16/18 04:30 Recent Labs: Laboratory Last Values WBC 5.4 Th/cmm (4.8-10.8) D 07/16/18 04:30 RBC 3.90 Mil/cmm (3.80-5.20) 07/16/18 04:30 Hgb 12.0 gm/dL (12-16) 07/16/18 04:30 Hct 36.0 % (41.0-60) L 07/16/18 04:30 MCV 92.2 fl (81-100) 07/16/18 04:30 MCH 30.8 pg (27.0-31.0) 07/16/18 04:30 MCHC Differential 33.4 pg (28.0-36.0) 07/16/18 04:30 RDW 14.1 % (11.5-20.0) 07/16/18 04:30 Plt Count 323 Th/cmm (150-400) 07/16/18 04:30 MPV 6.7 fl 07/16/18 04:30 Neutrophils % 65.7 % (40.0-80.0) 07/16/18 04:30 Lymphocytes % 20.1 % (20.0-50.0) 07/16/18 04:30 Monocytes % 11.1 % (2.0-10.0) H 07/16/18 04:30 Eosinophils % 2.2 % (0.0-5.0) 07/16/18 04:30 Basophils % 0.9 % (0.0-2.0) 07/16/18 04:30 Sodium 135 mEq/L (136-145) L 07/16/18 04:30 Potassium 3.3 mEq/L (3.5-5.1) L 07/16/18 04:30 Chloride 103 mEq/L (98-107) 07/16/18 04:30 Carbon Dioxide 21.8 mEq/L (21.0-31.0) 07/16/18 04:30 Anion Gap 13.5 (7.0-16.0) 07/16/18 04:30 BUN 27 mg/dL (7-25) H 07/16/18 04:30 Creatinine 1.0 mg/dL (0.6-1.2) 07/16/18 04:30 Est GFR ( Amer) TNP 07/16/18 04:30 Est GFR (Non-Af Amer) TNP 07/16/18 04:30 BUN/Creatinine Ratio 27.0 07/16/18 04:30 Glucose 73 mg/dL (70-105) 07/16/18 04:30 POC Glucose 207 MG/DL (70 - 105) H 07/17/18 11:45 Calcium 10.0 mg/dL (8.6-10.3) 07/16/18 04:30 Total Bilirubin 0.3 mg/dL (0.3-1.0) 07/16/18 04:30 AST 12 U/L (13-39) L 07/16/18 04:30 ALT 6 U/L (7-52) L 07/16/18 04:30 Alkaline Phosphatase 53 U/L (34-104) 07/16/18 04:30 Total Protein 7.2 gm/dL (6.0-8.3) 07/16/18 04:30 Albumin 3.5 gm/dL (3.7-5.3) L 07/16/18 04:30 Globulin 3.7 gm/dL 07/16/18 04:30 Albumin/Globulin Ratio 1.0 (1.0-1.8) 07/16/18 04:30 Triglycerides 148 mg/dL (<150) 07/15/18 05:55 Cholesterol 169 mg/dL (<200) 07/15/18 05:55 LDL Cholesterol Direct 110 mg/dL (75-193) 07/15/18 05:55 HDL Cholesterol 27 mg/dL (23-92) 07/15/18 05:55 Lipase 36 U/L (11-82) 07/16/18 04:30 TSH 1.00 uIU/ml (0.34-5.60) 07/15/18 05:55 Urine Source RANDOM 07/14/18 16:45 Urine Color YELLOW 07/14/18 16:45 Urine Clarity HAZY (CLEAR) 07/14/18 16:45 Urine pH 6.0 (4.6 - 8.0) 07/14/18 16:45 Ur Specific [place] 1.010 (1.005-1.030) 07/14/18 16:45 Urine Protein NEGATIVE mg/dL (NEGATIVE) 07/14/18 16:45 Urine Glucose (UA) >=1000 mg/dL (NEGATIVE) H 07/14/18 16:45 Urine Ketones NEGATIVE mg/dL (NEGATIVE) 07/14/18 16:45 Urine Blood NEGATIVE (NEGATIVE) 07/14/18 16:45 Urine Nitrate POSITIVE (NEGATIVE) H 07/14/18 16:45 Urine Bilirubin NEGATIVE (NEGATIVE) 07/14/18 16:45 Urine Urobilinogen 0.2 E.U./dL (0.2 - 1.0) 07/14/18 16:45 Ur Leukocyte Esterase TRACE (NEGATIVE) H 07/14/18 16:45 Urine RBC 0-2 /hpf (0-5) 07/14/18 16:45 Urine WBC 6-10 /hpf (0-5) H 07/14/18 16:45 Ur Epithelial Cells FEW /lpf (FEW) 07/14/18 16:45 Urine Bacteria MANY /hpf (NONE SEEN) H 07/14/18 16:45 - Physical Exam Vitals and I&O: Vital Signs Temp 97.4 F 07/17/18 11:33 Pulse 71 07/17/18 11:33 Resp 18 07/17/18 11:33 BP 121/59 07/17/18 11:33 Pulse Ox 97 07/17/18 11:33 Intake & Output 07/16/18 07/17/18 07/17/18 18:59 06:59 18:59 Intake Total 800 240 Output Total 2100 Balance -1300 240 Weight (lbs) 58.06 kg 56.835 kg Intake: Oral 800 240 Output: Urine 2100 Other: # Voids 3 # Bowel Movements 0 Weight Source Bedscale Bedscale Active Medications: Current Medications Acetaminophen (Tylenol) 650 mg PO Q4HR PRN PRN Reason: Pain or Fever >101 Stop: 09/13/18 08:08 Bisacodyl (Dulcolax 10 Mg Supp) 10 mg RC DAILY PRN PRN Reason: Constipation Stop: 09/13/18 08:08 Carbidopa/Levodopa (Sinemet 10 Mg-100 Mg) 1 tab PO BID [facility] Stop: 09/13/18 08:59 Last Admin: 07/17/18 08:29 Dose: 1 tab Chlorhexidine Gluconate (Peridex) 5 ml MM DAILY [facility] Stop: 09/13/18 11:14 Last Admin: 07/17/18 08:31 Dose: 5 ml Cholecalciferol (Vitamin D3) 5,000 iu PO DAILY [facility] Stop: 09/13/18 08:59 Last Admin: 07/17/18 08:28 Dose: 5,000 iu Famotidine (Pepcid) 20 mg PO BID [facility] Stop: 09/13/18 08:59 Last Admin: 07/17/18 08:29 Dose: 20 mg Gabapentin (Neurontin) 200 mg PO TID [facility] Stop: 09/13/18 08:59 Last Admin: 07/17/18 08:29 Dose: 200 mg Piperacillin Sod/Tazobactam (Sod 3.375 gm/ Sodium Chloride) 50 mls @ 100 mls/ hr IV Q8HR [facility] Stop: 09/15/18 12:59 Insulin Aspart (Novolog Insulin Sliding Scale) 0 units SUBQ ACHS [facility]; Protocol Stop: 09/13/18 11:29 Last Admin: 07/17/18 06:37 Dose: 6 units Insulin Detemir (Levemir Insulin) 30 units SUBQ Q12HR [facility]; Protocol Stop: 09/13/18 08:59 Last Admin: 07/17/18 08:31 Dose: 30 units Magnesium Hydroxide (Milk Of Magnesia) 30 ml PO DAILY PRN PRN Reason: Constipation Stop: 09/13/18 08:08 Megestrol Acetate (Megace) 400 mg PO BID [facility] Stop: 09/13/18 08:59 Last Admin: 07/17/18 08:29 Dose: 400 mg Metolazone (Zaroxolyn) 10 mg PO BID [facility] Stop: 09/13/18 08:59 Last Admin: 07/17/18 08:31 Dose: 10 mg Metoprolol Tartrate (Lopressor) 25 mg PO BID [facility] Stop: 09/13/18 08:59 Last Admin: 07/17/18 08:30 Dose: 25 mg Miscellaneous (Vte Chemical Prophylaxis Screen/ Admission) 1 ea MC PRN PRN PRN Reason: PROTOCOL Stop: 09/13/18 08:03 Mupirocin (Bactroban Oint) 1 appl NS BID [facility] Stop: 07/20/18 17:01 Last Admin: 07/17/18 08:30 Dose: 1 appl Ondansetron HCl (Zofran Odt) 4 mg PO Q6H PRN PRN Reason: Nausea / Vomiting Potassium Chloride (Klor-Con) 20 meq PO DAILY [facility] Stop: 09/13/18 08:59 Last Admin: 07/17/18 08:29 Dose: 20 meq Sodium Phosphate (Fleet Enema) 135 ml RC DAILY PRN PRN Reason: Constipation Stop: 09/13/18 08:08 Zinc Sulfate (Zinc Sulfate) 220 mg PO DAILY [facility] Stop: 09/13/18 08:59 Last Admin: 07/17/18 08:29 Dose: 220 mg General: alert HEENT: NC/AT Neck: Supple Lungs: CTAB Cardiovascular: Normal S1, Normal S2 Abdomen: soft, non-tender Extremities: clear Neurological: no change - Procedures Procedures: Procedures Procedure Code Date CONTROL BLEEDING IN GASTROINTESTINAL TRACT, ENDO [id number] 04/11/18 EXCISION OF RECTUM, ENDO, DIAGN [id number] 04/11/18 TRANSFUSE NONAUT RED BLOOD CELLS IN PERIPH VEIN, [facility] 33750D2 04/03/18 Internal Medicine Assmt/Plan - Assessment Assessment: abd pain, resolved uti dm stage 2 decubitus ulcer in sacral area - Plan Plan: as per order sheet Nutritional Asmnt/Malnutr-PDOC - Dietary Evaluation Malnutrition Findings (Please click <Entered> for more info): Nutritional Asmnt/Malnutrition Start: 07/15/18 16: 25 Text: Status: Complete Freq: Protocol: Document 07/15/18 16:25 ROSEMARIE (Rec: 07/15/18 16:52 ROSEMARIE [email or web address]) Nutritional Asmnt/Malnutrition Patient General Information Nutritional Screening High Risk Consult Diagnosis UTI, hyperglycemia Pertinent Medical Hx/Surgical Hx HTN, DM Subjective Information Received diet consult for bs 416 upon admission. Pt resting in room at time of visit. Pt states appetite is good, no preferences or concerns with her diet/meals. Per nurse note : pt finished 50-60% dinner yesterday. Spoke with [facility], [facility] stated pt consumed 70% of breakfast this morning and ate well. Current Diet Order/ Nutrition Support soft/bland; arginaid powder Pertinent Medications dulcolax, Vit D3, pepcid, novolog, levemir, MOM, megace, zaroxolyn, zofran, klor-con, zinc sulfate Pertinent Labs 07/15: K 3.0, BUN 31, glucose 109, POC 186 07/14: Na 132, glucose 416, Cl 97, Bun 38, POC 103-216 Nutritional Hx/Data Height 1.65 m Height (Calculated Centimeters) 165.1 Current Weight (lbs) 53.977 kg Weight (Calculated Kilograms) 54.0 Weight (Calculated Grams) 15872.5 [place] Body Weight 125 lb Body Mass Index (BMI) 19.8 Weight Status Approriate GI Symptoms GI Symptoms None Last BM none noted Difficult in: None Food Allergies No Skin Integrity/Comment: stage II decubitus to medial left buttocks, abrasion to left leg, b/l heels non blanchable Estimated Nutritional Goals BEE in Kcals: Using Current wt Calories/Kcals/Kg 27-32 Kcals Calculated 4072-1268 Protein: Using Current wt Protein g/k.2-1.4 Protein Calculated 65-76 g Fluid: ml 9664-6563 (1 ml/kcal) Nutritional Problem 1. Problem Problem Increased protein and kcal needs Etiology impaired skin integrity Signs/Symptoms: stage II decubitus to medial left buttocks Malnutrition Alert Is there a minimum of two criteria No selected? Query Text:Check all the applicable criteria. A minimum of two criteria are recommended for diagnosis of either severe or non-severe malnutrition. Malnutrition Related to Morbid Obesity Malnutrition related to morbid obesity No Intervention/Recommendation Comments 1. Continue with soft/bland diet and arginaid as ordered. Consider CCHO 60gm diet if bs remains above normal limits 2. Consider supplementing with Vitamin C to promote wound healing 3. Monitor PO intake, wt, labs and skin integrity 4. F/U as moderate risk in 3-5 days, 07/18-07/20; PO check 07/18 Expected Outcomes/Goals Expected Outcomes/Goals 1. PO intake to meet at least 75% of nutritional needs 2. Wt stability, wound healing , and nutrition related labs to approach normal limits Reviewed by Roopa Lafleur RD
[2018-07-18 04:58] LABS: % BASOPHILS 0.4 % (0.0-2.0); % EOSINOPHILS 1.6 % (0.0-5.0); % LYMPHOCYTES 21.2 % (20.0-50.0); % MONOCYTES 9.5 % (2.0-10.0); % NEUTROPHILS 67.3 % (40.0-80.0); EOSINOPHILE ABSOLUTE 0.1 Th/cmm (0.1-0.4); HEMATOCRIT 37.6 % (41.0-60); HEMOGLOBIN 12.5 gm/dL (12-16); LYMPHOCYTE ABSOLUTE 1.5 Th/cmm (1.5-3.0); MEAN CORPUSCULAR HEMOGLOBIN 30.6 pg (27.0-31.0); MEAN CORPUSCULAR HGB CONC 33.3 pg (28.0-36.0); MEAN PLATELET VOLUME 6.9 fl; MONOCYTE ABSOLUTE 0.7 Th/cmm (0.3-1.0); NEUTROPHILE ABSOLUTE 4.7 Th/cmm (1.8-8.0); PLATELET COUNT 352 Th/cmm (150-400); RED BLOOD COUNT 4.09 Mil/cmm (3.80-5.20); RED CELL DISTRIBUTION WIDTH 14.2 % (11.5-20.0)
[2018-07-18 05:35] LABS: ANION GAP 14.8 (7.0-16.0); BUN - UREA NITROGEN 30 mg/dL (7-25); CALCIUM SERUM 9.8 mg/dL (8.6-10.3); CARBON DIOXIDE 22.2 mEq/L (21.0-31.0); CHLORIDE 103 mEq/L (98-107); CREATININE - SERUM 1.3 mg/dL (0.6-1.2); GLUCOSE 285 mg/dL (70-105); SODIUM SERUM 136 mEq/L (136-145)
[2018-07-18] MEDS: INSULIN ASPART SLIDING SCALE 100 UNITS/ML UNIT SUBQ SCH ×4 (06:30→21:48)
[2018-07-18] MEDS: Carbidopa/Levodopa 10/100 mg Tab PO SCH ×2 (08:40→16:29)
[2018-07-18] MEDS: Potassium Chloride 20 mEq ER Tab PO SCH (08:41)
[2018-07-18] MEDS: Multivitamin w/ Minerals Tab PO SCH (08:41)
[2018-07-18] MEDS: Metolazone 5 MG TAB PO SCH ×2 (08:42→16:30)
[2018-07-18] MEDS: Chlorhexidine Gluconate 0.12% 480mL Bottle MM SCH (08:42)
[2018-07-18] MEDS: Insulin Detemir 100 units/mL 10mL Vial SUBQ SCH ×2 (08:52→21:47)
--- NOTE | 2018-07-18 13:15 | Consultation ---
Consult Note - Consult Note Service Date: 07/18/18 Referring Physician: Virginia Lucas Consult Note: PHYSICIAN Consultation Note: Date of Admission: 07/14/18 Purpose of Consultation: UTI Chief Complaint: Patient ARTHUR HARDY was admitted to [facility] with UTI, HYPERGLYCEMIA. History of Present Illness: 78 year-old female with history of DM T2, HTN, pressure ulcer stage 2 in sacro- coccyx area brought to the ED for uncontriolled DM and hematuria. She dines any fever or chills. On initial evaluation, her temperature was 97.1 F and WBC count was 6,800. urine culture grew ESBL E coli and Proteus mirabilis. ID consult was called for antibiotic management. patient denies any fever. C/o hematuria. Past Medical History: DM T2, HTN, pressure ulcer stage 2 in sacro-coccyx area. Diagnoses TYPE 2 DIABETES MELLITUS WITH HYPERGLYCEMIA (07/14/18) ESSENTIAL (PRIMARY) HYPERTENSION (07/14/18) PRESSURE ULCER OF SACRAL REGION, STAGE 2 (07/14/18) URINARY TRACT INFECTION, SITE NOT SPECIFIED (07/14/18) HEMATURIA, UNSPECIFIED (07/14/18) WEAKNESS (07/14/18) Allergies Allergy/AdvReac Type Severity Reaction Status Date / Time codeine Allergy Verified 07/14/18 16:17 Sulfa (Sulfonamide Allergy Verified 07/14/18 16:17 Antibiotics) Vital Signs Temp 97.3 F 07/18/18 11:50 Pulse 68 07/18/18 11:50 Resp 18 07/18/18 11:50 BP 138/62 07/18/18 11:50 Pulse Ox 98 07/18/18 11:50 Intake & Output 07/17/18 07/18/18 07/18/18 18:59 06:59 18:59 Intake Total 850 300 Balance 850 300 Weight (lbs) 56.699 kg 56.744 kg Intake: Intake, IV Amount 50 100 Piperacillin Sodium/ 50 100 Tazobact 3.375 gm In Sodium Chloride 0.9% 50 ml @ 100 mls/hr IV Q8HR [facility] Rx#:[id number] Oral 800 200 Other: # Voids 3 4 # Bowel Movements 1 Stool Characteristics Soft Soft Soft Formed Formed Formed Brown Brown Brown Weight Source Bedscale Bedscale Laboratory Results - last 24 hr 07/17/18 07/17/18 07/18/18 16:42 20:59 04:35 WBC 7.0 RBC 4.09 Hgb 12.5 Hct 37.6 L MCV 92.0 MCH 30.6 MCHC Differential 33.3 RDW 14.2 Plt Count 352 MPV 6.9 Neutrophils % 67.3 Lymphocytes % 21.2 Monocytes % 9.5 Eosinophils % 1.6 Basophils % 0.4 Sodium Potassium Chloride Carbon Dioxide Anion Gap BUN Creatinine Est GFR ( Amer) Est GFR (Non-Af Amer) BUN/Creatinine Ratio Glucose POC Glucose 235 H 332 H Calcium 07/18/18 07/18/18 07/18/18 04:35 06:22 11:59 WBC RBC Hgb Hct MCV MCH MCHC Differential RDW Plt Count MPV Neutrophils % Lymphocytes % Monocytes % Eosinophils % Basophils % Sodium 136 Potassium 4.0 Chloride 103 Carbon Dioxide 22.2 Anion Gap 14.8 BUN 30 H Creatinine 1.3 H Est GFR ( Amer) TNP Est GFR (Non-Af Amer) TNP BUN/Creatinine Ratio 23.1 Glucose 285 H POC Glucose 312 H 189 H Calcium 9.8 Home Medication Medication Instructions Recorded Type Acetaminophen [Tylenol] 650 mg PO Q4HR PRN 04/03/18 History Arginine/Ascorbate Sod/Munir AC 1 each PO DAILY 04/03/18 History [Arginaid Powder] Bisacodyl [Dulcolax 10 Mg Supp] 10 mg RC DAILY PRN 04/03/18 History Chlorhexidine Gluconate 0.12% 5 ml MM DAILY 04/03/18 History [Peridex] Clonidine HCl [Catapres] 0.1 mg PO Q8HR PRN 04/03/18 History Famotidine 20 mg PO BID 04/03/18 History Fleet Enema 135 ml RC DAILY PRN 04/03/18 History Insulin Detemir [Levemir Insulin] 30 units SUBQ Q12HR 04/03/18 History Insulin Lispro [Humalog] See Protocol SUBQ ACHS 04/03/18 History Magnesium Hydroxide [Milk of 30 ml PO DAILY PRN 04/03/18 History Magnesia] Melatonin/Pyridoxine HCl (B6) 1 each PO HS 04/03/18 History [Melatonin 3 mg Tablet] Metolazone 10 mg PO BID 04/03/18 History Metoprolol Tartrate 25 mg PO BID 04/03/18 History Multivitamin with Minerals 1 tab PO DAILY 04/03/18 History [Multivitamins with Minerals] Ondansetron HCl [Zofran*] 4 mg PO Q6H PRN 04/03/18 History Potassium Chloride Elixir 20 meq PO DAILY 04/03/18 History Protein Supplement [Promod] 30 ml PO BID 04/03/18 History Zinc Sulfate 220 mg PO DAILY 04/03/18 History Cholecalciferol (Vitamin D3) 1 cap PO DAILY 04/11/18 History [Vitamin D3] Carbidopa/Levodopa 1 each PO BID 07/14/18 History [Carbidopa-Levodopa 10-100 Tab] Gabapentin [Neurontin] 200 mg PO TID 07/14/18 History Megestrol Acetate 400 mg PO BID 07/14/18 History Current Medications Generic Name Dose Route Start Last Admin Trade Name Freq PRN Reason Stop Dose Admin Acetaminophen 650 mg 07/15/18 08:09 Tylenol PO 09/13/18 08:08 Q4HR PRN Pain or Fever >101 Bisacodyl 10 mg 07/15/18 08:09 Dulcolax 10 Mg Supp RC 09/13/18 08:08 DAILY PRN Constipation Carbidopa/Levodopa 1 tab 07/15/18 09:00 07/18/18 08:40 Sinemet 10 Mg-100 Mg PO 09/13/18 08:59 1 tab BID [facility] Administration Chlorhexidine Gluconate 5 ml 07/15/18 11:15 07/18/18 08:42 Peridex MM 09/13/18 11:14 5 ml DAILY [facility] Administration Cholecalciferol 5,000 iu 07/15/18 09:00 07/18/18 08:40 Vitamin D3 PO 09/13/18 08:59 5,000 iu DAILY [facility] Administration Famotidine 20 mg 07/15/18 09:00 07/18/18 08:40 Pepcid PO 09/13/18 08:59 20 mg BID [facility] Administration Gabapentin 200 mg 07/15/18 09:00 07/18/18 08:40 Neurontin PO 09/13/18 08:59 200 mg TID [facility] Administration Meropenem 1 gm/ Sodium 100 mls @ 100 mls/hr 07/18/18 13:00 Chloride IV 09/16/18 12:59 Q8H [facility] Insulin Aspart 0 units 07/15/18 11:30 07/18/18 12:30 Novolog Insulin Sliding Scale SUBQ 09/13/18 11:29 2 units ACHS [facility] Administration Protocol Insulin Detemir 30 units 07/15/18 09:00 07/18/18 08:52 Levemir Insulin SUBQ 09/13/18 08:59 30 units Q12HR [facility] Administration Protocol Magnesium Hydroxide 30 ml 07/15/18 08:09 Milk Of Magnesia PO 09/13/18 08:08 DAILY PRN Constipation Megestrol Acetate 400 mg 07/15/18 09:00 07/18/18 08:41 Megace PO 09/13/18 08:59 400 mg BID TAMAR Administration Metolazone 10 mg 07/15/18 09:00 07/18/18 08:42 Zaroxolyn PO 09/13/18 08:59 10 mg BID TAMAR Administration Metoprolol Tartrate 25 mg 07/15/18 09:00 07/18/18 08:42 Lopressor PO 09/13/18 08:59 25 mg BID TAMAR Administration Miscellaneous 1 ea 07/15/18 08:04 Vte Chemical Prophylaxis Screen/ Admission 09/13/18 08:03 PRN PRN PROTOCOL Mupirocin 1 appl 07/16/18 09:00 07/18/18 08:51 Bactroban Oint NS 07/20/18 17:01 1 appl BID TAMAR Administration Ondansetron HCl 4 mg 07/15/18 08:09 Zofran Odt PO Q6H PRN Nausea / Vomiting Potassium Chloride 20 meq 07/15/18 09:00 07/18/18 08:41 Klor-Con PO 09/13/18 08:59 20 meq DAILY TAMAR Administration Sodium Phosphate 135 ml 07/15/18 08:09 Fleet Enema RC 09/13/18 08:08 DAILY PRN Constipation Zinc Sulfate 220 mg 07/15/18 09:00 07/18/18 08:41 Zinc Sulfate PO 09/13/18 08:59 220 mg DAILY TAMAR Administration Review of Systems: A 12 point ROS was reviewed with the pertinent positive and negatives noted in the HPI. Social History Smoking Status Smoker, status unknown Drug Use No Family Medical History Unknown. Physical Exam: General: Comfortable, not in any acute distress. WN WD. HEENT: HEAD: NC NT. ORAL CAVITY: Moist, pink tongue. EYES: pallor is present, No icterus. Pupil PERRLA, EOMI. Neck: Supple, no JVD, no use of accessory neck muscles, No lymphadenopathy. Cardio: S1 and S2 WNL. Respiratory: CTAP. Abdominal: Soft NT ND BS+ Genital/Urinary: Extremities: NCCE. [employer]: alert awake, Communicates well. Plan: Continue meropenem, follow clinically. Thank you, Dr Lucas for involving me in this patient, Signed, Bryce Rojas M.D. [id number]
[2018-07-18] MEDS: Meropenem 1 GM in Sodium Chloride 0.9% 100 ML IV SCH ×2 (13:39→21:51)
--- NOTE | 2018-07-18 15:49 | Internal Medicine Prog Note ---
Internal Medicine Subjective - Subjective Patient is:: awake, other (denies abd pain, no nausea ) Internal Medicine Objective - Results Result Diagrams: 07/18/18 04:35 07/18/18 04:35 Recent Labs: Laboratory Last Values WBC 7.0 Th/cmm (4.8-10.8) 07/18/18 04:35 RBC 4.09 Mil/cmm (3.80-5.20) 07/18/18 04:35 Hgb 12.5 gm/dL (12-16) 07/18/18 04:35 Hct 37.6 % (41.0-60) L 07/18/18 04:35 MCV 92.0 fl (81-100) 07/18/18 04:35 MCH 30.6 pg (27.0-31.0) 07/18/18 04:35 MCHC Differential 33.3 pg (28.0-36.0) 07/18/18 04:35 RDW 14.2 % (11.5-20.0) 07/18/18 04:35 Plt Count 352 Th/cmm (150-400) 07/18/18 04:35 MPV 6.9 fl 07/18/18 04:35 Neutrophils % 67.3 % (40.0-80.0) 07/18/18 04:35 Lymphocytes % 21.2 % (20.0-50.0) 07/18/18 04:35 Monocytes % 9.5 % (2.0-10.0) 07/18/18 04:35 Eosinophils % 1.6 % (0.0-5.0) 07/18/18 04:35 Basophils % 0.4 % (0.0-2.0) 07/18/18 04:35 Sodium 136 mEq/L (136-145) 07/18/18 04:35 Potassium 4.0 mEq/L (3.5-5.1) 07/18/18 04:35 Chloride 103 mEq/L (98-107) 07/18/18 04:35 Carbon Dioxide 22.2 mEq/L (21.0-31.0) 07/18/18 04:35 Anion Gap 14.8 (7.0-16.0) 07/18/18 04:35 BUN 30 mg/dL (7-25) H 07/18/18 04:35 Creatinine 1.3 mg/dL (0.6-1.2) H 07/18/18 04:35 Est GFR ( Amer) TNP 07/18/18 04:35 Est GFR (Non-Af Amer) TNP 07/18/18 04:35 BUN/Creatinine Ratio 23.1 07/18/18 04:35 Glucose 285 mg/dL (70-105) H 07/18/18 04:35 POC Glucose 189 MG/DL (70 - 105) H 07/18/18 11:59 Calcium 9.8 mg/dL (8.6-10.3) 07/18/18 04:35 Total Bilirubin 0.3 mg/dL (0.3-1.0) 07/16/18 04:30 AST 12 U/L (13-39) L 07/16/18 04:30 ALT 6 U/L (7-52) L 07/16/18 04:30 Alkaline Phosphatase 53 U/L (34-104) 07/16/18 04:30 Total Protein 7.2 gm/dL (6.0-8.3) 07/16/18 04:30 Albumin 3.5 gm/dL (3.7-5.3) L 07/16/18 04:30 Globulin 3.7 gm/dL 07/16/18 04:30 Albumin/Globulin Ratio 1.0 (1.0-1.8) 07/16/18 04:30 Triglycerides 148 mg/dL (<150) 07/15/18 05:55 Cholesterol 169 mg/dL (<200) 07/15/18 05:55 LDL Cholesterol Direct 110 mg/dL (75-193) 07/15/18 05:55 HDL Cholesterol 27 mg/dL (23-92) 07/15/18 05:55 Lipase 36 U/L (11-82) 07/16/18 04:30 TSH 1.00 uIU/ml (0.34-5.60) 07/15/18 05:55 Urine Source RANDOM 07/14/18 16:45 Urine Color YELLOW 07/14/18 16:45 Urine Clarity HAZY (CLEAR) 07/14/18 16:45 Urine pH 6.0 (4.6 - 8.0) 07/14/18 16:45 Ur Specific [place] 1.010 (1.005-1.030) 07/14/18 16:45 Urine Protein NEGATIVE mg/dL (NEGATIVE) 07/14/18 16:45 Urine Glucose (UA) >=1000 mg/dL (NEGATIVE) H 07/14/18 16:45 Urine Ketones NEGATIVE mg/dL (NEGATIVE) 07/14/18 16:45 Urine Blood NEGATIVE (NEGATIVE) 07/14/18 16:45 Urine Nitrate POSITIVE (NEGATIVE) H 07/14/18 16:45 Urine Bilirubin NEGATIVE (NEGATIVE) 07/14/18 16:45 Urine Urobilinogen 0.2 E.U./dL (0.2 - 1.0) 07/14/18 16:45 Ur Leukocyte Esterase TRACE (NEGATIVE) H 07/14/18 16:45 Urine RBC 0-2 /hpf (0-5) 07/14/18 16:45 Urine WBC 6-10 /hpf (0-5) H 07/14/18 16:45 Ur Epithelial Cells FEW /lpf (FEW) 07/14/18 16:45 Urine Bacteria MANY /hpf (NONE SEEN) H 07/14/18 16:45 - Physical Exam Vitals and I&O: Vital Signs Temp 97.3 F 07/18/18 11:50 Pulse 68 07/18/18 11:50 Resp 18 07/18/18 12:00 BP 138/62 07/18/18 11:50 Pulse Ox 98 07/18/18 11:50 Intake & Output 07/17/18 07/18/18 07/18/18 18:59 06:59 18:59 Intake Total 850 300 Balance 850 300 Weight (lbs) 56.699 kg 56.744 kg Intake: Intake, IV Amount 50 100 Piperacillin Sodium/ 50 100 Tazobact 3.375 gm In Sodium Chloride 0.9% 50 ml @ 100 mls/hr IV Q8HR [facility] Rx#:[id number] Oral 800 200 Other: # Voids 3 4 # Bowel Movements 1 Stool Characteristics Soft Soft Soft Formed Formed Formed Brown Brown Brown Weight Source Bedscale Bedscale Active Medications: Current Medications Acetaminophen (Tylenol) 650 mg PO Q4HR PRN PRN Reason: Pain or Fever >101 Stop: 09/13/18 08:08 Bisacodyl (Dulcolax 10 Mg Supp) 10 mg RC DAILY PRN PRN Reason: Constipation Stop: 09/13/18 08:08 Carbidopa/Levodopa (Sinemet 10 Mg-100 Mg) 1 tab PO BID [facility] Stop: 09/13/18 08:59 Last Admin: 07/18/18 08:40 Dose: 1 tab [place] Oil/[place]ian Balsam/Trypsin (Venelex) 1 appl TP DAILY [facility] Stop: 09/17/18 08:59 Chlorhexidine Gluconate (Peridex) 5 ml MM DAILY [facility] Stop: 09/13/18 11:14 Last Admin: 07/18/18 08:42 Dose: 5 ml Cholecalciferol (Vitamin D3) 5,000 iu PO DAILY [facility] Stop: 09/13/18 08:59 Last Admin: 07/18/18 08:40 Dose: 5,000 iu Famotidine (Pepcid) 20 mg PO BID [facility] Stop: 09/13/18 08:59 Last Admin: 07/18/18 08:40 Dose: 20 mg Gabapentin (Neurontin) 200 mg PO TID [facility] Stop: 09/13/18 08:59 Last Admin: 07/18/18 13:39 Dose: 200 mg Meropenem 1 gm/ Sodium (Chloride) 100 mls @ 100 mls/hr IV Q8H [facility] Stop: 09/16/18 12:59 Last Admin: 07/18/18 13:39 Dose: 100 mls/hr Insulin Aspart (Novolog Insulin Sliding Scale) 0 units SUBQ ACHS [facility]; Protocol Stop: 09/13/18 11:29 Last Admin: 07/18/18 12:30 Dose: 2 units Insulin Detemir (Levemir Insulin) 30 units SUBQ Q12HR [facility]; Protocol Stop: 09/13/18 08:59 Last Admin: 07/18/18 08:52 Dose: 30 units Magnesium Hydroxide (Milk Of Magnesia) 30 ml PO DAILY PRN PRN Reason: Constipation Stop: 09/13/18 08:08 Megestrol Acetate (Megace) 400 mg PO BID [facility] Stop: 09/13/18 08:59 Last Admin: 07/18/18 08:41 Dose: 400 mg Metolazone (Zaroxolyn) 10 mg PO BID [facility] Stop: 09/13/18 08:59 Last Admin: 07/18/18 08:42 Dose: 10 mg Metoprolol Tartrate (Lopressor) 25 mg PO BID [facility] Stop: 09/13/18 08:59 Last Admin: 07/18/18 08:42 Dose: 25 mg Miscellaneous (Vte Chemical Prophylaxis Screen/ Admission) 1 ea MC PRN PRN PRN Reason: PROTOCOL Stop: 09/13/18 08:03 Mupirocin (Bactroban Oint) 1 appl NS BID [facility] Stop: 07/20/18 17:01 Last Admin: 07/18/18 08:51 Dose: 1 appl Ondansetron HCl (Zofran Odt) 4 mg PO Q6H PRN PRN Reason: Nausea / Vomiting Potassium Chloride (Klor-Con) 20 meq PO DAILY [facility] Stop: 09/13/18 08:59 Last Admin: 07/18/18 08:41 Dose: 20 meq Sodium Phosphate (Fleet Enema) 135 ml RC DAILY PRN PRN Reason: Constipation Stop: 09/13/18 08:08 Zinc Sulfate (Zinc Sulfate) 220 mg PO DAILY [facility] Stop: 09/13/18 08:59 Last Admin: 07/18/18 08:41 Dose: 220 mg General: alert HEENT: NC/AT Neck: Supple Lungs: CTAB Cardiovascular: Normal S1, Normal S2 Abdomen: soft, non-tender Extremities: clear Neurological: no change - Procedures Procedures: Procedures Procedure Code Date CONTROL BLEEDING IN GASTROINTESTINAL TRACT, ENDO [id number] 04/11/18 EXCISION OF RECTUM, ENDO, DIAGN [id number] 04/11/18 TRANSFUSE NONAUT RED BLOOD CELLS IN PERIPH VEIN, PERC 25469V6 04/03/18 Internal Medicine Assmt/Plan - Assessment Assessment: abd pain, resolved uti dm stage 2 decubitus ulcer in sacral area - Plan Plan: as per order sheet Nutritional Asmnt/Malnutr-PDOC - Dietary Evaluation Malnutrition Findings (Please click <Entered> for more info): Nutritional Asmnt/Malnutrition Start: 07/15/18 16: 25 Text: Status: Complete Freq: Protocol: Document 07/15/18 16:25 ROSEMARIE (Rec: 07/15/18 16:52 ROSEMARIE [email or web address]) Nutritional Asmnt/Malnutrition Patient General Information Nutritional Screening High Risk Consult Diagnosis UTI, hyperglycemia Pertinent Medical Hx/Surgical Hx HTN, DM Subjective Information Received diet consult for bs 416 upon admission. Pt resting in room at time of visit. Pt states appetite is good, no preferences or concerns with her diet/meals. Per nurse note : pt finished 50-60% dinner yesterday. Spoke with MARKETING PERFORMANCE ANALYST, MARKETING PERFORMANCE ANALYST stated pt consumed 70% of breakfast this morning and ate well. Current Diet Order/ Nutrition Support soft/bland; arginaid powder Pertinent Medications dulcolax, Vit D3, pepcid, novolog, levemir, MOM, megace, zaroxolyn, zofran, klor-con, zinc sulfate Pertinent Labs 07/15: K 3.0, BUN 31, glucose 109, POC 186 07/14: Na 132, glucose 416, Cl 97, Bun 38, POC 103-216 Nutritional Hx/Data Height 1.65 m Height (Calculated Centimeters) 165.1 Current Weight (lbs) 53.977 kg Weight (Calculated Kilograms) 54.0 Weight (Calculated Grams) 49754.5 [place] Body Weight 125 lb Body Mass Index (BMI) 19.8 Weight Status Approriate GI Symptoms GI Symptoms None Last BM none noted Difficult in: None Food Allergies No Skin Integrity/Comment: stage II decubitus to medial left buttocks, abrasion to left leg, b/l heels non blanchable Estimated Nutritional Goals BEE in Kcals: Using Current wt Calories/Kcals/Kg 27-32 Kcals Calculated 2027-2173 Protein: Using Current wt Protein g/k.2-1.4 Protein Calculated 65-76 g Fluid: ml 4028-1663 (1 ml/kcal) Nutritional Problem 1. Problem Problem Increased protein and kcal needs Etiology impaired skin integrity Signs/Symptoms: stage II decubitus to medial left buttocks Malnutrition Alert Is there a minimum of two criteria No selected? Query Text:Check all the applicable criteria. A minimum of two criteria are recommended for diagnosis of either severe or non-severe malnutrition. Malnutrition Related to Morbid Obesity Malnutrition related to morbid obesity No Intervention/Recommendation Comments 1. Continue with soft/bland diet and arginaid as ordered. Consider CCHO 60gm diet if bs remains above normal limits 2. Consider supplementing with Vitamin C to promote wound healing 3. Monitor PO intake, wt, labs and skin integrity 4. F/U as moderate risk in 3-5 days, 07/18-07/20; PO check 07/18 Expected Outcomes/Goals Expected Outcomes/Goals 1. PO intake to meet at least 75% of nutritional needs 2. Wt stability, wound healing , and nutrition related labs to approach normal limits Reviewed by Roopa Lafleur RD
--- NOTE | 2018-07-18 15:53 | GI Progress Note ---
Subjective - Review of Systems Service Date: 07/18/18 Events since last encounter: vaginal bleeding but minimal Subjective: No abd pain Objective - Results Result Diagrams: 07/18/18 04:35 07/18/18 04:35 Recent Labs: Laboratory Last Values WBC 7.0 Th/cmm (4.8-10.8) 07/18/18 04:35 RBC 4.09 Mil/cmm (3.80-5.20) 07/18/18 04:35 Hgb 12.5 gm/dL (12-16) 07/18/18 04:35 Hct 37.6 % (41.0-60) L 07/18/18 04:35 MCV 92.0 fl (81-100) 07/18/18 04:35 MCH 30.6 pg (27.0-31.0) 07/18/18 04:35 MCHC Differential 33.3 pg (28.0-36.0) 07/18/18 04:35 RDW 14.2 % (11.5-20.0) 07/18/18 04:35 Plt Count 352 Th/cmm (150-400) 07/18/18 04:35 MPV 6.9 fl 07/18/18 04:35 Neutrophils % 67.3 % (40.0-80.0) 07/18/18 04:35 Lymphocytes % 21.2 % (20.0-50.0) 07/18/18 04:35 Monocytes % 9.5 % (2.0-10.0) 07/18/18 04:35 Eosinophils % 1.6 % (0.0-5.0) 07/18/18 04:35 Basophils % 0.4 % (0.0-2.0) 07/18/18 04:35 Sodium 136 mEq/L (136-145) 07/18/18 04:35 Potassium 4.0 mEq/L (3.5-5.1) 07/18/18 04:35 Chloride 103 mEq/L (98-107) 07/18/18 04:35 Carbon Dioxide 22.2 mEq/L (21.0-31.0) 07/18/18 04:35 Anion Gap 14.8 (7.0-16.0) 07/18/18 04:35 BUN 30 mg/dL (7-25) H 07/18/18 04:35 Creatinine 1.3 mg/dL (0.6-1.2) H 07/18/18 04:35 Est GFR ( Amer) TNP 07/18/18 04:35 Est GFR (Non-Af Amer) TNP 07/18/18 04:35 BUN/Creatinine Ratio 23.1 07/18/18 04:35 Glucose 285 mg/dL (70-105) H 07/18/18 04:35 POC Glucose 189 MG/DL (70 - 105) H 07/18/18 11:59 Calcium 9.8 mg/dL (8.6-10.3) 07/18/18 04:35 Total Bilirubin 0.3 mg/dL (0.3-1.0) 07/16/18 04:30 AST 12 U/L (13-39) L 07/16/18 04:30 ALT 6 U/L (7-52) L 07/16/18 04:30 Alkaline Phosphatase 53 U/L (34-104) 07/16/18 04:30 Total Protein 7.2 gm/dL (6.0-8.3) 07/16/18 04:30 Albumin 3.5 gm/dL (3.7-5.3) L 07/16/18 04:30 Globulin 3.7 gm/dL 07/16/18 04:30 Albumin/Globulin Ratio 1.0 (1.0-1.8) 07/16/18 04:30 Triglycerides 148 mg/dL (<150) 07/15/18 05:55 Cholesterol 169 mg/dL (<200) 07/15/18 05:55 LDL Cholesterol Direct 110 mg/dL (75-193) 07/15/18 05:55 HDL Cholesterol 27 mg/dL (23-92) 07/15/18 05:55 Lipase 36 U/L (11-82) 07/16/18 04:30 TSH 1.00 uIU/ml (0.34-5.60) 07/15/18 05:55 Urine Source RANDOM 07/14/18 16:45 Urine Color YELLOW 07/14/18 16:45 Urine Clarity HAZY (CLEAR) 07/14/18 16:45 Urine pH 6.0 (4.6 - 8.0) 07/14/18 16:45 Ur Specific [place] 1.010 (1.005-1.030) 07/14/18 16:45 Urine Protein NEGATIVE mg/dL (NEGATIVE) 07/14/18 16:45 Urine Glucose (UA) >=1000 mg/dL (NEGATIVE) H 07/14/18 16:45 Urine Ketones NEGATIVE mg/dL (NEGATIVE) 07/14/18 16:45 Urine Blood NEGATIVE (NEGATIVE) 07/14/18 16:45 Urine Nitrate POSITIVE (NEGATIVE) H 07/14/18 16:45 Urine Bilirubin NEGATIVE (NEGATIVE) 07/14/18 16:45 Urine Urobilinogen 0.2 E.U./dL (0.2 - 1.0) 07/14/18 16:45 Ur Leukocyte Esterase TRACE (NEGATIVE) H 07/14/18 16:45 Urine RBC 0-2 /hpf (0-5) 07/14/18 16:45 Urine WBC 6-10 /hpf (0-5) H 07/14/18 16:45 Ur Epithelial Cells FEW /lpf (FEW) 07/14/18 16:45 Urine Bacteria MANY /hpf (NONE SEEN) H 07/14/18 16:45 - Physical Exam Vitals and I&O: Vital Signs Temp 97.3 F 07/18/18 11:50 Pulse 68 07/18/18 11:50 Resp 18 07/18/18 12:00 BP 138/62 07/18/18 11:50 Pulse Ox 98 07/18/18 11:50 Intake & Output 07/17/18 07/18/18 07/18/18 18:59 06:59 18:59 Intake Total 850 300 Balance 850 300 Weight (lbs) 56.699 kg 56.744 kg Intake: Intake, IV Amount 50 100 Piperacillin Sodium/ 50 100 Tazobact 3.375 gm In Sodium Chloride 0.9% 50 ml @ 100 mls/hr IV Q8HR [facility] Rx#:[id number] Oral 800 200 Other: # Voids 3 4 # Bowel Movements 1 Stool Characteristics Soft Soft Soft Formed Formed Formed Brown Brown Brown Weight Source Bedscale Bedscale Active Medications: Current Medications Acetaminophen (Tylenol) 650 mg PO Q4HR PRN PRN Reason: Pain or Fever >101 Stop: 09/13/18 08:08 Bisacodyl (Dulcolax 10 Mg Supp) 10 mg RC DAILY PRN PRN Reason: Constipation Stop: 09/13/18 08:08 Carbidopa/Levodopa (Sinemet 10 Mg-100 Mg) 1 tab PO BID [facility] Stop: 09/13/18 08:59 Last Admin: 07/18/18 08:40 Dose: 1 tab [place] Oil/[place] Balsam/Trypsin (Venelex) 1 appl TP DAILY [facility] Stop: 09/17/18 08:59 Chlorhexidine Gluconate (Peridex) 5 ml MM DAILY [facility] Stop: 09/13/18 11:14 Last Admin: 07/18/18 08:42 Dose: 5 ml Cholecalciferol (Vitamin D3) 5,000 iu PO DAILY [facility] Stop: 09/13/18 08:59 Last Admin: 07/18/18 08:40 Dose: 5,000 iu Famotidine (Pepcid) 20 mg PO BID [facility] Stop: 09/13/18 08:59 Last Admin: 07/18/18 08:40 Dose: 20 mg Gabapentin (Neurontin) 200 mg PO TID [facility] Stop: 09/13/18 08:59 Last Admin: 07/18/18 13:39 Dose: 200 mg Meropenem 1 gm/ Sodium (Chloride) 100 mls @ 100 mls/hr IV Q8H [facility] Stop: 09/16/18 12:59 Last Admin: 07/18/18 13:39 Dose: 100 mls/hr Insulin Aspart (Novolog Insulin Sliding Scale) 0 units SUBQ ACHS [facility]; Protocol Stop: 09/13/18 11:29 Last Admin: 07/18/18 12:30 Dose: 2 units Insulin Detemir (Levemir Insulin) 30 units SUBQ Q12HR [facility]; Protocol Stop: 09/13/18 08:59 Last Admin: 07/18/18 08:52 Dose: 30 units Magnesium Hydroxide (Milk Of Magnesia) 30 ml PO DAILY PRN PRN Reason: Constipation Stop: 09/13/18 08:08 Megestrol Acetate (Megace) 400 mg PO BID [facility] Stop: 09/13/18 08:59 Last Admin: 07/18/18 08:41 Dose: 400 mg Metolazone (Zaroxolyn) 10 mg PO BID [facility] Stop: 09/13/18 08:59 Last Admin: 07/18/18 08:42 Dose: 10 mg Metoprolol Tartrate (Lopressor) 25 mg PO BID [facility] Stop: 09/13/18 08:59 Last Admin: 07/18/18 08:42 Dose: 25 mg Miscellaneous (Vte Chemical Prophylaxis Screen/ Admission) 1 ea MC PRN PRN PRN Reason: PROTOCOL Stop: 09/13/18 08:03 Mupirocin (Bactroban Oint) 1 appl NS BID [facility] Stop: 07/20/18 17:01 Last Admin: 07/18/18 08:51 Dose: 1 appl Ondansetron HCl (Zofran Odt) 4 mg PO Q6H PRN PRN Reason: Nausea / Vomiting Potassium Chloride (Klor-Con) 20 meq PO DAILY [facility] Stop: 09/13/18 08:59 Last Admin: 07/18/18 08:41 Dose: 20 meq Sodium Phosphate (Fleet Enema) 135 ml RC DAILY PRN PRN Reason: Constipation Stop: 09/13/18 08:08 Zinc Sulfate (Zinc Sulfate) 220 mg PO DAILY [facility] Stop: 09/13/18 08:59 Last Admin: 07/18/18 08:41 Dose: 220 mg General: Alert, No acute distress HEENT: Atraumatic Neck: Supple Cardiovascular: Regular rate, Normal S1, Normal S2 Lungs: Clear to auscultation Abdomen: Bowel sounds, Soft - Procedures Procedures: Procedures Procedure Code Date CONTROL BLEEDING IN GASTROINTESTINAL TRACT, ENDO [id number] 04/11/18 EXCISION OF RECTUM, ENDO, DIAGN [id number] 04/11/18 TRANSFUSE NONAUT RED BLOOD CELLS IN PERIPH VEIN, PERC 35661L9 04/03/18 Assessment/Plan - Assessment Assessment: 1. 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
[2018-07-19] MEDS: Meropenem 1 GM in Sodium Chloride 0.9% 100 ML IV SCH ×2 (05:38→13:53)
[2018-07-19] MEDS ORDERED: Venelex 60gm Tube TP SCH (09:00)
[2018-07-19] MEDS: Metolazone 5 MG TAB PO SCH (09:10)
[2018-07-19] MEDS: Potassium Chloride 20 mEq ER Tab PO SCH (09:11)
[2018-07-19] MEDS: Carbidopa/Levodopa 10/100 mg Tab PO SCH (09:11)
[2018-07-19] MEDS: Multivitamin w/ Minerals Tab PO SCH (09:11)
[2018-07-19] MEDS: Insulin Detemir 100 units/mL 10mL Vial SUBQ SCH (09:12)
[2018-07-19] MEDS: INSULIN ASPART SLIDING SCALE 100 UNITS/ML UNIT SUBQ SCH ×2 (09:12→12:30)
[2018-07-19] MEDS: Chlorhexidine Gluconate 0.12% 480mL Bottle MM SCH (09:25)
--- NOTE | 2018-07-19 10:08 | GI Progress Note ---
Subjective - Review of Systems Service Date: 07/19/18 Subjective: EVENTS NOTED. AYLIN ORAL DIET. NO ABD PAIN. Objective - Results Result Diagrams: 07/18/18 04:35 07/18/18 04:35 Recent Labs: Laboratory Last Values WBC 7.0 Th/cmm (4.8-10.8) 07/18/18 04:35 RBC 4.09 Mil/cmm (3.80-5.20) 07/18/18 04:35 Hgb 12.5 gm/dL (12-16) 07/18/18 04:35 Hct 37.6 % (41.0-60) L 07/18/18 04:35 MCV 92.0 fl (81-100) 07/18/18 04:35 MCH 30.6 pg (27.0-31.0) 07/18/18 04:35 MCHC Differential 33.3 pg (28.0-36.0) 07/18/18 04:35 RDW 14.2 % (11.5-20.0) 07/18/18 04:35 Plt Count 352 Th/cmm (150-400) 07/18/18 04:35 MPV 6.9 fl 07/18/18 04:35 Neutrophils % 67.3 % (40.0-80.0) 07/18/18 04:35 Lymphocytes % 21.2 % (20.0-50.0) 07/18/18 04:35 Monocytes % 9.5 % (2.0-10.0) 07/18/18 04:35 Eosinophils % 1.6 % (0.0-5.0) 07/18/18 04:35 Basophils % 0.4 % (0.0-2.0) 07/18/18 04:35 Sodium 136 mEq/L (136-145) 07/18/18 04:35 Potassium 4.0 mEq/L (3.5-5.1) 07/18/18 04:35 Chloride 103 mEq/L (98-107) 07/18/18 04:35 Carbon Dioxide 22.2 mEq/L (21.0-31.0) 07/18/18 04:35 Anion Gap 14.8 (7.0-16.0) 07/18/18 04:35 BUN 30 mg/dL (7-25) H 07/18/18 04:35 Creatinine 1.3 mg/dL (0.6-1.2) H 07/18/18 04:35 Est GFR ( Amer) TNP 07/18/18 04:35 Est GFR (Non-Af Amer) TNP 07/18/18 04:35 BUN/Creatinine Ratio 23.1 07/18/18 04:35 Glucose 285 mg/dL (70-105) H 07/18/18 04:35 POC Glucose 189 MG/DL (70 - 105) H 07/19/18 06:02 Calcium 9.8 mg/dL (8.6-10.3) 07/18/18 04:35 Total Bilirubin 0.3 mg/dL (0.3-1.0) 07/16/18 04:30 AST 12 U/L (13-39) L 07/16/18 04:30 ALT 6 U/L (7-52) L 07/16/18 04:30 Alkaline Phosphatase 53 U/L (34-104) 07/16/18 04:30 Total Protein 7.2 gm/dL (6.0-8.3) 07/16/18 04:30 Albumin 3.5 gm/dL (3.7-5.3) L 07/16/18 04:30 Globulin 3.7 gm/dL 07/16/18 04:30 Albumin/Globulin Ratio 1.0 (1.0-1.8) 07/16/18 04:30 Triglycerides 148 mg/dL (<150) 07/15/18 05:55 Cholesterol 169 mg/dL (<200) 07/15/18 05:55 LDL Cholesterol Direct 110 mg/dL (75-193) 07/15/18 05:55 HDL Cholesterol 27 mg/dL (23-92) 07/15/18 05:55 Lipase 36 U/L (11-82) 07/16/18 04:30 TSH 1.00 uIU/ml (0.34-5.60) 07/15/18 05:55 Urine Source RANDOM 07/14/18 16:45 Urine Color YELLOW 07/14/18 16:45 Urine Clarity HAZY (CLEAR) 07/14/18 16:45 Urine pH 6.0 (4.6 - 8.0) 07/14/18 16:45 Ur Specific [place] 1.010 (1.005-1.030) 07/14/18 16:45 Urine Protein NEGATIVE mg/dL (NEGATIVE) 07/14/18 16:45 Urine Glucose (UA) >=1000 mg/dL (NEGATIVE) H 07/14/18 16:45 Urine Ketones NEGATIVE mg/dL (NEGATIVE) 07/14/18 16:45 Urine Blood NEGATIVE (NEGATIVE) 07/14/18 16:45 Urine Nitrate POSITIVE (NEGATIVE) H 07/14/18 16:45 Urine Bilirubin NEGATIVE (NEGATIVE) 07/14/18 16:45 Urine Urobilinogen 0.2 E.U./dL (0.2 - 1.0) 07/14/18 16:45 Ur Leukocyte Esterase TRACE (NEGATIVE) H 07/14/18 16:45 Urine RBC 0-2 /hpf (0-5) 07/14/18 16:45 Urine WBC 6-10 /hpf (0-5) H 07/14/18 16:45 Ur Epithelial Cells FEW /lpf (FEW) 07/14/18 16:45 Urine Bacteria MANY /hpf (NONE SEEN) H 07/14/18 16:45 - Physical Exam Vitals and I&O: Vital Signs Temp 96.3 F 07/19/18 04:00 Pulse 80 07/19/18 09:11 Resp 18 07/19/18 04:00 BP 156/79 07/19/18 09:11 Pulse Ox 98 07/19/18 04:00 Intake & Output 07/18/18 07/19/18 07/19/18 18:59 06:59 18:59 Intake Total 1300 100 Balance 1300 100 Weight (lbs) 55.701 kg 56.79 kg Intake: Intake, IV Amount 100 100 Meropenem 1 gm In Sodium 100 100 Chloride 0.9% 100 ml @ 100 mls/hr IV Q8H [facility] Rx# :[id number] Oral 1200 Other: # Voids 2 3 # Bowel Movements 0 0 Stool Characteristics Soft Soft Formed Formed Brown Brown Weight Source Bedscale Bedscale Active Medications: Current Medications Acetaminophen (Tylenol) 650 mg PO Q4HR PRN PRN Reason: Pain or Fever >101 Stop: 09/13/18 08:08 Last Admin: 07/18/18 21:47 Dose: 650 mg Bisacodyl (Dulcolax 10 Mg Supp) 10 mg RC DAILY PRN PRN Reason: Constipation Stop: 09/13/18 08:08 Carbidopa/Levodopa (Sinemet 10 Mg-100 Mg) 1 tab PO BID TAMAR Stop: 09/13/18 08:59 Last Admin: 07/19/18 09:11 Dose: 1 tab [place] Oil/[place] Balsam/Trypsin (Venelex) 1 appl TP DAILY TAMAR Stop: 09/17/18 08:59 Last Admin: 07/19/18 09:23 Dose: 1 appl Chlorhexidine Gluconate (Peridex) 5 ml MM DAILY TAMAR Stop: 09/13/18 11:14 Last Admin: 07/19/18 09:25 Dose: 5 ml Cholecalciferol (Vitamin D3) 5,000 iu PO DAILY TAMAR Stop: 09/13/18 08:59 Last Admin: 07/19/18 09:09 Dose: 5,000 iu Famotidine (Pepcid) 20 mg PO BID TAMAR Stop: 09/13/18 08:59 Last Admin: 07/19/18 09:10 Dose: 20 mg Gabapentin (Neurontin) 200 mg PO TID TAMAR Stop: 09/13/18 08:59 Last Admin: 07/19/18 09:10 Dose: 200 mg Meropenem 1 gm/ Sodium (Chloride) 100 mls @ 100 mls/hr IV Q8H [facility] Stop: 09/16/18 12:59 Last Admin: 07/19/18 05:38 Dose: 100 mls/hr Insulin Aspart (Novolog Insulin Sliding Scale) 0 units SUBQ ACHS [facility]; Protocol Stop: 09/13/18 11:29 Last Admin: 07/19/18 09:12 Dose: 2 units Insulin Detemir (Levemir Insulin) 30 units SUBQ Q12HR [facility]; Protocol Stop: 09/13/18 08:59 Last Admin: 07/19/18 09:12 Dose: 30 units Magnesium Hydroxide (Milk Of Magnesia) 30 ml PO DAILY PRN PRN Reason: Constipation Stop: 09/13/18 08:08 Megestrol Acetate (Megace) 400 mg PO BID [facility] Stop: 09/13/18 08:59 Last Admin: 07/19/18 09:11 Dose: 400 mg Metolazone (Zaroxolyn) 10 mg PO BID TAMAR Stop: 09/13/18 08:59 Last Admin: 07/19/18 09:10 Dose: 10 mg Metoprolol Tartrate (Lopressor) 25 mg PO BID [facility] Stop: 09/13/18 08:59 Last Admin: 07/19/18 09:11 Dose: 25 mg Miscellaneous (Vte Chemical Prophylaxis Screen/ Admission) 1 ea MC PRN PRN PRN Reason: PROTOCOL Stop: 09/13/18 08:03 Mupirocin (Bactroban Oint) 1 appl NS BID TAMAR Stop: 07/20/18 17:01 Last Admin: 07/19/18 09:23 Dose: 1 appl Ondansetron HCl (Zofran Odt) 4 mg PO Q6H PRN PRN Reason: Nausea / Vomiting Potassium Chloride (Klor-Con) 20 meq PO DAILY [facility] Stop: 09/13/18 08:59 Last Admin: 07/19/18 09:11 Dose: 20 meq Sodium Phosphate (Fleet Enema) 135 ml RC DAILY PRN PRN Reason: Constipation Stop: 09/13/18 08:08 Zinc Sulfate (Zinc Sulfate) 220 mg PO DAILY [facility] Stop: 09/13/18 08:59 Last Admin: 07/19/18 09:11 Dose: 220 mg General: Alert, No acute distress HEENT: Atraumatic Neck: Supple Cardiovascular: Regular rate Lungs: Clear to auscultation Abdomen: Bowel sounds, Soft, no Tender - Procedures Procedures: Procedures Procedure Code Date CONTROL BLEEDING IN GASTROINTESTINAL TRACT, ENDO [id number] 04/11/18 EXCISION OF RECTUM, ENDO, DIAGN [id number] 04/11/18 TRANSFUSE NONAUT RED BLOOD CELLS IN PERIPH VEIN, PERC [id number] 04/03/18 Assessment/Plan - Assessment Assessment: IMPRESSION: 1. Abdominal pain - better. KUB WAS UNREMARKABLE LFTS AND LIPASE NORMAL Possibly due to UTI 2. Hx colon cancer s/p resection at [facility] earlier this year. 3. Vaginal bleeding. - Plan Plan: 1. Supportive care. 2. Treater eval and f/u as per hospitalist. 3. Oral diet as tolerated. 4. Repeat colonoscopy as outpt usually 6-12 months after resection.
--- NOTE | 2018-07-19 11:52 | Infectious Disease Prog Note ---
Infectious Disease Subjective - Review of Systems Service Date: 07/19/18 Subjective: There is no new change, no fever. dysuria. Infectious Disease Objective - Results Result Diagrams: 07/18/18 04:35 07/18/18 04:35 Recent Labs: Laboratory Last Values WBC 7.0 Th/cmm (4.8-10.8) 07/18/18 04:35 RBC 4.09 Mil/cmm (3.80-5.20) 07/18/18 04:35 Hgb 12.5 gm/dL (12-16) 07/18/18 04:35 Hct 37.6 % (41.0-60) L 07/18/18 04:35 MCV 92.0 fl (81-100) 07/18/18 04:35 MCH 30.6 pg (27.0-31.0) 07/18/18 04:35 MCHC Differential 33.3 pg (28.0-36.0) 07/18/18 04:35 RDW 14.2 % (11.5-20.0) 07/18/18 04:35 Plt Count 352 Th/cmm (150-400) 07/18/18 04:35 MPV 6.9 fl 07/18/18 04:35 Neutrophils % 67.3 % (40.0-80.0) 07/18/18 04:35 Lymphocytes % 21.2 % (20.0-50.0) 07/18/18 04:35 Monocytes % 9.5 % (2.0-10.0) 07/18/18 04:35 Eosinophils % 1.6 % (0.0-5.0) 07/18/18 04:35 Basophils % 0.4 % (0.0-2.0) 07/18/18 04:35 Sodium 136 mEq/L (136-145) 07/18/18 04:35 Potassium 4.0 mEq/L (3.5-5.1) 07/18/18 04:35 Chloride 103 mEq/L (98-107) 07/18/18 04:35 Carbon Dioxide 22.2 mEq/L (21.0-31.0) 07/18/18 04:35 Anion Gap 14.8 (7.0-16.0) 07/18/18 04:35 BUN 30 mg/dL (7-25) H 07/18/18 04:35 Creatinine 1.3 mg/dL (0.6-1.2) H 07/18/18 04:35 Est GFR ( Amer) TNP 07/18/18 04:35 Est GFR (Non-Af Amer) TNP 07/18/18 04:35 BUN/Creatinine Ratio 23.1 07/18/18 04:35 Glucose 285 mg/dL (70-105) H 07/18/18 04:35 POC Glucose 189 MG/DL (70 - 105) H 07/19/18 06:02 Calcium 9.8 mg/dL (8.6-10.3) 07/18/18 04:35 Total Bilirubin 0.3 mg/dL (0.3-1.0) 07/16/18 04:30 AST 12 U/L (13-39) L 07/16/18 04:30 ALT 6 U/L (7-52) L 07/16/18 04:30 Alkaline Phosphatase 53 U/L (34-104) 07/16/18 04:30 Total Protein 7.2 gm/dL (6.0-8.3) 07/16/18 04:30 Albumin 3.5 gm/dL (3.7-5.3) L 07/16/18 04:30 Globulin 3.7 gm/dL 07/16/18 04:30 Albumin/Globulin Ratio 1.0 (1.0-1.8) 07/16/18 04:30 Triglycerides 148 mg/dL (<150) 07/15/18 05:55 Cholesterol 169 mg/dL (<200) 07/15/18 05:55 LDL Cholesterol Direct 110 mg/dL (75-193) 07/15/18 05:55 HDL Cholesterol 27 mg/dL (23-92) 07/15/18 05:55 Lipase 36 U/L (11-82) 07/16/18 04:30 TSH 1.00 uIU/ml (0.34-5.60) 07/15/18 05:55 Urine Source RANDOM 07/14/18 16:45 Urine Color YELLOW 07/14/18 16:45 Urine Clarity HAZY (CLEAR) 07/14/18 16:45 Urine pH 6.0 (4.6 - 8.0) 07/14/18 16:45 Ur Specific [place] 1.010 (1.005-1.030) 07/14/18 16:45 Urine Protein NEGATIVE mg/dL (NEGATIVE) 07/14/18 16:45 Urine Glucose (UA) >=1000 mg/dL (NEGATIVE) H 07/14/18 16:45 Urine Ketones NEGATIVE mg/dL (NEGATIVE) 07/14/18 16:45 Urine Blood NEGATIVE (NEGATIVE) 07/14/18 16:45 Urine Nitrate POSITIVE (NEGATIVE) H 07/14/18 16:45 Urine Bilirubin NEGATIVE (NEGATIVE) 07/14/18 16:45 Urine Urobilinogen 0.2 E.U./dL (0.2 - 1.0) 07/14/18 16:45 Ur Leukocyte Esterase TRACE (NEGATIVE) H 07/14/18 16:45 Urine RBC 0-2 /hpf (0-5) 07/14/18 16:45 Urine WBC 6-10 /hpf (0-5) H 07/14/18 16:45 Ur Epithelial Cells FEW /lpf (FEW) 07/14/18 16:45 Urine Bacteria MANY /hpf (NONE SEEN) H 07/14/18 16:45 - Physical Exam Vitals and I&O: Vital Signs Temp 97.8 F 07/19/18 08:00 Pulse 80 07/19/18 09:11 Resp 17 07/19/18 08:00 BP 156/79 07/19/18 09:11 Pulse Ox 98 07/19/18 08:00 Intake & Output 07/18/18 07/19/18 07/19/18 18:59 06:59 18:59 Intake Total 1300 100 Balance 1300 100 Weight (lbs) 55.701 kg 56.79 kg Intake: Intake, IV Amount 100 100 Meropenem 1 gm In Sodium 100 100 Chloride 0.9% 100 ml @ 100 mls/hr IV Q8H [facility] Rx# :[id number] Oral 1200 Other: # Voids 2 3 # Bowel Movements 0 0 Stool Characteristics Soft Soft Formed Formed Brown Brown Weight Source Bedscale Bedscale Active Medications: Current Medications Acetaminophen (Tylenol) 650 mg PO Q4HR PRN PRN Reason: Pain or Fever >101 Stop: 09/13/18 08:08 Last Admin: 07/18/18 21:47 Dose: 650 mg Bisacodyl (Dulcolax 10 Mg Supp) 10 mg RC DAILY PRN PRN Reason: Constipation Stop: 09/13/18 08:08 Carbidopa/Levodopa (Sinemet 10 Mg-100 Mg) 1 tab PO BID [facility] Stop: 09/13/18 08:59 Last Admin: 07/19/18 09:11 Dose: 1 tab [place] Oil/[place] Balsam/Trypsin (Venelex) 1 appl TP DAILY [facility] Stop: 09/17/18 08:59 Last Admin: 07/19/18 09:23 Dose: 1 appl Chlorhexidine Gluconate (Peridex) 5 ml MM DAILY [facility] Stop: 09/13/18 11:14 Last Admin: 07/19/18 09:25 Dose: 5 ml Cholecalciferol (Vitamin D3) 5,000 iu PO DAILY [facility] Stop: 09/13/18 08:59 Last Admin: 07/19/18 09:09 Dose: 5,000 iu Famotidine (Pepcid) 20 mg PO BID [facility] Stop: 09/13/18 08:59 Last Admin: 07/19/18 09:10 Dose: 20 mg Gabapentin (Neurontin) 200 mg PO TID [facility] Stop: 09/13/18 08:59 Last Admin: 07/19/18 09:10 Dose: 200 mg Meropenem 1 gm/ Sodium (Chloride) 100 mls @ 100 mls/hr IV Q8H [facility] Stop: 09/16/18 12:59 Last Admin: 07/19/18 05:38 Dose: 100 mls/hr Insulin Aspart (Novolog Insulin Sliding Scale) 0 units SUBQ ACHS [facility]; Protocol Stop: 09/13/18 11:29 Last Admin: 07/19/18 09:12 Dose: 2 units Insulin Detemir (Levemir Insulin) 30 units SUBQ Q12HR [facility]; Protocol Stop: 09/13/18 08:59 Last Admin: 07/19/18 09:12 Dose: 30 units Magnesium Hydroxide (Milk Of Magnesia) 30 ml PO DAILY PRN PRN Reason: Constipation Stop: 09/13/18 08:08 Megestrol Acetate (Megace) 400 mg PO BID [facility] Stop: 09/13/18 08:59 Last Admin: 07/19/18 09:11 Dose: 400 mg Metolazone (Zaroxolyn) 10 mg PO BID [facility] Stop: 09/13/18 08:59 Last Admin: 07/19/18 09:10 Dose: 10 mg Metoprolol Tartrate (Lopressor) 25 mg PO BID [facility] Stop: 09/13/18 08:59 Last Admin: 07/19/18 09:11 Dose: 25 mg Miscellaneous (Vte Chemical Prophylaxis Screen/ Admission) 1 ea MC PRN PRN PRN Reason: PROTOCOL Stop: 09/13/18 08:03 Mupirocin (Bactroban Oint) 1 appl NS BID [facility] Stop: 07/20/18 17:01 Last Admin: 07/19/18 09:23 Dose: 1 appl Ondansetron HCl (Zofran Odt) 4 mg PO Q6H PRN PRN Reason: Nausea / Vomiting Potassium Chloride (Klor-Con) 20 meq PO DAILY [facility] Stop: 09/13/18 08:59 Last Admin: 07/19/18 09:11 Dose: 20 meq Sodium Phosphate (Fleet Enema) 135 ml RC DAILY PRN PRN Reason: Constipation Stop: 09/13/18 08:08 Zinc Sulfate (Zinc Sulfate) 220 mg PO DAILY [facility] Stop: 09/13/18 08:59 Last Admin: 07/19/18 09:11 Dose: 220 mg General: no acute distress, well developed, well nourished HEENT: atraumatic, normocephalic, PERRLA Neck: supple, no thyromegaly Cardiovascular: S1S2, regular Lungs: clear to auscultation bilaterally, clear to percussion Abdomen: soft, no tender Extremities: no cyanosis, no clubbing, no edema Neurological: awake, alert, oriented Skin: intact - Procedures Procedures: Procedures Procedure Code Date CONTROL BLEEDING IN GASTROINTESTINAL TRACT, ENDO [id number] 04/11/18 EXCISION OF RECTUM, ENDO, DIAGN [id number] 04/11/18 TRANSFUSE NONAUT RED BLOOD CELLS IN PERIPH VEIN, PERC 99820B4 04/03/18 Infectious Disease Assmt/Plan - Assessment Assessment: 1. UTI, Proteus and ESBL E coli. - Plan Plan: Continue meropenem. Nutritional Asmnt/Malnutr-PDOC - Dietary Evaluation Malnutrition Findings (Please click <Entered> for more info): Nutritional Asmnt/Malnutrition Start: 07/15/18 16: 25 Text: Status: Complete Freq: Protocol: Document 07/15/18 16:25 ROSEMARIE (Rec: 07/15/18 16:52 ROSEMARIE [email or web address]) Nutritional Asmnt/Malnutrition Patient General Information Nutritional Screening High Risk Consult Diagnosis UTI, hyperglycemia Pertinent Medical Hx/Surgical Hx HTN, DM Subjective Information Received diet consult for bs 416 upon admission. Pt resting in room at time of visit. Pt states appetite is good, no preferences or concerns with her diet/meals. Per nurse note : pt finished 50-60% dinner yesterday. Spoke with SURVEY SUPERINTENDENT, SURVEY SUPERINTENDENT stated pt consumed 70% of breakfast this morning and ate well. Current Diet Order/ Nutrition Support soft/bland; arginaid powder Pertinent Medications dulcolax, Vit D3, pepcid, novolog, levemir, MOM, megace, zaroxolyn, zofran, klor-con, zinc sulfate Pertinent Labs 07/15: K 3.0, BUN 31, glucose 109, POC 186 07/14: Na 132, glucose 416, Cl 97, Bun 38, POC 103-216 Nutritional Hx/Data Height 1.65 m Height (Calculated Centimeters) 165.1 Current Weight (lbs) 53.977 kg Weight (Calculated Kilograms) 54.0 Weight (Calculated Grams) 14104.5 [place] Body Weight 125 lb Body Mass Index (BMI) 19.8 Weight Status Approriate GI Symptoms GI Symptoms None Last BM none noted Difficult in: None Food Allergies No Skin Integrity/Comment: stage II decubitus to medial left buttocks, abrasion to left leg, b/l heels non blanchable Estimated Nutritional Goals BEE in Kcals: Using Current wt Calories/Kcals/Kg 27-32 Kcals Calculated 5846-0203 Protein: Using Current wt Protein g/k.2-1.4 Protein Calculated 65-76 g Fluid: ml 1178-5420 (1 ml/kcal) Nutritional Problem 1. Problem Problem Increased protein and kcal needs Etiology impaired skin integrity Signs/Symptoms: stage II decubitus to medial left buttocks Malnutrition Alert Is there a minimum of two criteria No selected? Query Text:Check all the applicable criteria. A minimum of two criteria are recommended for diagnosis of either severe or non-severe malnutrition. Malnutrition Related to Morbid Obesity Malnutrition related to morbid obesity No Intervention/Recommendation Comments 1. Continue with soft/bland diet and arginaid as ordered. Consider CCHO 60gm diet if bs remains above normal limits 2. Consider supplementing with Vitamin C to promote wound healing 3. Monitor PO intake, wt, labs and skin integrity 4. F/U as moderate risk in 3-5 days, 07/18-07/20; PO check 07/18 Expected Outcomes/Goals Expected Outcomes/Goals 1. PO intake to meet at least 75% of nutritional needs 2. Wt stability, wound healing , and nutrition related labs to approach normal limits Reviewed by Roopa Lafleur RD
--- NOTE | 2018-07-19 11:58 | Internal Medicine Prog Note ---
Internal Medicine Subjective - Subjective Service Date: 07/19/18 Patient is:: awake, other (denies abd pain, no nausea ) Internal Medicine Objective - Results Result Diagrams: 07/18/18 04:35 07/18/18 04:35 Recent Labs: Laboratory Last Values WBC 7.0 Th/cmm (4.8-10.8) 07/18/18 04:35 RBC 4.09 Mil/cmm (3.80-5.20) 07/18/18 04:35 Hgb 12.5 gm/dL (12-16) 07/18/18 04:35 Hct 37.6 % (41.0-60) L 07/18/18 04:35 MCV 92.0 fl (81-100) 07/18/18 04:35 MCH 30.6 pg (27.0-31.0) 07/18/18 04:35 MCHC Differential 33.3 pg (28.0-36.0) 07/18/18 04:35 RDW 14.2 % (11.5-20.0) 07/18/18 04:35 Plt Count 352 Th/cmm (150-400) 07/18/18 04:35 MPV 6.9 fl 07/18/18 04:35 Neutrophils % 67.3 % (40.0-80.0) 07/18/18 04:35 Lymphocytes % 21.2 % (20.0-50.0) 07/18/18 04:35 Monocytes % 9.5 % (2.0-10.0) 07/18/18 04:35 Eosinophils % 1.6 % (0.0-5.0) 07/18/18 04:35 Basophils % 0.4 % (0.0-2.0) 07/18/18 04:35 Sodium 136 mEq/L (136-145) 07/18/18 04:35 Potassium 4.0 mEq/L (3.5-5.1) 07/18/18 04:35 Chloride 103 mEq/L (98-107) 07/18/18 04:35 Carbon Dioxide 22.2 mEq/L (21.0-31.0) 07/18/18 04:35 Anion Gap 14.8 (7.0-16.0) 07/18/18 04:35 BUN 30 mg/dL (7-25) H 07/18/18 04:35 Creatinine 1.3 mg/dL (0.6-1.2) H 07/18/18 04:35 Est GFR ( Amer) TNP 07/18/18 04:35 Est GFR (Non-Af Amer) TNP 07/18/18 04:35 BUN/Creatinine Ratio 23.1 07/18/18 04:35 Glucose 285 mg/dL (70-105) H 07/18/18 04:35 POC Glucose 189 MG/DL (70 - 105) H 07/19/18 06:02 Calcium 9.8 mg/dL (8.6-10.3) 07/18/18 04:35 Total Bilirubin 0.3 mg/dL (0.3-1.0) 07/16/18 04:30 AST 12 U/L (13-39) L 07/16/18 04:30 ALT 6 U/L (7-52) L 07/16/18 04:30 Alkaline Phosphatase 53 U/L (34-104) 07/16/18 04:30 Total Protein 7.2 gm/dL (6.0-8.3) 07/16/18 04:30 Albumin 3.5 gm/dL (3.7-5.3) L 07/16/18 04:30 Globulin 3.7 gm/dL 07/16/18 04:30 Albumin/Globulin Ratio 1.0 (1.0-1.8) 07/16/18 04:30 Triglycerides 148 mg/dL (<150) 07/15/18 05:55 Cholesterol 169 mg/dL (<200) 07/15/18 05:55 LDL Cholesterol Direct 110 mg/dL (75-193) 07/15/18 05:55 HDL Cholesterol 27 mg/dL (23-92) 07/15/18 05:55 Lipase 36 U/L (11-82) 07/16/18 04:30 TSH 1.00 uIU/ml (0.34-5.60) 07/15/18 05:55 Urine Source RANDOM 07/14/18 16:45 Urine Color YELLOW 07/14/18 16:45 Urine Clarity HAZY (CLEAR) 07/14/18 16:45 Urine pH 6.0 (4.6 - 8.0) 07/14/18 16:45 Ur Specific [place] 1.010 (1.005-1.030) 07/14/18 16:45 Urine Protein NEGATIVE mg/dL (NEGATIVE) 07/14/18 16:45 Urine Glucose (UA) >=1000 mg/dL (NEGATIVE) H 07/14/18 16:45 Urine Ketones NEGATIVE mg/dL (NEGATIVE) 07/14/18 16:45 Urine Blood NEGATIVE (NEGATIVE) 07/14/18 16:45 Urine Nitrate POSITIVE (NEGATIVE) H 07/14/18 16:45 Urine Bilirubin NEGATIVE (NEGATIVE) 07/14/18 16:45 Urine Urobilinogen 0.2 E.U./dL (0.2 - 1.0) 07/14/18 16:45 Ur Leukocyte Esterase TRACE (NEGATIVE) H 07/14/18 16:45 Urine RBC 0-2 /hpf (0-5) 07/14/18 16:45 Urine WBC 6-10 /hpf (0-5) H 07/14/18 16:45 Ur Epithelial Cells FEW /lpf (FEW) 07/14/18 16:45 Urine Bacteria MANY /hpf (NONE SEEN) H 07/14/18 16:45 - Physical Exam Vitals and I&O: Vital Signs Temp 97.8 F 07/19/18 08:00 Pulse 80 07/19/18 09:11 Resp 17 07/19/18 08:00 BP 156/79 07/19/18 09:11 Pulse Ox 98 07/19/18 08:00 Intake & Output 07/18/18 07/19/18 07/19/18 18:59 06:59 18:59 Intake Total 1300 100 Balance 1300 100 Weight (lbs) 122 lb 12.8 oz 125 lb 3.2 oz Intake: Intake, IV Amount 100 100 Meropenem 1 gm In Sodium 100 100 Chloride 0.9% 100 ml @ 100 mls/hr IV Q8H [facility] Rx# :[id number] Oral 1200 Other: # Voids 2 3 # Bowel Movements 0 0 Stool Characteristics Soft Soft Formed Formed Brown Brown Weight Source Bedscale Bedscale Active Medications: Current Medications Acetaminophen (Tylenol) 650 mg PO Q4HR PRN PRN Reason: Pain or Fever >101 Stop: 09/13/18 08:08 Last Admin: 07/18/18 21:47 Dose: 650 mg Bisacodyl (Dulcolax 10 Mg Supp) 10 mg RC DAILY PRN PRN Reason: Constipation Stop: 09/13/18 08:08 Carbidopa/Levodopa (Sinemet 10 Mg-100 Mg) 1 tab PO BID [facility] Stop: 09/13/18 08:59 Last Admin: 07/19/18 09:11 Dose: 1 tab [place] Oil/[place] Balsam/Trypsin (Venelex) 1 appl TP DAILY [facility] Stop: 09/17/18 08:59 Last Admin: 07/19/18 09:23 Dose: 1 appl Chlorhexidine Gluconate (Peridex) 5 ml MM DAILY [facility] Stop: 09/13/18 11:14 Last Admin: 07/19/18 09:25 Dose: 5 ml Cholecalciferol (Vitamin D3) 5,000 iu PO DAILY [facility] Stop: 09/13/18 08:59 Last Admin: 07/19/18 09:09 Dose: 5,000 iu Famotidine (Pepcid) 20 mg PO BID [facility] Stop: 09/13/18 08:59 Last Admin: 07/19/18 09:10 Dose: 20 mg Gabapentin (Neurontin) 200 mg PO TID [facility] Stop: 09/13/18 08:59 Last Admin: 07/19/18 09:10 Dose: 200 mg Meropenem 1 gm/ Sodium (Chloride) 100 mls @ 100 mls/hr IV Q8H [facility] Stop: 09/16/18 12:59 Last Admin: 07/19/18 05:38 Dose: 100 mls/hr Insulin Aspart (Novolog Insulin Sliding Scale) 0 units SUBQ ACHS [facility]; Protocol Stop: 09/13/18 11:29 Last Admin: 07/19/18 09:12 Dose: 2 units Insulin Detemir (Levemir Insulin) 30 units SUBQ Q12HR [facility]; Protocol Stop: 09/13/18 08:59 Last Admin: 07/19/18 09:12 Dose: 30 units Magnesium Hydroxide (Milk Of Magnesia) 30 ml PO DAILY PRN PRN Reason: Constipation Stop: 09/13/18 08:08 Megestrol Acetate (Megace) 400 mg PO BID [facility] Stop: 09/13/18 08:59 Last Admin: 07/19/18 09:11 Dose: 400 mg Metolazone (Zaroxolyn) 10 mg PO BID [facility] Stop: 09/13/18 08:59 Last Admin: 07/19/18 09:10 Dose: 10 mg Metoprolol Tartrate (Lopressor) 25 mg PO BID [facility] Stop: 09/13/18 08:59 Last Admin: 07/19/18 09:11 Dose: 25 mg Miscellaneous (Vte Chemical Prophylaxis Screen/ Admission) 1 ea MC PRN PRN PRN Reason: PROTOCOL Stop: 09/13/18 08:03 Mupirocin (Bactroban Oint) 1 appl NS BID [facility] Stop: 07/20/18 17:01 Last Admin: 07/19/18 09:23 Dose: 1 appl Ondansetron HCl (Zofran Odt) 4 mg PO Q6H PRN PRN Reason: Nausea / Vomiting Potassium Chloride (Klor-Con) 20 meq PO DAILY [facility] Stop: 09/13/18 08:59 Last Admin: 07/19/18 09:11 Dose: 20 meq Sodium Phosphate (Fleet Enema) 135 ml RC DAILY PRN PRN Reason: Constipation Stop: 09/13/18 08:08 Zinc Sulfate (Zinc Sulfate) 220 mg PO DAILY [facility] Stop: 09/13/18 08:59 Last Admin: 07/19/18 09:11 Dose: 220 mg General: alert HEENT: NC/AT Neck: Supple Lungs: CTAB Cardiovascular: Normal S1, Normal S2 Abdomen: soft, non-tender Extremities: clear Neurological: no change - Procedures Procedures: Procedures Procedure Code Date CONTROL BLEEDING IN GASTROINTESTINAL TRACT, ENDO [id number] 04/11/18 EXCISION OF RECTUM, ENDO, DIAGN [id number] 04/11/18 TRANSFUSE NONAUT RED BLOOD CELLS IN PERIPH VEIN, PERC 60779O5 04/03/18 Internal Medicine Assmt/Plan - Assessment Assessment: acute uti Proteus and ESBL E coli. sacral ulcer with mrsa uncontrolled dm htn generalized weakness - Plan Plan: [facility] EVAL follow up labs in am wound care continue current orders Nutritional Asmnt/Malnutr-PDOC - Dietary Evaluation Malnutrition Findings (Please click <Entered> for more info): Nutritional Asmnt/Malnutrition Start: 07/15/18 16: 25 Text: Status: Complete Freq: Protocol: Document 07/15/18 16:25 ROSEMARIE (Rec: 07/15/18 16:52 ROSEMARIE [email or web address]) Nutritional Asmnt/Malnutrition Patient General Information Nutritional Screening High Risk Consult Diagnosis UTI, hyperglycemia Pertinent Medical Hx/Surgical Hx HTN, DM Subjective Information Received diet consult for bs 416 upon admission. Pt resting in room at time of visit. Pt states appetite is good, no preferences or concerns with her diet/meals. Per nurse note : pt finished 50-60% dinner yesterday. Spoke with ASSEMBLER ERECTOR, ASSEMBLER ERECTOR stated pt consumed 70% of breakfast this morning and ate well. Current Diet Order/ Nutrition Support soft/bland; arginaid powder Pertinent Medications dulcolax, Vit D3, pepcid, novolog, levemir, MOM, megace, zaroxolyn, zofran, klor-con, zinc sulfate Pertinent Labs 07/15: K 3.0, BUN 31, glucose 109, POC 186 07/14: Na 132, glucose 416, Cl 97, Bun 38, POC 103-216 Nutritional Hx/Data Height 5 ft 5 in Height (Calculated Centimeters) 165.1 Current Weight (lbs) 119 lb Weight (Calculated Kilograms) 54.0 Weight (Calculated Grams) 41123.5 [place] Body Weight 125 lb Body Mass Index (BMI) 19.8 Weight Status Approriate GI Symptoms GI Symptoms None Last BM none noted Difficult in: None Food Allergies No Skin Integrity/Comment: stage II decubitus to medial left buttocks, abrasion to left leg, b/l heels non blanchable Estimated Nutritional Goals BEE in Kcals: Using Current wt Calories/Kcals/Kg 27-32 Kcals Calculated 4248-2296 Protein: Using Current wt Protein g/k.2-1.4 Protein Calculated 65-76 g Fluid: ml 2955-8362 (1 ml/kcal) Nutritional Problem 1. Problem Problem Increased protein and kcal needs Etiology impaired skin integrity Signs/Symptoms: stage II decubitus to medial left buttocks Malnutrition Alert Is there a minimum of two criteria No selected? Query Text:Check all the applicable criteria. A minimum of two criteria are recommended for diagnosis of either severe or non-severe malnutrition. Malnutrition Related to Morbid Obesity Malnutrition related to morbid obesity No Intervention/Recommendation Comments 1. Continue with soft/bland diet and arginaid as ordered. Consider CCHO 60gm diet if bs remains above normal limits 2. Consider supplementing with Vitamin C to promote wound healing 3. Monitor PO intake, wt, labs and skin integrity 4. F/U as moderate risk in 3-5 days, 07/18-07/20; PO check 07/18 Expected Outcomes/Goals Expected Outcomes/Goals 1. PO intake to meet at least 75% of nutritional needs 2. Wt stability, wound healing , and nutrition related labs to approach normal limits Reviewed by Roopa Lafleur RD
== END 2018-07-19 15:20 | DRG 690 ==
LOC: ER 16:05 → TELE 19:40
PROVIDERS: ADMIT Internal Medicine; ATTEND Internal Medicine
DX: N39.0 Urinary tract infection, site not specified (principal); R31.9 Hematuria, unspecified; E11.65 Type 2 diabetes mellitus with hyperglycemia; I10 Essential (primary) hypertension; L89.152 Pressure ulcer of sacral region, stage 2; K59.00 Constipation, unspecified; B96.4 Proteus (mirabilis) (morganii) as the cause of diseases classified elsewhere; B96.20 Unspecified Escherichia coli [E. coli] as the cause of diseases classified elsewhere; N93.9 Abnormal uterine and vaginal bleeding, unspecified; Z16.12 Extended spectrum beta lactamase (ESBL) resistance; Z88.5 Allergy status to narcotic agent; Z88.2 Allergy status to sulfonamides; Z79.4 Long term (current) use of insulin; Z99.3 Dependence on wheelchair; Z83.3 Family history of diabetes mellitus
CPT/HCPCS: 36415-UA; 74000-TC; 80048-TC; 80053-TC; 80061-TC; 81001-TC; 82948-90; 83036-90; 83690-TC; 84443-TC; 85025-TC; 87070-90; 87075-90; 87086-90; 96374; J0696; J1815; J2185; J2543; J7030; J7040; Z7610